=== PATIENT | female | born 1955 | race Caucasian/White ===

== ENCOUNTER 2016-05-19 10:55 | Day surgery (SDC) | payer OTHER ==
[2016-05-14 13:44] VITALS: BMI 37.8
[~2016-05-19 10:55] MED LIST: DEXAMETHASONE SOD PHOSPHATE 10 MG/ML 1 ML VIAL IV ONE; HEPARIN SODIUM,PORCINE 5,000 UNIT/ML 1 ML VIAL SQ ONE; LACTATED RINGERS 1,000 ML IV SCH; LIDOCAINE 1% 20 ML VIAL (10MG/ML) FOR IV START INTRADERMA PRN; ONDANSETRON 4 MG/2 ML VIAL IVP ONE; SCOPOLAMINE 1.5MG/72HR PATCH TRANSDERM ONE; ceFAZolin 2 GM in SODIUM CHLORIDE 0.9% 100 ML IVPB ONE
[2016-05-19] MEDS ORDERED: GLYCOPYRROLATE 0.2 MG/ML 2 ML VIAL ONE (13:08)
[2016-05-19] MEDS ORDERED: fentaNYL (PF) 50 MCG/ML 2 ML AMP ONE (13:08)
[2016-05-19] MEDS ORDERED: LIDOCAINE 1% INJ 10MG/ML (20 ML MDV) ONE (13:08)
[2016-05-19] MEDS ORDERED: SUCCINYLCHOLINE CHLORIDE 100 MG/5 ML SYR IV ONE (13:08)
[2016-05-19] MEDS ORDERED: NEOSTIGMINE 1 MG/ML 10 ML VIAL ONE (13:08)
[2016-05-19] MEDS ORDERED: MIDAZOLAM 2 MG/2 ML VIAL ONE (13:08)
[2016-05-19] MEDS ORDERED: ROCURONIUM BROMIDE 10 MG/ML 10 ML VIAL IV ONE (13:08)
[2016-05-19] MEDS ORDERED: KETOROLAC 30 MG/ML 1 ML VIAL ONE (13:08)
[2016-05-19] MEDS ORDERED: PROPOFOL 10 MG/ML 20 ML VIAL IV ONE (13:08)
[2016-05-19] MEDS ORDERED: HYDROmorphone (PF) 1 MG/ML ONE (13:08)
[2016-05-19] MEDS ORDERED: BUPIVACAIN-EPI 0.25%-1:200,000 30 ML VIAL SQ ONE (13:31)
[2016-05-19] MEDS: HYDROmorphone 1 MG/ML 1 ML SYRINGE IVP PRN ×4 (14:18→14:42)
[2016-05-19 14:24] VITALS: RESP 18; TEMP 97
[2016-05-19] MEDS ORDERED: ONDANSETRON 4 MG/2 ML VIAL IVP ONE (14:27)
[2016-05-19 15:18] VITALS: BP 123/76; PULSE 90
--- NOTE | 2016-07-07 17:55 | P.OP ---
Date of Procedure: 05/19/16 Preoperative Diagnosis: Symptomatic cholelithiasis Postoperative Diagnosis: Same Procedure(s) Performed: Laparoscopic cholecystectomy Anesthesia: MACIEJ Surgeon: Lina Singh Pathology: other Condition: stable (ASA 3) Disposition: PACU Indications for Procedure: 61 years old female presents with symptomatic cholelithiasis. Informed consent obtained patient opted to undergo laparoscopic cholecystectomy possible open Description of Procedure: The patient was brought to the operating room and placed in supine position with both arms out. General anesthesia with endotracheal intubation was performed as per anesthesia team. Chlorhexidine was used to prep the abdomen followed by application of sterile drapes. A timeout was performed to verify correct patient and correct procedure. Patient was confirmed to receive perioperative IV antibiotics , heparin 5000 units subcutaneous injection and bilateral SCDs were placed. A 5 mm skin incision was made below the left costal margin at the anterior axillary line. A Veress needle was inserted and pneumoperitoneum was established to a pressure of 15 mmHg. A 5 mm Optiview trocar was loaded on a 5 mm 30 laparoscope and the peritoneal cavity was entered under direct vision using the Optiview technique. Additional 5 mm trocar was placed in the supraumbilical location and two 5 mm trocars along the right subcostal margin. The left 5 mm trocar was upsized to 10mm. The patient was placed in reverse Trendelenburg with right side up. The fundus of the gallbladder was grasped with an atraumatic grasper and was retracted over the dome of the liver. The infundibulum was grasped with an atraumatic grasper and retracted towards the pelvis to expose the Calot's triangle. Lateral and medial peritoneal attachment of the gallbladder bladder was dissected. Circumferential dissection was carried out around the cystic artery and the cystic duct to obtain adequate length for clip application. All the surrounding fibrofatty tissue were removed. Critical view was obtained with cystic duct and cystic artery as the only two structures entering the gallbladder. Two clips were applied on the patient's side and one on the specimen side on the cystic duct first followed by the cystic artery. Endoshears were used to divide the cystic duct and the cystic artery. The gallbladder was taken off the liver bed using a L-hook. It was placed in an endocatch specimen bag and removed through the 10mm port. The gallbladder was passed off as a specimen. The abdominal cavity was inspected. The clips on the cystic duct and cystic artery stump were intact and no bleeding noted from the liver bed. All the trocar sites were examined and no evidence of bleeding. The 10mm port site was closed with two transfascial sutures of 0 Vicryl using a Delano Anai device. The pneumoperitoneum was evacuated and all the trocars were removed. Local anesthetic was infiltrated along the trocar sites and incisions were closed using 4-0 Monocryl followed by application of Dermabond skin glue. The sponge, instrument and needle count were correct x2. Patient was extubated and taken to post anesthesia care unit in stable condition.
--- NOTE | 2016-07-09 12:11 | P.GSHP ---
History of Present Illness H&P Date: 05/19/16 61 yr old female initially presented in 11/2015 with RUQ pain worsened with greasy food. US showed gallstones. HIDA - hypercontractile GB function. No fever , chills or rigor. She has seen Dr. Lawrence . She is high risk for perioperative pulmonary complications. Now has diarrhea and rectal bleeding. EGD showed Hillgrade 2 hiatal hernia, H.pylori negative. Colonoscopy- rectal mucosal prolapse, sigmoid diverticulosis and rectal mucosal prolapse Still has pain in RUQ with food. ROS Additionally reports: Constitutional: No fever, chills or rigors. No weight loss or loss of appetite. HEENT: No difficulty with hearing, vision and swallowing. Lymphatic: No axillary, inguinal and cervical swellings. Endocrine: Hypothyroidism. Denies history of diabetes. Respiratory: Chronic cough. COPD on home 02 at 3L/nydia Cardiovascular: No palpitations, irregular HR Gastrointestinal: Diarrhea and heartburn Genitourinary: No increase in urinary frequency or urgency. No hematuria. Musculoskeletal: Has back pain and knee pain Neurologic: No history of seizure disorder and headaches. Psychiatric: Has depression and chronic pain Hematologic: Denies any abnormal mucosal bleeding or easy bruising. Physical Exam Patient is a 61-year-old female. Constitutional: General Appearance: well-developed and obese. Level of Distress : mild distress. Ambulation: ambulation with cane and walker. Psychiatric: Insight: good judgement. Orientation: to time, place, and person. Head: Head: normocephalic and atraumatic. Eyes: Lids and Conjunctivae: no discharge or pallor and non-injected. Sclerae: non-icteric. ENMT: Oropharynx: moist mucous membranes. Lungs: Respiratory effort: dyspneic and use of accessory muscles. Auscultation: breath sounds normal. Abdomen: Bowel Sounds: normal. Inspection and Palpation: no tenderness or guarding and soft and non-distended. Musculoskeletal:: Motor Strength and Tone: normal and normal tone. Joints, Bones , and Muscles: normal movement of all extremities. Extremities: no cyanosis or edema. Neurologic: Gait and Station: normal gait and station. Cranial Nerves: grossly intact. Assessment / Plan 1. EGD and colonoscopy findings discussed . Manage GERD with PPIs 2. Anemia resolved - Last Hb 12.6 . 3. She will be attending weight loss program at [facility] 4. Concerned about celiac disease. Requesting Gi referral 5. Symptomatic cholelithiasis. Informed consent obtained from the patient after explaining the risks, benefits and potential complications of laparoscopic cholecystectomy including bleeding, infection, DVT , inadvertent bile duct injury and possibility of converting to open. Patient demonstrated understanding of the procedure and agreed to undergo lap nata possible open at a later date 6. Expected post op course discussed including no heavy lifting >10 lbs for 6 weeks post surgery Preop orders: 1. Ancef 2 gm IVPB x1 2. Bilateral lower extremity SCDs 3. Heparin 5000 Units SQ injection x1 1. Cholelithiasis without obstruction K80.20: Calculus of gallbladder without cholecystitis without obstruction 2. Chronic obstructive lung disease J44.9: Chronic obstructive pulmonary disease, unspecified CHRONIC OBSTRUCTIVE PULMONARY DISEASE (COPD): CARE INSTRUCTIONS LEARNING ABOUT COPD AND HOW TO PREVENT LUNG INFECTIONS 3. Gastroesophageal reflux disease without esophagitis K21.9: Gastro-esophageal reflux disease without esophagitis 4. Painless rectal bleeding K62.5: Hemorrhage of anus and rectum 5. Diarrhea R19.7: Diarrhea, unspecified DIARRHEA: CARE INSTRUCTIONS 6. Body mass index 30+ - obesity Z68.39: Body mass index (BMI) 39.0-39.9, adult Past Medical History Past Medical History: COPD, GERD/Reflux, Hyperlipidemia, Hypertension, Osteoarthritis (OA), Sleep Apnea/CPAP/BIPAP Additional Past Medical History / Comment(s): Osteoporosis,uses cpap,sob,hiatal hernia,tremors,dtr states "has 40% lung copacity" History of Any Multi-Drug Resistant Organisms: None Reported Past Surgical History: No Surgical Hx Reported Additional Past Surgical History / Comment(s): EGD,colonoscopy Past Anesthesia/Blood Transfusion Reactions: Previous Problems w/ Anesthesia, Family History of Problems w/ Anesthesia Additional Past Anesthesia/Blood Transfusion Reaction / Comment(s): hx of O2 sats dropping with sedation during EGD/Colonoscopy,never has had general anesthesia,son arrested during surgery-hx of being on oxygen.no hx blood transfusion Past Psychological History: Anxiety, PTSD Smoking Status: Former smoker Past Alcohol Use History: None Reported Additional Past Alcohol Use History / Comment(s): quit smoking 2015,smoked approx 40 yrs 1ppd Past Drug Use History: None Reported - Past Family History Mother Family Medical History: Cancer, Diabetes Mellitus, Myocardial Infarction ([place]) Additional Family Medical History / Comment(s): skin, in her 80's of [place] Father Family Medical History: No Reported History Brother(s) Family Medical History: Myocardial Infarction ([place]) Medications and Allergies Home Medications Medication Instructions Recorded Confirmed Type Albuterol Sulfate [Proair Hfa] 1 - 2 puff INHALATION RT-Q6H PRN 08/31/15 History Diphenoxylate HCl/Atropine 2 tab PO QID PRN 08/31/15 05/19/16 History [Lomotil] Ipratropium/Albuterol Sulfate 2 puff INHALATION RT-BID 08/31/15 05/19/16 History [Combivent Respimat Inhaler] Primidone [Mysoline] 250 mg PO TID 08/31/15 05/19/16 History ARIPiprazole [Abilify] 10 mg PO HS 10/29/15 05/19/16 History Calcium Carbonate/Vitamin D3 1 tab PO BID 10/29/15 05/19/16 History [Calcium 600-Vit D3 800 Tab] Cholecalciferol [Vitamin D3] 2,000 unit PO DAILY 10/29/15 05/19/16 History Ibuprofen [Motrin] 600 mg PO QID PRN 10/29/15 05/19/16 History Ipratropium-Albuterol Nebulize 3 ml INHALATION RT-QID PRN 10/29/15 05/19/16 History [Duoneb 0.5 mg-3 mg/3 ml Soln] Fluticasone/Salmeterol [Advair Hfa 2 puff INHALATION RT-BID 01/29/16 05/19/16 History 230-21 Mcg Inhaler] Gluc/[place]-MSM#1/C/Seb/Ghanshyam/Bor 1 tab PO BID 01/29/16 05/19/16 History [Glucosamine-Chondroitin Tablet] L.acidoph,Paracasei, B.lactis 1 cap PO DAILY 01/29/16 05/19/16 History [Probiotic] Levothyroxine Sodium [Synthroid] 25 mcg PO QAM 01/29/16 05/19/16 History Pantoprazole Sodium [Protonix] 40 mg PO QAM 01/29/16 05/19/16 History Tiotropium 18 Mcg/Puff [Spiriva] 1 cap INHALATION QAM 01/29/16 05/19/16 History oxyCODONE HCL 10 mg PO Q8H PRN 01/29/16 05/19/16 History Dicyclomine [Bentyl] 10 mg PO QID 05/14/16 05/19/16 History Simvastatin [Zocor] 20 mg PO HS 05/14/16 05/19/16 History Allergies Allergy/AdvReac Type Severity Reaction Status Date / Time No Known Allergies Allergy Verified 05/19/16 11:27 Surgical - Exam Vital Signs Temp Pulse Resp BP Pulse Ox 98.5 F 109 H 22 139/81 96 05/19/16 11:26 05/19/16 11:26 05/19/16 11:26 05/19/16 11:26 05/19/16 11:26 Assessment and Plan (1) Hypertension Status: Acute (2) Sleep apnea Status: Acute (3) COPD (chronic obstructive pulmonary disease) Status: Acute
== END 2016-05-19 15:31 | disposition home or self-care (01) ==
LOC: OR 10:55
PROVIDERS: ATTEND Surgery
DX: K80.10 Calculus of gallbladder with chronic cholecystitis without obstruction (principal); I10 Essential (primary) hypertension; E78.5 Hyperlipidemia, unspecified; J44.9 Chronic obstructive pulmonary disease, unspecified; Z87.891 Personal history of nicotine dependence; G47.33 Obstructive sleep apnea (adult) (pediatric); F41.9 Anxiety disorder, unspecified; F43.10 Post-traumatic stress disorder, unspecified; E07.9 Disorder of thyroid, unspecified; Z79.1 Long term (current) use of non-steroidal anti-inflammatories (NSAID); Z79.51 Long term (current) use of inhaled steroids; Z79.899 Other long term (current) drug therapy; Z99.81 Dependence on supplemental oxygen
CPT/HCPCS: 88304; 47562; J2250; J1644; J1100; J2710; J0690; J2405; J2001; J3010; J1885; J1170; J0330; J2704

== ENCOUNTER → 2016-05-29 | Outpatient (CLI) | payer OTHER ==
--- NOTE | 2016-05-29 11:22 | PN ---
DATE OF SERVICE: 05/29/2016 A 61-year-old lady who has been [facility] for obstructive sleep apnea-hypopnea syndrome. During previous polysomnogram which was done on 01/28/2016, apnea-hypopnea index was 3.7, which considered to be in normal range but in REM sleep it was 12.4 and lowest oxygen level was 78.8%. Presently patient is on treatment with oxygen supplement 3 L per minute 24 hours a day and she feels comfortable with that, does not feel significant sleepiness. [place] Sleepiness Scale today is 7. According to her daughter, she snores, but he did not hear any episodes of breathing problem during the sleep. Only my concern is that increased her weight as the polysomnogram from 195 pounds up to 220 pounds today. MEDICATIONS: Abilify, oxycodone, primidone, ( ), pantoprazole, Zoloft, Advair, Combivent, ProAir, pravastatin, melatonin, vitamin D3 supplement, glucosamine, calcium supplement, Synthroid. During physical exam, patient without distress on oxygen supplement 3 L per minute. BP 134/88, HR 86, RR 16, temp 97.9. Weight 220, height 5, 3, BMI 38.9. Oxygen saturation 99%. Oropharynx low position of soft palate. ABDOMEN: Obese. NECK: Supple. No JVD, Thyroid is not palpable. LUNGS: Clear to percussion and to auscultation. Good air exchange. No wheezing or rhonchi. HEART: S1, S2 regular. No murmurs, gallops, or rubs. APPLIANCE LINE ASSEMBLER: Awake, alert, and oriented x3. Cranial nerves 2 to 7 intact. There is no fasciculation or atrophy noted. No focal deficits observed. IMPRESSION: 1. History of obstructive sleep apnea-hypopnea syndrome. No significant respiratory abnormalities during the last polysomnogram in January of 2016. but since that time patient increased her weight on about 25 pounds. 2. Oxygen level during the test was below normal for 6 minutes during the sleep study but presently she is on oxygen supplement. 3. Chronic obstructive pulmonary disease. 4. Obesity. 5. History of posttraumatic stress disorder. 6. Depression. 7. Knee problem. 8. Back pain. 9. History of sleep delay syndrome. 10. Hypothyroidism. PLAN: 1. We will repeat the sleep study preferably at home to re-evaluate patient's breathing during the sleep. 2. Losing weight. 3. Sleep hygiene with regular time in bed for at least 8 hours. 4. Patient does not drive at the present time. Thank you very much for allowing me to participate in the management of your patient. Sincerely, Alcides King MD, PhD, FAASM Diplomat of [place] [employer], Sleep Medicine Board by [place] [employer] [place] [employer] [place] Sales Representative of [facility] [place]
== END | disposition home or self-care (01) ==
LOC: SLEEP 09:59
PROVIDERS: ATTEND Internal Medicine
DX: G47.33 Obstructive sleep apnea (adult) (pediatric) (principal); J44.9 Chronic obstructive pulmonary disease, unspecified; E66.9 Obesity, unspecified; F43.10 Post-traumatic stress disorder, unspecified; F32.9 Major depressive disorder, single episode, unspecified; M54.9 Dorsalgia, unspecified; G47.21 Circadian rhythm sleep disorder, delayed sleep phase type; E03.9 Hypothyroidism, unspecified; Z68.38 Body mass index [BMI] 38.0-38.9, adult

== ENCOUNTER → 2016-08-14 | Outpatient (CLI) | payer OTHER ==
--- NOTE | 2016-08-14 12:18 | PN ---
DATE OF SERVICE: 08/14/2016 A 61-year-old lady who has been followed in the sleep center to discuss results of the sleep studies. The patient previously was treated on CPAP for obstructive sleep apnea/hypopnea syndrome then sleep study was done and showed no significant respiratory abnormalities but patient increased her weight and I ordered to repeat the sleep study again. When the sleep study was repeated on 07/18/16, there was no significant respiratory abnormalities at all, apnea-hypopnea index was 0.3 with oxygen level above 84.3%.The time of the low oxygen below 88% was only 0.7 minutes. Subsequently results of the test was normal regarding to her sleep apnea and did not show significant amount of sleep apneas or hypopneas. Today, her weight again is 218.6 pounds, which is 23 pounds more than during the sleep study. She does not use machine at the present time. She is using oxygen 24 hours a day 3 L per minute. She has some snoring during sleep at home and moderate to loud snoring also documented during the sleep test. MEDICATIONS: Abilify, Oxycodone, Primidone, Lomotil, pantoprazole, Zoloft, Advair, Pro-Air, Combivent, pravastatin, melatonin, Vitamin D3, calcium supplement, Synthroid. During physical exam, patient is in no distress. VITAL SIGNS: BP 131/85, HR 107, RR 15, height 63 inches, weight 218.6. BMI 38.6. Temperature 98.1. Oxygen saturation on 3 L per minute oxygen supplement 98%. HEENT: PERRLA, EOMI. Oropharynx low position of soft palate. NECK: Supple. No JVD, Thyroid is not palpable. LUNGS: Clear to percussion and to auscultation. Good air exchange. No wheezing or rhonchi. HEART: S1, S2 regular. Tachycardia. ABDOMEN: Obese. LOAD DISPATCHER: Awake, alert, and oriented x3. Cranial nerves 2 to 7 intact. There is no fasciculation or atrophy noted. No focal deficits observed. EXTREMITIES: No edema. IMPRESSION: 1. No significant respiratory abnormalities on evaluation due to sleep apneas and hypopneas by last sleep study, which was done on 07/08/16, but since that time patient again increased her weight on about 18 pounds. 2. Moderate to loud snoring had been documented during the sleep study. 3. Obesity. 4. Chronic obstructive pulmonary disease. 5. History of posttraumatic stress disorder. 6. Depression. 7. Knee problem. 8. Back pain. 9. History of sleep delay syndrome. 10. Hypothyroidism. PLAN: 1. Losing weight. 2. Sleep hygiene with regular time in bed for at least 8 hours. 3. No driving if feeling any sleepiness. 4. Patient will continue to use her oxygen. Thank you very much for allowing me to participate in the management of your patient. Sincerely, Alcides King MD, PhD, FAASM Diplomat of [place] [employer] Sleep Medicine, Sleep Medicine Board by [place] [employer] [place] [employer] Powder Loader of [facility] [place]
== END ==
LOC: SLEEP 10:13
PROVIDERS: ATTEND Internal Medicine
DX: R06.83 Snoring (principal); F32.9 Major depressive disorder, single episode, unspecified; E66.9 Obesity, unspecified; E03.9 Hypothyroidism, unspecified; Z79.51 Long term (current) use of inhaled steroids; Z79.899 Other long term (current) drug therapy

== ENCOUNTER 2016-09-08 06:35 | Day surgery (SDC) | payer OTHER ==
[2016-09-03 09:41] VITALS: BMI 37.4
[~2016-09-08 06:35] MED LIST changes: -HEPARIN SODIUM,PORCINE 5,000 UNIT/ML 1 ML VIAL SQ ONE; +HYDROmorphone 1 MG/ML 1 ML SYRINGE IVP PRN; -LIDOCAINE 1% 20 ML VIAL (10MG/ML) FOR IV START INTRADERMA PRN; +MIDAZOLAM 2 MG/2 ML VIAL IV PRN; +Pre Op ABX Message 1 EACH MISC MISCELLANE ONE; -ceFAZolin 2 GM in SODIUM CHLORIDE 0.9% 100 ML IVPB ONE
[2016-09-08] MEDS ORDERED: LIDOCAINE 1% 20 ML VIAL (10MG/ML) FOR IV START INTRADERMA ONE (07:15)
[2016-09-08] MEDS ORDERED: BUPIVACAINE (PF) 0.5% 30 ML VIAL INTRAARTIC ONE (07:30)
[2016-09-08] MEDS ORDERED: MIDAZOLAM 2 MG/2 ML VIAL ONE (07:30)
[2016-09-08] MEDS ORDERED: fentaNYL (PF) 50 MCG/ML 2 ML AMP ONE (07:30)
[2016-09-08] MEDS ORDERED: SODIUM CHLORIDE 0.9% 100 ML with ceFAZolin 2,000 MG IV ONE ×2 (07:58)
[2016-09-08 08:48] VITALS: RESP 16; TEMP 97.6
[2016-09-08 11:17] VITALS: BP 123/75; PULSE 96
--- NOTE | 2016-09-17 07:54 | OP ---
DATE OF SERVICE: 09/08/2016 SURGEON: Toni Olsen DO EMERGENCY VEHICLE DRIVER: none PREOPERATIVE DIAGNOSIS: Degenerative joint disease of the left knee with torn medial meniscus. 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 PROCEDURE PERFORMED: Left knee arthroscopy partial medial meniscectomy and medial femoral chondroplasty. ANESTHESIA: PROCEDURE: Patient was taken to the operative suite and placed in supine position. General inhalation anesthesia was performed by the department of anesthesiology. The left leg is positioned into leg stephenson. Betadine prep carried out over the left knee, mid thigh to mid calf . Sterile drapes applied in the usual manner. The superior trocar was inserted. The scope was then inserted anterior and inferior lateral portal and medial compartment. No evidence of medial meniscus displacement at this time. The ACL remains intact. Bilateral meniscus was examined and evidence of mild peripheral degenerative change of the lateral meniscus has been noted. Condyle shaver was performed at this time. Irrigation of the joint performed. All instruments were removed. Portal wounds were approximated with 3-0 Vicryl suture. Sterile dressing was applied. Patient was transferred to the recovery room in satisfactory postop condition. GROSS PATHOLOGY: There was partial tear of the medial meniscus grade 2 chondromalacia of the medial femoral condyle. MTDD
== END 2016-09-08 11:45 | disposition home or self-care (01) ==
LOC: OR 06:35
PROVIDERS: ATTEND Orthopaedic Surgery
DX: S83.242A Other tear of medial meniscus, current injury, left knee, initial encounter (principal); X58.XXXA Exposure to other specified factors, initial encounter; M94.262 Chondromalacia, left knee; M17.12 Unilateral primary osteoarthritis, left knee; I10 Essential (primary) hypertension; E78.5 Hyperlipidemia, unspecified; J44.9 Chronic obstructive pulmonary disease, unspecified; G47.33 Obstructive sleep apnea (adult) (pediatric); Z99.81 Dependence on supplemental oxygen; Z87.891 Personal history of nicotine dependence; K21.9 Gastro-esophageal reflux disease without esophagitis; F32.9 Major depressive disorder, single episode, unspecified; F43.10 Post-traumatic stress disorder, unspecified; E07.9 Disorder of thyroid, unspecified; Z79.891 Long term (current) use of opiate analgesic; Z79.899 Other long term (current) drug therapy
CPT/HCPCS: 29881; J2250; J1100; J2405; J3010; J0690

== ENCOUNTER → 2016-12-19 | Outpatient (CLI) | payer OTHER ==
--- NOTE | 2016-12-19 11:51 | CT ---
EXAMINATION TYPE: CT chest w con DATE OF EXAM: 12/19/2016 COMPARISON: NONE HISTORY: Multiple lung nodules CT DLP: 558.2 mGycm, Automated exposure control for dose reduction was used. CONTRAST: Performed injected with 100 mL of Omnipaque 300. TECHNIQUE: Axial images were obtained at 5 mm thick sections. Reconstructed images are reviewed on [facility] computer in the coronal plane. FINDINGS: Portion of the thyroid visualized is normal. Some areas of pneumonitis are within the posterior lingula adjacent to the major fissure in the left midlung. There is a 0.5 cm nodule within the anterior right middle lobe. Series 5 image 36. No enlarged mediastinal or hilar adenopathy is evident. The ascending aorta diameter at the level o f the main pulmonary artery is 3.7 cm. The main pulmonary artery diameter at the bifurcation is 2.[address] sections are obtained through the upper abdomen. Abdomen is essentially unremarkable. IMPRESSIONS: 1. 0.5 cm nodule anterior right mid lung. 2. Area of pneumonitis within the lingula.
== END | disposition home or self-care (01) ==
LOC: RADCTMAIN 09:02
PROVIDERS: ATTEND Internal Medicine Critical Care Medicine
DX: J18.9 Pneumonia, unspecified organism (principal); R91.1 Solitary pulmonary nodule
CPT/HCPCS: 71260; Q9967

== ENCOUNTER 2017-05-23 13:03 | Inpatient (IN) | payer OTHER ==
[2017-05-23] MEDS ORDERED: IPRATROPIUM-ALBUTEROL 3 ML NEB INHALATION STA (13:16)
--- NOTE | 2017-05-23 13:19 | ED ---
General Adult HPI - General Stated complaint: Chest pain Time Seen by Provider: 05/23/17 13:05 Source: RN notes reviewed - History of Present Illness Initial comments: This is a 62-year-old female with past medical history significant for COPD. Patient states the last 3 days been coughing up some blood and a little bit of sputum as well. Patient states she's had no fever. Patient states today she started having left-sided chest pain which radiates to her back. Patient denies any diaphoretic episodes. Patient denies any nausea. Patient denies abdominal pain patient denies vomiting or diarrhea. Patient denies any lightheadedness dizziness or near syncopal episode. Patient denies any headache patient denies any numbness or weakness. Patient denies any leg swelling or calf pain. - Related Data Home Medications Medication Instructions Recorded Confirmed Albuterol Sulfate [Proair Hfa] 2 puff INHALATION RT-BID PRN 08/31/15 05/23/17 Diphenoxylate HCl/Atropine 2 tab PO QID PRN 08/31/15 05/23/17 [Lomotil] Ipratropium/Albuterol Sulfate 2 puff INHALATION RT-BID 08/31/15 05/23/17 [Combivent Respimat Inhaler] Primidone [Mysoline] 250 mg PO QAM 08/31/15 05/23/17 Cholecalciferol [Vitamin D3] 2,000 unit PO QAM 10/29/15 05/23/17 Ipratropium-Albuterol Nebulize 3 ml INHALATION RT-QID PRN 10/29/15 05/23/17 [Duoneb 0.5 mg-3 mg/3 ml Soln] Fluticasone/Salmeterol [Advair Hfa 2 puff INHALATION RT-BID 01/29/16 05/23/17 230-21 Mcg Inhaler] Levothyroxine Sodium [Synthroid] 25 mcg PO QAM 01/29/16 05/23/17 Pantoprazole Sodium [Protonix] 40 mg PO QAM 01/29/16 05/23/17 Tiotropium 18 Mcg/Puff [Spiriva] 1 cap INHALATION RT-DAILY 01/29/16 05/23/17 Dicyclomine [Bentyl] 10 mg PO QID 05/14/16 05/23/17 Simvastatin [Zocor] 20 mg PO HS 05/14/16 05/23/17 Citalopram Hydrobromide [CeleXA] 20 mg PO HS 05/23/17 05/23/17 Primidone [Mysoline] 500 mg PO HS 05/23/17 05/23/17 busPIRone HCL [Buspar] 7.5 mg PO BID 05/23/17 05/23/17 Allergies Allergy/AdvReac Type Severity Reaction Status Date / Time No Known Allergies Allergy Verified 05/23/17 14:34 Review of Systems ROS Statement: Those systems with pertinent positive or pertinent negative responses have been documented in the HPI. ROS Other: All systems not noted in ROS Statement are negative. Past Medical History Past Medical History: COPD, GERD/Reflux, Hyperlipidemia, Hypertension, Osteoarthritis (OA), Sleep Apnea/CPAP/BIPAP Additional Past Medical History / Comment(s): Osteoporosis,uses cpap,sob,hiatal hernia,tremors,dtr states "has 40% lung copacity" History of Any Multi-Drug Resistant Organisms: None Reported Past Surgical History: No Surgical Hx Reported Additional Past Surgical History / Comment(s): EGD,colonoscopy Past Anesthesia/Blood Transfusion Reactions: Previous Problems w/ Anesthesia, Family History of Problems w/ Anesthesia Additional Past Anesthesia/Blood Transfusion Reaction / Comment(s): hx of O2 sats dropping with sedation during EGD/Colonoscopy,never has had general anesthesia,son arrested during surgery-hx of being on oxygen.no hx blood transfusion Smoking Status: Former smoker - Past Family History Mother Family Medical History: Cancer Additional Family Medical History / Comment(s): skin Father Family Medical History: No Reported History Brother(s) Family Medical History: Myocardial Infarction ([place]) Sister(s) Family Medical History: Cancer General Exam - General Exam Comments Initial Comments: GENERAL: Patient is well-developed and well-nourished. Patient is nontoxic and well- hydrated and is in milddistress. ENT: Neck is soft and supple. No significant lymphadenopathy is noted. Oropharynx is clear. Moist mucous membranes. Neck has full range of motion without eliciting any pain. There is no thyroid enlargement and no masses were felt. EYES: The sclera were anicteric and conjunctiva were pink and moist. Extraocular movements were intact and pupils were equal round and reactive to light. Eyelids were unremarkable. PULMONARY: Patient has diminished breath sounds bilaterally CARDIOVASCULAR: There is a regular rate and rhythm without any murmurs gallops or rubs. ABDOMEN: Soft and nontender with normal bowel sounds. No palpable organomegaly was noted. There is no palpable pulsatile mass. SKIN: Skin is clear with no lesions or rashes and otherwise unremarkable. NEUROLOGIC: Patient is alert and oriented x3. Cranial nerves II through XII are grossly intact. Motor and sensory are also intact. Normal speech, volume and content. Symmetrical smile. MUSCULOSKELETAL: Normal extremities with adequate strength and full range of motion. No lower extremity swelling or edema. No calf tenderness. LYMPHATICS: No significant lymphadenopathy is noted PSYCHIATRIC: Normal psychiatric evaluation. Normal interpersonal interactions appears functionally intact in deals appropriately with others. No signs of depression. No signs of anxiety. 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 Patient's EKG shows no ST segment elevation or depression or T wave abnormalities are noted - Lab Data Result diagrams: 05/23/17 13:25 05/23/17 13:25 Lab Results 05/23/17 05/23/17 05/23/17 Range/Units 13:25 13:25 13:25 WBC 9.0 (3.8-10.6) k/uL RBC 4.06 (3.80-5.40) m/uL Hgb 11.7 (11.4-16.0) gm/dL Hct 35.4 (34.0-46.0) % MCV 87.3 (80.0-100.0) fL MCH 28.9 (25.0-35.0) pg MCHC 33.1 (31.0-37.0) g/dL RDW 13.1 (11.5-15.5) % Plt Count 220 (150-450) k/uL Neutrophils % 79 % Lymphocytes % 13 % Monocytes % 5 % Eosinophils % 1 % Basophils % 0 % Neutrophils # 7.1 (1.3-7.7) k/uL Lymphocytes # 1.2 (1.0-4.8) k/uL Monocytes # 0.5 (0-1.0) k/uL Eosinophils # 0.1 (0-0.7) k/uL Basophils # 0.0 (0-0.2) k/uL PT (9.0-12.0) sec INR (<1.2) APTT (22.0-30.0) sec D-Dimer (<0.60) mg/L FEU Sodium 144 (137-145) mmol/L Potassium 3.8 (3.5-5.1) mmol/L Chloride 105 (98-107) mmol/L Carbon Dioxide 27 (22-30) mmol/L Anion Gap 12 mmol/L BUN 10 (7-17) mg/dL Creatinine 0.54 (0.52-1.04) mg/dL Est GFR (CKD-EPI)AfAm >90 (>60 ml/min/1.73 sqM) Est GFR (CKD-EPI)NonAf >90 (>60 ml/min/1.73 sqM) Glucose 101 H (74-99) mg/dL Calcium 9.5 (8.4-10.2) mg/dL Magnesium 1.9 (1.6-2.3) mg/dL Total Bilirubin 0.2 (0.2-1.3) mg/dL AST 13 L (14-36) U/L ALT 23 (9-52) U/L Alkaline Phosphatase 74 (38-126) U/L Total Creatine Kinase 34 (30-135) U/L CK-MB (CK-2) 0.9 (0.0-2.4) ng/mL CK-MB (CK-2) Rel Index 2.6 Troponin I <0.012 (0.000-0.034) ng/mL NT-Pro-B Natriuret Pep pg/mL Total Protein 6.4 (6.3-8.2) g/dL Albumin 4.0 (3.5-5.0) g/dL 05/23/17 05/23/17 Range/Units 13:25 13:25 WBC (3.8-10.6) k/uL RBC (3.80-5.40) m/uL Hgb (11.4-16.0) gm/dL Hct (34.0-46.0) % MCV (80.0-100.0) fL MCH (25.0-35.0) pg MCHC (31.0-37.0) g/dL RDW (11.5-15.5) % Plt Count (150-450) k/uL Neutrophils % % Lymphocytes % % Monocytes % % Eosinophils % % Basophils % % Neutrophils # (1.3-7.7) k/uL Lymphocytes # (1.0-4.8) k/uL Monocytes # (0-1.0) k/uL Eosinophils # (0-0.7) k/uL Basophils # (0-0.2) k/uL PT 9.8 (9.0-12.0) sec INR 1.0 (<1.2) APTT 27.4 (22.0-30.0) sec D-Dimer 0.80 H (<0.60) mg/L FEU Sodium (137-145) mmol/L Potassium (3.5-5.1) mmol/L Chloride (98-107) mmol/L Carbon Dioxide (22-30) mmol/L Anion Gap mmol/L BUN (7-17) mg/dL Creatinine (0.52-1.04) mg/dL Est GFR (CKD-EPI)AfAm (>60 ml/min/1.73 sqM) Est GFR (CKD-EPI)NonAf (>60 ml/min/1.73 sqM) Glucose (74-99) mg/dL Calcium (8.4-10.2) mg/dL Magnesium (1.6-2.3) mg/dL Total Bilirubin (0.2-1.3) mg/dL AST (14-36) U/L ALT (9-52) U/L Alkaline Phosphatase (38-126) U/L Total Creatine Kinase (30-135) U/L CK-MB (CK-2) (0.0-2.4) ng/mL CK-MB (CK-2) Rel Index Troponin I (0.000-0.034) ng/mL NT-Pro-B Natriuret Pep 87 pg/mL Total Protein (6.3-8.2) g/dL Albumin (3.5-5.0) g/dL Disposition Clinical Impression: Hemoptysis, Lung mass, Dyspnea, Chest pain Disposition: ADMITTED IP TO THIS HOSP Referrals: Steven Mercado MD [Primary Care Provider] - 1-2 days Time of Disposition: 15:44
[2017-05-23 13:43] LABS: Basophils % (A) 0 %; Eosinophils # (A) 0.1 k/uL (0-0.7); Eosinophils % (A) 1 %; HCT 35.4 % (34.0-46.0); HGB 11.7 gm/dL (11.4-16.0); Lymphocytes # (A) 1.2 k/uL (1.0-4.8); Lymphocytes % (A) 13 %; MCH 28.9 pg (25.0-35.0); MCHC 33.1 g/dL (31.0-37.0); MCV 87.3 fL (80.0-100.0); Mean Platelet Volume 7.6; Monocytes # (A) 0.5 k/uL (0-1.0); Monocytes % (A) 5 %; Neutrophils # (A) 7.1 k/uL (1.3-7.7); Neutrophils % (A) 79 %; Platelet Count 220 k/uL (150-450); RBC 4.06 m/uL (3.80-5.40); RDW 13.1 % (11.5-15.5)
[2017-05-23 13:53] LABS: ALT 23 U/L (9-52); AST 13 U/L (14-36); Alkaline Phosphatase 74 U/L (38-126); Anion Gap 12 mmol/L; Blood Urea Nitrogen 10 mg/dL (7-17); Calcium 9.5 mg/dL (8.4-10.2); Carbon Dioxide 27 mmol/L (22-30); Chloride 105 mmol/L (98-107); Glucose 101 mg/dL (74-99); Magnesium 1.9 mg/dL (1.6-2.3); Potassium 3.8 mmol/L (3.5-5.1); Sodium 144 mmol/L (137-145); Total Bilirubin 0.2 mg/dL (0.2-1.3); Total Protein 6.4 g/dL (6.3-8.2)
[2017-05-23 13:57] LABS: D-Dimer 0.8 mg/L FEU (<0.60)
[2017-05-23 14:02] LABS: Partial Thromboplastin Time 27.4 sec (22.0-30.0); Prothrombin Time 9.8 sec (9.0-12.0)
[2017-05-23 14:07] LABS: Creatine Kinase 34 U/L (30-135)
--- NOTE | 2017-05-23 14:15 | XR ---
EXAMINATION TYPE: XR chest 2V DATE OF EXAM: 05/23/2017 COMPARISON: Prior chest 01/29/[address] 12/19/2016 HISTORY: Difficulty breathing, chest pain and cough TECHNIQUE: Frontal and lateral views of the chest are obtained. FINDINGS: There is no focal air space opacity, pleural effusion, or pneumothorax seen. The cardiac silhouette size is within normal limits. Prominent lung volumes are indicative of underlying COPD. T here is bronchial wall thickening. The osseous structures are intact. IMPRESSION: Correlate for bronchitis, reactive airways disease, emphysema demonstrated on prior ches t CT.
[2017-05-23 14:20] LABS: Creatine Kinase MB 0.9 ng/mL (0.0-2.4); Troponin I <0.012 ng/mL (0.000-0.034)
[2017-05-23] MEDS ORDERED: RX INFO: IV CONTRAST WAS GIVEN 1 EACH MISC MISCELLANE PRN (14:35)
--- NOTE | 2017-05-23 15:21 | CT ---
EXAMINATION TYPE: CT chest angio for PE DATE OF EXAM: 05/23/2017 COMPARISON: CT chest 12/19/2016 HISTORY: SOB, Lt sided chest pain, hemoptysis CT DLP: 550 mGycm Automated exposure control for dose reduction was used. Three-dimensional reconstructions performed o n an alternate workstation. CONTRAST: CT Chest for pulmonary embolism performed with with IV Contrast, patient injected with 100 mL of Omni paque 350. FINDINGS: LUNGS: The lungs are remarkable for nodule in the right upper lobe axial image 23 measuring only 3 to 4 mm. Subcentimeter subpleural nodule present in the right upper lobe on axial image 34 shows a imer lar appearance. Some linear scarring present in the right lower lobe laterally.. Extensive centrilobu lar emphysematous changes are present. There is no pleural effusion or pneumothorax seen. The trac heobronchial tree is patent. MEDIASTINUM: There is satisfactory enhancement of the pulmonary artery and its branches, there is no CT evidence for pulmonary embolism. There are no greater than 1 cm hilar or mediastinal lymph nodes. No pericardial effusion is seen. AORTA: No additional significant abnormality is seen. OTHER: Right hilar soft tissue suspicious for adenopathy. Some ill-defined soft tissue courses along the interlobar artery measuring approximately 2 cm x 3 cm suspicious for mass IMPRESSION: No evident pulmonary embolus. Emphysema. Indeterminate pulmonary nodules, follow-up recommended. Susp ect right hilar adenopathy, right lower lobe mass. Suggest pulmonary consult.
[2017-05-23] MEDS ORDERED: SODIUM CHLORIDE 0.9% 1,000 ML IV ONE (15:44)
[2017-05-23] MEDS ORDERED: MORPHINE SULFATE/PF 10MG/10ML VL IVP ONE (16:34)
[2017-05-23 17:21] VITALS: BMI 34.7
[2017-05-23] MEDS ORDERED: ALBUTEROL INHALER 60 PUFF/8 GM INHALER INHALATION PRN (17:30)
[2017-05-23] MEDS ORDERED: IPRATROPIUM-ALBUTEROL 3 ML NEB INHALATION PRN (17:30)
[2017-05-23] MEDS ORDERED: DIPHENOX-ATROP 2.5-0.025 MG 1 EACH TAB PO PRN (17:30)
[2017-05-23] MEDS: DICYCLOMINE 10 MG CAP PO SCH ×2 (19:52→20:40)
[2017-05-23] MEDS: MORPHINE SULFATE/PF 10MG/10ML VL IVP PRN (20:38)
[2017-05-23] MEDS: PRIMIDONE 250 MG TAB PO SCH (20:40)
[2017-05-23] MEDS: busPIRone HCl 5 MG TAB PO SCH (20:40)
[2017-05-23] MEDS: ATORVASTATIN 10 MG TAB PO SCH (20:40)
[2017-05-23] MEDS: CITALOPRAM HYDROBROMIDE 20 MG TAB PO SCH (20:40)
[2017-05-23] MEDS: CYCLOBENZAPRINE 5 MG TAB PO PRN (21:09)
[2017-05-23] MEDS: SYMBICORT 160-4.5 MCG INHALER INHALATION SCH (21:15)
[2017-05-23] MEDS: IPRATROPIUM-ALBUTEROL 3 ML NEB INHALATION SCH (21:17)
[2017-05-24] MEDS: LEVOTHYROXINE 25 MCG TAB PO SCH (06:08)
[2017-05-24] MEDS: IPRATROPIUM-ALBUTEROL 3 ML NEB INHALATION SCH ×2 (08:24→18:56)
[2017-05-24] MEDS: SYMBICORT 160-4.5 MCG INHALER INHALATION SCH (08:24)
[2017-05-24] MEDS: MORPHINE SULFATE/PF 10MG/10ML VL IVP PRN (08:37)
[2017-05-24] MEDS: busPIRone HCl 5 MG TAB PO SCH ×2 (08:43→20:29)
[2017-05-24] MEDS: PRIMIDONE 250 MG TAB PO SCH ×2 (08:43→20:29)
[2017-05-24] MEDS: PANTOPRAZOLE 40 MG TABLET PO SCH (08:43)
[2017-05-24] MEDS: DICYCLOMINE 10 MG CAP PO SCH ×4 (08:43→22:28)
[2017-05-24] MEDS: CYCLOBENZAPRINE 5 MG TAB PO PRN (08:44)
[2017-05-24] MEDS ORDERED: LEVOTHYROXINE 25 MCG TAB PO SCH (09:00)
--- NOTE | 2017-05-24 09:54 | P.CNPUL ---
History of Present Illness Consult date: 05/24/17 Reason for consult: dyspnea, cough, chest pain, abnormal CXR/CT Chief complaint: Shortness of breath and left chest pain History of present illness: Consult dated 05/24/2017 62-year-old female with history of severe pain. She apparently sees my partner for COPD and also sees my partner. Subcentimeter pulmonary nodules in the right lung. Apparently he is following this and lesions. A little for the past 3 days prior to admission she comes in complaining of increasing shortness of breath cough with some blood-tinged sputum as well as some left-sided chest pain and discomfort. The patient seems be sharp in her left breast radiating to her back area. She apparently was evaluated by chest x-ray which is normal and a CT angiogram which did not reveal anything unusual certainly, there is no pulmonary embolism. When it did show was a small pulmonary nodules in the right upper lobe as well as appears to be a right hilar mass with mediastinal adenopathy. This will certainly have to be evaluated. She is a heavy smoker. Recently quit. Smokes more than 2 packs a day for more than 40 years. She denies any fever or chills. No nausea vomiting or diarrhea. The patient does have a history of COPD which appears to be stage III disease based on what she tells me, with an FEV1 that is 40% of predicted, gastroesophageal reflux disease hyperlipidemia hypertension DJD and sleep apnea syndrome. She was a heavy smoker for more than 40 years. Review of Systems A 12 point review of system is positive for shortness of breath and cough. She is coughing up a small amount of blood-tinged sputum. In addition she has a pain in the left breast and chest area which radiates to the back. Past Medical History Past Medical History: COPD, GERD/Reflux, Hyperlipidemia, Hypertension, Osteoarthritis (OA), Sleep Apnea/CPAP/BIPAP Additional Past Medical History / Comment(s): Osteoporosis,uses cpap,sob,hiatal hernia,tremors,dtr states "has 40% lung copacity" History of Any Multi-Drug Resistant Organisms: None Reported Past Surgical History: No Surgical Hx Reported Additional Past Surgical History / Comment(s): EGD,colonoscopy Past Anesthesia/Blood Transfusion Reactions: Previous Problems w/ Anesthesia, Family History of Problems w/ Anesthesia Additional Past Anesthesia/Blood Transfusion Reaction / Comment(s): hx of O2 sats dropping with sedation during EGD/Colonoscopy,never has had general anesthesia,son arrested during surgery-hx of being on oxygen.no hx blood transfusion Past Psychological History: Anxiety, PTSD Smoking Status: Former smoker Past Alcohol Use History: None Reported Additional Past Alcohol Use History / Comment(s): quit smoking 2015,smoked approx 40 yrs 1ppd Past Drug Use History: None Reported - Past Family History Mother Family Medical History: Cancer Additional Family Medical History / Comment(s): skin Father Family Medical History: No Reported History Brother(s) Family Medical History: Myocardial Infarction ([place]) Sister(s) Family Medical History: Cancer Additional Family Medical History / Comment(s): cancer skin mom skin ca Medications and Allergies Home Medications Medication Instructions Recorded Confirmed Type Albuterol Sulfate [Proair Hfa] 2 puff INHALATION RT-BID PRN 08/31/15 05/23/17 History Diphenoxylate HCl/Atropine 2 tab PO QID PRN 08/31/15 05/23/17 History [Lomotil] Ipratropium/Albuterol Sulfate 2 puff INHALATION RT-BID 08/31/15 05/23/17 History [Combivent Respimat Inhaler] Primidone [Mysoline] 250 mg PO QAM 08/31/15 05/23/17 History Cholecalciferol [Vitamin D3] 2,000 unit PO QAM 10/29/15 05/23/17 History Ipratropium-Albuterol Nebulize 3 ml INHALATION RT-QID PRN 10/29/15 05/23/17 History [Duoneb 0.5 mg-3 mg/3 ml Soln] Fluticasone/Salmeterol [Advair Hfa 2 puff INHALATION RT-BID 01/29/16 05/23/17 History 230-21 Mcg Inhaler] Levothyroxine Sodium [Synthroid] 25 mcg PO QAM 01/29/16 05/23/17 History Pantoprazole Sodium [Protonix] 40 mg PO QAM 01/29/16 05/23/17 History Tiotropium 18 Mcg/Puff [Spiriva] 1 cap INHALATION RT-DAILY 01/29/16 05/23/17 History Dicyclomine [Bentyl] 10 mg PO QID 05/14/16 05/23/17 History Simvastatin [Zocor] 20 mg PO HS 05/14/16 05/23/17 History Citalopram Hydrobromide [CeleXA] 20 mg PO HS 05/23/17 05/23/17 History Primidone [Mysoline] 500 mg PO HS 05/23/17 05/23/17 History busPIRone HCL [Buspar] 7.5 mg PO BID 05/23/17 05/23/17 History Allergies Allergy/AdvReac Type Severity Reaction Status Date / Time No Known Allergies Allergy Verified 05/23/17 14:34 Physical Exam Osteopathic Statement: *. No significant issues noted on an osteopathic structural exam other than those noted in the History and Physical/Consult. Vitals: Vital Signs Temp Pulse Pulse Pulse Resp BP BP 05/24/17 08:38 92 05/24/17 08:25 92 05/24/17 07:00 98.7 F 99 20 125/86 05/23/17 23:00 99.3 F 95 20 111/78 05/23/17 21:27 100 05/23/17 21:17 98 05/23/17 17:20 98.6 F 98 20 122/78 05/23/17 16:32 100 22 128/81 05/23/17 15:25 99 24 128/78 05/23/17 14:30 98 23 130/78 05/23/17 13:41 107 H 05/23/17 13:22 113 H 05/23/17 13:17 98.7 F 114 H 25 H 142/75 Pulse Ox 05/24/17 08:38 05/24/17 08:25 05/24/17 07:00 95 05/23/17 23:00 99 05/23/17 21:27 05/23/17 21:17 05/23/17 17:20 96 05/23/17 16:32 96 05/23/17 15:25 97 05/23/17 14:30 98 05/23/17 13:41 05/23/17 13:22 05/23/17 13:17 100 Intake and Output 05/23/17 05/24/17 05/24/17 22:59 06:59 14:59 Intake Total 300 600 Balance 300 600 Intake: IV 300 600 Sodium Chloride 0.9% 1, 300 600 000 ml @ 75 mls/hr IV . [id number] Rx#:[id number] Other: Voiding Method Toilet Weight 91.626 kg No acute distress, oriented 3. Nasal O2 in place. HEENT examination is grossly unremarkable. Mucous membranes are moist. No oral lesions. Neck supple. Full range of motion. No adenopathy thyromegaly or neck vein distention. Cardiovascular examination reveals regular rhythm rate. S1-S2 normal. No S3 or S4. No discernible murmur noted. Lungs reveal diminished breath sounds. There is diffuse inspiratory and expiratory wheezes and rhonchi. No crackles. There is prolongation on forced maneuver. Abdomen soft bowel sounds are heard. No masses or tenderness. Extremities are intact. No cyanosis clubbing or edema. Skin is without rash or lesion. Neurologic examination is brief but nonfocal. Results - Laboratory Findings CBC and BMP: 05/23/17 13:25 05/23/17 13:25 PT/INR, D-dimer PT 9.8 sec (9.0-12.0) 05/23/17 13:25 INR 1.0 (<1.2) 05/23/17 13:25 D-Dimer 0.80 mg/L FEU (<0.60) H 05/23/17 13:25 Abnormal lab findings: Abnormal Labs 05/23/17 05/23/17 13:25 13:25 D-Dimer 0.80 H Glucose 101 H AST 13 L - Diagnostic Findings Chest x-ray: image reviewed (Chest x-ray labs and medications are all reviewed.) Assessment and Plan Assessment: Assessment COPD exacerbation complicated by mild purulent tracheobronchitis and mild hemoptysis History of heavy tobacco abuse Stage III COPD, with a predicted FEV1 of 40% Hyperlipidemia Hypertension DJD Sleep apnea syndrome Subcentimeter pulmonary nodule/nodules right upper lobe, being followed by my partner Right hilar mass/mediastinal adenopathy, rule out bronchogenic carcinoma versus reactive adenopathy Left-sided chest pain, unclear etiology. Hypothyroidism Plan: Plan dated 05/24/2017 For the COPD, the patient will be started on usual medications including short acting beta agonist, short acting muscarinic antagonist, long-acting beta agonist, inhaled corticosteroids. We'll also place her on systemic corticosteroids and oral antibiotics. In the end, she may need a bronchoscopy and airway evaluation. I'll leave that up to my partner. He apparently knows her. The pulmonary nodules in the right upper lobe will have to be continued to be watched. Additional recommendations and suggestions are forthcoming. The chest pain is an enigma. Time with Patient: Greater than 30
[2017-05-24] MEDS: CHOLECALCIFEROL 1,000 UNIT TAB PO SCH (12:14)
[2017-05-24] MEDS: methylPREDNISolone SOD SUCCI 125 MG/2 ML VIAL IV SCH ×2 (12:14→17:19)
[2017-05-24] MEDS ORDERED: LEVOFLOXACIN 750MG-D5W PMX 750 MG in DEXTROSE/WATER 1 150ML.BAG IVPB SCH (13:00)
--- NOTE | 2017-05-24 15:34 | P.HPIM ---
History of Present Illness H&P Date: 05/24/17 Chief Complaint: shortness of rbeath 62 years old female patient of Dr. Mercado. Informed about the admission in the morning. Patient evaluated at bedside was stopped she has past medical history of hyperlipidemia, hypertension, sleep apnea currently not using CPAP as she was told she no longer has that, osteoarthritis and COPD patient wears 3 L of oxygen at rest. She states she has shortness of breath and cough for the past 2 weeks but patient started having bloody sputum associated with some left-sided chest pain and discomfort for the past 2 days. Patient states the sputum color has changed to greenish phlegm now stop she was recently evaluated for pulmonary nodule in the left, 2 years ago, she denies any history of recurrent infection. She does admit to sick contacts. Patient denies any history of heart attacks or heart failure in the past. She denies any fever or chills or flulike symptoms. Labs done in the ER was positive for d -dimer 0.8 which led to CTA of chest which showed right hilar soft tissue suspicious for adenopathy with some ill defined soft tissue approximately doing to 3 cm in size suspicious for lung tumor. Pulmonary evaluated the patient and recommends bronchoscopy. Patient is admitted for acute COPD exacerbation, bronchitis. Evaluation of the lung mass. Chest pain appears to be atypical as troponin 3 is negative with EKG with no ST or T-wave changes. Review of Systems Constitutional: Denies chills, Denies fever, Denies lethargy, Denies malaise, Denies poor appetite, Denies weakness, Denies weight loss Eyes: denies decreased vision, denies diplopia, denies discharge, denies pain Ears: deny: decreased hearing Ears, nose, mouth and throat: Denies dental pain, Denies headache, Denies nasal discharge, Denies nose pain Cardiovascular: Endorses chest pain , Denies decreased exercise tolerance, Denies edema, Denies high blood pressure, Denies irregular heart beat, Denies palpitations, Denies paroxysmal nocturnal dyspnea, Denies rapid heart beat, endorses shortness of breath Respiratory: Endorses congestion, cough with sputum production, dyspnea, or home oxygen, wheezing Gastrointestinal: Denies abdominal pain, Denies change in bowel habits, Denies coffee ground emesis, Denies early satiety, Denies excessive gas, Denies heartburn, Denies hematemesis, Denies hematochezia, Denies loss of appetite, Denies nausea, Denies vomiting Genitourinary: Denies dysuria, Denies flank pain, Denies kidney stones, Denies menorrhagia, Denies urgency, Denies urinary frequency Musculoskeletal: Denies gait dysfunction, Denies limitation of motion, Denies morning stiffness, Denies muscle cramps Integumentary: Denies rash, Denies wounds, Denies brittle nails, Denies change in hair/nails, Denies darkening of skin Neurological: Denies balance difficulties, Denies change in speech, Denies double vision, Denies gait dysfunction, Denies loss of vision, Denies motor disturbance, Denies numbness, Denies paralysis, Denies paresthesias, Denies seizures Psychiatric: Denies anxiety, Denies depression Endocrine: Denies excessive sweating, Denies excessive thirst, Denies high blood sugars, Denies palpitations Hematologic/Lymphatic: Denies easy bruising, Denies lymphadenopathy Past Medical History Past Medical History: COPD, GERD/Reflux, Hyperlipidemia, Hypertension, Osteoarthritis (OA), Sleep Apnea/CPAP/BIPAP Additional Past Medical History / Comment(s): Osteoporosis,uses cpap,sob,hiatal hernia,tremors,dtr states "has 40% lung copacity" History of Any Multi-Drug Resistant Organisms: None Reported Past Surgical History: No Surgical Hx Reported Additional Past Surgical History / Comment(s): EGD,colonoscopy Past Anesthesia/Blood Transfusion Reactions: Previous Problems w/ Anesthesia, Family History of Problems w/ Anesthesia Additional Past Anesthesia/Blood Transfusion Reaction / Comment(s): hx of O2 sats dropping with sedation during EGD/Colonoscopy,never has had general anesthesia,son arrested during surgery-hx of being on oxygen.no hx blood transfusion Past Psychological History: Anxiety, PTSD Smoking Status: Former smoker Past Alcohol Use History: None Reported Additional Past Alcohol Use History / Comment(s): quit smoking 2015,smoked approx 40 yrs 1ppd Past Drug Use History: None Reported - Past Family History Mother Family Medical History: Cancer, Coronary Artery Disease (CAD) Additional Family Medical History / Comment(s): skin Father Family Medical History: No Reported History Additional Family Medical History / Comment(s): Father in a motor vehicle accident. Patient had one brother who had metastatic colon cancer and history of coronary artery disease. His sister had skin cancer. Patient lives alone and is functionally active does. 3 L of oxygen at rest and exertion Brother(s) Family Medical History: Cancer, Coronary Artery Disease (CAD), Myocardial Infarction (NM) Sister(s) Family Medical History: Cancer Additional Family Medical History / Comment(s): cancer skin mom skin ca Medications and Allergies Home Medications Medication Instructions Recorded Confirmed Type Albuterol Sulfate [Proair Hfa] 2 puff INHALATION RT-BID PRN 08/31/15 05/23/17 History Diphenoxylate HCl/Atropine 2 tab PO QID PRN 08/31/15 05/23/17 History [Lomotil] Ipratropium/Albuterol Sulfate 2 puff INHALATION RT-BID 08/31/15 05/23/17 History [Combivent Respimat Inhaler] Primidone [Mysoline] 250 mg PO QAM 08/31/15 05/23/17 History Cholecalciferol [Vitamin D3] 2,000 unit PO QAM 10/29/15 05/23/17 History Ipratropium-Albuterol Nebulize 3 ml INHALATION RT-QID PRN 10/29/15 05/23/17 History [Duoneb 0.5 mg-3 mg/3 ml Soln] Fluticasone/Salmeterol [Advair Hfa 2 puff INHALATION RT-BID 01/29/16 05/23/17 History 230-21 Mcg Inhaler] Levothyroxine Sodium [Synthroid] 25 mcg PO QAM 01/29/16 05/23/17 History Pantoprazole Sodium [Protonix] 40 mg PO QAM 01/29/16 05/23/17 History Tiotropium 18 Mcg/Puff [Spiriva] 1 cap INHALATION RT-DAILY 01/29/16 05/23/17 History Dicyclomine [Bentyl] 10 mg PO QID 05/14/16 05/23/17 History Simvastatin [Zocor] 20 mg PO HS 05/14/16 05/23/17 History Citalopram Hydrobromide [CeleXA] 20 mg PO HS 05/23/17 05/23/17 History Primidone [Mysoline] 500 mg PO HS 05/23/17 05/23/17 History busPIRone HCL [Buspar] 7.5 mg PO BID 05/23/17 05/23/17 History Allergies Allergy/AdvReac Type Severity Reaction Status Date / Time No Known Allergies Allergy Verified 05/23/17 14:34 Physical Exam Vitals: Vital Signs Temp Pulse Pulse Pulse Resp BP BP 05/24/17 12:04 92 05/24/17 11:49 88 05/24/17 08:38 92 05/24/17 08:25 92 05/24/17 08:00 98 99 20 05/24/17 07:00 98.7 F 99 20 125/86 05/23/17 23:00 99.3 F 95 20 111/78 05/23/17 21:27 100 05/23/17 21:17 98 05/23/17 17:20 98.6 F 98 20 122/78 05/23/17 16:32 100 22 128/81 05/23/17 15:25 99 24 128/78 Pulse Ox 05/24/17 12:04 05/24/17 11:49 05/24/17 08:38 05/24/17 08:25 05/24/17 08:00 05/24/17 07:00 95 05/23/17 23:00 99 05/23/17 21:27 05/23/17 21:17 05/23/17 17:20 96 05/23/17 16:32 96 05/23/17 15:25 97 Intake and Output 05/24/17 05/24/17 05/24/17 06:59 14:59 22:59 Intake Total 600 Balance 600 Intake: IV 600 Sodium Chloride 0.9% 1, 600 000 ml @ 75 mls/hr IV . [id number] ONE Rx#:[id number] Other: Voiding Method Toilet Toilet # Voids 2 - Constitutional General appearance: cooperative, moderate acute distress from chest pain , obese - EENT Eyes: anicteric sclerae, PERRLA, normal appearance ENT: hearing grossly normal - Neck Neck: no lymphadenopathy, normal ROM, no other, no rigidity, no stridor, no thyromegaly - Respiratory Respiratory: bilateral: diminished, dullness, rales, rhonchi bilateraly, coarse breath sounds - Cardiovascular Rhythm: regular Heart sounds: normal: S1, S2 Abnormal Heart Sounds: no systolic murmur, no diastolic murmur, no rub, no S3 Gallop, no S4 Gallop, no click, no other - Gastrointestinal General gastrointestinal: normal bowel sounds, soft - Integumentary Integumentary: no rash - Neurologic Neurologic: CNII-XII intact - Musculoskeletal Musculoskeletal: strength equal bilaterally - Psychiatric Psychiatric: A&O x's 3, appropriate affect Results CBC & Chem 7: 05/23/17 13:25 05/23/17 13:25 Thrombosis Risk Factor Assmnt - DVT/VTE Prophylaxis DVT/VTE Prophylaxis: Pharmacologic Prophylaxis ordered - Choose All That Apply Each Risk Factor Represents 2 Points: Age 61-74 years Thrombosis Risk Factor Assessment Total Risk Factor Score: 2 Thrombosis Risk Factor Assessment Level: Low Risk Assessment and Plan Plan: #1 acute hypoxic respiratory distress secondary to COPD exacerbation/acute bronchitis continue Augmentin as recommended by pulmonary with IV steroids. Continue Pulmicort and twice a day. Perforomist twice daily. Mucinex initiated to help with the cough 600 mg twice daily. Sputum culture ordered. Incentive spirometry. Flutter valve #2 history of bloody sputum - pulmonary lesion concerning for malignancy associated with hilar lymphadenopathy. Patient needs bronchoscopy to evaluate the lung lesion. We will await pulmonary recommendation. #3 history of depression /anxiety continue Celexa 10 mg daily at bedtime along with BuSpar 7.5 mg twice a day #4 history of hypothyroidism continue levothyroxine 25 mg every 24 hours #5 history of essential tremors continue primidone2 50 mg with breakfast and 500 mg at bedtime #5 history of GERD continue Protonix #6 DVT prophylaxis with Lovenox 40 every 24 hours #7 CODE STATUS full code Disposition need 1-2 inpatient nights
[2017-05-24] MEDS: guaiFENesin 600 MG TABLET.ER PO SCH (16:20)
[2017-05-24] MEDS: KETOROLAC 30 MG/ML 1 ML VIAL IVP SCH (17:17)
[2017-05-24] MEDS: BUDESONIDE 1 MG/2 ML NEBU INHALATION SCH (18:56)
[2017-05-24] MEDS: FORMOTEROL FUMARATE 20 MCG/2 ML NEBU INHALATION SCH (18:56)
[2017-05-24] MEDS: ATORVASTATIN 10 MG TAB PO SCH (20:28)
[2017-05-24] MEDS: AMOXIC-POT CLAV 875-125MG 1 EACH TAB PO SCH (20:28)
[2017-05-24] MEDS: CITALOPRAM HYDROBROMIDE 20 MG TAB PO SCH (20:29)
[2017-05-25] MEDS: methylPREDNISolone SOD SUCCI 125 MG/2 ML VIAL IV SCH ×4 (00:27→18:26)
[2017-05-25] MEDS: KETOROLAC 30 MG/ML 1 ML VIAL IVP SCH ×5 (04:30→18:26)
[2017-05-25] MEDS: LEVOTHYROXINE 25 MCG TAB PO SCH (05:52)
[2017-05-25] MEDS: IPRATROPIUM 0.5 MG/2.5 ML NEBU INHALATION SCH ×2 (07:48→07:49)
[2017-05-25] MEDS: PANTOPRAZOLE 40 MG TABLET PO SCH (07:52)
[2017-05-25] MEDS: busPIRone HCl 5 MG TAB PO SCH ×2 (07:52→21:07)
[2017-05-25] MEDS: DICYCLOMINE 10 MG CAP PO SCH ×4 (07:52→21:08)
[2017-05-25] MEDS: guaiFENesin 600 MG TABLET.ER PO SCH ×2 (07:53→21:08)
[2017-05-25] MEDS: AMOXIC-POT CLAV 875-125MG 1 EACH TAB PO SCH ×2 (07:53→21:07)
[2017-05-25] MEDS: PRIMIDONE 250 MG TAB PO SCH ×2 (07:53→21:08)
[2017-05-25] MEDS: FORMOTEROL FUMARATE 20 MCG/2 ML NEBU INHALATION SCH ×2 (08:57→20:30)
[2017-05-25] MEDS: BUDESONIDE 1 MG/2 ML NEBU INHALATION SCH ×2 (08:57→20:30)
[2017-05-25] MEDS: IPRATROPIUM-ALBUTEROL 3 ML NEB INHALATION SCH ×2 (08:57→20:30)
[2017-05-25] MEDS: CHOLECALCIFEROL 1,000 UNIT TAB PO SCH (11:36)
--- NOTE | 2017-05-25 15:20 | P.PN ---
Subjective 62 years old female patient of Dr. Mercado. Informed about the admission in the morning. Patient evaluated at bedside was stopped she has past medical history of hyperlipidemia, hypertension, sleep apnea currently not using CPAP as she was told she no longer has that, osteoarthritis and COPD patient wears 3 L of oxygen at rest. She states she has shortness of breath and cough for the past 2 weeks but patient started having bloody sputum associated with some left-sided chest pain and discomfort for the past 2 days. Patient states the sputum color has changed to greenish phlegm now stop she was recently evaluated for pulmonary nodule in the left, 2 years ago, she denies any history of recurrent infection. She does admit to sick contacts. Patient denies any history of heart attacks or heart failure in the past. She denies any fever or chills or flulike symptoms. Labs done in the ER was positive for d -dimer 0.8 which led to CTA of chest which showed right hilar soft tissue suspicious for adenopathy with some ill defined soft tissue approximately doing to 3 cm in size suspicious for lung tumor. Pulmonary evaluated the patient and recommends bronchoscopy. Patient is admitted for acute COPD exacerbation, bronchitis. Evaluation of the lung mass. Chest pain appears to be atypical as troponin 3 is negative with EKG with no ST or T-wave changes. 05/25 Patient was evaluated at the bedside today, she reports she is actually doing better today. Reports that her breathing has improved, she denies any chest pain or increasing shortness of breath. Pulmonary is on consult who does recommend a bronchoscopy possibly in the future. influenza was negative, troponins have been negative. Objective - Vital Signs Vital signs: Vital Signs Temp 98.1 F 05/25/17 14:49 Pulse 102 H 05/25/17 14:49 Resp 20 05/25/17 14:49 BP 146/75 05/25/17 14:49 Pulse Ox 96 05/25/17 14:49 Intake & Output 05/24/17 05/25/17 05/25/17 18:59 06:59 18:59 Intake Total 675 Balance 675 Intake: IV 225 Sodium Chloride 0.9% 1, 225 000 ml @ 75 mls/hr IV . [id number] ONE Rx#:[id number] Oral 450 Other: Voiding Method Toilet Toilet # Voids 2 2 - Exam - Constitutional General appearance: cooperative, moderate acute distress from chest pain , obese - EENT Eyes: anicteric sclerae, PERRLA, normal appearance ENT: hearing grossly normal - Neck Neck: no lymphadenopathy, normal ROM, no other, no rigidity, no stridor, no thyromegaly - Respiratory Respiratory: bilateral: diminished, dullness, rales, rhonchi bilateraly, coarse breath sounds - Cardiovascular Rhythm: regular Heart sounds: normal: S1, S2 Abnormal Heart Sounds: no systolic murmur, no diastolic murmur, no rub, no S3 Gallop, no S4 Gallop, no click, no other - Gastrointestinal General gastrointestinal: normal bowel sounds, soft - Integumentary Integumentary: no rash - Neurologic Neurologic: CNII-XII intact - Musculoskeletal Musculoskeletal: strength equal bilaterally - Psychiatric Psychiatric: A&O x's 3, appropriate affect - Labs CBC & Chem 7: 05/23/17 13:25 18 13:25 Assessment and Plan Plan: #1 acute hypoxic respiratory distress secondary to COPD exacerbation/acute bronchitis continue Augmentin as recommended by pulmonary with IV steroids. Continue Pulmicort and twice a day. Perforomist twice daily. Mucinex initiated to help with the cough 600 mg twice daily. Sputum culture orderedand are still pending. Incentive spirometry. Flutter valve #2 history of bloody sputum - pulmonary lesion concerning for malignancy associated with hilar lymphadenopathy. Patient needs bronchoscopy to evaluate the lung lesion. pulmonary recommendations appreciated. #3 history of depression /anxiety continue Celexa 10 mg daily at bedtime along with BuSpar 7.5 mg twice a day #4 history of hypothyroidism continue levothyroxine 25 mg every 24 hours #5 history of essential tremors continue primidone2 50 mg with breakfast and 500 mg at bedtime #5 history of GERD continue Protonix #6 DVT prophylaxis with Lovenox 40 every 24 hours The above impression and plan of care have been discussed and directed by signing physician. Erika Pizano nurse practitioner acting as scribe for signing physician.
--- NOTE | 2017-05-25 16:10 | P.PN ---
Subjective Progress Note Date: 05/25/17 Principal diagnosis: COPD exacerbation compounded by mild purulent tracheobronchitis and mild hemoptysis Consult dated 05/24/2017 62-year-old female with history of severe pain. She apparently sees my partner for COPD and also sees my partner. Subcentimeter pulmonary nodules in the right lung. Apparently he is following this and lesions. A little for the past 3 days prior to admission she comes in complaining of increasing shortness of breath cough with some blood-tinged sputum as well as some left-sided chest pain and discomfort. The patient seems be sharp in her left breast radiating to her back area. She apparently was evaluated by chest x-ray which is normal and a CT angiogram which did not reveal anything unusual certainly, there is no pulmonary embolism. When it did show was a small pulmonary nodules in the right upper lobe as well as appears to be a right hilar mass with mediastinal adenopathy. This will certainly have to be evaluated. She is a heavy smoker. Recently quit. Smokes more than 2 packs a day for more than 40 years. She denies any fever or chills. No nausea vomiting or diarrhea. The patient does have a history of COPD which appears to be stage III disease based on what she tells me, with an FEV1 that is 40% of predicted, gastroesophageal reflux disease hyperlipidemia hypertension DJD and sleep apnea syndrome. She was a heavy smoker for more than 40 years. On 05/25/2017 patient is seen in follow-up. She states since the IV steroids have been started she feels improvement in her left-sided chest pain. Still has some residual left posterior chest wall pain but this is much improved. She is resting in bed, in no acute distress. No worsening shortness of breath, lung sounds are positive for a few scattered rhonchi. Patient is afebrile, remains on 3 L per nasal cannula with O2 sat at 96%. CTA chest has been reviewed by Dr. Lawrence and compared to the previous CT chest from 12/19/2016. The pulmonary nodule in the in the right hilum was compared to the one on the previous CT, which was done without contrast, and it is difficult to compare. It was discussed with the patient that we'll have to be followed up patient basis with the PET/CT scan. Fow now continue with current medical treatment. Objective - Vital Signs Vital signs: Vital Signs Temp 98.1 F 05/25/17 14:49 Pulse 102 H 05/25/17 14:49 Resp 20 05/25/17 14:49 BP 146/75 05/25/17 14:49 Pulse Ox 96 05/25/17 14:49 Intake & Output 05/24/17 05/25/17 05/25/17 18:59 06:59 18:59 Intake Total 675 Balance 675 Intake: IV 225 Sodium Chloride 0.9% 1, 225 000 ml @ 75 mls/hr IV . [id number] ONE Rx#:[id number] Oral 450 Other: Voiding Method Toilet Toilet # Voids 2 2 - Exam GENERAL EXAM: Alert, pleasant 62 obese white female, comfortable in no apparent distress. HEAD: Normocephalic/atraumatic. EYES: Normal reaction of pupils, equal size. Conjunctiva pink, sclera white. NOSE: Clear with pink turbinates. THROAT: No erythema or exudates. NECK: No masses, no JVD, no thyroid enlargement, no adenopathy. CHEST: No chest wall deformity. Symmetrical expansion. LUNGS: Diminished lung sounds in the right, with a few scattered rhonchi on the left CVS: Regular rate and rhythm, normal S1 and S2, no gallops, no murmurs, no rubs ABDOMEN: Soft, nontender. No hepatosplenomegaly, normal bowel sounds, no guarding or rigidity. EXTREMITIES: No clubbing, no edema, no cyanosis, 2+ pulses and upper and lower extremities. MUSCULOSKELETAL: Muscle strength and tone normal. SPINE: No scoliosis or deformity SKIN: No rashes CENTRAL NERVOUS SYSTEM: Alert and oriented -3. No focal deficits, tone is normal in all 4 extremities. PSYCHIATRIC: Alert and oriented -3. Appropriate affect. Intact judgment and insight. - Labs CBC & Chem 7: 05/23/17 13:25 05/23/17 13:25 Assessment and Plan Plan: Assessment: COPD exacerbation complicated by mild purulent tracheobronchitis and mild hemoptysis History of heavy tobacco abuse Stage III COPD, with a predicted FEV1 of 40% Hyperlipidemia Hypertension DJD Sleep apnea syndrome Subcentimeter pulmonary nodule/nodules right upper lobe, being followed by my partner Right hilar mass/mediastinal adenopathy, rule out bronchogenic carcinoma versus reactive adenopathy Left-sided chest pain, unclear etiology. Hypothyroidism Plan: Patient will need an outpatient PET/CT scan to evaluate the right hilar nodule. For now continue with current medical treatment, no worsening shortness of breath, her left-sided chest pain is improving, vital signs are stable. Increase activity as tolerated. Continue Augmentin, IV Solu-Medrol, nebulized treatments. I performed a history & physical examination of the patient and discussed their management with my nurse practitioner, Adriane Kahn. I reviewed the nurse practitioner's note and agree with the documented findings and plan of care. Lung sounds are positive for diminished lung sounds in the right, a few scattered rhonchi. The findings and the impression was discussed with the patient. I attest to the documentation by the nurse practitioner. Time with Patient: Less than 30
[2017-05-25] MEDS: ATORVASTATIN 10 MG TAB PO SCH (21:07)
[2017-05-25] MEDS: CITALOPRAM HYDROBROMIDE 20 MG TAB PO SCH (21:07)
[2017-05-26] MEDS: methylPREDNISolone SOD SUCCI 125 MG/2 ML VIAL IV SCH ×3 (00:36→12:27)
[2017-05-26] MEDS: KETOROLAC 30 MG/ML 1 ML VIAL IVP SCH ×5 (00:39→22:58)
[2017-05-26] MEDS: LEVOTHYROXINE 25 MCG TAB PO SCH (06:16)
[2017-05-26] MEDS: FORMOTEROL FUMARATE 20 MCG/2 ML NEBU INHALATION SCH ×2 (07:15→19:09)
[2017-05-26] MEDS: BUDESONIDE 1 MG/2 ML NEBU INHALATION SCH ×2 (07:15→19:09)
[2017-05-26] MEDS: IPRATROPIUM-ALBUTEROL 3 ML NEB INHALATION SCH ×2 (07:16→19:09)
[2017-05-26] MEDS: busPIRone HCl 5 MG TAB PO SCH ×2 (08:47→19:38)
[2017-05-26] MEDS: AMOXIC-POT CLAV 875-125MG 1 EACH TAB PO SCH ×2 (08:47→19:36)
[2017-05-26] MEDS: PANTOPRAZOLE 40 MG TABLET PO SCH (08:47)
[2017-05-26] MEDS: guaiFENesin 600 MG TABLET.ER PO SCH ×2 (08:48→19:37)
[2017-05-26] MEDS: DICYCLOMINE 10 MG CAP PO SCH ×4 (08:48→23:24)
[2017-05-26] MEDS: PRIMIDONE 250 MG TAB PO SCH ×2 (08:49→19:37)
[2017-05-26] MEDS: LIDOCAINE 5% PATCH TOPICAL SCH (13:03)
[2017-05-26] MEDS: CHOLECALCIFEROL 1,000 UNIT TAB PO SCH (13:05)
[2017-05-26] MEDS: MORPHINE ORAL SOLN 10 MG/5 ML CUP PO PRN ×2 (14:28→19:35)
--- NOTE | 2017-05-26 15:05 | P.PN ---
Subjective 62 years old female patient of Dr. Mercado. Informed about the admission in the morning. Patient evaluated at bedside was stopped she has past medical history of hyperlipidemia, hypertension, sleep apnea currently not using CPAP as she was told she no longer has that, osteoarthritis and COPD patient wears 3 L of oxygen at rest. She states she has shortness of breath and cough for the past 2 weeks but patient started having bloody sputum associated with some left-sided chest pain and discomfort for the past 2 days. Patient states the sputum color has changed to greenish phlegm now stop she was recently evaluated for pulmonary nodule in the left, 2 years ago, she denies any history of recurrent infection. She does admit to sick contacts. Patient denies any history of heart attacks or heart failure in the past. She denies any fever or chills or flulike symptoms. Labs done in the ER was positive for d -dimer 0.8 which led to CTA of chest which showed right hilar soft tissue suspicious for adenopathy with some ill defined soft tissue approximately doing to 3 cm in size suspicious for lung tumor. Pulmonary evaluated the patient and recommends bronchoscopy. Patient is admitted for acute COPD exacerbation, bronchitis. Evaluation of the lung mass. Chest pain appears to be atypical as troponin 3 is negative with EKG with no ST or T-wave changes. 05/25 Patient was evaluated at the bedside today, she reports she is actually doing better today. Reports that her breathing has improved, she denies any chest pain or increasing shortness of breath. Pulmonary is on consult who does recommend a bronchoscopy possibly in the future. influenza was negative, troponins have been negative. 05/26 Patient was evaluated today, she is noted to be walking the halls with physical therapy. Patient reports she is doing well, although today she reports some back pain. Lidocaine patch was ordered. Patient reports breathing has improved although does not feel quite ready for discharge today. Will continue with current treatment plan, reassess tomorrow for possible discharge. Objective - Vital Signs Vital signs: Vital Signs Temp 98.2 F 05/26/17 07:00 Pulse 93 05/26/17 13:24 Resp 18 05/26/17 13:24 BP 125/82 05/26/17 07:00 Pulse Ox 93 L 05/26/17 07:00 Intake & Output 05/25/17 05/26/17 05/26/17 18:59 06:59 18:59 Intake Total 250 Balance 250 Intake: Oral 250 Other: Voiding Method Toilet Toilet # Voids 1 - Exam - Constitutional General appearance: cooperative, moderate acute distress from chest pain - EENT Eyes: anicteric sclerae, PERRLA, normal appearance ENT: hearing grossly normal - Neck Neck: no lymphadenopathy, normal ROM, no other, no rigidity, no stridor, no thyromegaly - Respiratory Respiratory: bilateral: diminished, dullness, rales, rhonchi bilateraly, coarse breath sounds - Cardiovascular Rhythm: regular Heart sounds: normal: S1, S2 Abnormal Heart Sounds: no systolic murmur, no diastolic murmur, no rub, no S3 Gallop, no S4 Gallop, no click, no other - Gastrointestinal General gastrointestinal: normal bowel sounds, soft - Integumentary Integumentary: no rash - Neurologic Neurologic: CNII-XII intact - Musculoskeletal Musculoskeletal: strength equal bilaterally - Psychiatric Psychiatric: A&O x's 3, appropriate affect - Labs CBC & Chem 7: 05/23/17 13:25 05/23/17 13:25 Labs: Microbiology - Last 24 Hours (Table) 05/25/17 09:00 Gram Stain - Preliminary Sputum Sputum Culture - Final Moraxella(branhamella) catarra Assessment and Plan Plan: #1 acute hypoxic respiratory distress secondary to COPD exacerbation/acute bronchitis continue Augmentin as recommended by pulmonary. Continue Pulmicort and twice a day. Perforomist twice daily. Mucinex initiated to help with the cough 600 mg twice daily. Sputum culture ordered and showed Moraxella catarra. Incentive spirometry. Flutter valve #2 history of bloody sputum - pulmonary lesion concerning for malignancy associated with hilar lymphadenopathy. Patient will need outpatient PET/CT scan #3 history of depression /anxiety continue Celexa 10 mg daily at bedtime along with BuSpar 7.5 mg twice a day #4 history of hypothyroidism continue levothyroxine 25 mg every 24 hours #5 history of essential tremors continue primidone2 50 mg with breakfast and 500 mg at bedtime #5 history of GERD continue Protonix #6 DVT prophylaxis with Lovenox 40 every 24 hours The above impression and plan of care have been discussed and directed by signing physician. Erika Pizano nurse practitioner acting as scribe for signing physician.
--- NOTE | 2017-05-26 15:34 | XR ---
EXAMINATION TYPE: XR thoracic spine 2V DATE OF EXAM: 05/26/2017 COMPARISON: NONE HISTORY: Pain Alignment is anatomic. There is no compression deformities hypertrophic changes and degenerative dis c disease is seen involving the thoracic spine. IMPRESSION: 1. Multilevel hypertrophic and degenerative disc disease.
[2017-05-26] MEDS: methylPREDNISolone SOD SUCCI 40 MG/ML 1 ML VIAL IV SCH ×2 (15:55→23:26)
[2017-05-26] MEDS ORDERED: methylPREDNISolone SOD SUCCI 125 MG/2 ML VIAL IV SCH (16:00)
--- NOTE | 2017-05-26 16:10 | P.PN ---
Subjective Progress Note Date: 05/26/17 Principal diagnosis: COPD exacerbation compounded by mild purulent tracheobronchitis and mild hemoptysis Consult dated 05/24/2017 62-year-old female with history of severe pain. She apparently sees my partner for COPD and also sees my partner. Subcentimeter pulmonary nodules in the right lung. Apparently he is following this and lesions. A little for the past 3 days prior to admission she comes in complaining of increasing shortness of breath cough with some blood-tinged sputum as well as some left-sided chest pain and discomfort. The patient seems be sharp in her left breast radiating to her back area. She apparently was evaluated by chest x-ray which is normal and a CT angiogram which did not reveal anything unusual certainly, there is no pulmonary embolism. When it did show was a small pulmonary nodules in the right upper lobe as well as appears to be a right hilar mass with mediastinal adenopathy. This will certainly have to be evaluated. She is a heavy smoker. Recently quit. Smokes more than 2 packs a day for more than 40 years. She denies any fever or chills. No nausea vomiting or diarrhea. The patient does have a history of COPD which appears to be stage III disease based on what she tells me, with an FEV1 that is 40% of predicted, gastroesophageal reflux disease hyperlipidemia hypertension DJD and sleep apnea syndrome. She was a heavy smoker for more than 40 years. On 05/25/2017 patient is seen in follow-up. She states since the IV steroids have been started she feels improvement in her left-sided chest pain. Still has some residual left posterior chest wall pain but this is much improved. She is resting in bed, in no acute distress. No worsening shortness of breath, lung sounds are positive for a few scattered rhonchi. Patient is afebrile, remains on 3 L per nasal cannula with O2 sat at 96%. CTA chest has been reviewed by Dr. Lawrence and compared to the previous CT chest from 12/19/2016. The pulmonary nodule in the in the right hilum was compared to the one on the previous CT, which was done without contrast, and it is difficult to compare. It was discussed with the patient that we'll have to be followed up patient basis with the PET/CT scan. Fow now continue with current medical treatment. On 05/26/2017 patient seen in follow-up. Still complains of left posterior chest wall discomfort, she states it's not severe, however it is persistent, it is very localized to the left of the vertebral column, worse with inspiration and coughing. From pulmonary standpoint her dyspnea is improving. Lung sounds are positive for a few scattered rales, but overall her dyspnea is improving. We will obtain a x-ray of the thoracic spine to rule out any vertebral fractures. We will order lidocaine patch for patient's left sided posterior chest wall pain. We'll decrease the Solu-Medrol down to 40 mg every 8 hours. Continue with Mucinex, continue with nebulized treatments, continue with Augmentin. Objective - Vital Signs Vital signs: Vital Signs Temp 98 F 05/26/17 14:57 Pulse 101 H 05/26/17 14:57 Resp 24 05/26/17 14:57 BP 154/82 05/26/17 14:57 Pulse Ox 95 05/26/17 14:57 Intake & Output 05/25/17 05/26/17 05/26/17 18:59 06:59 18:59 Intake Total 250 Balance 250 Intake: Oral 250 Other: Voiding Method Toilet Toilet # Voids 1 - Exam GENERAL EXAM: Alert, pleasant 62 obese white female, comfortable in no apparent distress. HEAD: Normocephalic/atraumatic. EYES: Normal reaction of pupils, equal size. Conjunctiva pink, sclera white. NOSE: Clear with pink turbinates. THROAT: No erythema or exudates. NECK: No masses, no JVD, no thyroid enlargement, no adenopathy. CHEST: No chest wall deformity. Symmetrical expansion. LUNGS: A few scattered rales at bilateral bases CVS: Regular rate and rhythm, normal S1 and S2, no gallops, no murmurs, no rubs ABDOMEN: Soft, nontender. No hepatosplenomegaly, normal bowel sounds, no guarding or rigidity. EXTREMITIES: No clubbing, no edema, no cyanosis, 2+ pulses and upper and lower extremities. MUSCULOSKELETAL: Muscle strength and tone normal. SPINE: No scoliosis or deformity SKIN: No rashes CENTRAL NERVOUS SYSTEM: Alert and oriented -3. No focal deficits, tone is normal in all 4 extremities. PSYCHIATRIC: Alert and oriented -3. Appropriate affect. Intact judgment and insight. - Labs CBC & Chem 7: 05/23/17 13:25 05/23/17 13:25 Labs: Microbiology - Last 24 Hours (Table) 05/25/17 09:00 Gram Stain - Preliminary Sputum Sputum Culture - Final Moraxella(branhamella) catarra Assessment and Plan Plan: Assessment: COPD exacerbation complicated by mild purulent tracheobronchitis and mild hemoptysis History of heavy tobacco abuse Stage III COPD, with a predicted FEV1 of 40% Hyperlipidemia Hypertension DJD Sleep apnea syndrome Subcentimeter pulmonary nodule/nodules right upper lobe, being followed by my partner Right hilar mass/mediastinal adenopathy, rule out bronchogenic carcinoma versus reactive adenopathy Left-sided chest pain, unclear etiology. Hypothyroidism Plan: We will apply lidocaine patch for patient's persistent left posterior chest wall discomfort. Patient states it is not severe, but she is definitely aware of it, it is very localized. X-ray of the thoracic spine was obtained and reviewed showed multilevel hypertrophic and degenerative disc disease. Patient is already on the muscle relaxant in the form of Flexeril. She is getting morphine for breakthrough pain. Pulmonary standpoint she is improving, she denies any worsening dyspnea, she denies any fever or chills. Continue with Augmentin, we'll decrease the Solu-Medrol down to 40 mg every 8 hours. Continue with Pulmicort, Perforomist and nebulized treatments. I performed a history & physical examination of the patient and discussed their management with my nurse practitioner, Adriane Kahn. I reviewed the nurse practitioner's note and agree with the documented findings and plan of care. Lung sounds are positive for diminished lung sounds, with a few scattered rales. The findings and the impression was discussed with the patient. I attest to the documentation by the nurse practitioner. Time with Patient: Less than 30
[2017-05-26] MEDS: ATORVASTATIN 10 MG TAB PO SCH (19:38)
[2017-05-26] MEDS: CITALOPRAM HYDROBROMIDE 20 MG TAB PO SCH (19:38)
[2017-05-26] MEDS ORDERED: ALPRAZolam 0.5 MG TAB PO PRN (21:07)
[2017-05-27] MEDS: LEVOTHYROXINE 25 MCG TAB PO SCH (06:28)
[2017-05-27] MEDS: KETOROLAC 30 MG/ML 1 ML VIAL IVP SCH (06:28)
[2017-05-27 07:23] VITALS: BP 143/80; RESP 16; TEMP 97.8
[2017-05-27] MEDS: IPRATROPIUM-ALBUTEROL 3 ML NEB INHALATION SCH (09:05)
[2017-05-27] MEDS: FORMOTEROL FUMARATE 20 MCG/2 ML NEBU INHALATION SCH (09:05)
[2017-05-27] MEDS: BUDESONIDE 1 MG/2 ML NEBU INHALATION SCH (09:05)
[2017-05-27] MEDS: PANTOPRAZOLE 40 MG TABLET PO SCH (09:19)
[2017-05-27] MEDS: AMOXIC-POT CLAV 875-125MG 1 EACH TAB PO SCH (09:19)
[2017-05-27] MEDS: busPIRone HCl 5 MG TAB PO SCH (09:20)
[2017-05-27] MEDS: guaiFENesin 600 MG TABLET.ER PO SCH (09:21)
[2017-05-27] MEDS: DICYCLOMINE 10 MG CAP PO SCH ×2 (09:21→12:09)
[2017-05-27] MEDS: PRIMIDONE 250 MG TAB PO SCH (09:22)
[2017-05-27] MEDS: methylPREDNISolone SOD SUCCI 40 MG/ML 1 ML VIAL IV SCH (09:24)
[2017-05-27] MEDS: LIDOCAINE 5% PATCH TOPICAL SCH (10:22)
[2017-05-27 10:35] VITALS: PULSE 74
[2017-05-27] MEDS: CHOLECALCIFEROL 1,000 UNIT TAB PO SCH (12:08)
--- NOTE | 2017-05-27 16:02 | P.PN ---
Subjective Progress Note Date: 05/27/17 Principal diagnosis: COPD exacerbation compounded by mild purulent tracheobronchitis and mild hemoptysis Consult dated 05/24/2017 62-year-old female with history of severe pain. She apparently sees my partner for COPD and also sees my partner. Subcentimeter pulmonary nodules in the right lung. Apparently he is following this and lesions. A little for the past 3 days prior to admission she comes in complaining of increasing shortness of breath cough with some blood-tinged sputum as well as some left-sided chest pain and discomfort. The patient seems be sharp in her left breast radiating to her back area. She apparently was evaluated by chest x-ray which is normal and a CT angiogram which did not reveal anything unusual certainly, there is no pulmonary embolism. When it did show was a small pulmonary nodules in the right upper lobe as well as appears to be a right hilar mass with mediastinal adenopathy. This will certainly have to be evaluated. She is a heavy smoker. Recently quit. Smokes more than 2 packs a day for more than 40 years. She denies any fever or chills. No nausea vomiting or diarrhea. The patient does have a history of COPD which appears to be stage III disease based on what she tells me, with an FEV1 that is 40% of predicted, gastroesophageal reflux disease hyperlipidemia hypertension DJD and sleep apnea syndrome. She was a heavy smoker for more than 40 years. On 05/25/2017 patient is seen in follow-up. She states since the IV steroids have been started she feels improvement in her left-sided chest pain. Still has some residual left posterior chest wall pain but this is much improved. She is resting in bed, in no acute distress. No worsening shortness of breath, lung sounds are positive for a few scattered rhonchi. Patient is afebrile, remains on 3 L per nasal cannula with O2 sat at 96%. CTA chest has been reviewed by Dr. Lawrence and compared to the previous CT chest from 12/19/2016. The pulmonary nodule in the in the right hilum was compared to the one on the previous CT, which was done without contrast, and it is difficult to compare. It was discussed with the patient that we'll have to be followed up patient basis with the PET/CT scan. Fow now continue with current medical treatment. On 05/26/2017 patient seen in follow-up. Still complains of left posterior chest wall discomfort, she states it's not severe, however it is persistent, it is very localized to the left of the vertebral column, worse with inspiration and coughing. From pulmonary standpoint her dyspnea is improving. Lung sounds are positive for a few scattered rales, but overall her dyspnea is improving. We will obtain a x-ray of the thoracic spine to rule out any vertebral fractures. We will order lidocaine patch for patient's left sided posterior chest wall pain. We'll decrease the Solu-Medrol down to 40 mg every 8 hours. Continue with Mucinex, continue with nebulized treatments, continue with Augmentin. On 05/27/2017 patient seen in follow-up. Her left posterior chest wall pain has improved, patient was given lidocaine patch yesterday, however she developed a rash, and her pain was managed with oral medications. On she denies any dyspnea, she denies any fever, chills. Vital signs are stable, she is on 3 L per nasal cannula with O2 sat 97%. The thoracic x-ray has been reviewed, and showed no vertebral fractures, but was positive for DJD and multilevel hypertrophic and degenerative disc disease. From pulmonary standpoint patient remains stable, she can be discharged home today, on outpatient treatment of Augmentin, prednisone taper. She will need follow-up appointment Dr. Lawrence in the office. Objective - Vital Signs Vital signs: Vital Signs Temp 97.8 F 05/27/17 07:00 Pulse 74 05/27/17 10:24 Resp 16 05/27/17 10:24 BP 143/80 05/27/17 07:00 Pulse Ox 97 05/27/17 07:00 Intake & Output 05/26/17 05/27/17 05/27/17 18:59 06:59 18:59 Intake Total 1140 Balance 1140 Weight 91.626 kg Intake: Oral 1140 Other: Voiding Method Toilet Toilet # Voids 4 # Bowel Movements 1 - Exam GENERAL EXAM: Alert, pleasant 62 obese white female, comfortable in no apparent distress. HEAD: Normocephalic/atraumatic. EYES: Normal reaction of pupils, equal size. Conjunctiva pink, sclera white. NOSE: Clear with pink turbinates. THROAT: No erythema or exudates. NECK: No masses, no JVD, no thyroid enlargement, no adenopathy. CHEST: No chest wall deformity. Symmetrical expansion. LUNGS: Clear lung sounds, no rhonchi, no rales, no wheezes noted CVS: Regular rate and rhythm, normal S1 and S2, no gallops, no murmurs, no rubs ABDOMEN: Soft, nontender. No hepatosplenomegaly, normal bowel sounds, no guarding or rigidity. EXTREMITIES: No clubbing, no edema, no cyanosis, 2+ pulses and upper and lower extremities. MUSCULOSKELETAL: Muscle strength and tone normal. SPINE: No scoliosis or deformity SKIN: No rashes CENTRAL NERVOUS SYSTEM: Alert and oriented -3. No focal deficits, tone is normal in all 4 extremities. PSYCHIATRIC: Alert and oriented -3. Appropriate affect. Intact judgment and insight. - Labs CBC & Chem 7: 05/23/17 13:25 05/23/17 13:25 Labs: Microbiology - Last 24 Hours (Table) 05/25/17 09:00 Gram Stain - Final Sputum Sputum Culture - Final Moraxella(branhamella) catarra Assessment and Plan Plan: Assessment: COPD exacerbation complicated by mild purulent tracheobronchitis and mild hemoptysis, improved History of heavy tobacco abuse Stage III COPD, with a predicted FEV1 of 40% Hyperlipidemia Hypertension DJD Sleep apnea syndrome Subcentimeter pulmonary nodule/nodules right upper lobe, being followed by my partner Right hilar mass/mediastinal adenopathy, rule out bronchogenic carcinoma versus reactive adenopathy Left-sided chest pain, unclear etiology. Hypothyroidism Plan: Patient remains stable from our standpoint, denies worsening dyspnea, vital signs are stable, no acute events overnight. Overall improved, no congestion, no wheezing, no fever, no chills. She will need outpatient PET scan for the right hilar mass and mediastinal adenopathy. Follow-up with Dr. Lawrence in the office in one week I performed a history & physical examination of the patient and discussed their management with my nurse practitioner, Adriane Kahn. I reviewed the nurse practitioner's note and agree with the documented findings and plan of care. Lung sounds are positive for clear lung sounds. The findings and the impression was discussed with the patient. I attest to the documentation by the nurse practitioner. Time with Patient: Less than 30
--- NOTE | 2017-05-28 13:27 | P.DS ---
Providers Date of admission: 05/23/17 15:44 Expected date of discharge: 05/27/17 Attending physician: Dominga Blake MD Consults: 05/23/17 15:44 Consult Physician Urgent Consulting Provider: Jacinta Lawrence Consult Reason/Comments: Lung mass, dyspnea, hemoptysis Do you want consulting provider notified?: Yes Primary care physician: Torin Mercado [facility] Course: 62 years old female patient of Dr. Mercado. Informed about the admission in the morning. Patient evaluated at bedside was stopped she has past medical history of hyperlipidemia, hypertension, sleep apnea currently not using CPAP as she was told she no longer has that, osteoarthritis and COPD patient wears 3 L of oxygen at rest. She states she has shortness of breath and cough for the past 2 weeks but patient started having bloody sputum associated with some left-sided chest pain and discomfort for the past 2 days. Patient states the sputum color has changed to greenish phlegm now stop she was recently evaluated for pulmonary nodule in the left, 2 years ago, she denies any history of recurrent infection. She does admit to sick contacts. Patient denies any history of heart attacks or heart failure in the past. She denies any fever or chills or flulike symptoms. Labs done in the ER was positive for d -dimer 0.8 which led to CTA of chest which showed right hilar soft tissue suspicious for adenopathy with some ill defined soft tissue approximately doing to 3 cm in size suspicious for lung tumor. Pulmonary evaluated the patient and recommends bronchoscopy. Patient is admitted for acute COPD exacerbation, bronchitis. Evaluation of the lung mass. Chest pain appears to be atypical as troponin 3 is negative with EKG with no ST or T-wave changes. 05/25 Patient was evaluated at the bedside today, she reports she is actually doing better today. Reports that her breathing has improved, she denies any chest pain or increasing shortness of breath. Pulmonary is on consult who does recommend a bronchoscopy possibly in the future. influenza was negative, troponins have been negative. 05/26 Patient was evaluated today, she is noted to be walking the halls with physical therapy. Patient reports she is doing well, although today she reports some back pain. Lidocaine patch was ordered. Patient reports breathing has improved although does not feel quite ready for discharge today. Will continue with current treatment plan, reassess tomorrow for possible discharge. 05/27: Patient has been cleared for discharge by Dr. Lawrence. Plan for outpatient PET scan. Patient received Xanax and a pain pill last night and she states she slept very well because of this. Her breathing status is improved. Patient is complaining of spasms in her back for which baclofen will be provided. Thoracic x-ray child multilevel hypertrophic and degenerative disc disease. Patient will be discharged home today in stable condition. Discharge diagnoses: #1 acute hypoxic respiratory distress secondary to COPD exacerbation and acute bronchitis #2 history of bloody sputum - pulmonary lesion concerning for malignancy associated with hilar lymphadenopathy. #3 history of depression recurrent with generalized anxiety disorder #4 history of hypothyroidism #5 history of essential tremors #6 history of GERD Discharge plan: Return home Impression and plan of care have been directed as dictated by the signing physician. Fernanda Taylor nurse practitioner acting as scribe for signing physician. Patient Condition at Discharge: Good Plan - Discharge Summary New Discharge Prescriptions: New Amoxic-Pot Clav 875-125Mg [Augmentin 875-125] 1 each PO Q12HR #12 tab Baclofen [Lioresal] 5 mg PO TID PRN #15 tablet PRN Reason: Spasms guaiFENesin [Mucinex] 600 mg PO Q12HR tablet.er predniSONE 40 mg PO DIRECTED #10 tab Continue Ipratropium/Albuterol Sulfate [Combivent Respimat Inhaler] 2 puff INHALATION RT-BID Albuterol Sulfate [Proair Hfa] 2 puff INHALATION RT-BID PRN PRN Reason: Shortness Of Breath Primidone [Mysoline] 250 mg PO QAM Diphenoxylate HCl/Atropine [Lomotil] 2 tab PO QID PRN PRN Reason: Diarrhea Ipratropium-Albuterol Nebulize [Duoneb 0.5 mg-3 mg/3 ml Soln] 3 ml INHALATION RT-QID PRN PRN Reason: sob Cholecalciferol [Vitamin D3] 2,000 unit PO QAM Fluticasone/Salmeterol [Advair Hfa 230-21 Mcg Inhaler] 2 puff INHALATION RT- BID Levothyroxine Sodium [Synthroid] 25 mcg PO QAM Tiotropium 18 Mcg/Puff [Spiriva] 1 cap INHALATION RT-DAILY Pantoprazole Sodium [Protonix] 40 mg PO QAM Dicyclomine [Bentyl] 10 mg PO QID Simvastatin [Zocor] 20 mg PO HS busPIRone HCL [Buspar] 7.5 mg PO BID Citalopram Hydrobromide [CeleXA] 20 mg PO HS Primidone [Mysoline] 500 mg PO HS Discharge Medication List Albuterol Sulfate [Proair Hfa] 2 puff INHALATION RT-BID PRN 08/31/15 [History] Diphenoxylate HCl/Atropine [Lomotil] 2 tab PO QID PRN 08/31/15 [History] Ipratropium/Albuterol Sulfate [Combivent Respimat Inhaler] 2 puff INHALATION RT- BID 08/31/15 [History] Primidone [Mysoline] 250 mg PO QAM 08/31/15 [History] Cholecalciferol [Vitamin D3] 2,000 unit PO QAM 10/29/15 [History] Ipratropium-Albuterol Nebulize [Duoneb 0.5 mg-3 mg/3 ml Soln] 3 ml INHALATION RT -QID PRN 10/29/15 [History] Fluticasone/Salmeterol [Advair Hfa 230-21 Mcg Inhaler] 2 puff INHALATION RT-BID 01/29/16 [History] Levothyroxine Sodium [Synthroid] 25 mcg PO QAM 01/29/16 [History] Pantoprazole Sodium [Protonix] 40 mg PO QAM 01/29/16 [History] Tiotropium 18 Mcg/Puff [Spiriva] 1 cap INHALATION RT-DAILY 01/29/16 [History] Dicyclomine [Bentyl] 10 mg PO QID 05/14/16 [History] Simvastatin [Zocor] 20 mg PO HS 05/14/16 [History] Citalopram Hydrobromide [CeleXA] 20 mg PO HS 05/23/17 [History] Primidone [Mysoline] 500 mg PO HS 05/23/17 [History] busPIRone HCL [Buspar] 7.5 mg PO BID 05/23/17 [History] Amoxic-Pot Clav 875-125Mg [Augmentin 875-125] 1 each PO Q12HR #12 tab 05/27/17 [ Rx] Baclofen [Lioresal] 5 mg PO TID PRN #15 tablet 05/27/17 [Rx] guaiFENesin [Mucinex] 600 mg PO Q12HR tablet.er 05/27/17 [Rx] predniSONE 40 mg PO DIRECTED #10 tab 05/27/17 [Rx] Follow up Appointment(s)/Referral(s): Torin Mercado MD [Primary Care Provider] - 06/04/17 2:15 pm Jacinta Lawrence MD [STAFF PHYSICIAN] - 06/05/17 10:00 am Patient Instructions/Handouts: Prednisone (By mouth), Amoxicillin/Clavulanate Potassium (By mouth), Baclofen (By mouth), Chest Pain (DC), Hemoptysis (GEN), Dyspnea (GEN) Activity/Diet/Wound Care/Special Instructions: Schedule for PET scan. [facility]: #[phone] Discharge Disposition: HOME SELF-CARE
== END 2017-05-27 13:10 | disposition home health service (06) | DRG 191 ==
LOC: EC 13:03 → 5ONC 15:44
PROVIDERS: ADMIT Internal Medicine; ATTEND Internal Medicine
DX: J44.0 Chronic obstructive pulmonary disease with (acute) lower respiratory infection (principal); F33.9 Major depressive disorder, recurrent, unspecified; Z99.81 Dependence on supplemental oxygen; R04.2 Hemoptysis; J44.1 Chronic obstructive pulmonary disease with (acute) exacerbation; E03.9 Hypothyroidism, unspecified; J20.9 Acute bronchitis, unspecified; R09.02 Hypoxemia; G25.0 Essential tremor; K21.9 Gastro-esophageal reflux disease without esophagitis; F43.10 Post-traumatic stress disorder, unspecified; M81.0 Age-related osteoporosis without current pathological fracture; E78.5 Hyperlipidemia, unspecified; I10 Essential (primary) hypertension; G47.30 Sleep apnea, unspecified; M19.90 Unspecified osteoarthritis, unspecified site; R59.0 Localized enlarged lymph nodes; R79.1 Abnormal coagulation profile; M54.9 Dorsalgia, unspecified; F41.1 Generalized anxiety disorder; R91.1 Solitary pulmonary nodule; R00.0 Tachycardia, unspecified; M51.34 Other intervertebral disc degeneration, thoracic region; L24.4 Irritant contact dermatitis due to drugs in contact with skin; T41.3X5A Adverse effect of local anesthetics, initial encounter; Z87.891 Personal history of nicotine dependence; Z80.0 Family history of malignant neoplasm of digestive organs; Z87.19 Personal history of other diseases of the digestive system; Z79.899 Other long term (current) drug therapy; Z80.8 Family history of malignant neoplasm of other organs or systems; Z82.49 Family history of ischemic heart disease and other diseases of the circulatory system
CPT/HCPCS: 36415; 71046; 71275; 72070; 80053; 82550; 82553; 83735; 83880; 84484; 85025; 85379; 85610; 85730; 87070; 87205; 87502; 93005; 94640; 94667; 94760; 96374; 99285

== ENCOUNTER → 2017-06-20 | Outpatient (CLI) | payer OTHER ==
--- NOTE | 2017-06-20 16:00 | PE ---
EXAMINATION TYPE: PET CT fusion skull to thigh DATE OF EXAM: 06/20/2017 COMPARISON: CTA chest May 23, 2017 and older exams December 19, 2016 HISTORY: Hilar mass per order. Solitary pulmonary nodule. TECHNIQUE: Following the intravenous administration of 10.15 mCi of F-18 FDG, whole body images are performed from the skull base to the midthigh. Images are reviewed on the computer in the coronal, a xial, and sagittal planes. Reconstructed rotating images are created on independent workstation and reviewed on the computer. A noncontrast CT is performed in conjunction with the PET scan. SCAN: Initial Scan FINDINGS: SKULL BASE AND NECK: No suspicious hypermetabolic uptake is seen CHEST, MEDIASTINUM, AND HILAR REGION: Correlating with recent CT there is enlarged right hilar nodule or lymph node measuring roughly 1.6 x 1.2 cm axial image 99 with max SUV of 4.5. This is suspicious as is increased in size from December 19, 2016 CT. There is background mild to moderate underlying emphysematous change redemonstrated. Tiny 2 mm nodule lateral aspect right upper lobe axial image 68 is redemonstrated. No suspicious hypermetabolic great er than 5 mm parenchymal nodules are present. There is stable 4 to 5 mm hypermetabolic nodule right m iddle lobe axial image 109 unchanged from December 19, 2016 CT. ABDOMEN AND PELVIS: There is a subcentimeter focus right hepatic dome axial image 116 with max SUV of 4.74, corresponding CT lesion is not clearly seen. Some linear scarring slightly more thick is noted in the right lung base laterally just superior to this. Some diverticula are seen in the sigmoid colon. There is slightly more prominent focal hypermetabolic uptake in area of mild wall thickening in the proximal sigmoid colon axial image 203, max SUV is 7.0 7. OSSEOUS STRUCTURES: Osseous metastatic disease is felt present. There is hypermetabolic lesion in reg ion of right scapula axial image 82, max SUV is 5.7, subtle lucency may be present on CT lateral aspe ct. There is hypermetabolic uptake left lamina mid thoracic spine at this level with max SUV of 7.82. There is hypermetabolic uptake anterior T4 vertebra, max SUV is 6.19 axial image 68. There is and ri ght anterior L1 level, max SUV 5.05 axial image 141. There is sclerotic focus left proximal femur lev el without abnormal hypermetabolic uptake. There is possible left lateral rib lesion axial image 101 with subtle hypermetabolic uptake. OTHER CT: There is 9 mm round a metabolic lesion left lower breast likely reflecting cyst or prominen t glandular tissue axial image 108. Correlate with mammogram and/or ultrasound if has not been perfor med in last year. Cholecystectomy clips are present. IMPRESSION: Suspect diffuse osseous metastatic disease as detailed above though distinct lytic and sc lerotic lesions are not well identified. Attention to sigmoid colon where further investigation with colonoscopy correlation is advised. Possible early hepatic dome metastatic lesion. This area can be f ollowed. Suspicious enlarging right hilar nodule or lymph node, consider bronchoscopy follow-up.
== END ==
LOC: RADPETMAIN 10:45
PROVIDERS: ATTEND Internal Medicine Critical Care Medicine
DX: R91.8 Other nonspecific abnormal finding of lung field (principal)
CPT/HCPCS: 78815; A9552

== ENCOUNTER → 2017-07-02 | Outpatient (CLI) | payer OTHER ==
[2017-07-02 17:22] LABS: Alpha Fetoprotein, Tumor Mkr <1.3 ng/mL (0.0-7.9); Cancer Antigen 19-9 284.9 U/mL (0.0-34.9)
== END | disposition home or self-care (01) ==
LOC: LABWHC1 09:38
PROVIDERS: ATTEND Internal Medicine Critical Care Medicine
DX: R91.8 Other nonspecific abnormal finding of lung field (principal)
CPT/HCPCS: 36415; 82105; 82378; 86301; 86304

== ENCOUNTER 2017-07-09 23:24 | Emergency (ER) | payer OTHER ==
[2017-07-09] MEDS ORDERED: MORPHINE SULFATE 4 MG/ML SYRINGE IVP STA (23:49)
[2017-07-09] MEDS ORDERED: SODIUM CHLORIDE 0.9% 500 ML IV ONE (23:49)
[2017-07-09] MEDS ORDERED: ONDANSETRON 4 MG/2 ML VIAL IVP STA (23:49)
--- NOTE | 2017-07-09 23:55 | ED ---
Back Pain HPI - General Chief Complaint: Back Pain/Injury Stated Complaint: All over pain Time Seen by Provider: 07/09/17 23:25 Source: patient Limitations: physical limitation - History of Present Illness Initial Comments: 62-year-old female patient presents to the emergency department today for complaints of increased pain. Patient states that on 07/01/2017 Dr. Lawrence diagnosed her with metastatic bone cancer with suspicious lesions in her sigmoid colon, left breast, and liver. Patient states that at the time of diagnosis she was not having any significant pain however since then has developed an pain to her back and abdomen. Patient states that she has been taking [place] to 7.5/325 tablets every 4 hours. States that the pain really for last approximately one hour and then wears off. She denies any nausea or vomiting. Denies any constipation. States she has been having diarrhea however this is usual for her. She denies any fevers or chills. Denies any falls or injuries. She states that she is having some hemoptysis and shortness of breath however this has been going on since April when they found a mass in the lung. Patient denies any recent rash, shortness breath, chest pain, numbness , tingling, dizziness, weakness, hematuria, dysuria, urinary urgency, urinary frequency, headache, visual changes, or any other complaints. - Related Data Home Medications Medication Instructions Recorded Confirmed Albuterol Sulfate [Proair Hfa] 2 puff INHALATION RT-BID PRN 08/31/15 05/23/17 Diphenoxylate HCl/Atropine 2 tab PO QID PRN 08/31/15 05/23/17 [Lomotil] Ipratropium/Albuterol Sulfate 2 puff INHALATION RT-BID 08/31/15 05/23/17 [Combivent Respimat Inhaler] Primidone [Mysoline] 250 mg PO QAM 08/31/15 05/23/17 Cholecalciferol [Vitamin D3] 2,000 unit PO QAM 10/29/15 05/23/17 Ipratropium-Albuterol Nebulize 3 ml INHALATION RT-QID PRN 10/29/15 05/23/17 [Duoneb 0.5 mg-3 mg/3 ml Soln] Fluticasone/Salmeterol [Advair Hfa 2 puff INHALATION RT-BID 01/29/16 05/23/17 230-21 Mcg Inhaler] Levothyroxine Sodium [Synthroid] 25 mcg PO QAM 01/29/16 05/23/17 Pantoprazole Sodium [Protonix] 40 mg PO QAM 01/29/16 05/23/17 Tiotropium 18 Mcg/Puff [Spiriva] 1 cap INHALATION RT-DAILY 01/29/16 05/23/17 Dicyclomine [Bentyl] 10 mg PO QID 05/14/16 05/23/17 Simvastatin [Zocor] 20 mg PO HS 05/14/16 05/23/17 Citalopram Hydrobromide [CeleXA] 20 mg PO HS 05/23/17 05/23/17 Primidone [Mysoline] 500 mg PO HS 05/23/17 05/23/17 busPIRone HCL [Buspar] 7.5 mg PO BID 05/23/17 05/23/17 Previous Rx's Medication Instructions Recorded Amoxic-Pot Clav 875-125Mg 1 each PO Q12HR #12 tab 05/27/17 [Augmentin 875-125] Baclofen [Lioresal] 5 mg PO TID PRN #15 tablet 05/27/17 guaiFENesin [Mucinex] 600 mg PO Q12HR tablet.er 05/27/17 predniSONE 40 mg PO DIRECTED #10 tab 05/27/17 HYDROcodone/APAP 10-325MG [[place] 1 tab PO Q6HR PRN 3 Days #12 tab 07/10/17 10-325] fentaNYL 25MCG/HR PATCH [Durages[place] 1 patch TRANSDERM Q72H #3 patch 07/10/17 25MCG/HR] Allergies Allergy/AdvReac Type Severity Reaction Status Date / Time lidocaine patch Allergy Rash/Hives Uncoded 07/09/17 23:39 Review of Systems ROS Statement: Those systems with pertinent positive or pertinent negative responses have been documented in the HPI. ROS Other: All systems not noted in ROS Statement are negative. Past Medical History Past Medical History: Cancer, COPD, GERD/Reflux, Hyperlipidemia, Hypertension, Osteoarthritis (OA), Sleep Apnea/CPAP/BIPAP Additional Past Medical History / Comment(s): Osteoporosis,uses cpap,sob,hiatal hernia,tremors,dtr states "has 40% lung copacity" History of Any Multi-Drug Resistant Organisms: None Reported Past Surgical History: Cholecystectomy Additional Past Surgical History / Comment(s): EGD,colonoscopy Past Anesthesia/Blood Transfusion Reactions: Previous Problems w/ Anesthesia, Family History of Problems w/ Anesthesia Additional Past Anesthesia/Blood Transfusion Reaction / Comment(s): hx of O2 sats dropping with sedation during EGD/Colonoscopy,never has had general anesthesia,son arrested during surgery-hx of being on oxygen.no hx blood transfusion Past Psychological History: Anxiety, PTSD Smoking Status: Former smoker Past Alcohol Use History: None Reported Past Drug Use History: None Reported - Past Family History Mother Family Medical History: Cancer, Coronary Artery Disease (CAD) Additional Family Medical History / Comment(s): skin Father Family Medical History: No Reported History Additional Family Medical History / Comment(s): Father in a motor vehicle accident. Patient had one brother who had metastatic colon cancer and history of coronary artery disease. His sister had skin cancer. Patient lives alone and is functionally active does. 3 L of oxygen at rest and exertion Brother(s) Family Medical History: Cancer, Coronary Artery Disease (CAD), Myocardial Infarction ([place]) Sister(s) Family Medical History: Cancer Additional Family Medical History / Comment(s): cancer skin mom skin ca General Exam Limitations: physical limitation General appearance: alert, in no apparent distress, other (This is a well- developed, well-nourished adult female patient in no acute distress. Vital signs upon presentation are temperature 97.5F, pulse 74, respirations 19, blood pressure 121/68, pulse ox 96% on room air.) Eye exam: Present: normal appearance, PERRL, EOMI. Absent: scleral icterus, conjunctival injection, periorbital swelling ENT exam: Present: normal exam, normal oropharynx, mucous membranes moist Respiratory exam: Present: normal lung sounds bilaterally. Absent: respiratory distress, wheezes, rales, rhonchi, stridor Cardiovascular Exam: Present: regular rate, normal rhythm, normal heart sounds. Absent: systolic murmur, diastolic murmur, rubs, gallop, clicks GI/Abdominal exam: Present: soft, normal bowel sounds. Absent: distended, tenderness, guarding, rebound, rigid Neurological exam: Present: alert, oriented X3, CN II-XII intact Psychiatric exam: Present: normal affect, normal mood Skin exam: Present: warm, dry, intact, normal color. Absent: rash Course Vital Signs 07/09/17 07/10/17 23:34 00:44 Temperature 97.5 F L Pulse Rate 74 72 Respiratory 19 18 Rate Blood Pressure 121/68 117/80 O2 Sat by Pulse 96 99 Oximetry Medical Decision Making - Medical Decision Making 62 year-old female patient presented to the emergency department for evaluation of increased back pain and abdominal pain. Physical examination is unremarkable. Patient has no abdominal tenderness. Labs reviewed and were unremarkable. Patient has been diagnosed with metastatic bone cancer with lesions in her breast, sigmoid colon, liver, and lung. Patient has been taking norco without much relief of her symptoms. Patient was taking 2 7.5/325mg [place] tablets every four hours. She has two tablets left. We had an extensive discussion regarding appropriate use of narcotics and risk of overdosing on these medications. I will prescribe fentanyl patch 25mcg and norco 10/325 for breakthrough pain. I will give her enough until she is able to follow up with Dr. Lawrence again, she is instructed to call tomorrow for an appointment. Patient verbalizes understanding of appropriate use of these medications. Return parameters discussed in detail. She verbalizes understanding and agrees with this plan. - Lab Data Result diagrams: 07/09/17 23:43 07/09/17 23:43 Lab Results 07/09/17 07/09/17 07/10/17 Range/Units 23:43 23:43 00:43 WBC 5.9 (3.8-10.6) k/uL RBC 3.65 L (3.80-5.40) m/uL Hgb 11.0 L (11.4-16.0) gm/dL Hct 32.2 L (34.0-46.0) % MCV 88.2 (80.0-100.0) fL MCH 30.1 (25.0-35.0) pg MCHC 34.1 (31.0-37.0) g/dL RDW 13.4 (11.5-15.5) % Plt Count 222 (150-450) k/uL Neutrophils % 65 % Lymphocytes % 24 % Monocytes % 6 % Eosinophils % 3 % Basophils % 1 % Neutrophils # 3.8 (1.3-7.7) k/uL Lymphocytes # 1.4 (1.0-4.8) k/uL Monocytes # 0.3 (0-1.0) k/uL Eosinophils # 0.2 (0-0.7) k/uL Basophils # 0.0 (0-0.2) k/uL Sodium 143 (137-145) mmol/L Potassium 3.7 (3.5-5.1) mmol/L Chloride 102 (98-107) mmol/L Carbon Dioxide 29 (22-30) mmol/L Anion Gap 12 mmol/L BUN 12 (7-17) mg/dL Creatinine 0.70 (0.52-1.04) mg/dL Est GFR (CKD-EPI)AfAm >90 (>60 ml/min/1.73 sqM) Est GFR (CKD-EPI)NonAf >90 (>60 ml/min/1.73 sqM) Glucose 90 (74-99) mg/dL Calcium 9.0 (8.4-10.2) mg/dL Total Bilirubin 0.1 L (0.2-1.3) mg/dL AST 14 (14-36) U/L ALT 28 (9-52) U/L Alkaline Phosphatase 83 (38-126) U/L Total Protein 5.7 L (6.3-8.2) g/dL Albumin 3.6 (3.5-5.0) g/dL Amylase <30 L (30-110) U/L Lipase 58 (23-300) U/L Urine Color Light Yellow Urine Appearance Clear (Clear) Urine pH 6.0 (5.0-8.0) Ur Specific [place] 1.006 (1.001-1.035) Urine Protein Negative (Negative) Urine Glucose (UA) Negative (Negative) Urine Ketones Negative (Negative) Urine Blood Negative (Negative) Urine Nitrite Negative (Negative) Urine Bilirubin Negative (Negative) Urine Urobilinogen <2.0 (<2.0) mg/dL Ur Leukocyte Esterase Negative (Negative) Disposition Clinical Impression: Back pain Disposition: HOME SELF-CARE Condition: Good Instructions: Back Pain (ED) Additional Instructions: Use medications as discussed. Follow-up with Dr. Snow and as soon as possible. Call your primary care physician for further evaluation. Return here immediately for any new, worsening, or concerning symptoms. Prescriptions: fentaNYL 25MCG/HR PATCH [Duragesic 25MCG/HR] 1 patch TRANSDERM Q72H #3 patch HYDROcodone/APAP 10-325MG [[place] 10-325] 1 tab PO Q6HR PRN 3 Days #12 tab PRN Reason: Breakthrough Pain Is patient prescribed a controlled substance at d/c from ED?: No Referrals: Torin Mercado MD [Primary Care Provider] - 1-2 days Jacinta Lawrence MD [STAFF PHYSICIAN] - 1-2 days Time of Disposition: 01:21
[2017-07-10 00:02] LABS: Basophils % (A) 1 %; Eosinophils # (A) 0.2 k/uL (0-0.7); Eosinophils % (A) 3 %; HCT 32.2 % (34.0-46.0); Lymphocytes # (A) 1.4 k/uL (1.0-4.8); Lymphocytes % (A) 24 %; MCH 30.1 pg (25.0-35.0); MCHC 34.1 g/dL (31.0-37.0); MCV 88.2 fL (80.0-100.0); Mean Platelet Volume 7.3; Monocytes # (A) 0.3 k/uL (0-1.0); Monocytes % (A) 6 %; Neutrophils # (A) 3.8 k/uL (1.3-7.7); Neutrophils % (A) 65 %; Platelet Count 222 k/uL (150-450); RBC 3.65 m/uL (3.80-5.40); RDW 13.4 % (11.5-15.5); WBC 5.9 k/uL (3.8-10.6)
[2017-07-10 00:11] LABS: ALT 28 U/L (9-52); AST 14 U/L (14-36); Albumin 3.6 g/dL (3.5-5.0); Alkaline Phosphatase 83 U/L (38-126); Amylase <30 U/L (30-110); Anion Gap 12 mmol/L; Blood Urea Nitrogen 12 mg/dL (7-17); Carbon Dioxide 29 mmol/L (22-30); Chloride 102 mmol/L (98-107); Glucose 90 mg/dL (74-99); Lipase 58 U/L (23-300); Potassium 3.7 mmol/L (3.5-5.1); Sodium 143 mmol/L (137-145); Total Bilirubin 0.1 mg/dL (0.2-1.3); Total Protein 5.7 g/dL (6.3-8.2)
[2017-07-10 01:04] LABS: Appearance,Urine Clear (Clear); Bilirubin,Urine Negative (Negative); Blood,Urine Negative (Negative); Color,Urine Light Yellow; Glucose,Urine (UA) Negative (Negative); Ketones,Urine Negative (Negative); Leukocyte Esterase,Urine Negative (Negative); Nitrite,Urine Negative (Negative); Protein,Urine Negative (Negative); Specific Gravity,Urine 1.006 (1.001-1.035); Urobilinogen,Urine <2.0 mg/dL (<2.0)
[2017-07-10 01:26] VITALS: BP 119/59; PULSE 76; RESP 17; TEMP 97.8
== END 2017-07-10 02:07 | disposition home or self-care (01) ==
LOC: EC 23:24
DX: M54.9 Dorsalgia, unspecified (principal); R10.9 Unspecified abdominal pain; R19.7 Diarrhea, unspecified; C41.9 Malignant neoplasm of bone and articular cartilage, unspecified; K63.89 Other specified diseases of intestine; N64.59 Other signs and symptoms in breast; K76.89 Other specified diseases of liver; R91.8 Other nonspecific abnormal finding of lung field; R04.2 Hemoptysis; R06.02 Shortness of breath; E78.5 Hyperlipidemia, unspecified; I10 Essential (primary) hypertension; J44.9 Chronic obstructive pulmonary disease, unspecified; K21.9 Gastro-esophageal reflux disease without esophagitis; G47.30 Sleep apnea, unspecified; F41.9 Anxiety disorder, unspecified; Z87.891 Personal history of nicotine dependence; Z79.51 Long term (current) use of inhaled steroids; Z79.899 Other long term (current) drug therapy; Z88.4 Allergy status to anesthetic agent; Z86.69 Personal history of other diseases of the nervous system and sense organs; Z99.89 Dependence on other enabling machines and devices; Z90.49 Acquired absence of other specified parts of digestive tract
CPT/HCPCS: 36415; 80053; 82150; 83690; 85025; 81003; 99283; 96374; 96375; J2270; J2405

== ENCOUNTER 2017-07-11 21:57 | Inpatient (IN) | payer OTHER ==
[2017-07-11] MEDS ORDERED: MORPHINE SULFATE 4 MG/ML SYRINGE IV STA (22:27)
[2017-07-11] MEDS ORDERED: SODIUM CHLORIDE 0.9% 1,000 ML IV STA (22:27)
--- NOTE | 2017-07-11 22:32 | ED ---
General Adult HPI - General Chief complaint: Abdominal Pain Stated complaint: Abd pain Time Seen by Provider: 07/11/17 22:02 Source: patient, EMS, RN notes reviewed, old records reviewed Mode of arrival: EMS Limitations: no limitations - History of Present Illness Initial comments: 62-year-old female presenting with generalized pain. She has recent diagnosis of metastatic cancer. She is on certain where this is originating. She has not had an appointment with oncology to date. This diagnosis was made by her [employer] solution architect. She was scheduled for colonoscopy. She has been taking [place] 10 and fentanyl patch with minimal relief. She is complaining of breast pain, pain in her spine, and pain in her abdomen. No history of fever or chills. No nausea vomiting or diarrhea. Pain is unchanged over the past several weeks. She was seen in the emergency department several days ago and given increased dosing of pain medication and this has not reduced her pain. - Related Data Home Medications Medication Instructions Recorded Confirmed Albuterol Sulfate [Proair Hfa] 2 puff INHALATION RT-BID PRN 08/31/15 05/23/17 Diphenoxylate HCl/Atropine 2 tab PO QID PRN 08/31/15 05/23/17 [Lomotil] Ipratropium/Albuterol Sulfate 2 puff INHALATION RT-BID 08/31/15 05/23/17 [Combivent Respimat Inhaler] Primidone [Mysoline] 250 mg PO QAM 08/31/15 05/23/17 Cholecalciferol [Vitamin D3] 2,000 unit PO QAM 10/29/15 05/23/17 Ipratropium-Albuterol Nebulize 3 ml INHALATION RT-QID PRN 10/29/15 05/23/17 [Duoneb 0.5 mg-3 mg/3 ml Soln] Fluticasone/Salmeterol [Advair Hfa 2 puff INHALATION RT-BID 01/29/16 05/23/17 230-21 Mcg Inhaler] Levothyroxine Sodium [Synthroid] 25 mcg PO QAM 01/29/16 05/23/17 Pantoprazole Sodium [Protonix] 40 mg PO QAM 01/29/16 05/23/17 Tiotropium 18 Mcg/Puff [Spiriva] 1 cap INHALATION RT-DAILY 01/29/16 05/23/17 Dicyclomine [Bentyl] 10 mg PO QID 05/14/16 05/23/17 Simvastatin [Zocor] 20 mg PO HS 05/14/16 05/23/17 Citalopram Hydrobromide [CeleXA] 20 mg PO HS 05/23/17 05/23/17 Primidone [Mysoline] 500 mg PO HS 05/23/17 05/23/17 busPIRone HCL [Buspar] 7.5 mg PO BID 05/23/17 05/23/17 Previous Rx's Medication Instructions Recorded Amoxic-Pot Clav 875-125Mg 1 each PO Q12HR #12 tab 05/27/17 [Augmentin 875-125] Baclofen [Lioresal] 5 mg PO TID PRN #15 tablet 05/27/17 guaiFENesin [Mucinex] 600 mg PO Q12HR tablet.er 05/27/17 predniSONE 40 mg PO DIRECTED #10 tab 05/27/17 HYDROcodone/APAP 10-325MG [[place] 1 tab PO Q6HR PRN 3 Days #12 tab 07/10/17 10-325] fentaNYL 25MCG/HR PATCH [Duragesic 1 patch TRANSDERM Q72H #3 patch 07/10/17 25MCG/HR] Allergies Allergy/AdvReac Type Severity Reaction Status Date / Time lidocaine patch Allergy Rash/Hives Uncoded 07/11/17 22:07 Review of Systems ROS Statement: Those systems with pertinent positive or pertinent negative responses have been documented in the HPI. ROS Other: All systems not noted in ROS Statement are negative. Past Medical History Past Medical History: Cancer, COPD, GERD/Reflux, Hyperlipidemia, Hypertension, Osteoarthritis (OA), Sleep Apnea/CPAP/BIPAP Additional Past Medical History / Comment(s): Osteoporosis,uses cpap,sob,hiatal hernia,tremors,dtr states "has 40% lung copacity" History of Any Multi-Drug Resistant Organisms: None Reported Past Surgical History: Cholecystectomy Additional Past Surgical History / Comment(s): EGD,colonoscopy Past Anesthesia/Blood Transfusion Reactions: Previous Problems w/ Anesthesia, Family History of Problems w/ Anesthesia Additional Past Anesthesia/Blood Transfusion Reaction / Comment(s): hx of O2 sats dropping with sedation during EGD/Colonoscopy,never has had general anesthesia,son arrested during surgery-hx of being on oxygen.no hx blood transfusion Past Psychological History: Anxiety, PTSD Smoking Status: Former smoker Past Alcohol Use History: None Reported Past Drug Use History: None Reported - Past Family History Mother Family Medical History: Cancer, Coronary Artery Disease (CAD) Additional Family Medical History / Comment(s): skin Father Family Medical History: No Reported History Additional Family Medical History / Comment(s): Father in a motor vehicle accident. Patient had one brother who had metastatic colon cancer and history of coronary artery disease. His sister had skin cancer. Patient lives alone and is functionally active does. 3 L of oxygen at rest and exertion Brother(s) Family Medical History: Cancer, Coronary Artery Disease (CAD), Myocardial Infarction ([place]) Sister(s) Family Medical History: Cancer Additional Family Medical History / Comment(s): cancer skin mom skin ca General Exam Limitations: no limitations General appearance: alert, in no apparent distress Head exam: Present: atraumatic, normocephalic Eye exam: Present: normal appearance, PERRL ENT exam: Present: normal exam Neck exam: Present: normal inspection. Absent: tenderness, meningismus Respiratory exam: Present: normal lung sounds bilaterally. Absent: respiratory distress, wheezes Cardiovascular Exam: Present: regular rate, normal rhythm GI/Abdominal exam: Present: soft, distended, tenderness (Mild generalized tenderness to palpation). Absent: guarding, rebound Extremities exam: Present: normal inspection, normal capillary refill. Absent: pedal edema Neurological exam: Present: alert, oriented X3, CN II-XII intact. Absent: motor sensory deficit Psychiatric exam: Present: normal affect, normal mood Skin exam: Present: warm, dry, intact. Absent: cyanosis, diaphoretic Course Vital Signs 07/11/17 22:04 Temperature 98.1 F Pulse Rate 86 Respiratory 18 Rate Blood Pressure 133/78 O2 Sat by Pulse 97 Oximetry Medical Decision Making - Medical Decision Making 62-year-old female with multiple pain complaints and new diagnosis of metastatic cancer. Patient's laboratory studies are within normal limits, normal white blood skull, stable hemoglobin. He within normal limits, chest x- ray and KUB are negative for any acute process. Patient will be admitted for pain control as her outpatient regimen is not working. Oncology will be placed on consult. - Lab Data Result diagrams: 07/11/17 22:27 07/11/17 22:27 Lab Results 07/11/17 07/11/17 Range/Units 22:27 22:27 WBC 5.7 (3.8-10.6) k/uL RBC 3.70 L (3.80-5.40) m/uL Hgb 11.4 (11.4-16.0) gm/dL Hct 33.1 L (34.0-46.0) % MCV 89.5 (80.0-100.0) fL MCH 30.8 (25.0-35.0) pg MCHC 34.4 (31.0-37.0) g/dL RDW 13.4 (11.5-15.5) % Plt Count 217 (150-450) k/uL Neutrophils % 67 % Lymphocytes % 22 % Monocytes % 5 % Eosinophils % 3 % Basophils % 1 % Neutrophils # 3.9 (1.3-7.7) k/uL Lymphocytes # 1.2 (1.0-4.8) k/uL Monocytes # 0.3 (0-1.0) k/uL Eosinophils # 0.2 (0-0.7) k/uL Basophils # 0.0 (0-0.2) k/uL Sodium 145 (137-145) mmol/L Potassium 4.4 (3.5-5.1) mmol/L Chloride 104 (98-107) mmol/L Carbon Dioxide 29 (22-30) mmol/L Anion Gap 12 mmol/L BUN 13 (7-17) mg/dL Creatinine 0.60 (0.52-1.04) mg/dL Est GFR (CKD-EPI)AfAm >90 (>60 ml/min/1.73 sqM) Est GFR (CKD-EPI)NonAf >90 (>60 ml/min/1.73 sqM) Glucose 97 (74-99) mg/dL Calcium 9.3 (8.4-10.2) mg/dL Total Bilirubin 0.2 (0.2-1.3) mg/dL AST 20 (14-36) U/L ALT 26 (9-52) U/L Alkaline Phosphatase 85 (38-126) U/L Total Protein 6.1 L (6.3-8.2) g/dL Albumin 3.8 (3.5-5.0) g/dL Amylase <30 L (30-110) U/L Lipase 56 (23-300) U/L Disposition Clinical Impression: Intractable pain, Lung mass Disposition: ADMITTED IP TO THIS HOSP Condition: Stable Is patient prescribed a controlled substance at d/c from ED?: No Referrals: Torin Mercado MD [Primary Care Provider] - 1-2 days Decision to Admit Reason: Admit from EC Decision Date: 07/11/17 Decision Time: 23:43
[2017-07-11 22:36] LABS: Basophils % (A) 1 %; Eosinophils # (A) 0.2 k/uL (0-0.7); Eosinophils % (A) 3 %; HCT 33.1 % (34.0-46.0); HGB 11.4 gm/dL (11.4-16.0); Lymphocytes # (A) 1.2 k/uL (1.0-4.8); Lymphocytes % (A) 22 %; MCH 30.8 pg (25.0-35.0); MCHC 34.4 g/dL (31.0-37.0); MCV 89.5 fL (80.0-100.0); Mean Platelet Volume 7.6; Monocytes # (A) 0.3 k/uL (0-1.0); Monocytes % (A) 5 %; Neutrophils # (A) 3.9 k/uL (1.3-7.7); Neutrophils % (A) 67 %; Platelet Count 217 k/uL (150-450); RDW 13.4 % (11.5-15.5); WBC 5.7 k/uL (3.8-10.6)
[2017-07-11 22:47] LABS: ALT 26 U/L (9-52); AST 20 U/L (14-36); Albumin 3.8 g/dL (3.5-5.0); Alkaline Phosphatase 85 U/L (38-126); Amylase <30 U/L (30-110); Anion Gap 12 mmol/L; Blood Urea Nitrogen 13 mg/dL (7-17); Calcium 9.3 mg/dL (8.4-10.2); Carbon Dioxide 29 mmol/L (22-30); Chloride 104 mmol/L (98-107); Glucose 97 mg/dL (74-99); Lipase 56 U/L (23-300); Potassium 4.4 mmol/L (3.5-5.1); Sodium 145 mmol/L (137-145); Total Bilirubin 0.2 mg/dL (0.2-1.3); Total Protein 6.1 g/dL (6.3-8.2)
[2017-07-11] MEDS ORDERED: diphenhydrAMINE 50 MG/ML 1 ML VIAL IVP STA (22:56)
--- NOTE | 2017-07-11 23:07 | XR ---
EXAMINATION TYPE: XR chest 2V DATE OF EXAM: 07/11/2017 COMPARISON: 05/23/2017 HISTORY: Chest pain TECHNIQUE: Frontal and lateral views of the chest are obtained. FINDINGS: Heart and mediastinum are normal. Lungs are clear of consolidation. There is no evidence o f pleural effusion. Bony thorax is intact. There are chest leads. There is osteopenia. IMPRESSION: No active cardiopulmonary disease. No change.
--- NOTE | 2017-07-11 23:14 | XR ---
EXAMINATION TYPE: XR KUB DATE OF EXAM: 07/11/2017 COMPARISON: NONE HISTORY: Pain TECHNIQUE: 2 views FINDINGS: There is no sign of intestinal obstruction or pneumoperitoneum. Lung bases are clear. There are clips from cholecystectomy. There is no evidence of a mass. There are no pathologic calcificatio ns over the kidneys. IMPRESSION: Nonacute abdomen.
[2017-07-11] MEDS ORDERED: ONDANSETRON 4 MG/2 ML VIAL IVP PRN (23:43)
[2017-07-11] MEDS ORDERED: IBUPROFEN 400 MG TAB PO PRN (23:43)
[2017-07-11] MEDS ORDERED: NALOXONE 0.4 MG/ML 1 ML VIAL IV PRN (23:43)
[2017-07-12 00:04] LABS: Appearance,Urine Cloudy (Clear); Bilirubin,Urine Negative (Negative); Blood,Urine Negative (Negative); Color,Urine Yellow; Glucose,Urine (UA) Negative (Negative); Hyaline Casts,Urine 3 /lpf (0-2); Ketones,Urine Negative (Negative); Leukocyte Esterase,Urine Negative (Negative); Mucus,Urine Many /hpf; Nitrite,Urine Negative (Negative); PH, Urine 5.5 (5.0-8.0); Protein,Urine Trace (Negative); RBC,Urine 2 /hpf (0-5); Specific Gravity,Urine 1.026 (1.001-1.035); Squamous Epithelial Cell,Urine 7 /hpf (0-4); WBC,Urine 2 /hpf (0-5)
[2017-07-12] MEDS: MORPHINE SULFATE 4 MG/ML SYRINGE IV PRN ×3 (02:24→10:01)
[2017-07-12] MEDS ORDERED: DIPHENOX-ATROP 2.5-0.025 MG 1 EACH TAB PO PRN (08:32)
[2017-07-12] MEDS: DICYCLOMINE 10 MG CAP PO SCH ×4 (09:39→19:31)
[2017-07-12] MEDS: CHOLECALCIFEROL 1,000 UNIT TAB PO SCH (09:39)
[2017-07-12] MEDS: PANTOPRAZOLE 40 MG TABLET PO SCH (09:40)
[2017-07-12] MEDS: guaiFENesin 600 MG TABLET.ER PO SCH ×2 (09:40→19:31)
[2017-07-12] MEDS: PRIMIDONE 250 MG TAB PO SCH (09:40)
[2017-07-12] MEDS: busPIRone HCl 5 MG TAB PO SCH ×2 (09:40→19:30)
[2017-07-12] MEDS: HYDROcodone/APAP 10-325MG 1 EACH TAB PO PRN ×2 (13:19→19:29)
--- NOTE | 2017-07-12 13:42 | P.CNPUL ---
History of Present Illness Consult date: 07/12/17 Reason for consult: lung mass Chief complaint: Back pain, lung mass, metastatic disease History of present illness: This is a very pleasant 60-year-old female patient, a chronic smoker who quit smoking in 2016. The patient used to live in the [facility] and she is known to have advanced COPD with an FEV1 of 41% of predicted and the patient has chronic hypoxic respiratory failure maintained on oxygen at 3 L/m nasal cannula. The patient also has history of obstructive sleep apnea maintained on CPAP therapy for many years. The patient moved to [place] and I been taking care of her for the past 2 years. On 06/05/2017, the patient was Hospital as for increased shortness of breath with a diagnosis of an acute COPD exacerbation. She continued to have pain across her left posterior chest area. At that time she was diagnosed having a Moraxella catarrhalis rest or checked infection and she was treated and she was discharged home. As part of further investigation, a CAT scan of the chest was obtained and it showed a new right hilar opacity measuring 2 x 3 cm in size. As part of further investigation, x- ray of the thoracic spine was done and it did not show any significant abnormalities. A PET scan was done on 06/20/2017. The PET scan was quite abnormal. Specifically, there was a right hilar nodule measuring 1.6 x 1.2 cm in size that showed increase in size and uptake. Note that this nodule was originally seen back in November 2016. Tiny 2 mm nodule in the lateral aspect of the right upper lobe was seen without any metabolic activity. In addition, the patient was found to have osseous metastases with hypermetabolic lesion in the region of the right scapula with an SUV of 5.7, hypermetabolic uptake in the left lamina mid thoracic spine with an SUV of 7.8, metabolic activity at the level of T4 vertebral spine with an SUV of 6.1, L1 with an SUV of 5.0 and possibly a left lateral supple hypermetabolic uptake. In addition, there was a 9 mm round metabolic lesion in the left breast likely a cyst or a prominent gland and another lesion in the right hepatic dome, smaller than centimeters in size with an SUV of 4.7 . Based on all this, malignancy was suspected and I discussed this case at length with interventional radiology. The right hilar lesion was not accessible for biopsies bronchoscopically. Does of its size and location. I was hoping that we'll continue get a fine-needle aspirate of the spinal lesions however based on the interventional radiologist opinion these were not accessible also. The patient was further investigated and tumor markers were sent and the patient's CEA level was normal at 1.5 and alpha-fetoprotein level was less than 1.3, nevertheless the CA-19-9 level was 284 and a CA-125 level was 34.2. The patient had normal liver function tests. The patient had a colonoscopy that was done by Dr. Samantha valdez. That did not show any significant abnormalities , other than diverticulosis. As such, malignancy is suspected although it final diagnoses not been established yet. Yesterday, the patient came into the emergency department, complaining of generalized pain more so over the spine area. Her left scapula is still painful in addition to pain across the mid thoracic and upper lumbar region. The patient has been taking fentanyl patch in addition to oral no cold without much help. No fever or chills. No nausea or vomiting. No hemoptysis. She is very much concerned and worried. No weakness in lower extremities pain no numbness or tingling. No altered mentation. No headaches. Blood work and electrodes are all within normal limits Review of Systems Constitutional Constitutional: lethargy (sleepy and fatigued) Eyes Eyes: no dry eyes, no vision change, no irritation ENMT Ears: no difficulty hearing, no ear pain Nose: no frequent nosebleeds, no nose problems, no sinus problems Mouth/Throat: no sore throat, no bleeding gums, no snoring, no dry mouth, no mouth ulcers, no oral abnormalities, no teeth problems Cardiovascular Cardiovascular: no chest pain, no arm pain on exertion, no shortness of breath when lying down, no palpitations, no known heart murmur, shortness of breath when walking Respiratory Respiratory: no cough, no wheezing, no coughing up blood, no sleep apnea, shortness of breath (pain in the post chest), the patient has chronic exertional dyspnea related to COPD and obesity. Gastrointestinal Gastrointestinal: abdominal pain, nausea (chronic diarrhea) Genitourinary Genitourinary: no incontinence, no difficulty urinating, no hematuria, no increased frequency Musculoskeletal Musculoskeletal: no muscle aches, no muscle weakness, no back pain, no swelling in the extremities, arthralgias/joint pain. Excessive pain along the cervical and the lumbar spine and the scapular region in the back. Integumentary Skin: no abnormal mole, no jaundice, no rashes, no laceration Neurologic Neurologic: no loss of consciousness, no weakness, no numbness, no seizures, no dizziness, no migraines, no headaches, no tremor Psychiatric Psych: no depression, no sleep disturbances, feeling safe in a relationship, no alcohol abuse, no anxiety, no hallucinations, no suicidal thoughts Endocrine Endocrine: no fatigue Hematologic/Lymphatic Hematologic/Lymphatic no swollen glands, no bruising, no excessive bleeding Allergic/Immunologic Allergy/Immunologic: no runny nose, no sinus pressure, no itching, no hives, no frequent sneezing Past Medical History Past Medical History: Cancer, COPD, GERD/Reflux, Hyperlipidemia, Hypertension, Osteoarthritis (OA), Sleep Apnea/CPAP/BIPAP Additional Past Medical History / Comment(s): COPD, obesity, osteoporosis, obstructive sleep apnea, hiatal hernia, degenerative arthritis , diverticulosis , history of alcoholism, previous history of gallstone with a previous cholecystectomy History of Any Multi-Drug Resistant Organisms: None Reported Past Surgical History: Cholecystectomy Additional Past Surgical History / Comment(s): EGD,colonoscopy Past Anesthesia/Blood Transfusion Reactions: Previous Problems w/ Anesthesia, Family History of Problems w/ Anesthesia Additional Past Anesthesia/Blood Transfusion Reaction / Comment(s): EGD/ Colonoscopy,never has had general anesthesia, the patient also has had a previous cholecystectomy Past Psychological History: Anxiety, PTSD Smoking Status: Former smoker Past Alcohol Use History: None Reported Additional Past Alcohol Use History / Comment(s): quit smoking 2015,smoked approx 40 yrs 1ppd Past Drug Use History: None Reported - Past Family History Mother Family Medical History: Cancer, Coronary Artery Disease (CAD) Additional Family Medical History / Comment(s): skin Father Family Medical History: No Reported History Additional Family Medical History / Comment(s): Father in a motor vehicle accident. Patient had one brother who had metastatic colon cancer and history of coronary artery disease. His sister had skin cancer. Patient lives alone and is functionally active does. 3 L of oxygen at rest and exertion Brother(s) Family Medical History: Cancer, Coronary Artery Disease (CAD), Myocardial Infarction (NE) Sister(s) Family Medical History: Cancer Additional Family Medical History / Comment(s): cancer skin mom skin ca Medications and Allergies Home Medications Medication Instructions Recorded Confirmed Type Albuterol Sulfate [Proair Hfa] 2 puff INHALATION RT-Q6H PRN 08/31/15 07/12/17 History Diphenoxylate HCl/Atropine 2 tab PO QID PRN 08/31/15 07/12/17 History [Lomotil] Ipratropium/Albuterol Sulfate 2 puff INHALATION RT-BID 08/31/15 07/12/17 History [Combivent Respimat Inhaler] Fluticasone/Salmeterol [Advair Hfa 2 puff INHALATION RT-BID 01/29/16 07/12/17 History 230-21 Mcg Inhaler] Levothyroxine Sodium [Synthroid] 25 mcg PO QAM 01/29/16 07/12/17 History Pantoprazole Sodium [Protonix] 40 mg PO QAM 01/29/16 07/12/17 History Tiotropium 18 Mcg/Puff [Spiriva] 1 cap INHALATION RT-DAILY 01/29/16 07/12/17 History Dicyclomine [Bentyl] 10 mg PO QID 05/14/16 07/12/17 History Simvastatin [Zocor] 20 mg PO HS 05/14/16 07/12/17 History Citalopram Hydrobromide [CeleXA] 20 mg PO HS 05/23/17 07/12/17 History Primidone [Mysoline] 250 mg PO BID 05/23/17 07/12/17 History busPIRone HCL [Buspar] 7.5 mg PO BID 05/23/17 07/12/17 History HYDROcodone/APAP 10-325MG [[place] 1 tab PO Q6HR PRN 3 Days #12 tab 07/10/1707/12 Rx 10-325] fentaNYL 25MCG/HR PATCH [Duragesic 1 patch TRANSDERM Q72H #3 patch 07/10/17 Rx 25MCG/HR] Ascorbic Acid [Vitamin C] 1,000 mg PO DAILY 07/12/17 07/12/17 History Baclofen 10 mg PO TID PRN 07/12/17 07/12/17 History Meloxicam [Mobic] 7.5 mg PO AC-BID 07/12/17 07/12/17 History clonazePAM [KlonoPIN] 0.5 mg PO BID 07/12/17 07/12/17 History Allergies Allergy/AdvReac Type Severity Reaction Status Date / Time lidocaine [From Lidoderm] Allergy Rash/Hives Verified 07/12/17 12:05 Physical Exam Vitals: Vital Signs Temp Pulse Pulse Resp BP BP Pulse Ox 07/12/17 08:00 84 18 07/12/17 06:22 97.5 F L 84 18 159/79 100 07/12/17 00:25 98.1 F 75 17 120/82 98 07/12/17 00:07 98.0 F 07/11/17 23:47 76 18 116/68 99 07/11/17 22:04 98.1 F 86 18 133/78 97 Intake and Output 07/11/17 07/12/17 07/12/17 22:59 06:59 14:59 Intake Total 400 240 Balance 400 240 Intake: IV 400 Sodium Chloride 0.9% 1, 400 000 ml @ 100 mls/hr IV . Q10H STA Rx#:[id number] Oral 240 Other: Voiding Method Toilet Toilet # Voids 2 Weight 91.626 kg 91.626 kg General Appearance no diaphoresis, no respiratory distress, speech not interrupted by breaths, no dyspnea, no pallor, not cachectic, well nourished, appears well, obesity HEENT no pursed lip breathing, no jugular venous distention, no mucous membrane cyanosis, no perioral cyanosis, mallampati classification: class 1, Mallampati Classification: Class 4, Mallampati Classification: Class 2 Chest no barrel chest, no retractions, no sternocleidomastoid muscle contractions, no supraclavicular retractions, no intercostal retractions, no decreased air movement, no rhonchi, no hyperinflation, prolonged expiratory wheezing, decreased air movement Heart no right ventricular heave, no distant heart sounds, no s3 gallop GI bowel sounds: hyperactive (borborygmi), bowel sounds: diminished or absent, Extremities no cyanosis, no clubbing, no edema Neurologic no decreased mental status, no somnolence, no confusion Examination of the skin revealed no evidence of significant rashes, suspicious appearing nevi or other concerning lesions. Psychiatrically the patient is anxious, no depression. Her mood and affect is appropriate at this point. Neurologically the patient is awake and alert and there is no focal neurological deficits. Results - Laboratory Findings CBC and BMP: 07/11/17 22:27 07/11/17 22:27 Abnormal lab findings: Abnormal Labs 07/11/17 07/11/17 07/11/17 22:27 22:27 23:55 RBC 3.70 L Hct 33.1 L Total Protein 6.1 L Amylase <30 L Urine Appearance Cloudy H Urine Protein Trace H Ur Squamous Epith Cells 7 H Hyaline Casts 3 H Urine Mucus Many H Assessment and Plan Plan: Assessment 1 hilar mass. The patient has a 1.6 x 1.2 cm right hilar mass which is suspicious for malignancy. Unsure if this is a metastatic lesion or the primary source of malignancy. The PET scan showed significant abnormalities including activity and the right hilar area in addition to activity and the skeletal system and the right scapula and questionable activity in the right dome of the liver. The findings are suspicious for cancer although is not conclusive. I'm going to investigate this further. I already spoken to the interventional radiologist and there is no clear-cut area where we can biopsy and get a good yield at this point in time. Meanwhile the patient was found to have elevated CA-19-9 marker on routine blood work. CA level and alpha- fetoprotein level levels are low. CEA 125 level is slightly elevated. Colonoscopy done last seizure was within normal limits. Proceeding with breast ultrasound to make sure there is no breast lesions. Meanwhile, the suspicion for lung cancer which is metastatic and this point is quite high 2 back pain secondary to metastatic involvement of the thoracolumbar spine. No evidence of any cord compression or neurologic deficits in the lower extremities bilaterally. The patient is in for pain control. Further investigation will be done in terms of establishing a diagnosis in this patient 3 posterior chest wall pain involving the scapular area, likely metastatic involvement of the scapula 4 COPD with an FEV1 of 41% predicted 5 chronic hypoxic respiratory failure 6 obstructive sleep apnea Plan Obtain MRI of the cervical thoracic and lumbar spine. Discussed again with interventional radiology regarding the possibility of undergoing a fine-needle aspirate of the thoracic spine for tissue diagnosis. Alternatively, a surgical consultation can be obtained for diagnostic purposes by spine surgery if the area is not abnormal for fine-needle aspirate. The urine from bronchoscopy is going to be low based on the location and size of the lesion. I am willing to perform the procedure if there is no other site that can be biopsied at a higher yield. Consult oncology. Consult radiation oncology. Consult GI. Pain control. We'll continue to follow. Proptosis poor and highly suspicious for metastatic cancer.
[2017-07-12] MEDS: IPRATROPIUM-ALBUTEROL 3 ML NEB INHALATION PRN ×2 (15:16→18:47)
[2017-07-12] MEDS: MORPHINE SULFATE 4 MG/ML SYRINGE IVP PRN ×2 (15:18→21:36)
[2017-07-12] MEDS: BACLOFEN 10 MG TAB PO PRN ×2 (15:18→22:32)
--- NOTE | 2017-07-12 16:35 | P.PN ---
Progress Note - Text Consult dictated Impression: 1- Suspected primary bronchogenic Carcinoma with Bone & ? liver mets 2- Severe skeletal pain ( R scapula/spine/Sternum) likely 2nd to bone mets 3- COPD, smoking-related Recommendations: 1- Diagnostic bronchoscopy in am 2- Reviewed imaging studies with Dr Lawrence & patient 3- If Bronchoscopy negative > Biopsy of Expansile R Scapular lesion 4- Increase Duragesic to 50, Continue IV MS for breakthrough analgesia 5- XRT to R scapula/spine once diagnosis confirmed> consult Radiation Oncology in AM 6- Will require urgent systemic therapy once diagnosis confirmed Answered all questions/concerns
[2017-07-12] MEDS: SYMBICORT 160-4.5 MCG INHALER INHALATION SCH (18:47)
[2017-07-12] MEDS: ATORVASTATIN 10 MG TAB PO SCH (19:30)
[2017-07-12] MEDS: CITALOPRAM HYDROBROMIDE 20 MG TAB PO SCH (19:30)
--- NOTE | 2017-07-12 23:14 | CONS ---
CONSULTATION ADMITTING PHYSICIAN: Dr. Steven Mercado. REASON FOR CONSULTATION: Metastatic lung cancer. HISTORY OF ILLNESS: Allison is a 62-year-old female with known smoking-related COPD. She was recently evaluated by Dr. Lawrence for progressive dyspnea, weight loss, and skeletal pain. She was noted to have enlarging left hilar mass, the images were evaluated by Dr. Cooper from Interventional Radiology and felt not to be candidate for CT-guided biopsy. The patient had a recent outpatient PET scan revealing evidence of increased activity in the left hilar region, right scapula, as well as the spine and a small lesion near the dome of the liver. The patient presented to the hospital for progressive left mid chest pain and right shoulder pain and mid back pain. When seen today she stated being uncomfortable. She is currently on an analgesic regimen of Duragesic patches at a dose of 25 mcg an hour every 72 hours, as well as morphine sulfate and given intravenously every 4 hours as needed. PAST MEDICAL HISTORY: 1. COPD. 2. Hypertension. 3. Hyperlipidemia. 4. Anxiety/depression. 5. Hypothyroidism. PAST SURGICAL HISTORY: Reviewed and listed in . SOCIAL HISTORY: The patient smoked 2 packs of cigarettes daily and quit smoking 6 years ago. Denies any use of alcohol. Resides independently. FAMILY HISTORY: Noncontributory. REVIEW OF SYSTEMS: Progressive weakness, weight loss of 16 pounds in March of this year, but none since then. May have been intended, according to the patient. There is progressive shortness of breath, persistent chest tightness and increasing skeletal pain in right shoulder and mid back. EXAMINATION: The patient appeared alert and oriented. Skin is warm and dry. Hair distribution is within normal for age and gender. Blood pressure is 126/68, pulse is 84 and regular, respiratory rate was 16, not labored. Temperature 97.9. No pathologic lymphadenopathy. Trachea was in midline. Chest was clear with good exchange with reasonably good air exchange bilaterally. Heart sounds were normal. The abdomen was soft. The liver and spleen were not clinically palpable. There were no masses, tenderness or inguinal lymphadenopathy. The extremities appears unremarkable. There is moderate tenderness over the mid right scapula, as well as over the lower thoracic spine and left-sided lower sternum. IMPRESSION: 1. Imaging and clinical findings are suggestive of primary bronchogenic carcinoma with diffuse bony metastases and possible metastatic disease to the liver. 2. Advanced smoking-related chronic obstructive pulmonary disease. 3. Skeletal pains likely due to metastatic disease to the spine. 4. Hyperlipidemia. 5. Hypothyroidism. RECOMMENDATION: 1. I reviewed the imaging results with the patient and Dr. Lawrence today. 2. Optimize analgesic regimen by increasing Duragesic to 50 mcg an hour every 72 hours, she will continue to receive breakthrough analgesia in the form of IV morphine sulfate. 3. I will proceed with diagnostic bronchoscopy by Dr. Lawrence in a.m. 4. If diagnostic bronchoscopy is negative, then we will recommend CT-guided biopsy of expansile lesion of the left scapula. 5. We will likely need systemic therapy for cancer as soon as possible. 6. Once tissue diagnosis is confirmed, recommend radiation therapy to painful sites, we will consult Radiation Oncology in a.m. 7. Further therapeutic recommendations to follow. I have answered the patient's questions and concerns . MMODL / IJN: [id number] /
[2017-07-13] MEDS: HYDROcodone/APAP 10-325MG 1 EACH TAB PO PRN ×4 (00:56→23:35)
[2017-07-13] MEDS: MORPHINE SULFATE 4 MG/ML SYRINGE IVP PRN ×4 (00:56→20:45)
--- NOTE | 2017-07-13 05:56 | HP ---
HISTORY AND PHYSICAL CHIEF COMPLAINT: A 62-year-old white female with COPD and possible bronchogenic lung cancer. Will need a biopsy at this time. She has a PET scan that shows multiple vertebral metabolic activity with osseous metastases in the right scapular and right hilar nodule 1.6 x 1.2 cm that lit up also. Most likely she has metastatic bronchogenic cancer of unclear pathology for which a biopsy is planned for tomorrow. CA 99 level was 284, CA-125 of 34.2, normal LFTs, alpha fetoprotein was less 1.3. She is scheduled for colonoscopy. PHYSICAL EXAM: Vital signs stable. Afebrile. She is sitting up in bed, giving appropriate answers. CARDIOVASCULAR: S1, S2. LUNGS: Clear. GI: Soft. ENDOCRINE: BMI is over 40. HEMATOLOGY: Negative Homans. PSYCH: Fair mood and affect. NEUROLOGIC: Alert and oriented x3. INTEGUMENT: No rash, excoriations, bruising. FAMILY HISTORY: Motor vehicle accident, metastatic colon cancer, coronary artery disease, history of skin cancer. Brother with cancer, coronary disease. Sister with cancer. HOME MEDICATIONS: ProAir, atropine, Combivent, Advair, Synthroid, Protonix, Spiriva, Bentyl, Zocor, Celexa, mycin, BuSpar, Duragesic. ALLERGIES: LIDOCAINE. PHYSICAL EXAMINATION: Temp 97.5, pulse 80s, respiratory 16 to 18, blood pressure 116 to 133 over 60s to 70s. O2 of 97-100% on room air. CARDIOVASCULAR: S1, S2. LUNGS: Transmitted upper sounds. GI: Soft. HEMATOLOGY: Negative Homans. PSYCH: Fair mood and affect. NEUROLOGIC: Alert and oriented x3. Slight anxious nervous. VASCULAR: Normal dorsalis pedis and posterior tibial pulses. LABS: Reviewed. ASSESSMENT: 1. Hilar lung mass, suspect bronchogenic cancer with metastases to the spine. Bronchoscopy can be done the morning. 2. Back pain. No cord compression. 3. Posterior chest wall pain, scapular area, likely metastases involving the scapula. 4. Chronic obstructive pulmonary disease. Home oxygen dependent, 3 L. 5. Breast ultrasounds also being done. 6. Chronic hypoxemic respiratory failure. 7. Obstructive sleep apnea. MRIs of cervical, thoracic, lumbar spine. Oncology, Radiation Oncology, GI consults. Please see further orders. MMODL / IJN: [id number] /
[2017-07-13] MEDS: SYMBICORT 160-4.5 MCG INHALER INHALATION SCH ×3 (07:04→19:46)
[2017-07-13] MEDS ORDERED: MIDAZOLAM 2 MG/2 ML VIAL ONE (08:11)
[2017-07-13] MEDS ORDERED: fentaNYL (PF) 50 MCG/ML 2 ML AMP ONE (08:11)
[2017-07-13] MEDS ORDERED: KETAMINE 10 MG/ML 20 ML VIAL ONE (08:11)
[2017-07-13] MEDS ORDERED: GLYCOPYRROLATE 0.2 MG/ML 2 ML VIAL ONE (08:11)
[2017-07-13] MEDS ORDERED: PROPOFOL 10 MG/ML 20 ML VIAL IV ONE (08:11)
[2017-07-13] MEDS ORDERED: LACTATED RINGERS 1,000 ML IV ONE (08:18)
--- NOTE | 2017-07-13 08:39 | P.PCN ---
Date of Procedure: 07/13/17 Preoperative Diagnosis: RLL mass Postoperative Diagnosis: RLL mass Procedure(s) Performed: Bronchoscopy, BAL, [place], TBNA and EBBX of the RLL mass Anesthesia: MAC Surgeon: Jacinta Lawrence Estimated Blood Loss (ml): 10 Pathology: other Condition: stable Disposition: floor Indications for Procedure: RLL mass Operative Findings: This procedure was done under conscious sedation. Anesthetic agents was administered by LUBE TECHNICIAN at the bedside. The patient was given a combination of Versed, ketamine, fentanyl, and propofol. After achieving adequate sedation, the bronchoscope was inserted through the right nostril was advanced into the upper airway. Examination of the posterior oropharynx, larynx, epiglottis and vocal cords was done and all of this upper airway structures were within normal limits. The vocal cords were in the midline and there were symmetrical and there were no lesions or abnormalities identified. Following that, the bronchoscope was advanced to the upper trachea and examination tracheal bronchial tree was done. Trachea on the examination of the left side including the left main stem bronchus, left upper lobe bronchus and left lower lobe bronchus along his face segments were all within normal limits. Examination of the right-sided fluid the right mainstem bronchus and the right upper lobe which was essentially within normal limits. Bronchus was patent and within normal limits. Right middle lobe was patent and within normal limits. The anterior segment of the right upper lobe was of normal. There was a very highly vascular endobronchial growth occupying the anterior segment of the right lower lobe. The surface of the lesion was very friable and vascular. Transbronchial needle aspirate of the lesion was done. Following that, I performed a bronchial lavage of the right lower lobe with a total of 80 mL of fluid was infused and 20 mL was suctioned out. Bronchial brushings of the right lower lobe was done. Under direct visualization, and the bronchial biopsies were also obtained. Total amount of bleeding was less than 5 ML's. The patient tolerated the procedure well without any complication. The patient will be monitored and she'll be sent back to her room once cleared by anesthesia. No complications. We'll be awaiting pathology. The findings are very concerning for lung cancer.
--- NOTE | 2017-07-13 08:42 | P.PN ---
Subjective Progress Note Date: 07/13/17 Patient is being seen in follow-up today. Her pain is under better control. She has no major respiratory difficulties. No hemoptysis. I have elected discussion yesterday with Dr. Pace. We reviewed the films again. The patient has a small right lower lobe mass which may hypotension endobronchial extension. For that reason, I decided to proceed with a bronchoscopy today and during the bronchoscopy I was able to identify the right lower lobe mass which was occupying the anterior segment of the right lower lobe. Biopsies were done. The patient will be awaiting the pathology results. Otherwise, she is in for pain control and oncology and radiation oncology is also on the case regarding her ongoing skeletal pain. Objective - Vital Signs Vital signs: Vital Signs Temp 97.7 F 07/13/17 07:20 Pulse 75 07/13/17 07:20 Resp 16 07/13/17 07:20 BP 128/72 07/13/17 07:20 Pulse Ox 94 L 07/13/17 07:20 Intake & Output 07/12/17 07/13/17 07/13/17 18:59 06:59 18:59 Intake Total 240 400 300 Balance 240 400 300 Intake: IV 400 300 Sodium Chloride 0.9% 1, 400 000 ml @ 100 mls/hr IV . Q10H STA Rx#:[id number] Oral 240 0 Other: Voiding Method Toilet Toilet # Voids 2 2 - Exam General Appearance no diaphoresis, no respiratory distress, speech not interrupted by breaths, no dyspnea, no pallor, not cachectic, well nourished, appears well, obesity HEENT no pursed lip breathing, no jugular venous distention, no mucous membrane cyanosis, no perioral cyanosis, mallampati classification: class 1, Mallampati Classification: Class 4, Mallampati Classification: Class 2 Chest no barrel chest, no retractions, no sternocleidomastoid muscle contractions, no supraclavicular retractions, no intercostal retractions, no decreased air movement, no rhonchi, no hyperinflation, prolonged expiratory wheezing, decreased air movement Heart no right ventricular heave, no distant heart sounds, no s3 gallop GI bowel sounds: hyperactive (borborygmi), bowel sounds: diminished or absent, Extremities no cyanosis, no clubbing, no edema Neurologic no decreased mental status, no somnolence, no confusion Examination of the skin revealed no evidence of significant rashes, suspicious appearing nevi or other concerning lesions. Psychiatrically the patient is anxious, no depression. Her mood and affect is appropriate at this point. Neurologically the patient is awake and alert and there is no focal neurological deficits. - Labs CBC & Chem 7: 07/11/17 22:27 07/11/17 22:27 Assessment and Plan Plan: Assessment 1 hilar mass. The patient has a 1.6 x 1.2 cm right hilar mass which is suspicious for malignancy. Unsure if this is a metastatic lesion or the primary source of malignancy. The PET scan showed significant abnormalities including activity and the right hilar area in addition to activity and the skeletal system and the right scapula and questionable activity in the right dome of the liver. The findings are suspicious for cancer although is not conclusive. I'm going to investigate this further. I already spoken to the interventional radiologist and there is no clear-cut area where we can biopsy and get a good yield at this point in time. Meanwhile the patient was found to have elevated CA-19-9 marker on routine blood work. CA level and alpha- fetoprotein level levels are low. CEA 125 level is slightly elevated. Colonoscopy done last seizure was within normal limits. Proceeding with breast ultrasound to make sure there is no breast lesions. Meanwhile, the suspicion for lung cancer which is metastatic and this point is quite high 2 back pain secondary to metastatic involvement of the thoracolumbar spine. No evidence of any cord compression or neurologic deficits in the lower extremities bilaterally. The patient is in for pain control. Further investigation will be done in terms of establishing a diagnosis in this patient 3 posterior chest wall pain involving the scapular area, likely metastatic involvement of the scapula 4 COPD with an FEV1 of 41% predicted 5 chronic hypoxic respiratory failure 6 obstructive sleep apnea Plan Bronchoscopy was done. The results of highly suspicious for primary lung cancer as the patient was found to have endobronchial abnormality/mass in the anterior segment of the right lower lobe. Biopsies were done. Awaiting pathology. We'll continue to follow. Oncology and radiation therapy are both on the case. Continue with pain control. We'll continue to follow.
[2017-07-13] MEDS: PANTOPRAZOLE 40 MG TABLET PO SCH (09:34)
[2017-07-13] MEDS: PRIMIDONE 250 MG TAB PO SCH (09:34)
[2017-07-13] MEDS: guaiFENesin 600 MG TABLET.ER PO SCH ×2 (09:34→20:38)
[2017-07-13] MEDS: CHOLECALCIFEROL 1,000 UNIT TAB PO SCH (09:34)
[2017-07-13] MEDS: DICYCLOMINE 10 MG CAP PO SCH ×4 (09:34→20:37)
[2017-07-13] MEDS: busPIRone HCl 5 MG TAB PO SCH ×2 (09:35→20:38)
[2017-07-13] MEDS: IPRATROPIUM-ALBUTEROL 3 ML NEB INHALATION PRN ×3 (09:50→19:46)
[2017-07-13] MEDS: LEVOTHYROXINE 25 MCG TAB PO SCH (10:46)
--- NOTE | 2017-07-13 11:27 | USB ---
Reason for exam: clinical finding. Physical Findings: (9mm PET CT cyst versus glandular tissue) US Breast BILAT Right complete breast ultrasound includes all four quadrants, the retroareolar region and axilla. Finding demonstrates no cystic or solid lesion seen. Left complete breast ultrasound includes all four quadrants, the retroareolar region and axilla. Finding demonstrates no cystic or solid lesion seen. These results were verbally communicated with the patient and result sheet given to the patient on 07/12/17. ASSESSMENT: Negative, BI-RAD 1 RECOMMENDATION: Routine screening mammogram of both breasts. Back on schedule.
[2017-07-13] MEDS: BACLOFEN 10 MG TAB PO PRN (12:07)
[2017-07-13] MEDS ORDERED: clonazePAM 0.5 MG TAB PO PRN (12:17)
--- NOTE | 2017-07-13 16:01 | P.CONS ---
History of Present Illness - Reason for Consult Consult date: 07/13/17 bone metastases, back pain Requesting physician: Can Pace - Chief Complaint I have severe back pain - History of Present Illness Patient is a 62-year-old female with a history of oxygen dependent COPD. She was recently found to have an abnormal right hilar lesion, and subsequent PET/ CT scan revealed multiple areas of bony metastasis. Biopsy is pending at this time. The patient is being seen Re: Severe back pain. The patient's oncologic history began on May 23, when she had a CTA of the chest revealing a 2 cm right hilar mass suspicious for malignant adenopathy. She had been following along with pulmonology, and was subsequently scheduled for a PET/CT on June 20. This revealed abnormal uptake within that right hilar nodule, as well as suspicious uptake in multiple bony areas in living the mid thoracic spine, T2, L1, right scapula and a suspicious area in the right hepatic liver dome. The patient was unfortunately limited to the hospital on July 11 secondary to worsening back pain. According to the patient, she was seen on July [address] Lawrence's office and she was not having back pain at that time. The following day, she developed worsening back pain in the mid lower back. She reports this pain is worse with ambulation, particularly severe when she gets about of a chair out of bed. She was initially prescribed a fentanyl patch, 25 g with 10 mg [place]. This was unfortunately not enough to control her pain at home, and she was admitted to the ER. Earlier today, the patient underwent bronchoscopy which revealed an abnormal area within the right lower lung, an endobronchial mass was appreciated and biopsy. The patient also underwent an MRI evaluation this afternoon of the spine, and we are currently waiting on the report. The patient reports that her pain is currently moderately well controlled, approximately 4 out of 10. She has noticed some pain in the anterior chest wall as well as the left lateral ribs as well. Review of Systems Constitutional: Denies chills, Denies fever Eyes: bilateral blurred vision Ears, nose, mouth and throat: Denies headache Cardiovascular: Reports chest pain (lower chest-wall. ), Reports dyspnea on exertion Respiratory: Reports cough Gastrointestinal: Denies abdominal pain, Denies change in bowel habits Genitourinary: Denies nocturia, Denies urinary frequency Musculoskeletal: Denies arm numbness/tingling, Denies leg numbness/tingling Neurological: Denies aphasia, Denies convulsions Psychiatric: Reports anxiety, Reports memory loss Past Medical History Past Medical History: Cancer, COPD, GERD/Reflux, Hyperlipidemia, Hypertension, Osteoarthritis (OA), Sleep Apnea/CPAP/BIPAP Additional Past Medical History / Comment(s): COPD, obesity, osteoporosis, obstructive sleep apnea, hiatal hernia, degenerative arthritis , diverticulosis , history of alcoholism, previous history of gallstone with a previous cholecystectomy History of Any Multi-Drug Resistant Organisms: None Reported Past Surgical History: Cholecystectomy Additional Past Surgical History / Comment(s): EGD,colonoscopy Past Anesthesia/Blood Transfusion Reactions: Previous Problems w/ Anesthesia, Family History of Problems w/ Anesthesia Additional Past Anesthesia/Blood Transfusion Reaction / Comm: EGD/Colonoscopy, never has had general anesthesia, the patient also has had a previous cholecystectomy Past Psychological History: Anxiety, PTSD Smoking Status: Former smoker Past Alcohol Use History: None Reported Additional Past Alcohol Use History / Comment(s): quit smoking 2015,smoked approx 40 yrs 1ppd Past Drug Use History: None Reported - Past Family History Mother Family Medical History: Cancer, Coronary Artery Disease (CAD) Additional Family Medical History / Comment(s): skin Father Family Medical History: No Reported History Additional Family Medical History / Comment(s): Father in a motor vehicle accident. Patient had one brother who had metastatic colon cancer and history of coronary artery disease. His sister had skin cancer. Patient lives alone and is functionally active does. 3 L of oxygen at rest and exertion Brother(s) Family Medical History: Cancer, Coronary Artery Disease (CAD), Myocardial Infarction ([place]) Sister(s) Family Medical History: Cancer Additional Family Medical History / Comment(s): cancer skin mom skin ca Medications and Allergies Home Medications Medication Instructions Recorded Confirmed Type Albuterol Sulfate [Proair Hfa] 2 puff INHALATION RT-Q6H PRN 08/31/15 07/12/17 History Diphenoxylate HCl/Atropine 2 tab PO QID PRN 08/31/15 07/12/17 History [Lomotil] Ipratropium/Albuterol Sulfate 2 puff INHALATION RT-BID 08/31/15 07/12/17 History [Combivent Respimat Inhaler] Fluticasone/Salmeterol [Advair Hfa 2 puff INHALATION RT-BID 01/29/16 07/12/17 History 230-21 Mcg Inhaler] Levothyroxine Sodium [Synthroid] 25 mcg PO QAM 01/29/16 07/12/17 History Pantoprazole Sodium [Protonix] 40 mg PO QAM 01/29/16 07/12/17 History Tiotropium 18 Mcg/Puff [Spiriva] 1 cap INHALATION RT-DAILY 01/29/16 07/12/17 History Dicyclomine [Bentyl] 10 mg PO QID 05/14/16 07/12/17 History Simvastatin [Zocor] 20 mg PO HS 05/14/16 07/12/17 History Citalopram Hydrobromide [CeleXA] 20 mg PO HS 05/23/17 07/12/17 History Primidone [Mysoline] 250 mg PO BID 05/23/17 07/12/17 History busPIRone HCL [Buspar] 7.5 mg PO BID 05/23/17 07/12/17 History HYDROcodone/APAP 10-325MG [[place] 1 tab PO Q6HR PRN 3 Days #12 tab 07/10/1707/12 Rx 10-325] fentaNYL 25MCG/HR PATCH [Duragesic 1 patch TRANSDERM Q72H #3 patch 07/10/17 Rx 25MCG/HR] Ascorbic Acid [Vitamin C] 1,000 mg PO DAILY 07/12/17 07/12/17 History Baclofen 10 mg PO TID PRN 07/12/17 07/12/17 History Meloxicam [Mobic] 7.5 mg PO AC-BID 07/12/17 07/12/17 History clonazePAM [KlonoPIN] 0.5 mg PO BID 07/12/17 07/12/17 History Allergies Allergy/AdvReac Type Severity Reaction Status Date / Time lidocaine [From Lidoderm] Allergy Rash/Hives Verified 07/12/17 12:05 Physical Exam Vitals: Vital Signs Temp Pulse Pulse Resp BP Pulse Ox 07/13/17 10:04 74 07/13/17 09:50 72 07/13/17 09:34 75 16 07/13/17 07:20 97.7 F 75 16 128/72 94 L 07/12/17 22:41 98.2 F 84 16 142/67 95 07/12/17 18:57 78 16 07/12/17 18:47 80 16 07/12/17 15:52 84 16 Intake and Output 07/13/17 07/13/17 07/13/17 06:59 14:59 22:59 Intake Total 0 300 Balance 0 300 Intake: IV 300 Oral 0 Other: Voiding Method Toilet # Voids 2 - Constitutional General appearance: obese - EENT Eyes: PERRLA ENT: hearing grossly normal - Neck Neck: no lymphadenopathy - Respiratory Respiratory: bilateral: diminished - Cardiovascular Rhythm: regular - Gastrointestinal General gastrointestinal: no distended, no tenderness - Integumentary Integumentary: no calor - Neurologic Neurologic: CNII-XII intact - Psychiatric Psychiatric: A&O x's 3, appropriate affect Results CBC & Chem 7: 07/11/17 22:27 07/11/17 22:27 Labs: Microbiology - Last 24 Hours (Table) 07/13/17 08:40 Bronchial Washings Culture - Preliminary Bronchial Washings - Right CT scan - chest: report reviewed, image reviewed Assessment and Plan Plan: 1. Metastatic carcinoma (likely lung primary): Biopsy of a right lower lobe endobronchial mass is pending at this time. Further discussion of treatment recommendations will be made when the final pathology is available. 2. Severe back pain: This appears to be secondary to bony metastatic disease. Based on my review of the MRI, I see no clear evidence of spinal canal compromise. I do not feel that she would be a candidate for any surgical procedures even if she did have spinal cord compromise. I discussed with the patient that I would recommend a short course of palliative radiotherapy with the goal of improving her pain. I explained to the patient that this treatment is typically delivered Thursday through Thursday, 5 days a week for approximately 4- 10 treatments. I explained the potential side effects this treatment include, but are not limited to; fatigue, skin irritation, dysphagia and odynophagia. The patient's lower thoracic spine in particular is likely the site of her pain secondary to multiple level involvement. The patient would undergo CT simulation tomorrow, and we can start her radiotherapy as early as tomorrow provided the preliminary path results show cancer. The patient will be seen by our nurse navigator re: difficulty with transportation. 3. Disposition: The patient is unsure if she desires any aggressive therapy at this time. She plans to defer any decision making until we have a pathologic diagnosis. I did mention that hospice referral would be appropriate if she decides she does not wish to have treatment. Time with Patient: Greater than 30
--- NOTE | 2017-07-13 16:18 | MR ---
EXAMINATION TYPE: MR cspine/tspine/lspine wo/w DATE OF EXAM: 07/13/2017 COMPARISON: PET/CT June 20, 2017. HISTORY: H/x of bone, lung, colon, liver, and breast cancer, Gadavist 10ml CONTRAST: Standard multiplanar, multisequence MRI departmental protocol utilizing 10 mL intravenous Gadavist ga dolinium contrast. FINDINGS: Exam is suboptimal as is degraded by patient motion artifact. There is enhancing T1 hypointense and T2 hyperintense lesion involving majority of T2 vertebra which correlates with recent PET/CT. Additional lesion involving the T6 vertebra with mild compression, there is interpedicular extension on the left felt present. No suspicious posterior retropulsion is seen. There is involvement of the anterior inferior for metastatic disease which is not clearly identified on PET/CT. Nonspecific T12 lesion is present. There is metastatic focus anterior L1 lesion redemonstrated which correlates with PET/CT. Lumbar spine images show multilevel disc desiccation. There is disc space narrowing lower lumbar leve ls. There is facet arthropathy mid to lower lumbar levels. No suspicious enhancement spinal canal is seen. No suspicious enhancement thoracic spinal cord or canal is identified. Axial images are degraded by a rtifact. There are small multilevel posterior disc herniation suspected in the mid thoracic spine eff acing anterior thecal sac. There is marked artifact degradation of the cervical spine. There is loss of normal cervical curvatur e. There is mild to moderate disc space narrowing C4-C5 and C5-C6 levels. Posterior disc herniations are effacing anterior thecal sac at these levels. No suspicious enhancement or signal of spinal cord is clearly identified. IMPRESSION: Motion artifact degradation noted. Bone metastatic lesions redemonstrated as detailed above, few les ions may be new from recent PET/CT. No suspicious spinal cord or canal enhancement clearly seen.
[2017-07-13] MEDS: ATORVASTATIN 10 MG TAB PO SCH (20:38)
[2017-07-13] MEDS: CITALOPRAM HYDROBROMIDE 20 MG TAB PO SCH (20:38)
--- NOTE | 2017-07-13 21:54 | PN ---
PROGRESS NOTE SUBJECTIVE: 62-year-old white female seen for acute back pain, some abnormal right hilar lesion. shows multiple bony metastases. Biopsy is pending at this time. She has multiple bony areas in the midthoracic spine, T2, L1, right scapula, right hepatic dome liver. Pain is 4/10, with IV pain medications. Cardiovascular S1-S2. Lungs clear. Gastroenterology soft. Hematology negative Homans. Psych fair mood and affect. Status post bronchoscopy today for lung biopsy. ASSESSMENT: Metastatic carcinoma, likely lung primary biopsy right lower lobe endobronchial mass pending. Severe back pain due to bony metastases disease. She is getting palliative radiotherapy with goal of improving her pain. CT stimulation tomorrow. Radiotherapy as early as tomorrow, provided there is a lung cancer diagnosis of tissue. Wait for pathology report at this point. MMODL / IJN: [id number] /
[2017-07-14] MEDS: IPRATROPIUM-ALBUTEROL 3 ML NEB INHALATION PRN ×5 (00:25→19:39)
[2017-07-14] MEDS: MORPHINE SULFATE 4 MG/ML SYRINGE IVP PRN ×4 (04:27→22:18)
[2017-07-14] MEDS: LEVOTHYROXINE 25 MCG TAB PO SCH (05:51)
[2017-07-14] MEDS: HYDROcodone/APAP 10-325MG 1 EACH TAB PO PRN ×3 (05:52→23:13)
[2017-07-14] MEDS: busPIRone HCl 5 MG TAB PO SCH ×2 (07:41→22:20)
[2017-07-14] MEDS: CHOLECALCIFEROL 1,000 UNIT TAB PO SCH (07:41)
[2017-07-14] MEDS: PRIMIDONE 250 MG TAB PO SCH (07:42)
[2017-07-14] MEDS: DICYCLOMINE 10 MG CAP PO SCH ×4 (07:42→22:25)
[2017-07-14] MEDS: guaiFENesin 600 MG TABLET.ER PO SCH ×2 (07:42→22:21)
[2017-07-14] MEDS: PANTOPRAZOLE 40 MG TABLET PO SCH (07:42)
[2017-07-14] MEDS: SYMBICORT 160-4.5 MCG INHALER INHALATION SCH ×2 (09:20→19:39)
[2017-07-14] MEDS ORDERED: MORPHINE SULFATE 4 MG/ML SYRINGE IVP ONE (12:09)
--- NOTE | 2017-07-14 14:46 | P.PN ---
Subjective Progress Note Date: 07/14/17 Principal diagnosis: left chest, right shoulder and back pain, Pt seen in follow up. She continues to have pain in the back but it is better, she will have episodes of exacerbation, sort of a "grabbing" sensation, it is brief but pretty painful. Her breathing is at baseline, she is eating and up in her room ad scott. Objective - Vital Signs Vital signs: Vital Signs Temp 98.7 F 07/14/17 07:17 Pulse 92 07/14/17 09:31 Resp 16 07/14/17 07:50 BP 114/66 07/14/17 07:17 Pulse Ox 93 L 07/14/17 07:17 Intake & Output 07/13/17 07/14/17 07/14/17 18:59 06:59 18:59 Intake Total 300 1190 Balance 300 1190 Intake: IV 300 Oral 1190 Other: Voiding Method Toilet Toilet Toilet # Voids 2 2 2 - Exam WD, obese, female, sitting at bedside, O2, no respiratory distress, she can carry on conversation, she moves and changes positions independently. - Labs CBC & Chem 7: 07/11/17 22:27 07/11/17 22:27 Labs: Microbiology - Last 24 Hours (Table) 07/13/17 08:40 Gram Stain - Preliminary Bronchial Washings - Right Bronchial Washings Culture - Preliminary Assessment and Plan (1) Bone lesion Current Visit: Yes Status: Acute Priority: High Code(s): M89.9 - DISORDER OF BONE, UNSPECIFIED SNOMED Code(s): 78856337 (2) Intractable pain Current Visit: Yes Status: Acute Priority: High Code(s): R52 - PAIN, UNSPECIFIED SNOMED Code(s): 09932232 (3) Lung mass Current Visit: Yes Status: Acute Priority: High Code(s): R91.8 - OTHER NONSPECIFIC ABNORMAL FINDING OF LUNG FIELD SNOMED Code(s): 102004036 Plan: S/P springer needle biopsy, Final pathology pending. Clinical picture is most suspicious for malignancy. Rad/Onc has seen pt and offered palliative radiation for pain control of malignancy once confirmed. We have seen pt and once malignancy confirmed we will discuss the options for treatment. Further staging work up may be warranted based on path findings. Will await results before ordering. Cont aggressive pain management with adjustments to pt comfort
--- NOTE | 2017-07-14 17:02 | P.PN ---
Subjective Progress Note Date: 07/14/17 Principal diagnosis: Hilar mass, highly suspicious for malignancy, status post endobronchial biopsy, with preliminary pathology report positive for small cell lung cancer Patient is being seen in follow-up today. Her pain is under better control. She has no major respiratory difficulties. No hemoptysis. I have elected discussion yesterday with Dr. Pace. We reviewed the films again. The patient has a small right lower lobe mass which may hypotension endobronchial extension. For that reason, I decided to proceed with a bronchoscopy today and during the bronchoscopy I was able to identify the right lower lobe mass which was occupying the anterior segment of the right lower lobe. Biopsies were done. The patient will be awaiting the pathology results. Otherwise, she is in for pain control and oncology and radiation oncology is also on the case regarding her ongoing skeletal pain. On 07/14/2017 patient seen in follow-up. Still having significant amount of discomfort, today she is complaining of pain on her left side of the chest wall , describes it as sharp, intermittent, worse with movement. Requiring assistance with repositioning, related to significant amount of pain. We spoke to radiation oncology Dr. Rehman who spoke to Dr. Michaels, and the biopsy of the hilar mass is positive for small cell lung cancer, although the official report is not yet available. Radiation oncology and medical oncology discussing chemotherapy and radiation, and there are concerns about patient being able to tolerate chemotherapy and for that reason in addition to better pain control, radiation treatment would likely be started first. Patient denies any worsening shortness of breath, her biggest complaint is the intractable pain. Objective - Vital Signs Vital signs: Vital Signs Temp 99.6 F 07/14/17 14:17 Pulse 98 07/14/17 15:43 Resp 16 07/14/17 14:17 BP 113/64 07/14/17 14:17 Pulse Ox 95 07/14/17 14:17 Intake & Output 07/13/17 07/14/17 07/14/17 18:59 06:59 18:59 Intake Total 300 1190 Balance 300 1190 Intake: IV 300 Oral 1190 Other: Voiding Method Toilet Toilet Toilet # Voids 2 2 2 - Exam General Appearance no diaphoresis, no respiratory distress, speech not interrupted by breaths, no dyspnea, no pallor, not cachectic, well nourished, appears well, obesity HEENT no pursed lip breathing, no jugular venous distention, no mucous membrane cyanosis, no perioral cyanosis, mallampati classification: class 1, Mallampati Classification: Class 4, Mallampati Classification: Class 2 Chest no barrel chest, no retractions, no sternocleidomastoid muscle contractions, no supraclavicular retractions, no intercostal retractions, no decreased air movement, no rhonchi, no hyperinflation, prolonged expiratory wheezing, decreased air movement Heart no right ventricular heave, no distant heart sounds, no s3 gallop GI bowel sounds: hyperactive (borborygmi), bowel sounds: diminished or absent, Extremities no cyanosis, no clubbing, no edema Neurologic no decreased mental status, no somnolence, no confusion Examination of the skin revealed no evidence of significant rashes, suspicious appearing nevi or other concerning lesions. Psychiatrically the patient is anxious, no depression. Her mood and affect is appropriate at this point. Neurologically the patient is awake and alert and there is no focal neurological deficits. - Labs CBC & Chem 7: 07/11/17 22:27 07/11/17 22:27 Labs: Microbiology - Last 24 Hours (Table) 07/13/17 08:40 Gram Stain - Preliminary Bronchial Washings - Right Bronchial Washings Culture - Preliminary Assessment and Plan Plan: Assessment: 1 hilar mass. The patient has a 1.6 x 1.2 cm right hilar mass which is suspicious for malignancy. Unsure if this is a metastatic lesion or the primary source of malignancy. The PET scan showed significant abnormalities including activity and the right hilar area in addition to activity and the skeletal system and the right scapula and questionable activity in the right dome of the liver. The findings are suspicious for cancer although is not conclusive. I'm going to investigate this further. I already spoken to the interventional radiologist and there is no clear-cut area where we can biopsy and get a good yield at this point in time. Meanwhile the patient was found to have elevated CA-19-9 marker on routine blood work. CA level and alpha- fetoprotein level levels are low. CEA 125 level is slightly elevated. Colonoscopy done last seizure was within normal limits. Proceeding with breast ultrasound to make sure there is no breast lesions. Meanwhile, the suspicion for lung cancer which is metastatic and this point is quite high 2 back pain secondary to metastatic involvement of the thoracolumbar spine. No evidence of any cord compression or neurologic deficits in the lower extremities bilaterally. The patient is in for pain control. Further investigation will be done in terms of establishing a diagnosis in this patient 3 posterior chest wall pain involving the scapular area, likely metastatic involvement of the scapula 4 COPD with an FEV1 of 41% predicted 5 chronic hypoxic respiratory failure 6 obstructive sleep apnea Plan Discussed the case with radiation oncology and although the official report is not yet available. Patient continues to have significant amount of pain, today it's more on the left side of her chest. She continues on fentanyl patch, in addition to Preemption and morphine for breakthrough pain. Radiation oncology and medical oncology are discussing chemotherapy and radiation. Continue to follow with you I performed a history & physical examination of the patient and discussed their management with my nurse practitioner, Adriane Kahn. I reviewed the nurse practitioner's note and agree with the documented findings and plan of care. Lung sounds are diminished. The findings and the impression was discussed with the patient. I attest to the documentation by the nurse practitioner. Time with Patient: Less than 30
[2017-07-14] MEDS: LORazepam 2 MG/ML INJ IV PRN (18:35)
[2017-07-14] MEDS: ATORVASTATIN 10 MG TAB PO SCH (22:21)
[2017-07-14] MEDS: CITALOPRAM HYDROBROMIDE 20 MG TAB PO SCH (22:22)
--- NOTE | 2017-07-14 22:52 | PN ---
PROGRESS NOTE SUBJECTIVE: Ur[age]old white female had a successful endobronchial biopsy done yesterday. We are awaiting the pathology report before radiation treatment is started on multiple metastatic lesions in the back. Discussed her getting radiation and the need for it. Chemotherapy she can possibly wait and see, depending on what cell type it is and what her suffering will be versus length of extended life with chemotherapy. Awaiting pathology report. CARDIOVASCULAR: S1, S2. LUNGS: Clear. GI: Soft. She moves independently. She is up ambulating. ASSESSMENT: 1. Metastatic bone cancer, most likely from a lung cancer. Awaiting pathology confirmation of the lung mass and bone lesions. 2. Intractable pain. Palliative therapy will be done for radiation once pathology is back. Options for treatment discussed. Awaiting her pathology report. Pain control was given. MMODL / IJN: [id number] /
[2017-07-15] MEDS: MORPHINE SULFATE 4 MG/ML SYRINGE IVP PRN ×4 (01:26→14:59)
[2017-07-15] MEDS: LEVOTHYROXINE 25 MCG TAB PO SCH (04:28)
[2017-07-15] MEDS: guaiFENesin 600 MG TABLET.ER PO SCH ×2 (07:33→20:13)
[2017-07-15] MEDS: DICYCLOMINE 10 MG CAP PO SCH ×5 (07:33→20:12)
[2017-07-15] MEDS: PANTOPRAZOLE 40 MG TABLET PO SCH (07:33)
[2017-07-15] MEDS: CHOLECALCIFEROL 1,000 UNIT TAB PO SCH (07:33)
[2017-07-15] MEDS: busPIRone HCl 5 MG TAB PO SCH ×2 (07:34→20:13)
[2017-07-15] MEDS: PRIMIDONE 250 MG TAB PO SCH (07:34)
[2017-07-15] MEDS: SYMBICORT 160-4.5 MCG INHALER INHALATION SCH ×2 (07:51→21:04)
[2017-07-15] MEDS: IPRATROPIUM-ALBUTEROL 3 ML NEB INHALATION PRN ×2 (10:56→21:04)
[2017-07-15] MEDS ORDERED: VANCOMYCIN 1,750 MG in SODIUM CHLORIDE 0.9% 250 ML IVPB STA (11:50)
--- NOTE | 2017-07-15 11:50 | P.PN ---
Subjective Progress Note Date: 07/15/17 Principal diagnosis: Hilar mass, highly suspicious for malignancy, status post endobronchial biopsy, with preliminary pathology report positive for small cell lung cancer Patient is being seen in follow-up today. Her pain is under better control. She has no major respiratory difficulties. No hemoptysis. I have elected discussion yesterday with Dr. Pace. We reviewed the films again. The patient has a small right lower lobe mass which may hypotension endobronchial extension. For that reason, I decided to proceed with a bronchoscopy today and during the bronchoscopy I was able to identify the right lower lobe mass which was occupying the anterior segment of the right lower lobe. Biopsies were done. The patient will be awaiting the pathology results. Otherwise, she is in for pain control and oncology and radiation oncology is also on the case regarding her ongoing skeletal pain. On 07/14/2017 patient seen in follow-up. Still having significant amount of discomfort, today she is complaining of pain on her left side of the chest wall , describes it as sharp, intermittent, worse with movement. Requiring assistance with repositioning, related to significant amount of pain. We spoke to radiation oncology Dr. Rehman who spoke to Dr. Michaels, and the biopsy of the hilar mass is positive for small cell lung cancer, although the official report is not yet available. Radiation oncology and medical oncology discussing chemotherapy and radiation, and there are concerns about patient being able to tolerate chemotherapy and for that reason in addition to better pain control, radiation treatment would likely be started first. Patient denies any worsening shortness of breath, her biggest complaint is the intractable pain. The patient is seen again today 07/15/2017 in follow-up on the oncology unit. She is currently awake and alert. She is still having ongoing issues with skeletal pain. He is currently receiving a fentanyl patch, morphine and Motrin. She continues with a loose nonproductive cough. She is maintaining O2 saturations in the low 90s on 4 L/m per nasal cannula. Afebrile. Hemodynamically stable. Bronchial wash cultures have a preliminary presumptive staph aureus. The plan is for an MRI of the brain today. She may have a port placed for chemotherapy starting tomorrow. Objective - Vital Signs Vital signs: Vital Signs Temp 98.4 F 07/15/17 07:30 Pulse 99 07/15/17 11:06 Resp 24 07/15/17 08:40 BP 136/75 07/15/17 07:30 Pulse Ox 91 L 07/15/17 07:30 Intake & Output 07/14/17 07/15/17 07/15/17 18:59 06:59 18:59 Intake Total 590 360 Balance 590 360 Intake: Oral 590 360 Other: Voiding Method Toilet Toilet Toilet # Voids 2 2 3 - Exam General Appearance no diaphoresis, no respiratory distress, speech not interrupted by breaths, no dyspnea, no pallor, not cachectic, well nourished, appears well, obesity HEENT no pursed lip breathing, no jugular venous distention, no mucous membrane cyanosis, no perioral cyanosis, mallampati classification: class 1, Mallampati Classification: Class 4, Mallampati Classification: Class 2 Chest no barrel chest, no retractions, no sternocleidomastoid muscle contractions, no supraclavicular retractions, no intercostal retractions, no decreased air movement, no rhonchi, no hyperinflation, prolonged expiratory wheezing, decreased air movement Heart no right ventricular heave, no distant heart sounds, no s3 gallop GI bowel sounds: hyperactive (borborygmi), bowel sounds: diminished or absent, Extremities no cyanosis, no clubbing, no edema Neurologic no decreased mental status, no somnolence, no confusion Examination of the skin revealed no evidence of significant rashes, suspicious appearing nevi or other concerning lesions. Psychiatrically the patient is anxious, no depression. Her mood and affect is appropriate at this point. Neurologically the patient is awake and alert and there is no focal neurological deficits. - Labs CBC & Chem 7: 07/11/17 22:27 07/11/17 22:27 Labs: Microbiology - Last 24 Hours (Table) 07/13/17 08:40 Gram Stain - Preliminary Bronchial Washings - Right Bronchial Washings Culture - Preliminary Presumptive Staph aureus Assessment and Plan Assessment: Assessment: 1 hilar mass. The patient has a 1.6 x 1.2 cm right hilar mass which is suspicious for small cell carcinoma. Unsure if this is a metastatic lesion or the primary source of malignancy. The PET scan showed significant abnormalities including activity and the right hilar area in addition to activity and the skeletal system and the right scapula and questionable activity in the right dome of the liver. Meanwhile the patient was found to have elevated CA-19-9 marker on routine blood work. CA level and alpha- fetoprotein level levels are low. CEA 125 level is slightly elevated. 2 back pain secondary to metastatic involvement of the thoracolumbar spine. No evidence of any cord compression or neurologic deficits in the lower extremities bilaterally. The patient is in for pain control. Further investigation will be done in terms of establishing a diagnosis in this patient 3 posterior chest wall pain involving the scapular area, likely metastatic involvement of the scapula 4 COPD with an FEV1 of 41% predicted 5 chronic hypoxic respiratory failure 6 obstructive sleep apnea Plan The patient was seen and evaluated by Dr. Rodríguez. Bronchial wash cultures positive for presumptive staph aureus. We'll initiate vancomycin. Final pathology report is pending. Suspect small cell. Plan is for MRI of the brain today. Possible port placement and initiation of chemotherapy tomorrow. Continue with pain management. We will continue to follow and make further recommendations based on her clinical status. I, the cosigning physician, performed a history & physical examination of the patient. Lungs sounds scattered rhonchi. Maintaining good O2 saturations in the 90s on 4 L/m per nasal cannula. I discussed the assessment and plan of care with my nurse practitioner, Sariah Bueno. I attest to the above note as dictated by her.
[2017-07-15] MEDS: LORazepam 2 MG/ML INJ IV PRN ×2 (11:54→18:09)
[2017-07-15 11:58] LABS: Basophils % (A) 0 %; Eosinophils # (A) 0.2 k/uL (0-0.7); Eosinophils % (A) 2 %; HCT 29.9 % (34.0-46.0); Lymphocytes # (A) 1.3 k/uL (1.0-4.8); Lymphocytes % (A) 19 %; MCH 30.6 pg (25.0-35.0); MCHC 33.4 g/dL (31.0-37.0); MCV 91.6 fL (80.0-100.0); Mean Platelet Volume 7.3; Monocytes # (A) 0.4 k/uL (0-1.0); Monocytes % (A) 6 %; Neutrophils # (A) 4.6 k/uL (1.3-7.7); Neutrophils % (A) 69 %; Platelet Count 181 k/uL (150-450); RBC 3.26 m/uL (3.80-5.40); RDW 13.4 % (11.5-15.5); WBC 6.6 k/uL (3.8-10.6)
[2017-07-15 12:05] LABS: ALT 25 U/L (9-52); AST 14 U/L (14-36); Albumin 3.4 g/dL (3.5-5.0); Alkaline Phosphatase 71 U/L (38-126); Anion Gap 9 mmol/L; Blood Urea Nitrogen 10 mg/dL (7-17); Calcium 8.9 mg/dL (8.4-10.2); Carbon Dioxide 34 mmol/L (22-30); Chloride 98 mmol/L (98-107); Glucose 91 mg/dL (74-99); Potassium 4.1 mmol/L (3.5-5.1); Sodium 141 mmol/L (137-145); Total Bilirubin 0.3 mg/dL (0.2-1.3); Total Protein 5.6 g/dL (6.3-8.2)
--- NOTE | 2017-07-15 14:38 | PN ---
PROGRESS NOTE \SUBJECTIVE: A 62-year-old white female with apparently a small cell cancer on pathology report of the biopsy that was done by endobronchial biopsy. The final report is not back, but that is a preliminary. Going to get an MRI of the brain today for staging. She will otherwise either get depending if there is brain METS either get total-body radiation and chemo or just chemo. Discussed with the family and Oncology Nurse Practitioner today. Temp 98.4, pulse is 99, respirations 18 to 24, blood pressure 130s/70s. O2 is 91% on room air. Hemoglobin is 11.4, white count is 5.7. ASSESSMENT: 1. Small-cell lung cancer. She had bronchial washings positive for Staph aureus. They are going to start vancomycin. Final pathology is pending. 2. She remains on mid 90s on 4 L oxygen, port placement and chemotherapy. Await MRI to be done and possible radiation pending an MRI of the brain which is ordered at this time. MMODL / IJN: [id number] /
--- NOTE | 2017-07-15 16:32 | P.PN ---
Subjective Progress Note Date: 07/15/17 Principal diagnosis: New metastatic Lung Cancer Patient seen and examined in follow-up today. Daughter Zhanna at bedside. She is aware of current diagnosis and would like to move forward with plan for chemotherapy. She lives in [place] by herself and her daughter is in [place]. They are inquiring about receiving continued treatment through [facility] for chemotherapy after initial chemotherapy here. She will be living with her daughter in [place] during treatment continuation. Objective - Vital Signs Vital signs: Vital Signs Temp 98.4 F 07/15/17 07:30 Pulse 99 07/15/17 08:40 Resp 24 07/15/17 08:40 BP 136/75 07/15/17 07:30 Pulse Ox 91 L 07/15/17 07:30 Intake & Output 07/14/17 07/15/17 07/15/17 18:59 06:59 18:59 Intake Total 590 Balance 590 Intake: Oral 590 Other: Voiding Method Toilet Toilet Toilet # Voids 2 2 - Constitutional General appearance: Present: cooperative, no acute distress, obese - EENT Eyes: Present: EOMI, PERRLA, dentition normal ENT: Present: NA/AT, normal oropharynx - Neck Details: supple, trachea midline Neck: Present: normal ROM - Respiratory Respiratory: bilateral: diminished, rhonchi, wheezing (expiratory) - Cardiovascular Rhythm: regular Heart sounds: normal: S1, S2 - Gastrointestinal General gastrointestinal: Present: normal bowel sounds, soft - Integumentary Integumentary: Present: pale - Neurologic Neurologic Comment(s): No focal Defects Neurologic: Present: CNII-XII intact - Musculoskeletal Musculoskeletal: Present: generalized weakness, strength equal bilaterally ( Pathology reviewed, CT scans reviewed) - Psychiatric Psychiatric: Present: A&O x's 3, appropriate affect, intact judgment & insight - Labs CBC & Chem 7: 07/15/17 11:17 07/15/17 11:17 Labs: Microbiology - Last 24 Hours (Table) 07/13/17 08:40 Gram Stain - Preliminary Bronchial Washings - Right Bronchial Washings Culture - Preliminary Presumptive Staph aureus Assessment and Plan (1) Small cell lung cancer Current Visit: Yes Status: Acute Code(s): C34.90 - MALIGNANT NEOPLASM OF UNSP PART OF UNSP BRONCHUS OR LUNG SNOMED Code(s): 082655291 (2) Normochromic anemia Current Visit: Yes Status: Acute Code(s): D64.9 - ANEMIA, UNSPECIFIED SNOMED Code(s): 47866523 (3) Bone lesion Current Visit: Yes Status: Acute Priority: High Code(s): M89.9 - DISORDER OF BONE, UNSPECIFIED SNOMED Code(s): 80489492 (4) Intractable pain Current Visit: Yes Status: Acute Priority: High Code(s): R52 - PAIN, UNSPECIFIED SNOMED Code(s): 43019461 (5) COPD (chronic obstructive pulmonary disease) Current Visit: No Status: Acute Code(s): J44.9 - CHRONIC OBSTRUCTIVE PULMONARY DISEASE, UNSPECIFIED SNOMED Code(s): 42417718 Plan: Assessment and Recommendations: 1. Extensive Stage Small Cell Lung Cancer - Status Post Biopsy with Pathology revealing Small Cell - Right Scapula Lesion - Plan to start inpatient chemotherapy with Carboplatin/VP16 as this cancer type is very sensitive to chemotherapy and quick introduction of treatment can decrease symptoms. - MRI Brain Initial Staging - Consult placed for Dr. De Oliveira for mediport placement. If possible to access port for treatment after surgery, may assist in administration. - Dr. Rehman From Radiation Oncology Following, Likely plan radiation after chemotherapy outpatient at [facility] - Nurse Navigator Anastasia assisting in patient navigation with transportation issues and likely need to live with daughter in [place]. Will initiate process of continued care through [facility] after treatment cycle number one, stabilized, and discharged. - Discussed case with Dr. Olea and Dr. Rehman. 2. Presumptive Staph Aureus Bronchial Washings - Vancomycin initiated, afebrile. ?contaminate ok to move forward with chemo. 3. COPD I have spent greater than 30 minutes face to face time with patient and daughter today, provided written and verbal education on chemotherapy, treatment plan, diagnostic work-up, plan for assisting with transition to [facility], statistics provided to patient and daughter on the goal of treatment with chemotherapy in a patient with extensive stage small cell. Physician Attestation: I have completed the full history and physical of this patient and discussed and agree with Carrie Cook NP dictation above, dictated as a scribe.
[2017-07-15 18:38] LABS: Basophils % (A) 0 %; Eosinophils # (A) 0.2 k/uL (0-0.7); Eosinophils % (A) 2 %; HCT 30.5 % (34.0-46.0); HGB 10.2 gm/dL (11.4-16.0); Lymphocytes % (A) 15 %; MCH 30.8 pg (25.0-35.0); MCHC 33.6 g/dL (31.0-37.0); MCV 91.9 fL (80.0-100.0); Mean Platelet Volume 7.3; Monocytes # (A) 0.3 k/uL (0-1.0); Monocytes % (A) 5 %; Neutrophils # (A) 4.7 k/uL (1.3-7.7); Neutrophils % (A) 75 %; Platelet Count 194 k/uL (150-450); RBC 3.32 m/uL (3.80-5.40); RDW 13.4 % (11.5-15.5); WBC 6.3 k/uL (3.8-10.6)
[2017-07-15] MEDS: ONDANSETRON 16 MG in SODIUM CHLORIDE 0.9% 50 ML IVPB SCH (20:12)
[2017-07-15] MEDS: DEXAMETHASONE SOD PHOSPHATE 10 MG/ML 1 ML VIAL IV SCH (20:12)
[2017-07-15] MEDS: FAMOTIDINE 20 MG/2 ML VIAL IV SCH (20:12)
[2017-07-15] MEDS: ATORVASTATIN 10 MG TAB PO SCH (20:13)
[2017-07-15] MEDS: CITALOPRAM HYDROBROMIDE 20 MG TAB PO SCH (20:13)
[2017-07-15] MEDS ORDERED: CARBOPLATIN IV ONE (21:00)
[2017-07-15] MEDS ORDERED: SODIUM CHLORIDE 0.9% IV ONE (21:00)
[2017-07-15] MEDS: VANCOMYCIN 1,500 MG in SODIUM CHLORIDE 0.9% 250 ML IVPB SCH (23:02)
[2017-07-15] MEDS: ETOPOSIDE 200 MG in SODIUM CHLORIDE 0.9% 500 ML IV SCH (23:59)
[2017-07-16] MEDS: ACETAMINOPHEN TAB 325 MG TAB PO PRN (00:07)
[2017-07-16] MEDS: HYDROcodone/APAP 10-325MG 1 EACH TAB PO PRN ×4 (00:08→20:47)
--- NOTE | 2017-07-16 00:42 | MR ---
EXAMINATION TYPE: MR brain wo/w con DATE OF EXAM: 07/15/2017 COMPARISON: NONE HISTORY: Intolerable pain, metastatic cancer TECHNIQUE: Multiplanar, multisequence images of the brain and brainstem is performed without and with IV contras t, utilizing 9 ml mL intravenous Gadavist . FINDINGS: There is some cerebral cortical atrophy. There is no mass effect nor midline shift. There i s no evidence of intracranial hemorrhage. Arnold-white matter structures have fairly normal signal sahil kayli. There is no evidence of cerebral edema. There is mild thinning of the corpus callosum. Sella tur cica appears normal. The brainstem appears normal. There is no evidence of a cortical infarct. I see no pathologic enhancement. IMPRESSION: Negative MR scan of the brain. Brain appears normal for age. No evidence of metastatic d isease.
[2017-07-16] MEDS: LEVOTHYROXINE 25 MCG TAB PO SCH (06:15)
[2017-07-16] MEDS: IPRATROPIUM-ALBUTEROL 3 ML NEB INHALATION PRN ×2 (08:26→20:22)
[2017-07-16] MEDS: SYMBICORT 160-4.5 MCG INHALER INHALATION SCH ×2 (08:26→20:22)
[2017-07-16] MEDS: VANCOMYCIN 1,500 MG in SODIUM CHLORIDE 0.9% 250 ML IVPB SCH (08:53)
[2017-07-16] MEDS: CHOLECALCIFEROL 1,000 UNIT TAB PO SCH (08:53)
[2017-07-16] MEDS: busPIRone HCl 5 MG TAB PO SCH ×2 (08:53→20:49)
[2017-07-16] MEDS: guaiFENesin 600 MG TABLET.ER PO SCH ×2 (08:54→20:49)
[2017-07-16] MEDS: PANTOPRAZOLE 40 MG TABLET PO SCH (08:54)
[2017-07-16] MEDS: DICYCLOMINE 10 MG CAP PO SCH ×4 (08:54→20:48)
[2017-07-16] MEDS: PRIMIDONE 250 MG TAB PO SCH (08:54)
--- NOTE | 2017-07-16 12:30 | P.PN ---
Subjective Progress Note Date: 07/16/17 Principal diagnosis: Hilar mass, highly suspicious for malignancy, status post endobronchial biopsy, with preliminary pathology report positive for small cell lung cancer Patient is being seen in follow-up today. Her pain is under better control. She has no major respiratory difficulties. No hemoptysis. I have elected discussion yesterday with Dr. Pace. We reviewed the films again. The patient has a small right lower lobe mass which may hypotension endobronchial extension. For that reason, I decided to proceed with a bronchoscopy today and during the bronchoscopy I was able to identify the right lower lobe mass which was occupying the anterior segment of the right lower lobe. Biopsies were done. The patient will be awaiting the pathology results. Otherwise, she is in for pain control and oncology and radiation oncology is also on the case regarding her ongoing skeletal pain. On 07/14/2017 patient seen in follow-up. Still having significant amount of discomfort, today she is complaining of pain on her left side of the chest wall , describes it as sharp, intermittent, worse with movement. Requiring assistance with repositioning, related to significant amount of pain. We spoke to radiation oncology Dr. Rehman who spoke to Dr. Michaels, and the biopsy of the hilar mass is positive for small cell lung cancer, although the official report is not yet available. Radiation oncology and medical oncology discussing chemotherapy and radiation, and there are concerns about patient being able to tolerate chemotherapy and for that reason in addition to better pain control, radiation treatment would likely be started first. Patient denies any worsening shortness of breath, her biggest complaint is the intractable pain. The patient is seen again today 07/15/2017 in follow-up on the oncology unit. She is currently awake and alert. She is still having ongoing issues with skeletal pain. He is currently receiving a fentanyl patch, morphine and Motrin. She continues with a loose nonproductive cough. She is maintaining O2 saturations in the low 90s on 4 L/m per nasal cannula. Afebrile. Hemodynamically stable. Bronchial wash cultures have a preliminary presumptive staph aureus. The plan is for an MRI of the brain today. She may have a port placed for chemotherapy starting tomorrow. The patient is seen again today 07/16/2017 in follow-up on the oncology unit. She is currently resting fairly comfortably in bed. Her pain is better controlled today as compared to yesterday. He denies any worsening shortness of breath, cough or congestion. Bronchial wash was positive for methicillin sensitive Staphylococcus aureus. No leukocytosis. Hemoglobin 10.2. Creatinine 0.61. She's been hemodynamically stable. Afebrile. Maintaining good O2 saturations in the 90s on 4 L/m per nasal cannula. Her MRI of the brain was negative for any metastatic disease. She was initiated on carboplatin and etoposide last evening. Plan is for Mediport placement. Objective - Vital Signs Vital signs: Vital Signs Temp 97.9 F 07/16/17 06:50 Pulse 96 07/16/17 08:33 Resp 22 07/16/17 06:50 BP 106/70 07/16/17 06:50 Pulse Ox 94 L 07/16/17 08:27 Intake & Output 07/15/17 07/16/17 07/16/17 18:59 06:59 18:59 Intake Total 360 2287 Balance 360 2287 Intake: IV 800 0.9 @ 100 800 Intake, IV Titration 1050 Amount CARBOplatin 450 mg 250 CARBOplatin 90 mg In Sodium Chloride 0.9% 250 ml @ 600 mls/hr IV ONCE ONE Rx#:[id number] Etoposide 200 mg In 500 Sodium Chloride 0.9% 500 ml @ 500 mls/hr IV Q24H [facility] Rx#:[id number] Ondansetron 16 mg In 50 Sodium Chloride 0.9% 50 ml @ 100 mls/hr IVPB Q24H [facility] Rx#:[id number] Vancomycin 1,500 mg In 250 Sodium Chloride 0.9% 250 ml @ 125 mls/hr IVPB Q12HR [facility] Rx#:[id number] Oral 360 [id number] Other: Voiding Method Toilet Toilet # Voids 3 2 - Exam General Appearance no diaphoresis, no respiratory distress, speech not interrupted by breaths, no dyspnea, no pallor, not cachectic, well nourished, appears well, obesity HEENT no pursed lip breathing, no jugular venous distention, no mucous membrane cyanosis, no perioral cyanosis, mallampati classification: class 1, Mallampati Classification: Class 4, Mallampati Classification: Class 2 Chest no barrel chest, no retractions, no sternocleidomastoid muscle contractions, no supraclavicular retractions, no intercostal retractions, no decreased air movement, no rhonchi, no hyperinflation, prolonged expiratory wheezing, decreased air movement Heart no right ventricular heave, no distant heart sounds, no s3 gallop GI bowel sounds: hyperactive (borborygmi), bowel sounds: diminished or absent, Extremities no cyanosis, no clubbing, no edema Neurologic no decreased mental status, no somnolence, no confusion Examination of the skin revealed no evidence of significant rashes, suspicious appearing nevi or other concerning lesions. Psychiatrically the patient is anxious, no depression. Her mood and affect is appropriate at this point. Neurologically the patient is awake and alert and there is no focal neurological deficits. - Labs CBC & Chem 7: 07/15/17 18:06 07/15/17 18:06 Labs: Abnormal Lab Results - Last 24 Hours (Table) 07/15/17 Range/Units 18:06 RBC 3.32 L (3.80-5.40) m/uL Hgb 10.2 L (11.4-16.0) gm/dL Hct 30.5 L (34.0-46.0) % Microbiology - Last 24 Hours (Table) 07/13/17 08:40 Gram Stain - Final Bronchial Washings - Right Bronchial Washings Culture - Final Staphylococcus aureus Assessment and Plan Assessment: Assessment: 1 hilar mass. The patient has a 1.6 x 1.2 cm right hilar mass which is positive for small cell carcinoma. Brain MRI negative for metastatic . Initiated on chemotherapy 07/15/2017 2 back pain secondary to metastatic involvement of the thoracolumbar spine. No evidence of any cord compression or neurologic deficits in the lower extremities bilaterally. The patient is in for pain control. Further investigation will be done in terms of establishing a diagnosis in this patient 3 posterior chest wall pain involving the scapular area, likely metastatic involvement of the scapula 4 COPD with an FEV1 of 41% predicted 5 chronic hypoxic respiratory failure 6 obstructive sleep apnea 7 Bronchial wash positive for methicillin sensitive Staphylococcus aureus. Plan The patient was seen and evaluated by Dr. Rodríguez. Final bronchial wash is positive for methicillin sensitive Staphylococcus aureus. We will discontinue the vancomycin and initiate ceftriaxone. Continue with pain management. We will continue to follow and make further recommendations based on her clinical status. I, the cosigning physician, performed a history & physical examination of the patient. Lungs sounds scattered rhonchi. Maintaining good O2 saturations in the 90s on 4 L/m per nasal cannula. I discussed the assessment and plan of care with my nurse practitioner, Sariah Bueno. I attest to the above note as dictated by her.
[2017-07-16] MEDS: MORPHINE SULFATE 4 MG/ML SYRINGE IVP PRN ×2 (15:34→21:27)
--- NOTE | 2017-07-16 16:18 | P.PN ---
Subjective Progress Note Date: 07/16/17 Principal diagnosis: New metastatic Lung Cancer Patient seen and examined in follow-up today. Daughter Zhanna at bedside. She is aware of current diagnosis and would like to move forward with plan for chemotherapy. She lives in [place] by herself and her daughter is in [place]. They are inquiring about receiving continued treatment through [facility] for chemotherapy after initial chemotherapy here. She will be living with her daughter in [place] during treatment continuation. 07/16/17 - patient seen in folow-up today, she received her first day of chemotherapy with Carboplatin and [employer]-16 yesterday. She tolerated well. No nausea , vomiting, diarrhea. No acute symptoms related to chemo at this time. Pain is same and controlled on current regimen. MRI of the brain was completed and failed to show any signs of metastatic disease to brain. Objective - Vital Signs Vital signs: Vital Signs Temp 97.9 F 07/16/17 06:50 Pulse 96 07/16/17 08:33 Resp 22 07/16/17 06:50 BP 106/70 07/16/17 06:50 Pulse Ox 94 L 07/16/17 08:27 Intake & Output 07/15/17 07/16/17 07/16/17 18:59 06:59 18:59 Intake Total 360 2287 Balance 360 2287 Intake: IV 800 0.9 @ 100 800 Intake, IV Titration 1050 Amount CARBOplatin 450 mg 250 CARBOplatin 90 mg In Sodium Chloride 0.9% 250 ml @ 600 mls/hr IV ONCE ONE Rx#:[id number] Etoposide 200 mg In 500 Sodium Chloride 0.9% 500 ml @ 500 mls/hr IV Q24H [facility] Rx#:[id number] Ondansetron 16 mg In 50 Sodium Chloride 0.9% 50 ml @ 100 mls/hr IVPB Q24H [facility] Rx#:[id number] Vancomycin 1,500 mg In 250 Sodium Chloride 0.9% 250 ml @ 125 mls/hr IVPB Q12HR [facility] Rx#:[id number] Oral 360 437 Other: Voiding Method Toilet Toilet # Voids 3 2 - Constitutional General appearance: Present: cooperative, no acute distress - EENT Eyes: Present: EOMI, dentition normal ENT: Present: NA/AT, normal oropharynx - Neck Neck: Present: normal ROM - Respiratory Respiratory: bilateral: wheezing (Expiratory) - Cardiovascular Rhythm: regular Heart sounds: normal: S1, S2 - Gastrointestinal General gastrointestinal: Present: normal bowel sounds, soft - Integumentary Integumentary: Present: pale - Neurologic Neurologic: Present: CNII-XII intact - Musculoskeletal Musculoskeletal: Present: generalized weakness, strength equal bilaterally - Psychiatric Psychiatric: Present: A&O x's 3, appropriate affect, intact judgment & insight - Labs CBC & Chem 7: 07/15/17 18:06 07/15/17 18:06 Labs: Abnormal Lab Results - Last 24 Hours (Table) 07/15/17 07/15/17 07/15/17 Range/Units 11:17 11:17 18:06 RBC 3.26 L 3.32 L (3.80-5.40) m/uL Hgb 10.0 L 10.2 L (11.4-16.0) gm/dL Hct 29.9 L 30.5 L (34.0-46.0) % Carbon Dioxide 34 H (22-30) mmol/L Total Protein 5.6 L (6.3-8.2) g/dL Albumin 3.4 L (3.5-5.0) g/dL Microbiology - Last 24 Hours (Table) 07/13/17 08:40 Gram Stain - Preliminary Bronchial Washings - Right Bronchial Washings Culture - Preliminary Presumptive Staph aureus Assessment and Plan (1) Small cell lung cancer Current Visit: Yes Status: Acute Code(s): C34.90 - MALIGNANT NEOPLASM OF UNSP PART OF UNSP BRONCHUS OR LUNG SNOMED Code(s): 231987330 (2) Normochromic anemia Current Visit: Yes Status: Acute Code(s): D64.9 - ANEMIA, UNSPECIFIED SNOMED Code(s): 14391530 (3) Bone lesion Current Visit: Yes Status: Acute Priority: High Code(s): M89.9 - DISORDER OF BONE, UNSPECIFIED SNOMED Code(s): 35742134 (4) Intractable pain Current Visit: Yes Status: Acute Priority: High Code(s): R52 - PAIN, UNSPECIFIED SNOMED Code(s): 51107113 (5) COPD (chronic obstructive pulmonary disease) Current Visit: No Status: Acute Code(s): J44.9 - CHRONIC OBSTRUCTIVE PULMONARY DISEASE, UNSPECIFIED SNOMED Code(s): 62075831 Plan: Assessment and Recommendations: 1. Extensive Stage Small Cell Lung Cancer - Status Post Biopsy with Pathology revealing Small Cell - Right Scapula Lesion - Status Post chemotherapy with Carboplatin/VP16 Day 2 today. Plan to treat with monthly zometa as well for metastatic disease bone. - MRI Brain Initial Staging Negative - Consult placed for Dr. De Oliveira for mediport placement. - Dr. Rehman From Radiation Oncology Following, Likely plan radiation after chemotherapy outpatient at [facility] - Nurse Navigator Anastasia assisting in patient navigation with transportation issues and likely need to live with daughter in [place]. Will initiate process of continued care through [facility] after treatment cycle number one, stabilized, and discharged. - Daily CBC on chemotherapy and CMP 2. Presumptive Staph Aureus Bronchial Washings - Vancomycin initiated, afebrile. ?contaminate ok to move forward with chemo. 3. COPD Physician Attestation: I have completed the full history and physical of this patient and discussed and agree with Carrie Cook NP dictation above, dictated as a scribe.
--- NOTE | 2017-07-16 17:24 | P.GSCN ---
History of Present Illness Consult date: 07/16/17 Reason for Consult: Lung cancer History of present illness: We were consulted to see this patient with a recent diagnosis of metastatic lung cancer. We were asked to place a Port-A-Cath. She had a dose of chemotherapy yesterday and again today. She is not interested in PICC line for the administration of chemotherapy. No prior Port-A-Cath. She is anxious about anesthesia however. Past Medical History Past Medical History: Cancer, COPD, GERD/Reflux, Hyperlipidemia, Hypertension, Osteoarthritis (OA), Sleep Apnea/CPAP/BIPAP Additional Past Medical History / Comment(s): COPD, obesity, osteoporosis, obstructive sleep apnea, hiatal hernia, degenerative arthritis , diverticulosis , history of alcoholism, previous history of gallstone with a previous cholecystectomy History of Any Multi-Drug Resistant Organisms: None Reported Past Surgical History: Cholecystectomy Additional Past Surgical History / Comment(s): EGD,colonoscopy Past Anesthesia/Blood Transfusion Reactions: Previous Problems w/ Anesthesia, Family History of Problems w/ Anesthesia Additional Past Anesthesia/Blood Transfusion Reaction / Comm: EGD/Colonoscopy, never has had general anesthesia, the patient also has had a previous cholecystectomy Smoking Status: Former smoker - Past Family History Mother Family Medical History: Cancer, Coronary Artery Disease (CAD) Additional Family Medical History / Comment(s): skin Father Family Medical History: No Reported History Additional Family Medical History / Comment(s): Father in a motor vehicle accident. Patient had one brother who had metastatic colon cancer and history of coronary artery disease. His sister had skin cancer. Patient lives alone and is functionally active does. 3 L of oxygen at rest and exertion Brother(s) Family Medical History: Cancer, Coronary Artery Disease (CAD), Myocardial Infarction ([place]) Sister(s) Family Medical History: Cancer Additional Family Medical History / Comment(s): cancer skin mom skin ca Medications and Allergies Home Medications Medication Instructions Recorded Confirmed Type Albuterol Sulfate [Proair Hfa] 2 puff INHALATION RT-Q6H PRN 08/31/15 07/12/17 History Diphenoxylate HCl/Atropine 2 tab PO QID PRN 08/31/15 07/12/17 History [Lomotil] Ipratropium/Albuterol Sulfate 2 puff INHALATION RT-BID 08/31/15 07/12/17 History [Combivent Respimat Inhaler] Fluticasone/Salmeterol [Advair Hfa 2 puff INHALATION RT-BID 01/29/16 07/12/17 History 230-21 Mcg Inhaler] Levothyroxine Sodium [Synthroid] 25 mcg PO QAM 01/29/16 07/12/17 History Pantoprazole Sodium [Protonix] 40 mg PO QAM 01/29/16 07/12/17 History Tiotropium 18 Mcg/Puff [Spiriva] 1 cap INHALATION RT-DAILY 01/29/16 07/12/17 History Dicyclomine [Bentyl] 10 mg PO QID 05/14/16 07/12/17 History Simvastatin [Zocor] 20 mg PO HS 05/14/16 07/12/17 History Citalopram Hydrobromide [CeleXA] 20 mg PO HS 05/23/17 07/12/17 History Primidone [Mysoline] 250 mg PO BID 05/23/17 07/12/17 History busPIRone HCL [Buspar] 7.5 mg PO BID 05/23/17 07/12/17 History HYDROcodone/APAP 10-325MG [[place] 1 tab PO Q6HR PRN 3 Days #12 tab 07/10/1707/12 Rx 10-325] fentaNYL 25MCG/HR PATCH [Duragesic 1 patch TRANSDERM Q72H #3 patch 07/10/17 Rx 25MCG/HR] Ascorbic Acid [Vitamin C] 1,000 mg PO DAILY 07/12/17 07/12/17 History Baclofen 10 mg PO TID PRN 07/12/17 07/12/17 History Meloxicam [Mobic] 7.5 mg PO AC-BID 07/12/17 07/12/17 History clonazePAM [KlonoPIN] 0.5 mg PO BID 07/12/17 07/12/17 History Allergies Allergy/AdvReac Type Severity Reaction Status Date / Time lidocaine [From Lidoderm] Allergy Rash/Hives Verified 07/12/17 12:05 Surgical - Exam Vital Signs Temp Pulse Resp BP Pulse Ox 98.1 F 86 18 133/78 97 07/11/17 22:04 07/11/17 22:04 07/11/17 22:04 07/11/17 22:04 07/11/17 22:04 Physical exam: General: Well-developed, well-nourished HEENT: Normocephalic, sclerae nonicteric Abdomen: Nontender, nondistended Extremities: No edema Neuro: Alert and oriented Results - Labs 07/15/17 18:06 07/15/17 18:06 Abnormal Lab Results - Last 24 Hours (Table) 07/15/17 Range/Units 18:06 RBC 3.32 L (3.80-5.40) m/uL Hgb 10.2 L (11.4-16.0) gm/dL Hct 30.5 L (34.0-46.0) % Microbiology - Last 24 Hours (Table) 07/13/17 08:40 Gram Stain - Final Bronchial Washings - Right Bronchial Washings Culture - Final Staphylococcus aureus Diabetes panel 07/15/17 Range/Units 18:06 Creatinine 0.60 (0.52-1.04) mg/dL Pituitary panel 07/15/17 Range/Units 18:06 Creatinine 0.60 (0.52-1.04) mg/dL Adrenal panel 07/15/17 Range/Units 18:06 Creatinine 0.60 (0.52-1.04) mg/dL Assessment and Plan (1) Small cell lung cancer Narrative/Plan: Will tentatively plan Port-A-Cath placement tomorrow. Risks of bleeding, infection, pneumothorax, DVT, catheter occlusion, catheter malfunction were reviewed. She understands and wishes to proceed. Current Visit: Yes Status: Acute Code(s): C34.90 - MALIGNANT NEOPLASM OF UNSP PART OF UNSP BRONCHUS OR LUNG SNOMED Code(s): 811015244
[2017-07-16] MEDS: CITALOPRAM HYDROBROMIDE 20 MG TAB PO SCH (20:50)
[2017-07-16] MEDS: ATORVASTATIN 10 MG TAB PO SCH (20:50)
[2017-07-16] MEDS: FAMOTIDINE 20 MG/2 ML VIAL IV SCH (20:50)
[2017-07-16] MEDS: ONDANSETRON 16 MG in SODIUM CHLORIDE 0.9% 50 ML IVPB SCH (21:26)
[2017-07-16] MEDS: DEXAMETHASONE SOD PHOSPHATE 10 MG/ML 1 ML VIAL IV SCH (21:30)
[2017-07-16] MEDS: ETOPOSIDE 200 MG in SODIUM CHLORIDE 0.9% 500 ML IV SCH (22:36)
--- NOTE | 2017-07-16 23:06 | PN ---
PROGRESS NOTE CHIEF COMPLAINT: A 62-year-old white female who is supposed to get chemotherapy and radiation treatment in the next 24 hours. She is going to get a Port-A-Cath placed for chemotherapy. She is in a lot of pain, up ambulating. CARDIOVASCULAR: S1, S2. LUNGS: Clear. GI: Soft. MUSCULOSKELETAL: Tenderness to palpation of the lumbar spine and cervical spine and thoracic spine. Brain MRI is negative for metastases. ASSESSMENT: 1. Small-cell lung cancer, stage IV. 2. Chronic obstructive pulmonary disease. 3. Dyslipidemia. 4. Anxiety. 5. Depression. 6. Irritable bowel syndrome. 7. Chronic pain. Continue current pain medications, port placement, chemotherapy radiation therapy. Home soon. MMODL / IJN: [id number] /
[2017-07-16] MEDS: LORazepam 2 MG/ML INJ IV PRN (23:56)
[2017-07-17] MEDS: MORPHINE SULFATE 4 MG/ML SYRINGE IVP PRN ×2 (02:59→05:53)
[2017-07-17] MEDS: HYDROcodone/APAP 10-325MG 1 EACH TAB PO PRN ×3 (04:09→15:59)
[2017-07-17] MEDS: LEVOTHYROXINE 25 MCG TAB PO SCH (05:53)
[2017-07-17] MEDS: SYMBICORT 160-4.5 MCG INHALER INHALATION SCH ×2 (07:17→19:45)
[2017-07-17 07:41] LABS: Basophils % (A) 0 %; Eosinophils # (A) 0.1 k/uL (0-0.7); Eosinophils % (A) 3 %; HCT 28.4 % (34.0-46.0); HGB 9.5 gm/dL (11.4-16.0); Lymphocytes % (A) 18 %; MCH 31.1 pg (25.0-35.0); MCHC 33.5 g/dL (31.0-37.0); MCV 92.8 fL (80.0-100.0); Mean Platelet Volume 8.3; Monocytes # (A) 0.3 k/uL (0-1.0); Monocytes % (A) 5 %; Neutrophils % (A) 73 %; Platelet Count 196 k/uL (150-450); RBC 3.06 m/uL (3.80-5.40); RDW 13.4 % (11.5-15.5); WBC 5.4 k/uL (3.8-10.6)
[2017-07-17] MEDS ORDERED: VANCOMYCIN TROUGH DUE 1 EACH MISC MISCELLANE ONE (08:00)
[2017-07-17 08:01] LABS: Partial Thromboplastin Time 25.3 sec (22.0-30.0); Prothrombin Time 9.9 sec (9.0-12.0)
[2017-07-17 08:06] LABS: ALT 23 U/L (9-52); AST 13 U/L (14-36); Albumin 3.3 g/dL (3.5-5.0); Alkaline Phosphatase 66 U/L (38-126); Anion Gap 9 mmol/L; Blood Urea Nitrogen 14 mg/dL (7-17); Calcium 8.6 mg/dL (8.4-10.2); Carbon Dioxide 27 mmol/L (22-30); Chloride 107 mmol/L (98-107); Glucose 84 mg/dL (74-99); Potassium 4.2 mmol/L (3.5-5.1); Sodium 143 mmol/L (137-145); Total Bilirubin 0.2 mg/dL (0.2-1.3); Total Protein 5.4 g/dL (6.3-8.2)
[2017-07-17] MEDS: DICYCLOMINE 10 MG CAP PO SCH ×4 (08:47→22:26)
[2017-07-17] MEDS: guaiFENesin 600 MG TABLET.ER PO SCH ×2 (08:47→22:33)
[2017-07-17] MEDS: CHOLECALCIFEROL 1,000 UNIT TAB PO SCH (08:47)
[2017-07-17] MEDS: PANTOPRAZOLE 40 MG TABLET PO SCH (08:47)
[2017-07-17] MEDS: busPIRone HCl 5 MG TAB PO SCH ×2 (08:49→22:26)
[2017-07-17] MEDS: PRIMIDONE 250 MG TAB PO SCH (08:49)
[2017-07-17] MEDS: IPRATROPIUM-ALBUTEROL 3 ML NEB INHALATION PRN ×2 (11:04→23:10)
--- NOTE | 2017-07-17 11:39 | P.PN ---
Subjective Progress Note Date: 07/17/17 Principal diagnosis: Acute GI bleeding, and acute diabetic ketoacidosis Mrs. Pacheco 68-year-old white female patient of Dr. Jones who presented to the emergency department on 07/06/2017 for evaluation of a few days' history of dark stools. She states last night she noticed the stool started changing color , and became more maroon in appearance. Patient felt more fatigued and weak. She does have history of previous GI bleeding in 2007, and the EGD at that time identified a bleeding gastric ulcer. Patient is on Coumadin for history of paroxysmal atrial fibrillation, currently in sinus rhythm. Patient does have iron deficiency anemia and she is on iron supplements, and initially she was not alarmed at her dark stools relating it to her iron supplements. Other medical history includes diabetes mellitus, chronic kidney disease with history of 2 kidney transplants, one in 1995, and 2009. Her kidney transplants were from living donors. Past medical history also includes hypertension, hyperlipidemia, hypothyroidism, neuropathy, and patient is a former smoker. Lab work showed a hemoglobin of 6.2, INR of 2.6, sodium of 1:30, potassium 6.8, CO2 of 17, BUN 60, creatinine is 0.87. Serum glucose was 636, with positive serum acetone level. Troponin cardiac enzymes were negative 1, lipase was within normal limits at 183. Stool occult blood was positive. She was given 2 L of IV bolus of 0.9 normal saline in the emergency room, receiving 2 units of packed red blood cells, she was placed in the intensive care. DKA protocol sling effusion has been started. Reevaluated today on 07/17/2017, patient seems to be doing much better today, no further episodes of GI bleeding, did require a total of 2 units of packed RBCs, and her anion gap significantly improved, presently off insulin drip. Did receive a significant amount of fluids overnight, and she seems to be doing much per her today, hemodynamically stable. Hemoglobin today is 7.7, her INR is 1.3, did receive vitamin K yesterday, electrolytes are normal her anion gap is down to 8, renal profile is normal with a BUN of 31 creatinine of 0.70. Objective - Vital Signs Vital signs: Vital Signs Temp 98.9 F 07/17/17 07:00 Pulse 77 07/17/17 11:13 Resp 22 07/17/17 07:00 BP 118/59 05/18/18 07:00 Pulse Ox 95 07/17/17 07:00 Intake & Output 07/16/17 07/17/17 07/17/17 18:59 06:59 18:59 Intake Total 850 800 Balance 850 800 Intake: IV 600 800 0.9 @ 100 600 800 Intake, IV Titration 250 Amount Vancomycin 1,500 mg In 250 Sodium Chloride 0.9% 250 ml @ 125 mls/hr IVPB Q12HR [facility] Rx#:[id number] Other: Voiding Method Toilet # Voids 2 - Exam GENERAL EXAM: Alert, pleasant 68-year-old white female, comfortable in no apparent distress. HEAD: Normocephalic/atraumatic. EYES: Normal reaction of pupils, equal size. Conjunctiva pink, sclera white. NOSE: Clear with pink turbinates. THROAT: No erythema or exudates. NECK: No masses, no JVD, no thyroid enlargement, no adenopathy. CHEST: No chest wall deformity. Symmetrical expansion. LUNGS: Clear breath sounds bilaterally, no crackles or rhonchi or wheezes. CVS: Regular rate and rhythm, normal S1 and S2, no gallops, no murmurs, no rubs ABDOMEN: Soft, nontender. No hepatosplenomegaly, normal bowel sounds, no guarding or rigidity. EXTREMITIES: No clubbing, no edema, no cyanosis, 2+ pulses and upper and lower extremities. MUSCULOSKELETAL: Muscle strength and tone normal SKIN: No rashes CENTRAL NERVOUS SYSTEM: Alert oriented 3, no gross focal neurologic deficit. PSYCHIATRIC: Normal mood affect and mental status examination. - Labs CBC & Chem 7: 07/17/17 07:26 07/17/17 07:26 Labs: Abnormal Lab Results - Last 24 Hours (Table) 07/17/17 07/17/17 Range/Units 07:26 07:26 RBC 3.06 L (3.80-5.40) m/uL Hgb 9.5 L (11.4-16.0) gm/dL Hct 28.4 L (34.0-46.0) % AST 13 L (14-36) U/L Total Protein 5.4 L (6.3-8.2) g/dL Albumin 3.3 L (3.5-5.0) g/dL Microbiology - Last 24 Hours (Table) 07/13/17 08:40 Gram Stain - Final Bronchial Washings - Right Bronchial Washings Culture - Final Staphylococcus aureus Assessment and Plan Assessment: 1. Acute blood loss anemia, secondary to acute GI bleeding, patient presented with several days of dark stools, which changed to maroon colored stools history. #2. Prerenal azotemia secondary to GI bleeding, and DKA #3. Acute hyperkalemia, secondary to acute kidney injury #4. Anion gap metabolic acidosis to continue to DKA #5. History of paroxysmal atrial fibrillation, currently sinus rhythm, on chronic anticoagulation with Coumadin. Admission INR was 2.6, we will give the patient 5 mg of vitamin K in the setting of acute GI bleeding and will hold Coumadin #6. Chronic kidney disease, status post right kidney transplant in 1995 and left kidney transplant in 2009 #7. Diabetes mellitus, with diabetic neuropathy, glaucoma and retinopathy status post laser eye surgery new #8. History of previous GI bleeding , gastric ulcer in 2007 #9. Nicotine dependence, currently in remission #10. Hypertension, hyperlipidemia #11. Hypothyroidism #12. Peripheral vascular disease #13 acute diabetic ketoacidosis, improving significantly over the last 12 hours. Patient is now off insulin drip. Recommendation: Continue present supportive care measures, patient is scheduled to undergo colonoscopy later this afternoon, depending on the findings may consider transferring the patient out of the ICU later this afternoon. We'll continue to follow. Time with Patient: Less than 30
[2017-07-17] MEDS ORDERED: LACTATED RINGERS 1,000 ML IV ONE (12:27)
[2017-07-17] MEDS ORDERED: MIDAZOLAM 2 MG/2 ML VIAL ONE (12:36)
[2017-07-17] MEDS ORDERED: PROPOFOL 10 MG/ML 20 ML VIAL IV ONE (12:36)
[2017-07-17] MEDS ORDERED: fentaNYL (PF) 50 MCG/ML 2 ML AMP ONE (12:36)
[2017-07-17] MEDS: cefTRIAXone IN SWFI 1,000 MG/10 ML SYRINGE IVP SCH (12:56)
[2017-07-17] MEDS ORDERED: LIDOCAINE (PF) 10 MG/ML 2 ML VIAL SQ ONE (13:03)
--- NOTE | 2017-07-17 13:34 | P.PCN ---
Date of Procedure: 07/17/17 Procedure(s) Performed: PREOPERATIVE DIAGNOSIS: Lung cancer POSTOPERATIVE DIAGNOSIS: Same PROCEDURE: Port-A-Cath placement SURGEON: Alvino EBL: Minimal ANESTHESIA: Sedation COMPLICATIONS: None OPERATIVE PROCEDURE: Patient was brought and placed on the operative table in the supine position. The patient was sedated per anesthesia that time. The chest and neck were prepped and draped in usual sterile fashion. The ultrasound probe was used to identify the location of the right internal jugular vein. The skin was localized with lidocaine. The Seldinger needle was advanced into the IJ under ultrasound guidance. The wire was advanced through the needle under fluoroscopic guidance into the superior vena cava. A port pocket was created in the right infraclavicular location. The catheter was tunneled from the wire entrance site to the port pocket. The port was then connected to the catheter. The dilator introducer was threaded over the guidewire. The guidewire and dilator were then removed. The catheter was advanced through the introducer and introducer was then removed. The tip was seen to be in the right atrial junction. Port was flushed with both saline and a Hep-Lock solution. There was good flow both in and out of the port. The port was sutured in underlying tissues using 3-0 silk sutures. The subcutaneous tissues were reapproximated using 3-0 Vicryl sutures and the skin at both locations using 4-0 Monocryl sutures. A Webber needle was left in the port for access postoperatively. Steri-Strips and sterile dressings then applied. DISPOSITION: Stable to recovery room
--- NOTE | 2017-07-17 13:49 | FL ---
EXAMINATION TYPE: FL guided central line placemt HISTORY: Fluoroscopy time Impression: 1. Fluoroscopy support provided to the referring physician. 4 seconds of fluoroscopy provided.
--- NOTE | 2017-07-17 13:59 | XR ---
EXAMINATION TYPE: XR chest 1V confirm line [facility] DATE OF EXAM: 07/17/2017 COMPARISON: 07/11/2017 HISTORY: Mediport placement TECHNIQUE: Single frontal view of the chest is obtained. FINDINGS: Right-sided Mediport seen with tip overlying the SVC. No sizable pneumothorax. Right lower lobe infiltrate seen. Heart size stable. IMPRESSION: Right lower lobe infiltrate.
--- NOTE | 2017-07-17 14:54 | P.PN ---
Subjective Progress Note Date: 07/17/17 Principal diagnosis: Hilar mass, highly suspicious for malignancy, status post endobronchial biopsy, with preliminary pathology report positive for small cell lung cancer Patient is being seen in follow-up today. Her pain is under better control. She has no major respiratory difficulties. No hemoptysis. I have elected discussion yesterday with Dr. Pace. We reviewed the films again. The patient has a small right lower lobe mass which may hypotension endobronchial extension. For that reason, I decided to proceed with a bronchoscopy today and during the bronchoscopy I was able to identify the right lower lobe mass which was occupying the anterior segment of the right lower lobe. Biopsies were done. The patient will be awaiting the pathology results. Otherwise, she is in for pain control and oncology and radiation oncology is also on the case regarding her ongoing skeletal pain. On 07/14/2017 patient seen in follow-up. Still having significant amount of discomfort, today she is complaining of pain on her left side of the chest wall , describes it as sharp, intermittent, worse with movement. Requiring assistance with repositioning, related to significant amount of pain. We spoke to radiation oncology Dr. Rehman who spoke to Dr. Michaels, and the biopsy of the hilar mass is positive for small cell lung cancer, although the official report is not yet available. Radiation oncology and medical oncology discussing chemotherapy and radiation, and there are concerns about patient being able to tolerate chemotherapy and for that reason in addition to better pain control, radiation treatment would likely be started first. Patient denies any worsening shortness of breath, her biggest complaint is the intractable pain. The patient is seen again today 07/15/2017 in follow-up on the oncology unit. She is currently awake and alert. She is still having ongoing issues with skeletal pain. He is currently receiving a fentanyl patch, morphine and Motrin. She continues with a loose nonproductive cough. She is maintaining O2 saturations in the low 90s on 4 L/m per nasal cannula. Afebrile. Hemodynamically stable. Bronchial wash cultures have a preliminary presumptive staph aureus. The plan is for an MRI of the brain today. She may have a port placed for chemotherapy starting tomorrow. The patient is seen again today 07/16/2017 in follow-up on the oncology unit. She is currently resting fairly comfortably in bed. Her pain is better controlled today as compared to yesterday. He denies any worsening shortness of breath, cough or congestion. Bronchial wash was positive for methicillin sensitive Staphylococcus aureus. No leukocytosis. Hemoglobin 10.2. Creatinine 0.61. She's been hemodynamically stable. Afebrile. Maintaining good O2 saturations in the 90s on 4 L/m per nasal cannula. Her MRI of the brain was negative for any metastatic disease. She was initiated on carboplatin and etoposide last evening. Plan is for Mediport placement. On 07/17/2017 patient seen in follow-up on oncology floor. Getting ready to be taken down for her Mediport placement and she is due for her second dose of carboplatinum and CHINESE TEACHER-16 today. Denies any shortness of breath, her pain seems to be an ongoing issue and today she is complaining of the pain not only in her back but also common around both sides of her torso towards the front. She is on a combination of fentanyl patch, [place] and IV morphine for breakthrough pain. Yang hemodynamically stable, on 3 L per nasal cannula as her pulse ox is 93%, she is afebrile. She was found to have MSSA in her sputum, and the patient is currently on Rocephin, she continues on Symbicort, we will add DuoNeb nebulized treatments. Otherwise from pulmonary standpoint is stable. Medical and radiation oncology are following. Objective - Vital Signs Vital signs: Vital Signs Temp 98 F 07/17/17 14:20 Pulse 105 H 07/17/17 14:20 Resp 26 H 07/17/17 14:20 BP 134/79 07/17/17 14:20 Pulse Ox 83 L 07/17/17 14:20 Intake & Output 07/16/17 07/17/17 07/17/17 18:59 06:59 18:59 Intake Total 850 800 600 Output Total 3 Balance 850 800 597 Intake: IV 600 800 600 0.9 @ 100 600 800 Intake, IV Titration 250 Amount Vancomycin 1,500 mg In 250 Sodium Chloride 0.9% 250 ml @ 125 mls/hr IVPB Q12HR [facility] Rx#:[id number] Output: Estimated Blood Loss 3 Other: Voiding Method Toilet # Voids 2 - Exam General Appearance no diaphoresis, no respiratory distress, speech not interrupted by breaths, no dyspnea, no pallor, not cachectic, well nourished, appears well, obesity HEENT no pursed lip breathing, no jugular venous distention, no mucous membrane cyanosis, no perioral cyanosis, mallampati classification: class 1, Mallampati Classification: Class 4, Mallampati Classification: Class 2 Chest no barrel chest, no retractions, no sternocleidomastoid muscle contractions, no supraclavicular retractions, no intercostal retractions, no decreased air movement, no rhonchi, no hyperinflation, prolonged expiratory wheezing, decreased air movement Heart no right ventricular heave, no distant heart sounds, no s3 gallop GI bowel sounds: hyperactive (borborygmi), bowel sounds: diminished or absent, Extremities no cyanosis, no clubbing, no edema Neurologic no decreased mental status, no somnolence, no confusion Examination of the skin revealed no evidence of significant rashes, suspicious appearing nevi or other concerning lesions. Psychiatrically the patient is anxious, no depression. Her mood and affect is appropriate at this point. Neurologically the patient is awake and alert and there is no focal neurological deficits. - Labs CBC & Chem 7: 07/17/17 07:26 07/17/17 07:26 Labs: Abnormal Lab Results - Last 24 Hours (Table) 07/17/17 07/17/17 Range/Units 07:26 07:26 RBC 3.06 L (3.80-5.40) m/uL Hgb 9.5 L (11.4-16.0) gm/dL Hct 28.4 L (34.0-46.0) % AST 13 L (14-36) U/L Total Protein 5.4 L (6.3-8.2) g/dL Albumin 3.3 L (3.5-5.0) g/dL Microbiology - Last 24 Hours (Table) 07/13/17 08:40 Gram Stain - Final Bronchial Washings - Right Bronchial Washings Culture - Final Staphylococcus aureus Assessment and Plan Plan: Assessment: 1 hilar mass. The patient has a 1.6 x 1.2 cm right hilar mass which is positive for small cell carcinoma, brain MRI negative for metastatic lesions. Initiated chemotherapy on 07/15/2017 on a combination of carboplatin and CHINESE TEACHER-16 2 back pain secondary to metastatic involvement of the thoracolumbar spine. No evidence of any cord compression or neurologic deficits in the lower extremities bilaterally. 3 posterior chest wall pain involving the scapular area, likely metastatic involvement of the scapula 4 COPD with an FEV1 of 41% predicted 5 chronic hypoxic respiratory failure 6 obstructive sleep apnea 7 bronchial wash positive for methicillin sensitive Staphylococcus aureus Plan Patient is due to receive her second dose of chemo today, is scheduled for MediPort placement. Continue Rocephin for the MSSA in the bronchial wash. Continue Symbicort, we will add DuoNeb. Patient remains in significant amount of pain, in her back and on both sides of her torso. Currently on fentanyl, [place] and IV morphine. Medical and radiation oncology following. We will see the patient on as-needed basis I performed a history & physical examination of the patient and discussed their management with my nurse practitioner, Adriane Kahn. I reviewed the nurse practitioner's note and agree with the documented findings and plan of care. Lung sounds are diminished. The findings and the impression was discussed with the patient. I attest to the documentation by the nurse practitioner. Time with Patient: Less than 30
[2017-07-17] MEDS ORDERED: MORPHINE SULFATE 4 MG/ML SYRINGE IVP PRN (15:19)
[2017-07-17] MEDS: IPRATROPIUM-ALBUTEROL 3 ML NEB INHALATION SCH ×3 (15:29→19:45)
[2017-07-17] MEDS: LORazepam 2 MG/ML INJ IV PRN (16:23)
--- NOTE | 2017-07-17 18:40 | P.PN ---
Subjective Progress Note Date: 07/17/17 Principal diagnosis: New metastatic Lung Cancer Patient seen and examined in follow-up today. Daughter Zhanna at bedside. She is aware of current diagnosis and would like to move forward with plan for chemotherapy. She lives in [place] by herself and her daughter is in [place]. They are inquiring about receiving continued treatment through [facility] for chemotherapy after initial chemotherapy here. She will be living with her daughter in [place] during treatment continuation. 07/16/17 - patient seen in folow-up today, she received her first day of chemotherapy with Carboplatin and FLAKER TENDER-16 yesterday. She tolerated well. No nausea , vomiting, diarrhea. No acute symptoms related to chemo at this time. Pain is same and controlled on current regimen. MRI of the brain was completed and failed to show any signs of metastatic disease to brain. 07/17/17 - Allison is status mediport placement today, she is due for her third treatment of Carbo/FLAKER TENDER 16 tonight. Speaking with nursing patient has been having some increased confusion, possibily associated with morphine, worse immediately after morphine per nursing. She was on Fentanyl 50mcg on admission and this has been continued through her stay with the addition of short acting pain relief. She denies any nausea, vomiting, diarrhea. She is tolerating chemotherapy so far. Objective - Vital Signs Vital signs: Vital Signs Temp 99.4 F 07/17/17 11:55 Pulse 89 07/17/17 11:55 Resp 20 07/17/17 11:55 BP 126/77 07/17/17 11:55 Pulse Ox 94 L 07/17/17 11:55 Intake & Output 07/16/17 07/17/17 07/17/17 18:59 06:59 18:59 Intake Total 850 800 600 Output Total 3 Balance 850 800 597 Intake: IV 600 800 600 0.9 @ 100 600 800 Intake, IV Titration 250 Amount Vancomycin 1,500 mg In 250 Sodium Chloride 0.9% 250 ml @ 125 mls/hr IVPB Q12HR [facility] Rx#:[id number] Output: Estimated Blood Loss 3 Other: Voiding Method Toilet # Voids 2 - Constitutional General appearance: Present: cooperative, no acute distress - EENT Eyes: Present: EOMI, PERRLA, dentition normal ENT: Present: NA/AT, normal oropharynx - Neck Neck: Present: normal ROM - Respiratory Respiratory: bilateral: diminished (Bibasiliar) - Cardiovascular Rhythm: regular Heart sounds: normal: S1, S2 - Peripheral edema leg Peripheral Edema: bilateral: Trace - Gastrointestinal General gastrointestinal: Present: distended, normal bowel sounds, soft - Integumentary Integumentary: Present: pale - Neurologic Neurologic: Present: CNII-XII intact - Musculoskeletal Musculoskeletal: Present: generalized weakness, strength equal bilaterally - Psychiatric Psychiatric: Present: A&O x's 3, appropriate affect, intact judgment & insight - Labs CBC & Chem 7: 07/17/17 07:26 07/17/17 07:26 Labs: Abnormal Lab Results - Last 24 Hours (Table) 07/17/17 07/17/17 Range/Units 07:26 07:26 RBC 3.06 L (3.80-5.40) m/uL Hgb 9.5 L (11.4-16.0) gm/dL Hct 28.4 L (34.0-46.0) % AST 13 L (14-36) U/L Total Protein 5.4 L (6.3-8.2) g/dL Albumin 3.3 L (3.5-5.0) g/dL Microbiology - Last 24 Hours (Table) 07/13/17 08:40 Gram Stain - Final Bronchial Washings - Right Bronchial Washings Culture - Final Staphylococcus aureus Assessment and Plan (1) Small cell lung cancer Current Visit: Yes Status: Acute Code(s): C34.90 - MALIGNANT NEOPLASM OF UNSP PART OF UNSP BRONCHUS OR LUNG SNOMED Code(s): 858335877 (2) Normochromic anemia Current Visit: Yes Status: Acute Code(s): D64.9 - ANEMIA, UNSPECIFIED SNOMED Code(s): 55119957 (3) Bone lesion Current Visit: Yes Status: Acute Priority: High Code(s): M89.9 - DISORDER OF BONE, UNSPECIFIED SNOMED Code(s): 44277965 (4) Intractable pain Current Visit: Yes Status: Acute Priority: High Code(s): R52 - PAIN, UNSPECIFIED SNOMED Code(s): 48958415 (5) COPD (chronic obstructive pulmonary disease) Current Visit: No Status: Acute Code(s): J44.9 - CHRONIC OBSTRUCTIVE PULMONARY DISEASE, UNSPECIFIED SNOMED Code(s): 49711205 Plan: Assessment and Recommendations: 1. Extensive Stage Small Cell Lung Cancer - Status Post Biopsy with Pathology revealing Small Cell - Right Scapula Lesion - Status Post chemotherapy with Carboplatin/VP16 Day 2 today. Plan to treat with monthly zometa as well for metastatic disease bone. - MRI Brain Initial Staging Negative - Consult placed for Dr. De Oliveira for mediport placement. - Dr. Rehman From Radiation Oncology Following, Likely plan radiation after chemotherapy outpatient at [place] [facility] - Nurse Navigator Anastasia assisting in patient navigation with transportation issues and likely need to live with daughter in [place]. Will initiate process of continued care through [facility] after treatment cycle number one, stabilized, and discharged. - Daily CBC on chemotherapy and CMP 2. Presumptive Staph Aureus Bronchial Washings - Vancomycin initiated, afebrile. ?contaminate ok to move forward with chemo. 3. COPD 4. Increasing inappropriate confusion, although alert and oriented x3 - MRI of the Brain Negative for metastatic Disease - Steroid induced secondary to pre-medications with chemotherapy? 5. Intolerable pain secondary to metastatic Cancer - Decrease IVP Morphine and [place] intervals and increase long acting pain medication and monitor mental status closely
[2017-07-17] MEDS: ATORVASTATIN 10 MG TAB PO SCH (22:26)
[2017-07-17] MEDS: CITALOPRAM HYDROBROMIDE 20 MG TAB PO SCH (22:33)
[2017-07-18] MEDS: DEXAMETHASONE SOD PHOSPHATE 10 MG/ML 1 ML VIAL IV SCH (00:52)
[2017-07-18] MEDS: ONDANSETRON 16 MG in SODIUM CHLORIDE 0.9% 50 ML IVPB SCH (00:52)
[2017-07-18] MEDS: FAMOTIDINE 20 MG/2 ML VIAL IV SCH (00:52)
[2017-07-18] MEDS: ETOPOSIDE 200 MG in SODIUM CHLORIDE 0.9% 500 ML IV SCH (01:37)
[2017-07-18] MEDS: IPRATROPIUM-ALBUTEROL 3 ML NEB INHALATION PRN ×2 (04:22→23:31)
[2017-07-18] MEDS: HYDROcodone/APAP 10-325MG 1 EACH TAB PO PRN ×3 (04:38→20:21)
[2017-07-18] MEDS: LEVOTHYROXINE 25 MCG TAB PO SCH (05:51)
[2017-07-18 07:55] LABS: ALT 27 U/L (9-52); AST 14 U/L (14-36); Albumin 3.4 g/dL (3.5-5.0); Alkaline Phosphatase 70 U/L (38-126); Anion Gap 11 mmol/L; Blood Urea Nitrogen 10 mg/dL (7-17); Calcium 9.1 mg/dL (8.4-10.2); Carbon Dioxide 27 mmol/L (22-30); Chloride 105 mmol/L (98-107); Glucose 125 mg/dL (74-99); Potassium 4.4 mmol/L (3.5-5.1); Sodium 143 mmol/L (137-145); Total Bilirubin 0.2 mg/dL (0.2-1.3); Total Protein 5.6 g/dL (6.3-8.2)
[2017-07-18] MEDS: cefTRIAXone IN SWFI 1,000 MG/10 ML SYRINGE IVP SCH (08:02)
[2017-07-18] MEDS: DICYCLOMINE 10 MG CAP PO SCH ×4 (08:03→22:51)
[2017-07-18] MEDS: PANTOPRAZOLE 40 MG TABLET PO SCH (08:03)
[2017-07-18] MEDS: busPIRone HCl 5 MG TAB PO SCH ×2 (08:03→20:20)
[2017-07-18] MEDS: guaiFENesin 600 MG TABLET.ER PO SCH ×2 (08:03→20:21)
[2017-07-18] MEDS: CHOLECALCIFEROL 1,000 UNIT TAB PO SCH (08:03)
[2017-07-18] MEDS: PRIMIDONE 250 MG TAB PO SCH (08:04)
[2017-07-18] MEDS: IPRATROPIUM-ALBUTEROL 3 ML NEB INHALATION SCH ×4 (08:15→19:56)
[2017-07-18] MEDS: SYMBICORT 160-4.5 MCG INHALER INHALATION SCH ×2 (08:15→19:56)
[2017-07-18] MEDS: LORazepam 2 MG/ML INJ IV PRN (09:06)
--- NOTE | 2017-07-18 12:44 | P.PN ---
Subjective Progress Note Date: 07/18/17 Patient is a 62 year old female s/p right port placement by Dr. De Oliveira. She has just completed chemotherapy that went well. Her port has been accessed without difficulty. Objective - Vital Signs Vital signs: Vital Signs Temp 98.2 F 07/18/17 07:35 Pulse 90 07/18/17 12:06 Resp 16 07/18/17 07:35 BP 122/62 07/18/17 07:35 Pulse Ox 94 L 07/18/17 08:18 Intake & Output 07/17/17 07/18/17 07/18/17 18:59 06:59 18:59 Intake Total 600 800 Output Total 3 Balance 597 800 Weight 91.626 kg Intake: IV 600 800 0.9 @ 100 800 Output: Estimated Blood Loss 3 Other: Voiding Method Toilet # Voids 2 2 1 - Exam GENERAL: Well-developed pleasant in no acute distress. HEENT: No scleral icterus. Extraocular movements grossly intact. Moist buccal mucosa. NECK: Supple. CHEST: Unlabored respirations. Equal bilateral excursions. Dressing along the right chest, clean, dry and intact. No ecchymosis. CARDIOVASCULAR: Regular rate and rhythm. Distal 2+ pulses. ABDOMEN: Soft, nondistended. No peritoneal signs. Non-tender. MUSCULOSKELETAL: No clubbing, cyanosis, or edema. NEURO: No focal or lateralizing signs PSYCH: Appropriate affect. Alert and oriented to person, place, and time. SKIN: Well perfused and good skin turgor. - Labs CBC & Chem 7: 07/17/17 07:26 07/18/17 06:54 Labs: Abnormal Lab Results - Last 24 Hours (Table) 07/18/17 Range/Units 06:54 Creatinine 0.47 L (0.52-1.04) mg/dL Glucose 125 H (74-99) mg/dL Total Protein 5.6 L (6.3-8.2) g/dL Albumin 3.4 L (3.5-5.0) g/dL Assessment and Plan (1) Encounter for venous access device care Current Visit: Yes Status: Acute Code(s): Z45.2 - ENCOUNTER FOR ADJUSTMENT AND MANAGEMENT OF VAD SNOMED Code(s): 300619375 (2) Small cell lung cancer Current Visit: Yes Status: Acute Code(s): C34.90 - MALIGNANT NEOPLASM OF UNSP PART OF UNSP BRONCHUS OR LUNG SNOMED Code(s): 589903072 Plan: 1. Patient has tolerated chemotherapy. 2. She is clear from surgical standpoint for discharge when medically stable
--- NOTE | 2017-07-18 16:50 | PN ---
PROGRESS NOTE SUBJECTIVE: 62-year-old white female with metastatic colon cancer with deeper metastases, severe chronic pain due to vertebral masses. Pain control is trying to be tolerated and switch her to oral possibly some oral medications for discharge. Prognosis extremely guarded. She has received chemo a few times. Apparently no radiation treatments yet. Cardiovascular S1-S2. Lungs show scattered wheeze, rhonchi. She is on 5 L oxygen maintaining mid 90s. She normally wears 3 L oxygen at home. Psych: Anxious, nervous. Endocrine: BMI is over 40. ASSESSMENT: 1. Metastatic lung cancer with vertebral metastases. 2. Chronic obstructive pulmonary disease. 3. Anxiety. 4. Chronic pain syndrome. PLAN: Continue current treatment paraspinal oral pain medicines she can tolerate. Continue with IV antibiotics. Wean oxygen as tolerated. Prognosis extremely guarded. Chemo and radiation therapy will be continued. Port placement was done yesterday which is helping with IV access. MMODL / IJN: [id number] /
--- NOTE | 2017-07-18 17:08 | P.PN ---
Subjective Progress Note Date: 07/18/17 Principal diagnosis: SCLC, extensive stage Pt completed chemotherapy, tolerated well. Continues to have pain, in shoulder and back. Morphine was helping however stopped due to confusion and hallucinations. Fentanyl increased and on norco, with persistent pain. Overall better than admission however. Objective - Vital Signs Vital signs: Vital Signs Temp 98.2 F 07/18/17 07:35 Pulse 90 07/18/17 12:06 Resp 16 07/18/17 07:35 BP 122/62 07/18/17 07:35 Pulse Ox 94 L 07/18/17 08:18 Intake & Output 07/17/17 07/18/17 07/18/17 18:59 06:59 18:59 Intake Total 600 800 Output Total 3 Balance 597 800 Weight 91.626 kg Intake: IV 600 800 0.9 @ 100 800 Output: Estimated Blood Loss 3 Other: Voiding Method Toilet # Voids 2 2 1 - Exam Constitutional: No acute distress. HEENT: No scleral icterus. No scleral icterus or conjunctival pallor. Mucosa moist. Neck: Neck supple. Lymph: No neck/cervical LAD. Lungs: CTA-B without wheezing or rhonchi. Heart: RRR without murmurs. No LE edema. Abdomen: Soft, nontender, nondistended, with positive bowel sounds. MSK: 4/4 strength in all 4 extremities. Neuro: Alert and oriented x 3. Skin: No jaundice or rash. Psych: Appropriate affect. - Labs CBC & Chem 7: 07/17/17 07:26 07/18/17 06:54 Labs: Abnormal Lab Results - Last 24 Hours (Table) 07/18/17 Range/Units 06:54 Creatinine 0.47 L (0.52-1.04) mg/dL Glucose 125 H (74-99) mg/dL Total Protein 5.6 L (6.3-8.2) g/dL Albumin 3.4 L (3.5-5.0) g/dL Assessment and Plan Assessment: Extensive stage small cell lung cancer Intractable pain due to bone met's Anemia COPD Bone met's Plan: Ms. Nath is a very pleasant 62 yo female who is here for newly found extensive stage small cell lung cancer with intractable pain due to bone mets, especially in her shoulder. S/p chemotherapy with carboplatin and etoposide. No signs of TLS. Mediport was placed by surgery this admission. Rad Onc did see pt and plan on outpatient follow up. Continue adjusting pain regimen as per PCP for now and once pain controlled and otherwise medically stable, no objections for discharge from oncologic stand point. She will need to follow up after discharge to continue her chemotherapy and care. While pt IPD however, will continue to monitor pt with you. Discussed with pt and all questions answered. She is agreeable to the plan.
[2017-07-18] MEDS: ATORVASTATIN 10 MG TAB PO SCH (20:20)
[2017-07-18] MEDS: CITALOPRAM HYDROBROMIDE 20 MG TAB PO SCH (20:21)
[2017-07-18] MEDS: ONDANSETRON 4 MG/2 ML VIAL IVP PRN (23:58)
[2017-07-19] MEDS: LORazepam 2 MG/ML INJ IV PRN ×3 (00:17→23:59)
[2017-07-19] MEDS: BACLOFEN 10 MG TAB PO PRN ×2 (02:18→18:37)
[2017-07-19] MEDS: HYDROcodone/APAP 10-325MG 1 EACH TAB PO PRN (04:26)
[2017-07-19] MEDS: IPRATROPIUM-ALBUTEROL 3 ML NEB INHALATION PRN (04:27)
[2017-07-19] MEDS: LEVOTHYROXINE 25 MCG TAB PO SCH (06:07)
[2017-07-19] MEDS: IPRATROPIUM-ALBUTEROL 3 ML NEB INHALATION SCH ×4 (07:07→20:44)
[2017-07-19] MEDS: SYMBICORT 160-4.5 MCG INHALER INHALATION SCH ×2 (07:07→20:44)
[2017-07-19] MEDS: guaiFENesin 600 MG TABLET.ER PO SCH ×2 (07:46→20:18)
[2017-07-19] MEDS: PANTOPRAZOLE 40 MG TABLET PO SCH (07:46)
[2017-07-19] MEDS: busPIRone HCl 5 MG TAB PO SCH ×2 (07:46→20:18)
[2017-07-19] MEDS: DICYCLOMINE 10 MG CAP PO SCH ×5 (07:47→20:16)
[2017-07-19] MEDS: CHOLECALCIFEROL 1,000 UNIT TAB PO SCH (07:48)
[2017-07-19] MEDS: PRIMIDONE 250 MG TAB PO SCH (07:48)
[2017-07-19] MEDS: cefTRIAXone IN SWFI 1,000 MG/10 ML SYRINGE IVP SCH (07:51)
[2017-07-19 10:40] LABS: ALT 21 U/L (9-52); AST 14 U/L (14-36); Albumin 3.4 g/dL (3.5-5.0); Alkaline Phosphatase 66 U/L (38-126); Anion Gap 10 mmol/L; Blood Urea Nitrogen 13 mg/dL (7-17); Calcium 8.6 mg/dL (8.4-10.2); Carbon Dioxide 33 mmol/L (22-30); Chloride 99 mmol/L (98-107); Glucose 101 mg/dL (74-99); Potassium 3.8 mmol/L (3.5-5.1); Sodium 142 mmol/L (137-145); Total Bilirubin 0.2 mg/dL (0.2-1.3); Total Protein 5.5 g/dL (6.3-8.2)
[2017-07-19 11:29] LABS: Basophils % (A) 0 %; Eosinophils # (A) 0.1 k/uL (0-0.7); Eosinophils % (A) 3 %; HCT 27.7 % (34.0-46.0); Lymphocytes # (A) 0.6 k/uL (1.0-4.8); Lymphocytes % (A) 15 %; MCH 30.1 pg (25.0-35.0); MCHC 32.4 g/dL (31.0-37.0); MCV 92.9 fL (80.0-100.0); Mean Platelet Volume 7.4; Monocytes % (A) 1 %; Neutrophils # (A) 2.9 k/uL (1.3-7.7); Neutrophils % (A) 80 %; Platelet Count 220 k/uL (150-450); RBC 2.98 m/uL (3.80-5.40); WBC 3.7 k/uL (3.8-10.6)
[2017-07-19] MEDS: oxyCODONE-APAP 10-325MG 1 EACH TAB PO PRN ×4 (11:49→23:56)
[2017-07-19] MEDS: CITALOPRAM HYDROBROMIDE 20 MG TAB PO SCH (20:17)
[2017-07-19] MEDS: ATORVASTATIN 10 MG TAB PO SCH (20:17)
[2017-07-19] MEDS: DOCUSATE 100 MG CAP PO SCH (20:18)
--- NOTE | 2017-07-19 21:57 | PN ---
PROGRESS NOTE SUBJECTIVE: This is a 62-year-old white female with metastatic small-cell lung cancer complaining of severe pain in her thoracic spine. [place] 10 mg every 6 to 8 hours is not working for her pain. Her pain is 10/10. Nurse requesting increase in pain medicine. She is also on Duragesic patch 50 mcg and morphine IV p.r.n. Discussed the case with the patient and the nurse. She is sitting up in bed. She is extremely hypoxic going to the bathroom back even though she is on 5 L oxygen, nearly passing out. Lungs show scattered rhonchi and wheeze. CARDIOVASCULAR: S1, S2. PSYCH: She is anxious and nervous. Respiratory distress with any ambulation. Pain level may be contributing to the significant shortness of breath. ASSESSMENT: 1. Small cell lung cancer, suspect pneumonia with severe bone pain from metastatic small cell lung cancer, status post chemo times x2 or 3. 2. Hypothyroidism. 3. Gastroesophageal reflux disease. PLAN: Discontinue [place]. Get Percocet 10/325 every 4 hours. Continue with broad-spectrum antibiotics. Monitor electrolytes. Her white count went from 54 to 37, status post chemo, hemoglobin 9.5 down to 9, platelet count is still running 196 to 220. Sodium and potassium within normal limits. Continue current treatment. MMODL / IJN: [id number] /
[2017-07-20] MEDS: oxyCODONE-APAP 10-325MG 1 EACH TAB PO PRN ×5 (03:52→20:40)
[2017-07-20] MEDS: LEVOTHYROXINE 25 MCG TAB PO SCH (05:20)
[2017-07-20] MEDS: PRIMIDONE 250 MG TAB PO SCH (07:50)
[2017-07-20] MEDS: busPIRone HCl 5 MG TAB PO SCH ×2 (07:51→20:42)
[2017-07-20] MEDS: CHOLECALCIFEROL 1,000 UNIT TAB PO SCH (07:51)
[2017-07-20] MEDS: PANTOPRAZOLE 40 MG TABLET PO SCH (07:51)
[2017-07-20] MEDS: DICYCLOMINE 10 MG CAP PO SCH ×5 (07:51→20:42)
[2017-07-20] MEDS: DOCUSATE 100 MG CAP PO SCH ×2 (07:51→20:42)
[2017-07-20] MEDS: guaiFENesin 600 MG TABLET.ER PO SCH ×2 (07:51→20:42)
[2017-07-20] MEDS: cefTRIAXone IN SWFI 1,000 MG/10 ML SYRINGE IVP SCH (07:51)
[2017-07-20 07:56] LABS: Anion Gap 12 mmol/L; Blood Urea Nitrogen 17 mg/dL (7-17); Calcium 9.4 mg/dL (8.4-10.2); Carbon Dioxide 30 mmol/L (22-30); Chloride 97 mmol/L (98-107); Glucose 86 mg/dL (74-99); Potassium 4.4 mmol/L (3.5-5.1); Sodium 139 mmol/L (137-145)
[2017-07-20] MEDS: IPRATROPIUM-ALBUTEROL 3 ML NEB INHALATION SCH ×4 (08:37→20:13)
[2017-07-20] MEDS: SYMBICORT 160-4.5 MCG INHALER INHALATION SCH ×2 (08:37→20:13)
[2017-07-20] MEDS: BACLOFEN 10 MG TAB PO PRN (15:31)
--- NOTE | 2017-07-20 16:48 | P.PN ---
Subjective Progress Note Date: 07/20/17 Principal diagnosis: Lung cancer Patient still complaining of back pain. Her Port-A-Cath has been functioning well. Denies pain at the port site. Objective - Vital Signs Vital signs: Vital Signs Temp 98.2 F 07/20/17 14:18 Pulse 98 07/20/17 15:59 Resp 18 07/20/17 14:18 BP 118/67 07/20/17 14:18 Pulse Ox 94 L 07/20/17 14:18 Intake & Output 07/19/17 07/20/17 07/20/17 18:59 06:59 18:59 Intake Total 800 Balance 800 Weight 91.626 kg Intake: Oral 800 Other: Voiding Method Toilet Toilet Toilet Bedside Commode Bedside Commode Bedside Commode # Voids 3 1 1 - Exam Right chest wall incision clean and dry, port with needle access noted - Labs CBC & Chem 7: 07/19/17 09:42 07/20/17 07:14 Labs: Abnormal Lab Results - Last 24 Hours (Table) 07/20/17 Range/Units 07:14 Chloride 97 L (98-107) mmol/L Creatinine 0.50 L (0.52-1.04) mg/dL Assessment and Plan (1) Small cell lung cancer Narrative/Plan: Continue utilizing Port-A-Cath as needed. We'll sign off. Please contact if problems arise. Current Visit: Yes Status: Acute Code(s): C34.90 - MALIGNANT NEOPLASM OF UNSP PART OF UNSP BRONCHUS OR LUNG SNOMED Code(s): 492521445
--- NOTE | 2017-07-20 18:10 | P.PN ---
Subjective Progress Note Date: 07/20/17 Principal diagnosis: extensive stage small cell lung cancer Patient seen today in follow-up, she is status post first cycle of carboplatin and etoposide. She still has complaints of uncontrolled back pain, it is constant, worse when breathing, walking, coughing or hiccups, heating pad might have helped a little bit, she is denying any relief from multiple analgesics given, she states "nothing working", "no relief", "that's a joke", when asked about the effectiveness of pain meds. Patient denies current vomiting, she is not at her baseline O2 yet (3 L), no acute changes in bowel or bladder habits, no acute side effects from chemotherapy to report at this time. Objective - Vital Signs Vital signs: Vital Signs Temp 98.2 F 07/20/17 14:18 Pulse 98 07/20/17 15:59 Resp 18 07/20/17 14:18 BP 118/67 07/20/17 14:18 Pulse Ox 94 L 07/20/17 14:18 Intake & Output 07/19/17 07/20/17 07/20/17 18:59 06:59 18:59 Intake Total 800 Balance 800 Weight 91.626 kg Intake: Oral 800 Other: Voiding Method Toilet Toilet Toilet Bedside Commode Bedside Commode Bedside Commode # Voids 3 1 1 - Constitutional General appearance: Present: cooperative, morbidly obese - EENT Eyes: Present: EOMI - Respiratory Respiratory: bilateral: diminished, wheezing - Cardiovascular Heart sounds: normal: S1, S2 - Gastrointestinal General gastrointestinal: Present: normal bowel sounds, soft - Integumentary Integumentary: Present: pale - Neurologic Neurologic: Present: CNII-XII intact - Musculoskeletal Musculoskeletal Comment(s): palpation of the costovertebral angle and the posterior costal margin is where patient states the most pain, no mass palpated, no visible deformity, there was no pain with palpation (patient states pain is deep). Musculoskeletal: Present: strength equal bilaterally - Psychiatric Psychiatric: Present: A&O x's 3, intact judgment & insight - Labs CBC & Chem 7: 07/19/17 09:42 07/20/17 07:14 Labs: Abnormal Lab Results - Last 24 Hours (Table) 07/20/17 Range/Units 07:14 Chloride 97 L (98-107) mmol/L Creatinine 0.50 L (0.52-1.04) mg/dL Assessment and Plan (1) Small cell lung cancer Narrative/Plan: Brand-new diagnosis. Extensive disease, MRI brain negative at this time, multiple vertebral lesions, no cord compression suspected. Status post first carboplatin and etoposide, due every 21 days. Current Visit: Yes Status: Acute Code(s): C34.90 - MALIGNANT NEOPLASM OF UNSP PART OF UNSP BRONCHUS OR LUNG SNOMED Code(s): 379525632 (2) Bone lesion Narrative/Plan: metastatic disease, bisphosphonate therapy initiated Current Visit: Yes Status: Acute Priority: High Code(s): M89.9 - DISORDER OF BONE, UNSPECIFIED SNOMED Code(s): 09110189 (3) Intractable pain Narrative/Plan: We discussed realistic goals for pain management and that patient will likely not have "0" pain. It was explained to patient that small cell lung cancer can respond rather quickly to treatment and treatment of the disease could help with some of her pain but this is going to take a few weeks. Pt reasonable today about goals of pain management. We will continue to follow and adjust medications as we can. Patient was encouraged to use anti-inflammatories as well Current Visit: Yes Status: Acute Priority: High Code(s): R52 - PAIN, UNSPECIFIED SNOMED Code(s): 51923670
[2017-07-20] MEDS ORDERED: ZOLEDRONIC ACID 4 MG in SODIUM CHLORIDE 0.9% 100 ML IV NR (19:00)
[2017-07-20] MEDS: ATORVASTATIN 10 MG TAB PO SCH (20:42)
[2017-07-20] MEDS: CITALOPRAM HYDROBROMIDE 20 MG TAB PO SCH (20:42)
--- NOTE | 2017-07-20 22:33 | PN ---
PROGRESS NOTE SUBJECTIVE: White female who is status post chemotherapy. Pain control is improved with Percocet 10/325 every 4 hours with a Duragesic patch. She continues to be monitored for chemotherapy and severe spinal pain due to multiple metastases throughout the vertebral spine. Anxiety was improved. Hemoglobin was 9, white count 3.7, creatinine 0.5. PLAN: Continue with chemotherapy and pain medications. Possible discharge home. We have to wean off her oxygen. She continues on 5 L of oxygen. Continue with broad-spectrum antibiotics for pneumonia and pain control as mentioned above. Prognosis is guarded. She has stage IV lung cancer, small cell. MMODL / IJN: [id number] /
[2017-07-20] MEDS: LORazepam 2 MG/ML INJ IV PRN (23:30)
[2017-07-21] MEDS: oxyCODONE-APAP 10-325MG 1 EACH TAB PO PRN ×6 (01:18→23:39)
[2017-07-21] MEDS: BACLOFEN 10 MG TAB PO PRN ×2 (01:28→20:23)
[2017-07-21] MEDS: LEVOTHYROXINE 25 MCG TAB PO SCH (05:38)
[2017-07-21] MEDS: SYMBICORT 160-4.5 MCG INHALER INHALATION SCH ×2 (07:30→20:32)
[2017-07-21] MEDS: IPRATROPIUM-ALBUTEROL 3 ML NEB INHALATION SCH ×4 (07:30→20:32)
[2017-07-21 08:20] LABS: Basophils % (A) 1 %; Eosinophils # (A) 0.2 k/uL (0-0.7); Eosinophils % (A) 5 %; HCT 28.3 % (34.0-46.0); HGB 9.4 gm/dL (11.4-16.0); Lymphocytes % (A) 27 %; MCH 30.6 pg (25.0-35.0); MCHC 33.2 g/dL (31.0-37.0); MCV 92.1 fL (80.0-100.0); Mean Platelet Volume 6.8; Monocytes % (A) 1 %; Neutrophils # (A) 2.3 k/uL (1.3-7.7); Neutrophils % (A) 65 %; Platelet Count 221 k/uL (150-450); RBC 3.07 m/uL (3.80-5.40); RDW 12.9 % (11.5-15.5); WBC 3.6 k/uL (3.8-10.6)
[2017-07-21 08:28] LABS: ALT 28 U/L (9-52); AST 19 U/L (14-36); Albumin 3.4 g/dL (3.5-5.0); Alkaline Phosphatase 71 U/L (38-126); Anion Gap 9 mmol/L; Blood Urea Nitrogen 15 mg/dL (7-17); Calcium 9.2 mg/dL (8.4-10.2); Carbon Dioxide 34 mmol/L (22-30); Chloride 98 mmol/L (98-107); Glucose 85 mg/dL (74-99); Potassium 4.5 mmol/L (3.5-5.1); Sodium 141 mmol/L (137-145); Total Bilirubin 0.2 mg/dL (0.2-1.3); Total Protein 5.5 g/dL (6.3-8.2)
[2017-07-21] MEDS: PRIMIDONE 250 MG TAB PO SCH (09:18)
[2017-07-21] MEDS: cefTRIAXone IN SWFI 1,000 MG/10 ML SYRINGE IVP SCH (09:19)
[2017-07-21] MEDS: busPIRone HCl 5 MG TAB PO SCH ×2 (09:19→20:24)
[2017-07-21] MEDS: DOCUSATE 100 MG CAP PO SCH ×2 (09:19→20:24)
[2017-07-21] MEDS: PANTOPRAZOLE 40 MG TABLET PO SCH (09:19)
[2017-07-21] MEDS: CHOLECALCIFEROL 1,000 UNIT TAB PO SCH (09:19)
[2017-07-21] MEDS: guaiFENesin 600 MG TABLET.ER PO SCH ×2 (09:19→20:24)
[2017-07-21] MEDS: DICYCLOMINE 10 MG CAP PO SCH ×3 (09:20→17:56)
--- NOTE | 2017-07-21 11:21 | P.PN ---
Subjective Progress Note Date: 07/21/17 Principal diagnosis: extensive stage small cell lung cancer Patient seen today status post first cycle of carboplatin and etoposide for newly diagnosed metastatic small cell lung cancer, extensive disease. Patient also received a dose of Zometa for bone metastases. When seen patient is sitting up in the chair and actually has a smile. Her pain is better controlled , she states bleeding it "tweaked just a little bit". She denies any fevers, oral irritation, nausea, changes in breathing, abdominal pain, changes in bowel or bladder habits, patient is ambulatory, tolerating oral intake. Objective - Vital Signs Vital signs: Vital Signs Temp 97.9 F 07/21/17 09:30 Pulse 81 07/21/17 09:30 Resp 14 07/21/17 09:30 BP 106/80 07/21/17 09:30 Pulse Ox 95 07/21/17 09:30 Intake & Output 07/20/17 07/21/17 07/21/17 18:59 06:59 18:59 Intake Total 100 Balance 100 Intake: Oral 100 Other: Voiding Method Toilet Toilet Toilet Bedside Commode Bedside Commode Bedside Commode # Voids 1 2 # Bowel Movements 1 - Exam Patient sitting in the chair, smiling, carrying on a conversation, no signs or symptoms of respiratory distress, able to carry on a conversation easily, patient visualized ambulating in the room independently. She does require O2 - Constitutional General appearance: Present: cooperative, no acute distress, obese - EENT Eyes: Present: anicteric sclerae - Labs CBC & Chem 7: 07/21/17 07:29 07/21/17 07:29 Labs: Abnormal Lab Results - Last 24 Hours (Table) 07/21/17 07/21/17 Range/Units 07:29 07:29 WBC 3.6 L (3.8-10.6) k/uL RBC 3.07 L (3.80-5.40) m/uL Hgb 9.4 L (11.4-16.0) gm/dL Hct 28.3 L (34.0-46.0) % Carbon Dioxide 34 H (22-30) mmol/L Total Protein 5.5 L (6.3-8.2) g/dL Albumin 3.4 L (3.5-5.0) g/dL Assessment and Plan (1) Small cell lung cancer Narrative/Plan: Patient is status post first cycle of carboplatin and etoposide for extensive small cell lung cancer, she also received Zometa for bone metastases. Patient' s CBC is acceptable. She will continue on weekly follow-up outpatient, receive her next dose of treatment in about 2-1/2 weeks. Current Visit: Yes Status: Acute Priority: High Code(s): C34.90 - MALIGNANT NEOPLASM OF UNSP PART OF UNSP BRONCHUS OR LUNG SNOMED Code(s): 895074373 (2) Bone lesion Narrative/Plan: monthly zometa, XRT PRN if needed for Current Visit: Yes Status: Acute Priority: High Code(s): M89.9 - DISORDER OF BONE, UNSPECIFIED SNOMED Code(s): 81324971 (3) Intractable pain Narrative/Plan: Patient did state improved relief, fentanyl will be increased further to 125 g , patient will continue on her Percocet 1 every 4 hours when necessary. Continue to be monitored closely in the outpatient setting with reductions as appropriate, anticipate and hope that treatment of malignancy will reduce pain. Current Visit: Yes Status: Acute Priority: High Code(s): R52 - PAIN, UNSPECIFIED SNOMED Code(s): 22829988
--- NOTE | 2017-07-21 14:28 | CDI ---
Last Revision, January 2017 Documentation Clarification Form Date: July 21, 2017 From: Opal Rivera RN Admit Date: 07/11/2017 11:43:00 PM Patient Name: Allison Nath Visit Number: [id number] ATTENTION: The Clinical Documentation Specialists (CDI) and [facility] Coding Staff appreciate your assistance in clarifying documentation. Please respond to the clarification below the line at the bottom and electronically sign. The CDI & [facility] Coding staff will review the response and follow-up if needed. Please note: Queries are made part of the Legal Health Record. If you have any questions, please contact the author of this message via ITS. Dr. Steven Mercado, Pneumonia was documented in your notes on: 07/19 and 07/20 History/Risk Factors: Lung CA. , COPD, Hyperlipidemia, HTN Clinical Indicators: WBC on admission 5.7, 07/21 3.6 X-ray: 07/17 right lower lobe infiltrate Lung/Breathing assessment: clear Treatment: Antibiotics: IVPB Vanco, IVPB Ceftriaxone, O2 : 95% 4L Breathing Tx: Duoneb, Symbicort, In order to capture the severity of condition, please clarify if the condition signifies and you are treating for: Bacterial Pneumonia, specify causal organism (if known) Gram Negative Pneumonia Other bacteria (please specify) Viral Pneumonia, specify casual organism (if known) Healthcare Acquired Pneumonia/Pneumonia, unspecified Other, please specify Unable to determine Please continue to document in your progress notes, under the line below and/or in the discharge summary in order to capture severity of illness and risk of mortality. Include clinical findings that support your diagnosis. MTDD
[2017-07-21] MEDS: ONDANSETRON 4 MG/2 ML VIAL IVP PRN (14:47)
[2017-07-21] MEDS: CITALOPRAM HYDROBROMIDE 20 MG TAB PO SCH (20:24)
[2017-07-21] MEDS: ATORVASTATIN 10 MG TAB PO SCH (20:24)
--- NOTE | 2017-07-21 23:03 | PN ---
PROGRESS NOTE SUBJECTIVE: 62-year-old white female with extensive small cell lung cancer, status post carboplatin and Zometa for bone metastases. She is up. Pain is better with Percocet along with Duragesic patch. Possible discharge home tomorrow. Temperature 97.9, pulse 81, respiratory rate 14, blood pressure 106/88, O2 95% on room air. Cardiovascular: S1-S2. Lungs clear. GI: Scattered rhonchi and wheeze. Hematology negative Homans'. White count 3.6, hemoglobin 9.4. CARDIOVASCULAR: S1, S2. Lungs scattered rhonchi and wheeze. ENDOCRINE: BMI is over 40. ASSESSMENT: 1. Small-cell lung cancer, last chemo will be 2 and half weeks. 2. Bone lesion. 3. Monthly Zometa. 4. Intractable pain. 5. Oncology raised fentanyl patch to 125 mcg. 6. Percocet 1 every 4 hours. 7. Possible discharge home tomorrow on oxygen. MMODL / IJN: [id number] /
[2017-07-22 02:25] LABS: Glucose,Whole Blood 115 mg/dL (75-99)
[2017-07-22] MEDS: ACETAMINOPHEN TAB 325 MG TAB PO PRN (02:34)
[2017-07-22] MEDS: LEVOTHYROXINE 25 MCG TAB PO SCH (06:38)
[2017-07-22 07:51] LABS: Basophils % (A) 0 %; Eosinophils # (A) 0.1 k/uL (0-0.7); Eosinophils % (A) 1 %; HCT 30.6 % (34.0-46.0); HGB 9.9 gm/dL (11.4-16.0); Lymphocytes # (A) 0.3 k/uL (1.0-4.8); Lymphocytes % (A) 5 %; MCH 30.1 pg (25.0-35.0); MCHC 32.4 g/dL (31.0-37.0); MCV 92.8 fL (80.0-100.0); Mean Platelet Volume 7.7; Monocytes # (A) 0.1 k/uL (0-1.0); Monocytes % (A) 1 %; Neutrophils # (A) 5.7 k/uL (1.3-7.7); Neutrophils % (A) 92 %; Platelet Count 234 k/uL (150-450); RDW 13.1 % (11.5-15.5); WBC 6.2 k/uL (3.8-10.6)
[2017-07-22 08:02] LABS: Albumin 3.9 g/dL (3.5-5.0); Calcium 8.6 mg/dL (8.4-10.2); Potassium 5.2 mmol/L (3.5-5.1); Total Bilirubin 0.4 mg/dL (0.2-1.3); Total Protein 6.2 g/dL (6.3-8.2)
[2017-07-22] MEDS: IPRATROPIUM-ALBUTEROL 3 ML NEB INHALATION SCH ×5 (08:04→19:52)
[2017-07-22] MEDS: SYMBICORT 160-4.5 MCG INHALER INHALATION SCH ×3 (08:04→19:52)
[2017-07-22] MEDS: CHOLECALCIFEROL 1,000 UNIT TAB PO SCH (08:27)
[2017-07-22] MEDS: DOCUSATE 100 MG CAP PO SCH ×2 (08:27→21:54)
[2017-07-22] MEDS: cefTRIAXone IN SWFI 1,000 MG/10 ML SYRINGE IVP SCH (08:27)
[2017-07-22] MEDS: busPIRone HCl 5 MG TAB PO SCH ×2 (08:28→21:53)
[2017-07-22] MEDS: guaiFENesin 600 MG TABLET.ER PO SCH ×2 (08:29→21:54)
[2017-07-22] MEDS: PANTOPRAZOLE 40 MG TABLET PO SCH (08:30)
[2017-07-22] MEDS: PRIMIDONE 250 MG TAB PO SCH (08:30)
[2017-07-22] MEDS: SODIUM CHLORIDE 0.9% 1,000 ML IV SCH ×2 (09:00→17:53)
--- NOTE | 2017-07-22 12:35 | P.PN ---
Subjective Progress Note Date: 07/22/17 Principal diagnosis: metastatic small cell lung cancer Pt seen today in follow up, she just walked back from bathroom and is struggling , she states "I just don't feel right", she was very short of breath, agitated, unable to sit still, radial pulse was thready and rapid, O2 sat 88%-91%, pulse was changing quickly form 50's-100's, STAT EKG showed sinus tach but, no gross evidence of ischemia-this was sent for Cardiology to review. Pt provided with breathing treatment and her PRN ativan, she felt a little better. She states dry mouth and lips, cough is congested, no hemoptysis, appetite is down today, no nausea, abd pain, diarrhea or constipation, swelling or bleeding,there is finally pain relief that is tolerable. Objective - Vital Signs Vital signs: Vital Signs Temp 98.1 F 07/22/17 09:17 Pulse 92 07/22/17 11:43 Resp 18 07/22/17 09:17 BP 112/58 07/22/17 09:17 Pulse Ox 91 L 07/22/17 09:17 Intake & Output 07/21/17 07/22/17 07/22/17 18:59 06:59 18:59 Intake Total 150 Balance 150 Weight 92.5 kg Intake: Oral 150 Other: Voiding Method Toilet Toilet Bedside Commode Bedside Commode # Voids 3 1 - Constitutional General appearance: Present: obese, severe distress (was able to get pt calm without event) - EENT Eyes: Present: anicteric sclerae, EOMI - Cardiovascular Details: tachy, thready radial pulse, did improve to +1-2 palpable pulse Heart sounds: normal: S1, S2 - Peripheral edema leg Peripheral Edema: bilateral: Trace - Gastrointestinal General gastrointestinal: Present: normal bowel sounds, soft - Neurologic Neurologic Comment(s): during pt distress she did have 3 times when she had to be prompted for a response, all responses were appropriate - Musculoskeletal Musculoskeletal: Present: generalized weakness, strength equal bilaterally - Labs CBC & Chem 7: 07/22/17 07:18 07/22/17 07:18 Labs: Abnormal Lab Results - Last 24 Hours (Table) 07/22/17 07/22/17 07/22/17 Range/Units 02:23 07:18 07:18 RBC 3.30 L (3.80-5.40) m/uL Hgb 9.9 L (11.4-16.0) gm/dL Hct 30.6 L (34.0-46.0) % Lymphocytes # 0.3 L (1.0-4.8) k/uL Potassium 5.2 H (3.5-5.1) mmol/L BUN 30 H (7-17) mg/dL Creatinine 1.72 H (0.52-1.04) mg/dL POC Glucose (mg/dL) 115 H (75-99) mg/dL Total Protein 6.2 L (6.3-8.2) g/dL Assessment and Plan (1) Small cell lung cancer Narrative/Plan: S/P 1st chemo, decent tolerance so far, CBC stable. Supportive meds for possible SE r/t chemo ordered PRN. Plan is to continue treatment outpatient Current Visit: Yes Status: Acute Priority: High Code(s): C34.90 - MALIGNANT NEOPLASM OF UNSP PART OF UNSP BRONCHUS OR LUNG SNOMED Code(s): 552131388 (2) Bone lesion Narrative/Plan: S/P zometa Current Visit: Yes Status: Acute Priority: High Code(s): M89.9 - DISORDER OF BONE, UNSPECIFIED SNOMED Code(s): 67243918 (3) Intractable pain Narrative/Plan: Pain meds seem to be adequate now. Will continue current dose Current Visit: Yes Status: Acute Priority: High Code(s): R52 - PAIN, UNSPECIFIED SNOMED Code(s): 70775080 (4) Renal dysfunction Narrative/Plan: Likely r/t [place] therapy. Fluids initiated. BMP in AM. Current Visit: Yes Status: Acute Priority: High Code(s): N28.9 - DISORDER OF KIDNEY AND URETER, UNSPECIFIED SNOMED Code(s): 09070354 Plan: Pt fever overnight of 100.6F felt to be r/t to tumor fever, but, due to pt persistent pulmonary symptoms V/Q scan ordered to evaluate for PE (GFR to low for CTA per CT dept). Pt will be closely monitored, WBC/ANC WNL. Time with Patient: Greater than 30 (coordinating care)
--- NOTE | 2017-07-22 14:42 | NM ---
EXAMINATION TYPE: NM pul vent and perfuse DATE OF EXAM: 07/22/2017 COMPARISON: Most recent chest x-ray dated 07/17/2017, PET/CT 06/20/2017 HISTORY: Difficulty breathing TECHNIQUE: Utilizing inhalation of 36.1 mCi Tc 99m DTPA aerosol and intravenous injection of 5.24 mC i of Tc 99m MAA, ventilation and perfusion images are acquired post injection in multiple projections . FINDINGS: Ventilation imaging shows central clumping of the radiopharmaceutical as well as patchy uptake compat ible with underlying emphysema, COPD. Overall perfusion is more uniform uptake than ventilation scann ing. Decreased uptake is noted on ventilation and perfusion scanning in the right upper lobe. IMPRESSION: Indeterminate for pulmonary embolism.
[2017-07-22] MEDS: SALT AND SODA MOUTHWASH 1,000 ML PO SCH ×3 (15:17→21:54)
[2017-07-22] MEDS: ATORVASTATIN 10 MG TAB PO SCH (21:54)
[2017-07-22] MEDS: CITALOPRAM HYDROBROMIDE 20 MG TAB PO SCH (21:54)
--- NOTE | 2017-07-22 22:58 | PN ---
PROGRESS NOTE SUBJECTIVE: A 62-year-old white female with metastatic lung cancer, small cell and apparently had some chest pain. Had a V/Q scan done today, which showed intermediate probability of PE. Pulmonary has been reconsulted for intermediate PE. Creatinine tripled, possibly due to chemotherapy side effect. Rehydration will be given. Pulmonary will clear before she goes home, as well as Oncology tomorrow. Expected to go home tomorrow. Vital signs stable, afebrile. CARDIOVASCULAR: S1, S2. LUNGS: Scattered rhonchi and wheeze. HEMATOLOGY: Negative Taran's. ASSESSMENT: Metastatic non-small lung cancer, intermediate V/Q scan, oxygen-dependent chronic obstructive pulmonary disease, [id number] renal insufficiency, possibly due to chemotherapy, possibly secondary chemotherapy. Please see further orders. Await pulmonary recommendations prior to discharge. MMODL / IJN: [id number] /
[2017-07-23] MEDS: SODIUM CHLORIDE 0.9% 1,000 ML IV SCH ×3 (01:46→20:12)
[2017-07-23] MEDS: LEVOTHYROXINE 25 MCG TAB PO SCH (05:50)
[2017-07-23 07:42] LABS: Basophils % (A) 1 %; Eosinophils # (A) 0.1 k/uL (0-0.7); Eosinophils % (A) 4 %; Lymphocytes # (A) 0.3 k/uL (1.0-4.8); Lymphocytes % (A) 14 %; MCH 30.4 pg (25.0-35.0); Mean Platelet Volume 7.4; Monocytes % (A) 1 %; Neutrophils # (A) 1.9 k/uL (1.3-7.7); Neutrophils % (A) 78 %; Platelet Count 162 k/uL (150-450); RBC 2.72 m/uL (3.80-5.40); RDW 12.9 % (11.5-15.5); WBC 2.4 k/uL (3.8-10.6)
[2017-07-23 07:46] LABS: ALT 34 U/L (9-52); AST 27 U/L (14-36); Albumin 3.3 g/dL (3.5-5.0); Alkaline Phosphatase 68 U/L (38-126); Anion Gap 10 mmol/L; Blood Urea Nitrogen 26 mg/dL (7-17); Calcium 7.2 mg/dL (8.4-10.2); Carbon Dioxide 26 mmol/L (22-30); Chloride 106 mmol/L (98-107); Glucose 84 mg/dL (74-99); Sodium 142 mmol/L (137-145); Total Bilirubin 0.2 mg/dL (0.2-1.3); Total Protein 5.4 g/dL (6.3-8.2)
[2017-07-23 07:48] LABS: HGB 8.3 gm/dL (11.4-16.0)
[2017-07-23] MEDS: ENOXAPARIN 40 MG/0.4 ML SYRINGE SQ SCH (07:59)
[2017-07-23] MEDS: busPIRone HCl 5 MG TAB PO SCH ×2 (08:00→20:11)
[2017-07-23] MEDS: cefTRIAXone IN SWFI 1,000 MG/10 ML SYRINGE IVP SCH (08:00)
[2017-07-23] MEDS: DOCUSATE 100 MG CAP PO SCH ×2 (08:00→20:12)
[2017-07-23] MEDS: SALT AND SODA MOUTHWASH 1,000 ML PO SCH ×4 (08:01→21:09)
[2017-07-23] MEDS: PANTOPRAZOLE 40 MG TABLET PO SCH (08:01)
[2017-07-23] MEDS: CHOLECALCIFEROL 1,000 UNIT TAB PO SCH (08:01)
[2017-07-23] MEDS: guaiFENesin 600 MG TABLET.ER PO SCH ×2 (08:01→20:12)
[2017-07-23] MEDS: PRIMIDONE 250 MG TAB PO SCH (08:01)
[2017-07-23] MEDS: SYMBICORT 160-4.5 MCG INHALER INHALATION SCH ×2 (09:30→20:41)
[2017-07-23] MEDS: IPRATROPIUM-ALBUTEROL 3 ML NEB INHALATION SCH ×5 (09:30→20:41)
--- NOTE | 2017-07-23 10:11 | P.PN ---
Subjective Progress Note Date: 07/23/17 Principal diagnosis: metastatic small cell lung cancer Pt seen today in follow up, ending up at the bedside for a few moments, at one point she states that being asked questions, "makes her anxious". Patient was able to recall the month but could not remember her address. Patient does have difficulty finding words, at this moment she is denying nausea, she is short of breath on exertion, denies pain, she asked that this could be related to her posttraumatic stress disorder. Objective - Vital Signs Vital signs: Vital Signs Temp 98.5 F 07/23/17 05:00 Pulse 92 07/23/17 09:31 Resp 16 07/23/17 05:00 BP 111/66 07/23/17 05:00 Pulse Ox 94 L 07/23/17 05:00 Intake & Output 07/22/17 07/23/17 07/23/17 18:59 06:59 18:59 Intake Total 1575 Balance 1575 Weight 92.5 kg Intake: IV 400 0.9 @ 100 400 Intake, IV Titration 975 Amount Sodium Chloride 0.9% 1, 975 000 ml @ 125 mls/hr IV . Q8H [facility] Rx#:[id number] Oral 200 Other: Voiding Method Toilet Toilet Toilet Bedside Commode # Voids 2 2 - Constitutional General appearance: Present: cooperative, mild distress, obese - EENT Eyes: Present: EOMI - Respiratory Respiratory: bilateral: diminished, other (Labored, O2 dependent) - Cardiovascular Heart sounds: normal: S1, S2 - Peripheral edema leg Peripheral Edema: bilateral: None - Gastrointestinal General gastrointestinal: Present: normal bowel sounds, soft. Absent: absent bowel sounds, decreased bowel sounds, distended, hepatomegaly, hyperactive bowel sounds, organomegaly, rigid, scaphoid, splenomegaly, tenderness, umbilical hernia, ventral hernia - Integumentary Integumentary: Present: pale - Neurologic Neurologic: Present: CNII-XII intact - Musculoskeletal Musculoskeletal: Present: generalized weakness, strength equal bilaterally - Psychiatric Psychiatric Comment(s): Patient answer some questions appropriately, could not give her current address , patient mentions a history of posttraumatic stress disorder. - Labs CBC & Chem 7: 07/23/17 07:13 07/23/17 07:13 Labs: Abnormal Lab Results - Last 24 Hours (Table) 07/23/17 07/23/17 Range/Units 07:13 07:13 WBC 2.4 L (3.8-10.6) k/uL RBC 2.72 L (3.80-5.40) m/uL Hgb 8.3 L D (11.4-16.0) gm/dL Hct 25.0 L (34.0-46.0) % Lymphocytes # 0.3 L (1.0-4.8) k/uL BUN 26 H (7-17) mg/dL Calcium 7.2 L (8.4-10.2) mg/dL Total Protein 5.4 L (6.3-8.2) g/dL Albumin 3.3 L (3.5-5.0) g/dL - Imaging and Cardiology VQ scan report reviewed, discussed with Dr. Perera Assessment and Plan (1) Small cell lung cancer Narrative/Plan: Patient is status post her first cycle of carboplatin and etoposide, CBC noted, anticipated changes, no acute interventions. Pt has had minimal SE, until yesterday. Her cognitive status has changed she is more anxious, new onset confusion, requires prompting at times to answer questions, and was not able to answer what her address is, she made statements that answering questions " always makes me anxious", this is not my previous experiences with the patient. Pain medications were reduced to a known previous tolerated dose, no improvement. Patient was hydrated for renal dysfunction, BUN/Cr improved but no cognitive improvement. We'll request MRI with contrast of the brain due to the unpredictable nature of small cell lung cancer. If no evidence of disease, we'll consult Psychiatry for evaluation of patient's known psychiatric disorders of posttraumatic stress and anxiety. Current Visit: Yes Status: Acute Priority: High Code(s): C34.90 - MALIGNANT NEOPLASM OF UNSP PART OF UNSP BRONCHUS OR LUNG SNOMED Code(s): 841988335 (2) Bone lesion Narrative/Plan: Metastatic disease to the bone, bisphosphonate therapy given Current Visit: Yes Status: Acute Priority: High Code(s): M89.9 - DISORDER OF BONE, UNSPECIFIED SNOMED Code(s): 15701656 (3) Intractable pain Narrative/Plan: Patient's pain appears to be controlled. Fentanyl patch was reduced yesterday to previously well tolerated dose of 100 g as there was concern that this may be causing some of her confusion, no improvement today and confusion. Current Visit: Yes Status: Acute Priority: High Code(s): R52 - PAIN, UNSPECIFIED SNOMED Code(s): 70448465 (4) Renal dysfunction Narrative/Plan: Likely secondary to chemotherapy. BUN and creatinine significantly improved with hydration. Fluids encouraged Current Visit: Yes Status: Acute Priority: High Code(s): N28.9 - DISORDER OF KIDNEY AND URETER, UNSPECIFIED SNOMED Code(s): 41313343 Plan: Doctor attests: I performed a history and physical examination of this patient with dictator. I agree with dictators note, documented as a scribe.
--- NOTE | 2017-07-23 10:39 | CDI ---
Last Revision, January 2017 Documentation Clarification Form Date: 07/21/2017 2:28:00 PM From: Opal Rivera RN Admit Date: 07/11/2017 11:43:00 PM Patient Name: Allison Nath Visit Number: [id number] ATTENTION: The Clinical Documentation Specialists (CDI) and [facility] Coding Staff appreciate your assistance in clarifying documentation. Please respond to the clarification below the line at the bottom and electronically sign. The CDI & [facility] Coding staff will review the response and follow-up if needed. Please note: Queries are made part of the Legal Health Record. If you have any questions, please contact the author of this message via ITS. Dr. Steven Mercado, Further clairfaction is requested regarding the documentation of Pneumonia in your notes on 07/19 and 07/20. History/Risk Factors:SCLC undergoing chemo, COPD with chronic hypoxia respiratory failure, KEVIN, cpap/bipap, Obesity, Hyperlipidemia, HTN, alcoholism, former heavy smoker, suspected metastatic involvement of the scapula with posterior chest wall pain, Clinical Indicators:WBC on admission 5.7, 07/21 3.6 X-ray: 07/17 right lower lobe infiltrate Lung/Breathing assessment: clear Broncial wash final report Staph aureus Treatment: Antibiotics: IVPB Vanco, IVPB Ceftriaxone, O2 : 95% 4L Breathing Tx: Duoneb, Symbicort 07/13 BAL and biospy performed of RLL mass In order to capture the severity of condition, please further specify the pneumonia that your are treating if known? Postobstructive pneumonia Bacterial Pneumonia, specify causal organism (if known) Gram Negative Pneumonia Other bacteria (please specify) Healthcare Acquired Pneumonia/Pneumonia, unspecified Other, please specify Unable to determine Please continue to document in your progress notes , under the line below and in the discharge summary in order to capture severity of illness and risk of mortality. Include clinical findings that support your diagnosis. MTDD
[2017-07-23] MEDS: oxyCODONE-APAP 10-325MG 1 EACH TAB PO PRN ×3 (11:51→23:23)
--- NOTE | 2017-07-23 12:31 | MR ---
EXAMINATION TYPE: MR brain wo/w con DATE OF EXAM: 07/23/2017 COMPARISON: Prior MR brain 07/15/2017 HISTORY: confusion TECHNIQUE: Multiplanar, multisequence images of the brain and brainstem is performed without and with IV contras t, utilizing 10 mL intravenous Gadavist . FINDINGS: Diffusion weighted images demonstrate no evidence of a recent infarct or other diffusion ab normality. There is no extra-axial fluid collection or significant interval change in white matter s ignal abnormality. The ventricular system and cisternal spaces are normal in size and appearance. T he brain volume is age appropriate. Midline structures demonstrate normal morphology. The craniocervical junction appears within normal limits. Post contrast images demonstrate no abnormal enhancement. The dural venous sinuses appear pa tent. The visualized sinuses are clear and the globes are intact. IMPRESSION: No significant interval change. No acute abnormality.
[2017-07-23] MEDS: ATORVASTATIN 10 MG TAB PO SCH (20:11)
[2017-07-23] MEDS: CITALOPRAM HYDROBROMIDE 20 MG TAB PO SCH (20:12)
--- NOTE | 2017-07-23 21:41 | PN ---
PROGRESS NOTE SUBJECTIVE: 62-year-old white female with metastatic non-small cell lung cancer, diffuse to the bones. States her pain is improving. She became very confused due to chemo. She has developed pancytopenia with a recheck labs in the morning. Otherwise, I want to send her home tomorrow. She has been cleared by everybody for discharge. Her pain has been under control. She became confused today at which time she was withheld prior to discharge. Currently, her mentation appears to be the same as yesterday. Temp 97.9, respiratory rate 20 to 22, blood pressure 112/74. CARDIOVASCULAR: S1, S2. Lungs transmitted upper air way sounds. GI: Soft, nontender. Hematologic: Negative Homans. ASSESSMENT: 1. Small cell lung cancer, diffuse. 2. Chronic obstructive pulmonary disease. 3 L oxygen nasal cannula. Non-determined V/Q scan. Continue current treatment. Follow up in the next 24 to 48 hours. MMODL / IJN: [id number] /
[2017-07-23] MEDS: BACLOFEN 10 MG TAB PO PRN (21:57)
[2017-07-24] MEDS: IPRATROPIUM-ALBUTEROL 3 ML NEB INHALATION PRN (03:46)
[2017-07-24] MEDS: oxyCODONE-APAP 10-325MG 1 EACH TAB PO PRN ×4 (03:51→21:19)
[2017-07-24] MEDS: SODIUM CHLORIDE 0.9% 1,000 ML IV SCH ×3 (03:52→20:05)
[2017-07-24] MEDS: LEVOTHYROXINE 25 MCG TAB PO SCH (06:15)
[2017-07-24 07:11] LABS: ALT 35 U/L (9-52); AST 25 U/L (14-36); Alkaline Phosphatase 63 U/L (38-126); Anion Gap 10 mmol/L; Blood Urea Nitrogen 11 mg/dL (7-17); Calcium 7.1 mg/dL (8.4-10.2); Carbon Dioxide 25 mmol/L (22-30); Chloride 107 mmol/L (98-107); Glucose 83 mg/dL (74-99); Potassium 3.8 mmol/L (3.5-5.1); Sodium 142 mmol/L (137-145); Total Bilirubin <0.1 mg/dL (0.2-1.3); Total Protein 5.1 g/dL (6.3-8.2)
[2017-07-24] MEDS: SYMBICORT 160-4.5 MCG INHALER INHALATION SCH ×2 (07:12→19:43)
[2017-07-24] MEDS: IPRATROPIUM-ALBUTEROL 3 ML NEB INHALATION SCH ×4 (07:13→19:43)
[2017-07-24 07:25] LABS: Basophils % (A) 1 %; Eosinophils # (A) 0.1 k/uL (0-0.7); Eosinophils % (A) 8 %; HCT 23.2 % (34.0-46.0); HGB 7.7 gm/dL (11.4-16.0); Lymphocytes # (A) 0.4 k/uL (1.0-4.8); Lymphocytes % (A) 22 %; MCH 30.6 pg (25.0-35.0); MCHC 33.4 g/dL (31.0-37.0); MCV 91.6 fL (80.0-100.0); Mean Platelet Volume 7.4; Monocytes % (A) 3 %; Neutrophils % (A) 64 %; Platelet Count 127 k/uL (150-450); RBC 2.53 m/uL (3.80-5.40)
[2017-07-24] MEDS: LORazepam 2 MG/ML INJ IV PRN ×2 (07:25→23:10)
[2017-07-24 07:44] LABS: WBC 1.6 k/uL (3.8-10.6)
[2017-07-24] MEDS: cefTRIAXone IN SWFI 1,000 MG/10 ML SYRINGE IVP SCH (08:05)
[2017-07-24] MEDS: SALT AND SODA MOUTHWASH 1,000 ML PO SCH ×4 (08:05→21:18)
[2017-07-24] MEDS: guaiFENesin 600 MG TABLET.ER PO SCH ×2 (08:06→21:17)
[2017-07-24] MEDS: CHOLECALCIFEROL 1,000 UNIT TAB PO SCH (08:06)
[2017-07-24] MEDS: PRIMIDONE 250 MG TAB PO SCH (08:06)
[2017-07-24] MEDS: PANTOPRAZOLE 40 MG TABLET PO SCH (08:06)
[2017-07-24] MEDS: DOCUSATE 100 MG CAP PO SCH ×2 (08:06→21:17)
[2017-07-24] MEDS: ENOXAPARIN 40 MG/0.4 ML SYRINGE SQ SCH (08:06)
[2017-07-24] MEDS: busPIRone HCl 5 MG TAB PO SCH ×2 (08:07→21:17)
--- NOTE | 2017-07-24 10:08 | CDI ---
Last Revision, January 2017 Documentation Clarification Form Date: 07/21/2017 2:28:00 PM From: Opal Rivera RN Admit Date: 07/11/2017 11:43:00 PM Patient Name: Allison Nath Visit Number: [id number] ATTENTION: The Clinical Documentation Specialists (CDI) and [facility] Coding Staff appreciate your assistance in clarifying documentation. Please respond to the clarification below the line at the bottom and electronically sign. The CDI & [facility] Coding staff will review the response and follow-up if needed. Please note: Queries are made part of the Legal Health Record. If you have any questions, please contact the author of this message via ITS. Dr. Steven Mercado, Pneumonia was documented in your notes on: 07/19 and 07/20 History/Risk Factors: Lung CA. , COPD, Hyperlipidemia, HTN Clinical Indicators: WBC on admission 5.7, 07/21 3.6 X-ray: 07/17 right lower lobe infiltrate Lung/Breathing assessment: clear Treatment: Antibiotics: IVPB Vanco, IVPB Ceftriaxone, O2 : 95% 4L Breathing Tx: Duoneb, Symbicort, In order to capture the severity of condition, please clarify if the condition signifies and you are treating for: Bacterial Pneumonia, specify causal organism (if known) Gram Negative Pneumonia Other bacteria (please specify) Viral Pneumonia, specify casual organism (if known) Healthcare Acquired Pneumonia/Pneumonia, unspecified Other, please specify Unable to determine Please continue to document in your progress notes and discharge summary in order to capture severity of illness and risk of mortality. Include clinical findings that support your diagnosis. MTDD
[2017-07-24] MEDS: FILGRASTIM-SNDZ 480 MCG/0.8 ML SYRINGE SQ SCH (12:03)
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
--- NOTE | 2017-07-24 19:25 | P.PN ---
Subjective Progress Note Date: 07/24/17 Principal diagnosis: New metastatic Lung Cancer Patient seen and examined in follow-up today. Daughter Zhanna at bedside. She is aware of current diagnosis and would like to move forward with plan for chemotherapy. She lives in [place] by herself and her daughter is in [place]. They are inquiring about receiving continued treatment through [facility] for chemotherapy after initial chemotherapy here. She will be living with her daughter in [place] during treatment continuation. 07/16/17 - patient seen in folow-up today, she received her first day of chemotherapy with Carboplatin and [employer]-16 yesterday. She tolerated well. No nausea , vomiting, diarrhea. No acute symptoms related to chemo at this time. Pain is same and controlled on current regimen. MRI of the brain was completed and failed to show any signs of metastatic disease to brain. 07/17/17 - Allison is status mediport placement today, she is due for her third treatment of Carbo/[employer] 16 tonight. Speaking with nursing patient has been having some increased confusion, possibily associated with morphine, worse immediately after morphine per nursing. She was on Fentanyl 50mcg on admission and this has been continued through her stay with the addition of short acting pain relief. She denies any nausea, vomiting, diarrhea. She is tolerating chemotherapy so far. 07/24/17 - Patient seen and evaluated today. Her blood counts have started to decrease more secondary to chemo. She remains afebrile (T-Max hospitalization 100.3 on 07/22), her mental status intermittently inappropriate, psychiatry has evaluated. Objective - Vital Signs Vital signs: Vital Signs Temp 97.4 F L 07/24/17 05:30 Pulse 80 07/24/17 11:08 Resp 17 07/24/17 05:30 BP 124/72 07/24/17 05:30 Pulse Ox 97 07/24/17 07:13 Intake & Output 07/23/17 07/24/17 07/24/17 18:59 06:59 18:59 Intake Total 1000 2540 Balance 1000 2540 Weight 94.5 kg 93 kg 93 kg Intake: Intake, IV Titration 1000 2000 Amount Sodium Chloride 0.9% 1, 1000 2000 000 ml @ 125 mls/hr IV . Q8H [facility] Rx#:[id number] Oral 540 Other: Voiding Method Toilet Toilet Toilet # Voids 3 2 - Constitutional General appearance: Present: cooperative, no acute distress - EENT Eyes: Present: EOMI, PERRLA, poor dentition ENT: Present: NA/AT, normal oropharynx - Neck Neck: Present: normal ROM - Respiratory Respiratory: bilateral: diminished (Bibasilar, no increased effort noted) - Cardiovascular Rhythm: regular Heart sounds: normal: S1, S2 - Gastrointestinal General gastrointestinal: Present: normal bowel sounds, soft - Integumentary Integumentary: Present: pale - Neurologic Neurologic: Present: CNII-XII intact - Musculoskeletal Musculoskeletal: Present: generalized weakness, strength equal bilaterally - Psychiatric Psychiatric Comment(s): Inappropriate behavior and responses, although alert and oriented. MRI x2 brain negative for metastatic disease. Psychiatric: Present: A&O x's 3, intact judgment & insight - Labs CBC & Chem 7: 07/24/17 06:39 07/24/17 06:39 Labs: Abnormal Lab Results - Last 24 Hours (Table) 07/24/17 07/24/17 Range/Units 06:39 06:39 WBC 1.6 L* (3.8-10.6) k/uL RBC 2.53 L (3.80-5.40) m/uL Hgb 7.7 L (11.4-16.0) gm/dL Hct 23.2 L (34.0-46.0) % Plt Count 127 L (150-450) k/uL Neutrophils # 1.0 L (1.3-7.7) k/uL Lymphocytes # 0.4 L (1.0-4.8) k/uL Creatinine 0.43 L (0.52-1.04) mg/dL Calcium 7.1 L (8.4-10.2) mg/dL Total Bilirubin <0.1 L (0.2-1.3) mg/dL Total Protein 5.1 L (6.3-8.2) g/dL Albumin 3.0 L (3.5-5.0) g/dL Assessment and Plan (1) Small cell lung cancer Current Visit: Yes Status: Acute Priority: High Code(s): C34.90 - MALIGNANT NEOPLASM OF UNSP PART OF UNSP BRONCHUS OR LUNG SNOMED Code(s): 116844889 (2) Normochromic anemia Current Visit: Yes Status: Acute Code(s): D64.9 - ANEMIA, UNSPECIFIED SNOMED Code(s): 48423614 (3) Bone lesion Current Visit: Yes Status: Acute Priority: High Code(s): M89.9 - DISORDER OF BONE, UNSPECIFIED SNOMED Code(s): 02883775 (4) Intractable pain Current Visit: Yes Status: Acute Priority: High Code(s): R52 - PAIN, UNSPECIFIED SNOMED Code(s): 62938057 (5) COPD (chronic obstructive pulmonary disease) Current Visit: No Status: Acute Code(s): J44.9 - CHRONIC OBSTRUCTIVE PULMONARY DISEASE, UNSPECIFIED SNOMED Code(s): 63632485 Plan: Assessment and Recommendations: 1. Extensive Stage Small Cell Lung Cancer - Status Post Biopsy with Pathology revealing Small Cell - Right Scapula Lesion - Status Post chemotherapy with Carboplatin/VP16. Plan to treat with monthly zometa as well for metastatic disease bone. - MRI Brain Initial Staging Negative - Consult placed for Dr. De Oliveira for mediport placement. - Dr. Rehman From Radiation Oncology Following, Likely plan radiation after chemotherapy outpatient at [place] Location - Nurse Navigator Anastasia assisting in patient navigation with transportation issues and likely need to live with daughter in [place]. Will initiate process of continued care through [facility] after treatment cycle number one, stabilized, and discharged. - Daily CBC on chemotherapy and CMP 2. Presumptive Staph Aureus Bronchial Washings - Vancomycin initiated, afebrile. ?contaminate ok to move forward with chemo. 3. COPD 4. Increasing inappropriate confusion, although alert and oriented x3 - MRI of the Brain Negative for metastatic Disease - Steroid induced secondary to pre-medications with chemotherapy? 5. Intolerable pain secondary to metastatic Cancer - Fantanyl and PRN management
[2017-07-24] MEDS: BACLOFEN 10 MG TAB PO PRN (20:04)
[2017-07-24] MEDS: CITALOPRAM HYDROBROMIDE 20 MG TAB PO SCH (21:17)
[2017-07-24] MEDS: ATORVASTATIN 10 MG TAB PO SCH (21:17)
[2017-07-25] MEDS: oxyCODONE-APAP 10-325MG 1 EACH TAB PO PRN ×5 (01:50→20:04)
[2017-07-25] MEDS: IPRATROPIUM-ALBUTEROL 3 ML NEB INHALATION PRN (01:54)
[2017-07-25] MEDS: SODIUM CHLORIDE 0.9% 1,000 ML IV SCH ×4 (03:28→18:51)
[2017-07-25] MEDS: LEVOTHYROXINE 25 MCG TAB PO SCH (06:11)
[2017-07-25] MEDS: busPIRone HCl 5 MG TAB PO SCH ×2 (07:38→21:45)
[2017-07-25] MEDS: PRIMIDONE 250 MG TAB PO SCH (07:38)
[2017-07-25] MEDS: SALT AND SODA MOUTHWASH 1,000 ML PO SCH ×4 (07:41→21:47)
[2017-07-25] MEDS: DOCUSATE 100 MG CAP PO SCH ×2 (07:42→21:45)
[2017-07-25] MEDS: ENOXAPARIN 40 MG/0.4 ML SYRINGE SQ SCH (07:42)
[2017-07-25] MEDS: cefTRIAXone IN SWFI 1,000 MG/10 ML SYRINGE IVP SCH (07:42)
[2017-07-25] MEDS: CHOLECALCIFEROL 1,000 UNIT TAB PO SCH (07:42)
[2017-07-25] MEDS: guaiFENesin 600 MG TABLET.ER PO SCH ×2 (07:43→21:45)
[2017-07-25] MEDS: PANTOPRAZOLE 40 MG TABLET PO SCH (07:43)
[2017-07-25] MEDS: IPRATROPIUM-ALBUTEROL 3 ML NEB INHALATION SCH ×4 (09:07→20:56)
[2017-07-25] MEDS: SYMBICORT 160-4.5 MCG INHALER INHALATION SCH ×2 (09:07→20:56)
--- NOTE | 2017-07-25 12:03 | P.PN ---
Subjective Progress Note Date: 07/25/17 Principal diagnosis: New metastatic Lung Cancer Patient seen and examined in follow-up today. Daughter Zhanna at bedside. She is aware of current diagnosis and would like to move forward with plan for chemotherapy. She lives in [place] by herself and her daughter is in [place]. They are inquiring about receiving continued treatment through [facility] for chemotherapy after initial chemotherapy here. She will be living with her daughter in [place] during treatment continuation. 07/16/17 - patient seen in folow-up today, she received her first day of chemotherapy with Carboplatin and GENERAL TECHNICIAN-16 yesterday. She tolerated well. No nausea , vomiting, diarrhea. No acute symptoms related to chemo at this time. Pain is same and controlled on current regimen. MRI of the brain was completed and failed to show any signs of metastatic disease to brain. 07/17/17 - Allison is status mediport placement today, she is due for her third treatment of Carbo/GENERAL TECHNICIAN 16 tonight. Speaking with nursing patient has been having some increased confusion, possibily associated with morphine, worse immediately after morphine per nursing. She was on Fentanyl 50mcg on admission and this has been continued through her stay with the addition of short acting pain relief. She denies any nausea, vomiting, diarrhea. She is tolerating chemotherapy so far. 07/24/17 - Patient seen and evaluated today. Her blood counts have started to decrease more secondary to chemo. She remains afebrile (T-Max hospitalization 100.3 on 07/22), her mental status intermittently inappropriate, psychiatry has evaluated. 07/25/17 - Patient seen and Evaluated today in follow-up. She is not confused today, she is appropriate in her responses and thinking. She has decided to transfer care to [facility] and live with daughter for ongoing treatments of her small cell lung cancer. Her pain is controlled at this time. She denies, nausea, vomiting, diarhhea. Objective - Vital Signs Vital signs: Vital Signs Temp 97.6 F 07/25/17 06:08 Pulse 90 07/25/17 09:18 Resp 22 07/25/17 07:40 BP 110/66 07/25/17 06:08 Pulse Ox 97 07/25/17 06:08 Intake & Output 07/24/17 07/25/17 07/25/17 18:59 06:59 18:59 Intake Total 1000 1300 Balance 1000 1300 Weight 93 kg 92.5 kg Intake: IV 800 0.9 @ 100 800 Intake, IV Titration 1000 500 Amount Sodium Chloride 0.9% 1, 1000 500 000 ml @ 125 mls/hr IV . Q8H [facility] Rx#:[id number] Other: Voiding Method Toilet Toilet Toilet # Bowel Movements 1 - Constitutional General appearance: Present: cooperative, no acute distress - EENT Eyes: Present: EOMI, PERRLA, poor dentition ENT: Present: NA/AT, normal oropharynx - Neck Neck: Present: normal ROM - Respiratory Respiratory: bilateral: diminished (bibasilar), wheezing (Expiratory) - Cardiovascular Heart rate: 103 Rhythm: regular Heart sounds: normal: S1, S2 - Gastrointestinal General gastrointestinal: Present: normal bowel sounds, soft - Integumentary Integumentary: Present: pale - Neurologic Neurologic: Present: CNII-XII intact - Musculoskeletal Musculoskeletal: Present: generalized weakness, strength equal bilaterally - Psychiatric Psychiatric Comment(s): Inappropriate at times, intermittent confusion, history depression PTSD - Labs CBC & Chem 7: 07/25/17 11:51 07/25/17 11:51 Assessment and Plan (1) Small cell lung cancer Current Visit: Yes Status: Acute Priority: High Code(s): C34.90 - MALIGNANT NEOPLASM OF UNSP PART OF UNSP BRONCHUS OR LUNG SNOMED Code(s): 679935618 (2) Normochromic anemia Current Visit: Yes Status: Acute Code(s): D64.9 - ANEMIA, UNSPECIFIED SNOMED Code(s): 30462632 (3) Bone lesion Current Visit: Yes Status: Acute Priority: High Code(s): M89.9 - DISORDER OF BONE, UNSPECIFIED SNOMED Code(s): 76055275 (4) Intractable pain Current Visit: Yes Status: Acute Priority: High Code(s): R52 - PAIN, UNSPECIFIED SNOMED Code(s): 81942167 (5) COPD (chronic obstructive pulmonary disease) Current Visit: No Status: Acute Code(s): J44.9 - CHRONIC OBSTRUCTIVE PULMONARY DISEASE, UNSPECIFIED SNOMED Code(s): 77016294 Plan: Assessment and Recommendations: 1. Extensive Stage Small Cell Lung Cancer - Status Post Biopsy with Pathology revealing Small Cell - Right Scapula Lesion - Status Post chemotherapy with Carboplatin/VP16. Plan to treat with monthly zometa as well for metastatic disease bone. - MRI Brain Initial Staging Negative - Consult placed for Dr. De Oliveira for mediport placement. - Dr. Rehman From Radiation Oncology Following, Likely plan radiation after chemotherapy outpatient at [place] Location - Nurse Navigator Anastasia assisting in patient navigation with transportation issues and likely need to live with daughter in [place]. Will initiate process of continued care through [facility] after treatment cycle number one, stabilized, and discharged. - Daily CBC on chemotherapy and CMP 2. Presumptive Staph Aureus Bronchial Washings - Vancomycin initiated, afebrile. ?contaminate ok to move forward with chemo. 3. COPD 4. Increasing inappropriate confusion, although alert and oriented x3 - MRI of the Brain Negative for metastatic Disease - Steroid induced secondary to pre-medications with chemotherapy? 5. Intolerable pain secondary to metastatic Cancer - Improving - Fantanyl and PRN management 6. Pancytopenia - Secondary to Chemotherapy - Monitor Daily CBC with diff - Initiated [place] Stimulating Factor for Neutropenia and monitor for any s/s of infection, Diarrhea (infectious colitis), etc. - Monitor Hemoglobin, transfusions PRN hemoglobin less than 7 - Monitor PLatelet Count, transfuse for platelet count less than 15 when chemotherapy induced. 7. Acute Renal Insufficiency - Resolved - Likely secondary to Carboplatin - Monitor Renal Function. Continue hydration and encouraging po intake. Physician Attestation: I have completed the full history and physical of this patient and agree with above dictation by Carrie Cook NP. Dictated as a scribe.
[2017-07-25 12:15] LABS: Basophils % (A) 0 %; Eosinophils # (A) 0.1 k/uL (0-0.7); Eosinophils % (A) 4 %; HCT 24.5 % (34.0-46.0); HGB 8.1 gm/dL (11.4-16.0); Lymphocytes # (A) 0.5 k/uL (1.0-4.8); Lymphocytes % (A) 19 %; MCH 30.4 pg (25.0-35.0); MCHC 33.2 g/dL (31.0-37.0); MCV 91.6 fL (80.0-100.0); Mean Platelet Volume 8.3; Monocytes # (A) 0.1 k/uL (0-1.0); Monocytes % (A) 4 %; Neutrophils # (A) 1.9 k/uL (1.3-7.7); Neutrophils % (A) 71 %; Platelet Count 107 k/uL (150-450); RBC 2.68 m/uL (3.80-5.40); WBC 2.7 k/uL (3.8-10.6)
[2017-07-25 12:29] LABS: ALT 31 U/L (9-52); AST 20 U/L (14-36); Albumin 3.2 g/dL (3.5-5.0); Alkaline Phosphatase 63 U/L (38-126); Anion Gap 12 mmol/L; Blood Urea Nitrogen 6 mg/dL (7-17); Calcium 8.3 mg/dL (8.4-10.2); Carbon Dioxide 27 mmol/L (22-30); Chloride 106 mmol/L (98-107); Glucose 107 mg/dL (74-99); Potassium 3.8 mmol/L (3.5-5.1); Sodium 145 mmol/L (137-145); Total Bilirubin <0.1 mg/dL (0.2-1.3); Total Protein 5.3 g/dL (6.3-8.2)
[2017-07-25] MEDS: CITALOPRAM HYDROBROMIDE 20 MG TAB PO SCH (21:45)
[2017-07-25] MEDS: ATORVASTATIN 10 MG TAB PO SCH (21:45)
[2017-07-26] MEDS: oxyCODONE-APAP 10-325MG 1 EACH TAB PO PRN ×6 (00:05→21:33)
[2017-07-26] MEDS: LORazepam 2 MG/ML INJ IV PRN ×2 (00:06→22:41)
[2017-07-26] MEDS: SODIUM CHLORIDE 0.9% 1,000 ML IV SCH ×2 (04:28→17:46)
[2017-07-26] MEDS: LEVOTHYROXINE 25 MCG TAB PO SCH (06:27)
[2017-07-26] MEDS: SALT AND SODA MOUTHWASH 1,000 ML PO SCH ×4 (08:35→20:12)
[2017-07-26] MEDS: busPIRone HCl 5 MG TAB PO SCH ×2 (08:35→20:11)
[2017-07-26] MEDS: cefTRIAXone IN SWFI 1,000 MG/10 ML SYRINGE IVP SCH (08:36)
[2017-07-26] MEDS: ENOXAPARIN 40 MG/0.4 ML SYRINGE SQ SCH (08:39)
[2017-07-26] MEDS: CHOLECALCIFEROL 1,000 UNIT TAB PO SCH (08:39)
[2017-07-26] MEDS: PANTOPRAZOLE 40 MG TABLET PO SCH (08:39)
[2017-07-26] MEDS: guaiFENesin 600 MG TABLET.ER PO SCH ×2 (08:40→20:12)
[2017-07-26] MEDS: DOCUSATE 100 MG CAP PO SCH ×2 (08:40→20:12)
[2017-07-26] MEDS: PRIMIDONE 250 MG TAB PO SCH (08:41)
--- NOTE | 2017-07-26 09:23 | PN ---
PROGRESS NOTE She states she is very weak and lightheaded, not doing well. She states white count after medicine was given increased from 1.6-2.7. Suspect she will be able to go home when she is able. She states she is too weak to go home. She will be right back in the hospital. She cannot go to a skilled nursing, she will not be able to get her chemotherapy. Vital signs stable. Afebrile. Cardiovascular: S1 and S2. Lungs show scattered wheeze. She has been evaluated by Psychiatry. She has small cell lung cancer. Presented with Staph aureus. Bronchial wall washings. Vancomycin was initiated. She is afebrile. She is cleared to move forward with chemo. COPD with increasing confusion. MRIs x2 were negative. Pain management will be continued. Possible discharge home since family wants to take her home. MMODL / IJN: [id number] /
[2017-07-26] MEDS: IPRATROPIUM-ALBUTEROL 3 ML NEB INHALATION SCH ×4 (09:54→20:31)
[2017-07-26] MEDS: SYMBICORT 160-4.5 MCG INHALER INHALATION SCH ×2 (09:54→20:31)
[2017-07-26] MEDS: FILGRASTIM-SNDZ 480 MCG/0.8 ML SYRINGE SQ SCH (17:45)
[2017-07-26] MEDS: ATORVASTATIN 10 MG TAB PO SCH (20:12)
[2017-07-26] MEDS: CITALOPRAM HYDROBROMIDE 20 MG TAB PO SCH (20:12)
--- NOTE | 2017-07-26 20:35 | PN ---
PROGRESS NOTE SUBJECTIVE: 62-year-old white female with metastatic cell lung cancer. I had discussed the case with her daughter an the patient. Possible discharge home this week to get chemo and radiation treatment in [place]. She needs to be set up with the chemotherapist down in [place]. Vital signs stable. Afebrile. Cardiovascular S1, S2. LUNGS: Transmitted upper sounds. Hematology negative Homans. Psych fair mood and affect. ASSESSMENT: 1. Non-small cell lung cancer. 2. Chronic obstructive pulmonary disease, oxygen dependent. Vital signs stable. Afebrile. Continue with chemotherapy. Pain control. Discharge home when current treatment is arranged for patient. MMODL / IJN: [id number] /
[2017-07-27] MEDS: IPRATROPIUM-ALBUTEROL 3 ML NEB INHALATION PRN (01:28)
[2017-07-27] MEDS: oxyCODONE-APAP 10-325MG 1 EACH TAB PO PRN ×5 (02:29→20:00)
[2017-07-27] MEDS: SODIUM CHLORIDE 0.9% 1,000 ML IV SCH ×3 (04:10→15:05)
[2017-07-27] MEDS: LEVOTHYROXINE 25 MCG TAB PO SCH (06:16)
[2017-07-27 07:05] LABS: HCT 26.5 % (34.0-46.0); HGB 8.7 gm/dL (11.4-16.0); MCV 91.1 fL (80.0-100.0); Mean Platelet Volume 8.1; Platelet Count 121 k/uL (150-450); RBC 2.91 m/uL (3.80-5.40); RDW 13.6 % (11.5-15.5)
[2017-07-27 07:09] LABS: WBC 1.8 k/uL (3.8-10.6)
[2017-07-27 07:34] LABS: ALT 37 U/L (9-52); AST 30 U/L (14-36); Albumin 3.5 g/dL (3.5-5.0); Alkaline Phosphatase 71 U/L (38-126); Anion Gap 14 mmol/L; Blood Urea Nitrogen 8 mg/dL (7-17); Calcium 8.9 mg/dL (8.4-10.2); Carbon Dioxide 29 mmol/L (22-30); Chloride 102 mmol/L (98-107); Glucose 85 mg/dL (74-99); Potassium 3.5 mmol/L (3.5-5.1); Sodium 145 mmol/L (137-145); Total Bilirubin 0.2 mg/dL (0.2-1.3); Total Protein 5.6 g/dL (6.3-8.2)
[2017-07-27 07:37] LABS: Band Neutrophils % 1 %; Eosinophils # (M) 0.13 k/uL (0-0.7); Lymphocytes # (M) 0.74 k/uL (1.0-4.8); Neutrophils % (M) 40 %; Nucleated Red Blood Cells 0 /100 WBC (0-0); Total Cells Counted 100
[2017-07-27 07:38] LABS: Poikilocytosis (M) Present
[2017-07-27] MEDS: SYMBICORT 160-4.5 MCG INHALER INHALATION SCH ×2 (08:10→21:20)
[2017-07-27] MEDS: IPRATROPIUM-ALBUTEROL 3 ML NEB INHALATION SCH ×4 (08:10→21:07)
[2017-07-27] MEDS: ENOXAPARIN 40 MG/0.4 ML SYRINGE SQ SCH (08:37)
[2017-07-27] MEDS: busPIRone HCl 5 MG TAB PO SCH ×2 (08:37→20:54)
[2017-07-27] MEDS: SALT AND SODA MOUTHWASH 1,000 ML PO SCH ×4 (08:37→20:54)
[2017-07-27] MEDS: PANTOPRAZOLE 40 MG TABLET PO SCH (08:37)
[2017-07-27] MEDS: DOCUSATE 100 MG CAP PO SCH ×2 (08:39→20:54)
[2017-07-27] MEDS: PRIMIDONE 250 MG TAB PO SCH (08:39)
[2017-07-27] MEDS: CHOLECALCIFEROL 1,000 UNIT TAB PO SCH (08:39)
[2017-07-27] MEDS: guaiFENesin 600 MG TABLET.ER PO SCH ×2 (08:39→20:54)
[2017-07-27] MEDS: cefTRIAXone IN SWFI 1,000 MG/10 ML SYRINGE IVP SCH (08:40)
[2017-07-27] MEDS: FILGRASTIM-SNDZ 480 MCG/0.8 ML SYRINGE SQ SCH (08:51)
[2017-07-27] MEDS: ATORVASTATIN 10 MG TAB PO SCH (20:54)
[2017-07-27] MEDS: CITALOPRAM HYDROBROMIDE 20 MG TAB PO SCH (20:54)
--- NOTE | 2017-07-27 23:21 | PN ---
PROGRESS NOTE SUBJECTIVE: This is a 62-year-old white female who appears to be much improved, sitting up, talking on the phone to her daughter. She does not appear to be in any distress for the first time since she has been admitted. Discussed with her going home tomorrow. She wants everything set up so she can get chemotherapy down at [facility] where she will be living with her daughter. CARDIOVASCULAR: S1, S2. LUNGS: Transmitted upper airway sounds. HEMATOLOGIC: Negative Taran's. PSYCH: Fair mood and affect. ASSESSMENT: Non-small cell lung cancer, pancytopenia with leukopenia. If cleared by Oncology should be able to be discharged home. Follow up with Oncology as an outpatient. MMODL / IJN: [id number] /
[2017-07-28] MEDS: LORazepam 2 MG/ML INJ IV PRN ×2 (00:09→23:32)
[2017-07-28] MEDS: oxyCODONE-APAP 10-325MG 1 EACH TAB PO PRN ×5 (00:10→20:41)
[2017-07-28] MEDS: IPRATROPIUM-ALBUTEROL 3 ML NEB INHALATION SCH ×5 (02:39→20:38)
[2017-07-28] MEDS: SODIUM CHLORIDE 0.9% 1,000 ML IV SCH ×3 (05:19→22:00)
[2017-07-28] MEDS: LEVOTHYROXINE 25 MCG TAB PO SCH (06:23)
[2017-07-28] MEDS: SYMBICORT 160-4.5 MCG INHALER INHALATION SCH ×2 (07:12→20:38)
[2017-07-28] MEDS: CHOLECALCIFEROL 1,000 UNIT TAB PO SCH (08:44)
[2017-07-28] MEDS: PANTOPRAZOLE 40 MG TABLET PO SCH (08:44)
[2017-07-28] MEDS: DOCUSATE 100 MG CAP PO SCH ×2 (08:44→20:38)
[2017-07-28] MEDS: guaiFENesin 600 MG TABLET.ER PO SCH ×2 (08:44→20:39)
[2017-07-28] MEDS: PRIMIDONE 250 MG TAB PO SCH (08:44)
[2017-07-28] MEDS: ENOXAPARIN 40 MG/0.4 ML SYRINGE SQ SCH (08:44)
[2017-07-28] MEDS: SALT AND SODA MOUTHWASH 1,000 ML PO SCH ×4 (08:45→23:32)
[2017-07-28] MEDS: cefTRIAXone IN SWFI 1,000 MG/10 ML SYRINGE IVP SCH (08:45)
[2017-07-28] MEDS: busPIRone HCl 5 MG TAB PO SCH ×2 (08:45→20:40)
[2017-07-28 09:51] LABS: HCT 24.8 % (34.0-46.0); MCH 29.5 pg (25.0-35.0); MCHC 32.3 g/dL (31.0-37.0); MCV 91.5 fL (80.0-100.0); Mean Platelet Volume 8.9; Platelet Count 106 k/uL (150-450); RBC 2.71 m/uL (3.80-5.40); RDW 14.1 % (11.5-15.5)
[2017-07-28 09:53] LABS: WBC 1.3 k/uL (3.8-10.6)
[2017-07-28 10:07] VITALS: BMI 34.4
[2017-07-28 10:07] LABS: ALT 39 U/L (9-52); AST 27 U/L (14-36); Albumin 3.1 g/dL (3.5-5.0); Alkaline Phosphatase 58 U/L (38-126); Anion Gap 11 mmol/L; Blood Urea Nitrogen 9 mg/dL (7-17); Calcium 8.3 mg/dL (8.4-10.2); Carbon Dioxide 31 mmol/L (22-30); Chloride 101 mmol/L (98-107); Glucose 99 mg/dL (74-99); Potassium 3.4 mmol/L (3.5-5.1); Sodium 143 mmol/L (137-145); Total Bilirubin 0.1 mg/dL (0.2-1.3); Total Protein 5.1 g/dL (6.3-8.2)
[2017-07-28 10:27] LABS: Band Neutrophils % 1 %; Eosinophils # (M) 0.14 k/uL (0-0.7); Lymphocytes # (M) 0.61 k/uL (1.0-4.8); Monocytes # (M) 0.21 k/uL (0-1.0); Neutrophils % (M) 25 %; Nucleated Red Blood Cells 0 /100 WBC (0-0); Total Cells Counted 100
[2017-07-28 10:28] LABS: Poikilocytosis (M) Present
--- NOTE | 2017-07-28 10:34 | P.PN ---
Subjective Progress Note Date: 07/28/17 Principal diagnosis: New metastatic Lung Cancer Patient seen and examined in follow-up today. Daughter Zhanna at bedside. She is aware of current diagnosis and would like to move forward with plan for chemotherapy. She lives in [place] by herself and her daughter is in [place]. They are inquiring about receiving continued treatment through [facility] for chemotherapy after initial chemotherapy here. She will be living with her daughter in [place] during treatment continuation. 07/16/17 - patient seen in folow-up today, she received her first day of chemotherapy with Carboplatin and HAND LEATHER TRIMMER-16 yesterday. She tolerated well. No nausea , vomiting, diarrhea. No acute symptoms related to chemo at this time. Pain is same and controlled on current regimen. MRI of the brain was completed and failed to show any signs of metastatic disease to brain. 07/17/17 - Allison is status mediport placement today, she is due for her third treatment of Carbo/HAND LEATHER TRIMMER 16 tonight. Speaking with nursing patient has been having some increased confusion, possibily associated with morphine, worse immediately after morphine per nursing. She was on Fentanyl 50mcg on admission and this has been continued through her stay with the addition of short acting pain relief. She denies any nausea, vomiting, diarrhea. She is tolerating chemotherapy so far. 07/24/17 - Patient seen and evaluated today. Her blood counts have started to decrease more secondary to chemo. She remains afebrile (T-Max hospitalization 100.3 on 07/22), her mental status intermittently inappropriate, psychiatry has evaluated. 07/25/17 - Patient seen and Evaluated today in follow-up. She is not confused today, she is appropriate in her responses and thinking. She has decided to transfer care to [facility] and live with daughter for ongoing treatments of her small cell lung cancer. Her pain is controlled at this time. She denies, nausea, vomiting, diarhhea. 07/28/17 - Allison seen in follow-up today. She is feeling good, no acute complaints. Her blood counts are stable, still awaiting her WBC to recover, she continues on zarxio. Objective - Vital Signs Vital signs: Vital Signs Temp 98.3 F 07/28/17 05:40 Pulse 84 07/28/17 07:24 Resp 20 07/28/17 05:40 BP 103/48 07/28/17 05:40 Pulse Ox 92 L 07/28/17 07:14 Intake & Output 07/27/17 07/28/17 07/28/17 18:59 06:59 18:59 Intake Total 400 550 Balance 400 550 Weight 91 kg Intake: IV 400 550 Sodium Chloride 0.9% 1, 400 550 000 ml @ 125 mls/hr IV . Q8H [facility] Rx#:[id number] Other: Voiding Method Toilet Toilet # Voids 1 - Constitutional General appearance: Present: cooperative, no acute distress, obese - EENT Eyes: Present: EOMI, dentition normal ENT: Present: NA/AT, normal oropharynx - Neck Neck: Present: normal ROM - Respiratory Respiratory: bilateral: diminished (Bibasilar, no increased effort) - Cardiovascular Rhythm: regular Heart sounds: normal: S1, S2 - Gastrointestinal General gastrointestinal: Present: normal bowel sounds, soft - Integumentary Integumentary: Present: pale - Neurologic Neurologic: Present: CNII-XII intact - Musculoskeletal Musculoskeletal: Present: generalized weakness, strength equal bilaterally - Psychiatric Psychiatric: Present: A&O x's 3, appropriate affect, intact judgment & insight - Labs CBC & Chem 7: 07/27/17 06:48 07/27/17 06:48 Assessment and Plan (1) Small cell lung cancer Current Visit: Yes Status: Acute Priority: High Code(s): C34.90 - MALIGNANT NEOPLASM OF UNSP PART OF UNSP BRONCHUS OR LUNG SNOMED Code(s): 613376137 (2) Normochromic anemia Current Visit: Yes Status: Acute Code(s): D64.9 - ANEMIA, UNSPECIFIED SNOMED Code(s): 75766464 (3) Bone lesion Current Visit: Yes Status: Acute Priority: High Code(s): M89.9 - DISORDER OF BONE, UNSPECIFIED SNOMED Code(s): 35060732 (4) Intractable pain Current Visit: Yes Status: Acute Priority: High Code(s): R52 - PAIN, UNSPECIFIED SNOMED Code(s): 48281831 (5) COPD (chronic obstructive pulmonary disease) Current Visit: No Status: Acute Code(s): J44.9 - CHRONIC OBSTRUCTIVE PULMONARY DISEASE, UNSPECIFIED SNOMED Code(s): 94858731 Plan: Assessment and Recommendations: 1. Extensive Stage Small Cell Lung Cancer - Status Post Biopsy with Pathology revealing Small Cell - Right Scapula Lesion - Status Post chemotherapy with Carboplatin/VP16. Plan to treat with monthly zometa as well for metastatic disease bone. - MRI Brain Initial Staging Negative, repeat for confusion also negative - Consult placed for Dr. De Oliveira for mediport placement. - Dr. Rehman From Radiation Oncology Following, Likely plan radiation after chemotherapy outpatient at [facility] - Nurse Navigator Anastasia assisting in patient navigation with transportation issues and likely need to live with daughter in [place]. Will initiate process of continued care through [facility] after treatment cycle number one, stabilized, and discharged. - Daily CBC on chemotherapy and CMP - Plan for discharge to daughters home and Social work to confirm appointment made with [facility] for follow-up. Dr. Rehman to assist with transition. Will check CBC in am and as long as improving ok to D/C form Medical oncology 2. Presumptive Staph Aureus Bronchial Washings - Vancomycin initiated, afebrile. ?contaminate ok to move forward with chemo. 3. COPD 4. Increasing inappropriate confusion, although alert and oriented x3 - Improved - MRI of the Brain Negative for metastatic Disease - Steroid induced secondary to pre-medications with chemotherapy? 5. Intolerable pain secondary to metastatic Cancer - Improving - Fentanyl and PRN management 6. Pancytopenia - Secondary to Chemotherapy - Monitor Daily CBC with diff - Initiated [place] Stimulating Factor for Neutropenia and monitor for any s/s of infection, Diarrhea (infectious colitis), etc. - Monitor Hemoglobin, transfusions PRN hemoglobin less than 7 - Monitor PLatelet Count, transfuse for platelet count less than 15 when chemotherapy induced. 7. Acute Renal Insufficiency - Resolved - Likely secondary to Carboplatin - Monitor Renal Function. Continue hydration and encouraging po intake. Physician Attestation: I have completed the full history and physical of this patient and agree with above dictation by Carrie Cook NP. Dictated as a scribe.
[2017-07-28] MEDS: FILGRASTIM-SNDZ 480 MCG/0.8 ML SYRINGE SQ SCH (12:21)
--- NOTE | 2017-07-28 14:26 | CDI ---
Last Revision, January 2017 Documentation Clarification Form Date: 07/21/2017 2:28:00 PM From: Opal Rivera Admit Date: 07/11/2017 11:43:00 PM Patient Name: Allison Nath Visit Number: [id number] ATTENTION: The Clinical Documentation Specialists (CDI) and [facility] Coding Staff appreciate your assistance in clarifying documentation. Please respond to the clarification below the line at the bottom and electronically sign. The CDI & [facility] Coding staff will review the response and follow-up if needed. Please note: Queries are made part of the Legal Health Record. If you have any questions, please contact the author of this message via ITS. Dr. Steven Mercado, Pneumonia was documented in your notes on: 07/19 and 07/20 History/Risk Factors: Lung CA. , COPD, Hyperlipidemia, HTN Clinical Indicators: WBC on admission 5.7, 07/21 3.6 X-ray: 07/17 right lower lobe infiltrate Lung/Breathing assessment: clear Treatment: Antibiotics: IVPB Vanco, IVPB Ceftriaxone, O2 : 95% 4L Breathing Tx: Duoneb, Symbicort, In order to capture the severity of condition, please clarify if the condition signifies and you are treating for: Bacterial Pneumonia, specify causal organism (if known) Gram negative Other bacteria (please specify) Viral Pneumonia, specify casual organism (if known) Healthcare Acquired Pneumonia/Pneumonia, unspecified Other, please specify Unable to determine Please continue to document in your progress notes and discharge summary in order to capture severity of illness and risk of mortality. Include clinical findings that support your diagnosis. MTDD
[2017-07-28] MEDS: ATORVASTATIN 10 MG TAB PO SCH (20:39)
[2017-07-28] MEDS: CITALOPRAM HYDROBROMIDE 20 MG TAB PO SCH (20:40)
[2017-07-28] MEDS: ONDANSETRON 4 MG/2 ML VIAL IVP PRN (21:02)
--- NOTE | 2017-07-28 22:09 | PN ---
PROGRESS NOTE SUBJECTIVE: This is a white female waiting clearance to go home per Hematology. White count down to 1.3, hemoglobin 8, platelet 106, sodium 143, potassium 3.4, creatinine 0.44. Awaiting chemotherapy to be set up at a site done in [place], where she can move in with her daughter. Continue on Zarxio until her white count recovers and she will be discharged home. Temp 98.3, pulse 84, respiratory rate 18, blood pressure 103/48, O2 92% on room air. Cardiovascular S1, S2. Lungs clear. GI soft. Hematology negative Homans. Psych fair mood and affect. Neurologic: Alert orient x3. ASSESSMENT AND PLAN: 1. Small cell lung cancer. 2. Normocytic anemia. 3. Vertebral bony METS. 4. Irretractable pain secondary to vertebral bony METS. 5. Chronic obstructive pulmonary disease. 6. Leukopenia. 7. Inappropriate confusion secondary to pain medicines, possibly . 8. Steroid induced chemotherapy. 9. Pain is improving with current Fentanyl and p.r.n. pain management. 10.Pancytopenia secondary chemo. 11.Monitor hemoglobin and transfuse if less than 7. Continue to monitor white count. 12.Acute renal insufficiency, resolved. 13.Patient will be sent home when cleared by Oncology. MMODL / IJN: [id number] /
[2017-07-29] MEDS: oxyCODONE-APAP 10-325MG 1 EACH TAB PO PRN ×3 (01:12→12:05)
[2017-07-29] MEDS: SODIUM CHLORIDE 0.9% 1,000 ML IV SCH ×2 (04:16→09:33)
[2017-07-29] MEDS: LEVOTHYROXINE 25 MCG TAB PO SCH (06:16)
[2017-07-29] MEDS: IPRATROPIUM-ALBUTEROL 3 ML NEB INHALATION SCH ×3 (06:21→15:24)
[2017-07-29] MEDS: SYMBICORT 160-4.5 MCG INHALER INHALATION SCH (06:21)
[2017-07-29 06:24] VITALS: BP 98/56; RESP 16; TEMP 98
[2017-07-29 06:33] VITALS: PULSE 84
[2017-07-29 07:21] LABS: HCT 26.4 % (34.0-46.0); HGB 8.3 gm/dL (11.4-16.0); MCH 29.3 pg (25.0-35.0); MCHC 31.4 g/dL (31.0-37.0); MCV 93.4 fL (80.0-100.0); Mean Platelet Volume 8.8; Platelet Count 125 k/uL (150-450); RBC 2.82 m/uL (3.80-5.40); RDW 14.3 % (11.5-15.5)
[2017-07-29] MEDS: cefTRIAXone IN SWFI 1,000 MG/10 ML SYRINGE IVP SCH (08:21)
[2017-07-29] MEDS: CHOLECALCIFEROL 1,000 UNIT TAB PO SCH (08:21)
[2017-07-29] MEDS: PANTOPRAZOLE 40 MG TABLET PO SCH (08:21)
[2017-07-29] MEDS: FILGRASTIM-SNDZ 480 MCG/0.8 ML SYRINGE SQ SCH (08:21)
[2017-07-29] MEDS: ENOXAPARIN 40 MG/0.4 ML SYRINGE SQ SCH (08:21)
[2017-07-29] MEDS: busPIRone HCl 5 MG TAB PO SCH (08:22)
[2017-07-29] MEDS: SALT AND SODA MOUTHWASH 1,000 ML PO SCH ×2 (08:22→12:06)
[2017-07-29] MEDS: guaiFENesin 600 MG TABLET.ER PO SCH (08:22)
[2017-07-29] MEDS: PRIMIDONE 250 MG TAB PO SCH (08:22)
[2017-07-29] MEDS: DOCUSATE 100 MG CAP PO SCH (08:22)
[2017-07-29 08:29] LABS: ALT 46 U/L (9-52); AST 30 U/L (14-36); Albumin 3.2 g/dL (3.5-5.0); Alkaline Phosphatase 68 U/L (38-126); Anion Gap 9 mmol/L; Blood Urea Nitrogen 9 mg/dL (7-17); Calcium 8.3 mg/dL (8.4-10.2); Carbon Dioxide 31 mmol/L (22-30); Chloride 102 mmol/L (98-107); Glucose 84 mg/dL (74-99); Potassium 3.8 mmol/L (3.5-5.1); Sodium 142 mmol/L (137-145); Total Bilirubin 0.2 mg/dL (0.2-1.3); Total Protein 5.3 g/dL (6.3-8.2)
[2017-07-29 09:03] LABS: Band Neutrophils % 1 %; Eosinophils # (M) 0.06 k/uL (0-0.7); Lymphocytes # (M) 1.17 k/uL (1.0-4.8); Monocytes # (M) 0.42 k/uL (0-1.0); Neutrophils % (M) 44 %; Nucleated Red Blood Cells 0 /100 WBC (0-0); Total Cells Counted 100
[2017-07-29] MEDS: LORazepam 2 MG/ML INJ IV PRN (12:05)
--- NOTE | 2017-07-29 12:14 | P.PN ---
Subjective Progress Note Date: 07/29/17 Principal diagnosis: New metastatic Lung Cancer Patient seen and examined in follow-up today. Daughter Zhanna at bedside. She is aware of current diagnosis and would like to move forward with plan for chemotherapy. She lives in [place] by herself and her daughter is in [place]. They are inquiring about receiving continued treatment through [facility] for chemotherapy after initial chemotherapy here. She will be living with her daughter in [place] during treatment continuation. 07/16/17 - patient seen in folow-up today, she received her first day of chemotherapy with Carboplatin and FARMWORKER GRAIN-16 yesterday. She tolerated well. No nausea , vomiting, diarrhea. No acute symptoms related to chemo at this time. Pain is same and controlled on current regimen. MRI of the brain was completed and failed to show any signs of metastatic disease to brain. 07/17/17 - Allison is status mediport placement today, she is due for her third treatment of Carbo/FARMWORKER GRAIN 16 tonight. Speaking with nursing patient has been having some increased confusion, possibily associated with morphine, worse immediately after morphine per nursing. She was on Fentanyl 50mcg on admission and this has been continued through her stay with the addition of short acting pain relief. She denies any nausea, vomiting, diarrhea. She is tolerating chemotherapy so far. 07/24/17 - Patient seen and evaluated today. Her blood counts have started to decrease more secondary to chemo. She remains afebrile (T-Max hospitalization 100.3 on 07/22), her mental status intermittently inappropriate, psychiatry has evaluated. 07/25/17 - Patient seen and Evaluated today in follow-up. She is not confused today, she is appropriate in her responses and thinking. She has decided to transfer care to [facility] and live with daughter for ongoing treatments of her small cell lung cancer. Her pain is controlled at this time. She denies, nausea, vomiting, diarhhea. 07/28/17 - Allison seen in follow-up today. She is feeling good, no acute complaints. Her blood counts are stable, still awaiting her WBC to recover, she continues on zarxio. 07/29/17 - Patient seen and evaluated in follow-up. She is doing better, her mental status seems appropriate for the past few days and she sttes her pain is controlled on her current regimen. I spoke to her Daughter Zhanna and we discussed plan after discharge, they are planning on treatment continuation at [facility] as her daughter lives in [place] and she will be staying there while she is having treatment. A follow-up appointment has been made with Dr. Camarillo office for allison and her daughter is aware of this. The [facility] office is also aware of when she is due for cycle 2 of chemotherapy. Objective - Vital Signs Vital signs: Vital Signs Temp 98 F 07/29/17 06:23 Pulse 84 07/29/17 06:31 Resp 16 07/29/17 06:23 BP 98/56 07/29/17 06:23 Pulse Ox 96 07/29/17 06:23 Intake & Output 07/28/17 07/29/17 07/29/17 18:59 06:59 18:59 Intake Total 1000 1375 Balance 1000 1375 Weight 91 kg 92.5 kg Intake: IV 1000 1375 Sodium Chloride 0.9% 1, 1000 1375 000 ml @ 125 mls/hr IV . Q8H [facility] Rx#:[id number] Other: Voiding Method Toilet Toilet # Voids 1 - Constitutional General appearance: Present: average body habitus, no acute distress - EENT Eyes: Present: EOMI, PERRLA, dentition normal ENT: Present: NA/AT, normal oropharynx - Neck Neck: Present: normal ROM - Respiratory Respiratory: bilateral: diminished, wheezing (Scattered) - Cardiovascular Rhythm: regular Heart sounds: normal: S1, S2 - Gastrointestinal General gastrointestinal: Present: normal bowel sounds, soft - Integumentary Integumentary: Present: pale - Neurologic Neurologic: Present: CNII-XII intact - Musculoskeletal Musculoskeletal: Present: gait normal, generalized weakness, strength equal bilaterally - Psychiatric Psychiatric: Present: A&O x's 3, appropriate affect, intact judgment & insight - Labs CBC & Chem 7: 07/29/17 06:45 07/29/17 06:45 Labs: Abnormal Lab Results - Last 24 Hours (Table) 07/29/17 07/29/17 Range/Units 06:45 06:45 WBC 3.0 L (3.8-10.6) k/uL RBC 2.82 L (3.80-5.40) m/uL Hgb 8.3 L (11.4-16.0) gm/dL Hct 26.4 L (34.0-46.0) % Plt Count 125 L (150-450) k/uL Carbon Dioxide 31 H (22-30) mmol/L Creatinine 0.51 L (0.52-1.04) mg/dL Calcium 8.3 L (8.4-10.2) mg/dL Total Protein 5.3 L (6.3-8.2) g/dL Albumin 3.2 L (3.5-5.0) g/dL Assessment and Plan (1) Small cell lung cancer Current Visit: Yes Status: Acute Priority: High Code(s): C34.90 - MALIGNANT NEOPLASM OF UNSP PART OF UNSP BRONCHUS OR LUNG SNOMED Code(s): 647787403 (2) Normochromic anemia Current Visit: Yes Status: Acute Code(s): D64.9 - ANEMIA, UNSPECIFIED SNOMED Code(s): 15041169 (3) Bone lesion Current Visit: Yes Status: Acute Priority: High Code(s): M89.9 - DISORDER OF BONE, UNSPECIFIED SNOMED Code(s): 86630670 (4) Intractable pain Current Visit: Yes Status: Acute Priority: High Code(s): R52 - PAIN, UNSPECIFIED SNOMED Code(s): 34189784 (5) COPD (chronic obstructive pulmonary disease) Current Visit: No Status: Acute Code(s): J44.9 - CHRONIC OBSTRUCTIVE PULMONARY DISEASE, UNSPECIFIED SNOMED Code(s): 68168029 Plan: Assessment and Recommendations: 1. Extensive Stage Small Cell Lung Cancer - Status Post Biopsy with Pathology revealing Small Cell - Right Scapula Lesion - Status Post chemotherapy with Carboplatin/VP16. Plan to treat with monthly zometa as well for metastatic disease bone. - MRI Brain Initial Staging Negative, repeat for confusion also negative - Consult placed for Dr. De Oliveira for mediport placement. - Dr. Rehman From Radiation Oncology Following, Likely plan radiation after chemotherapy outpatient at [facility] - Nurse Navigator Anastasia assisting in patient navigation with transportation issues and likely need to live with daughter in [place]. Will initiate process of continued care through [facility] after treatment cycle number one, stabilized, and discharged. - Daily CBC on chemotherapy and CMP - Plan for [facility] home and Social work to confirm appointment made with [facility] for follow-up. Dr. Rehman to assist with transition. Will check CBC in am and as long as improving ok to D/C form Medical oncology - OK for discharge from oncology standpoint, discussed with Dr. Rehman ( radiation Onc and the office of Dr. Blanco at [facility]) for an easy transition to continuation of care. 2. Presumptive Staph Aureus Bronchial Washings - Vancomycin initiated, afebrile. ?contaminate ok to move forward with chemo. 3. COPD 4. Increasing inappropriate confusion, although alert and oriented x3 - Improved - MRI of the Brain Negative for metastatic Disease - Steroid induced secondary to pre-medications with chemotherapy? 5. Intolerable pain secondary to metastatic Cancer - Improving - Fentanyl and PRN management - Patient will be discharged on fentanyl 100mcg duragesic, percocet 10/325 for breakthrough pain, and ativan 0.5mg for anxiety and nausea. 6. Pancytopenia - Secondary to Chemotherapy - Monitor Daily CBC with diff - Initiated [place] Stimulating Factor for Neutropenia and monitor for any s/s of infection, Diarrhea (infectious colitis), etc. - Monitor Hemoglobin, transfusions PRN hemoglobin less than 7 - Monitor PLatelet Count, transfuse for platelet count less than 15 when chemotherapy induced. 7. Acute Renal Insufficiency - Resolved - Likely secondary to Carboplatin - Monitor Renal Function. Continue hydration and encouraging po intake. Physician Attestation: I have completed the full history and physical of this patient and agree with above dictation by Carrie Cook NP. Dictated as a scribe.
== END 2017-07-29 15:25 | disposition home health service (06) | DRG 166 ==
LOC: EC 21:57 → 5ONC 23:43
PROVIDERS: ADMIT Family Medicine; ATTEND Family Medicine
PROC: 0B9F8ZX Drainage of Right Lower Lung Lobe, Via Natural or Artificial Opening Endoscopic, Diagnostic (ICD-10-PCS; principal; 2017-07-13 08:00)
PROC: 0BD68ZX Extraction of Right Lower Lobe Bronchus, Via Natural or Artificial Opening Endoscopic, Diagnostic (ICD-10-PCS; 2017-07-13 08:00)
PROC: 3E03305 Introduction of Other Antineoplastic into Peripheral Vein, Percutaneous Approach (ICD-10-PCS; 2017-07-15)
PROC: 02HV33Z Insertion of Infusion Device into Superior Vena Cava, Percutaneous Approach (ICD-10-PCS; 2017-07-17)
PROC: 0JH60WZ Insertion of Totally Implantable Vascular Access Device into Chest Subcutaneous Tissue and Fascia, Open Approach (ICD-10-PCS; 2017-07-17)
DX: C34.31 Malignant neoplasm of lower lobe, right bronchus or lung (principal); D61.810 Antineoplastic chemotherapy induced pancytopenia; C79.51 Secondary malignant neoplasm of bone; J96.11 Chronic respiratory failure with hypoxia; R44.3 Hallucinations, unspecified; E03.9 Hypothyroidism, unspecified; E78.5 Hyperlipidemia, unspecified; F32.9 Major depressive disorder, single episode, unspecified; F43.10 Post-traumatic stress disorder, unspecified; G47.33 Obstructive sleep apnea (adult) (pediatric); G89.3 Neoplasm related pain (acute) (chronic); G89.4 Chronic pain syndrome; K21.9 Gastro-esophageal reflux disease without esophagitis; K57.90 Diverticulosis of intestine, part unspecified, without perforation or abscess without bleeding; K58.9 Irritable bowel syndrome, unspecified; M81.0 Age-related osteoporosis without current pathological fracture; T45.1X5A Adverse effect of antineoplastic and immunosuppressive drugs, initial encounter; E66.9 Obesity, unspecified; K44.9 Diaphragmatic hernia without obstruction or gangrene; M19.90 Unspecified osteoarthritis, unspecified site; J44.9 Chronic obstructive pulmonary disease, unspecified; I10 Essential (primary) hypertension; N28.9 Disorder of kidney and ureter, unspecified; R25.1 Tremor, unspecified; F41.9 Anxiety disorder, unspecified; T40.2X5A Adverse effect of other opioids, initial encounter; Z79.51 Long term (current) use of inhaled steroids; Z79.890 Hormone replacement therapy; Z79.891 Long term (current) use of opiate analgesic; Z79.899 Other long term (current) drug therapy; Z90.49 Acquired absence of other specified parts of digestive tract; Z87.891 Personal history of nicotine dependence; Z82.49 Family history of ischemic heart disease and other diseases of the circulatory system; Z80.8 Family history of malignant neoplasm of other organs or systems; Z80.0 Family history of malignant neoplasm of digestive organs; Y92.239 Unspecified place in hospital as the place of occurrence of the external cause
CPT/HCPCS: 31623; 31624; 31625; 31633; 36415; 70553; 71046; 72156; 72157; 72158; 74018; 77001; 78582; 80048; 80053; 80202; 81001; 82150; 82565; 83690; 85025; 85610; 85730; 87070; 87077; 87186; 87205; 88104; 88108; 88173; 88305; 88341; 88342; 93005; 94640; 94760; 96361; 96374; 96375; 99285

== ENCOUNTER → 2018-04-17 | Outpatient (CLI) | payer OTHER ==
--- NOTE | 2018-04-20 18:58 | PE ---
EXAMINATION TYPE: PET CT fusion skull to thigh DATE OF EXAM: 04/17/2018 CLINICAL HISTORY: 63 year-old female restaging of small cell lung cancer, extensive stage with bone m etastases, diagnosed in May 2017. Last chemotherapy January 2018. TECHNIQUE: Following the intravenous administration of 15.0 mCi of F-18 FDG, whole body images are performed from the skull base to the midthigh. Images are reviewed on the computer in the coronal, a xial, and sagittal planes. Reconstructed rotating images are created on independent workstation and reviewed on the computer. A localization and attenuation correction CT is performed in conjunction with the PET scan. Glucose level: 110 mg/dL CTDI: 4.49 mGy DLP: 399.82 mGy-cm Injection site: Right AC COMPARISON: 06/20/2017. FINDINGS: PET: Bones: - There is elongated intense hypermetabolism along the right longus colli/paraspinal musculature susp ected physiologic muscular activity. - Physiologic vocal fold activity is also noted. - Near the level of the thoracic inlet, anterior paraspinal muscular uptake becomes more symmetrical, again, likely physiologic. - Focal intense elongated uptake involving the right posterior paraspinal musculature at the T5-T7 le vels could represent muscular uptake. - Enlarging abnormal hypermetabolism and paraspinal soft tissue at the T3 level, max SUV 6.4 versus 6 .2, previously. - New focal sclerosis bilateral T5 posterior elements with new hypermetabolism on the right, max SUV 6.5. - New sclerotic foci T9 vertebral body with new focal increased uptake, max SUV 4.4. - Additional uptake within T12, max SUV 5.3. - New uptake posterior elements of L5, max SUV 3.9. - Increased uptake medial left iliac bone, max SUV 7.1. - Sclerosis associated with increasing size and degree of uptake within the right iliac bone at the s uperior acetabulum, max SUV 6.9. - Increasing uptake and sclerosis involving the left posterior first rib max SUV 4.6. - Left lateral seventh rib uptake now has associated sclerosis but uptake involves a larger area, max SUV 3.3. - Despite decreased hypermetabolism, there is increasing sclerosis now with larger area of increased uptake along the inferior scapula, max SUV 3.8 versus 5.7, previously. - Increased uptake at the bilateral wrist/carpus may be on a degenerative basis, max SUV 10.4, and sh ould be correlated clinically. Chest: Right infrahilar nodularity appears larger measuring approximately 3.3 x 2.2 cm versus 1.6 x 1.2 cm, previously. Max SUV 7.8 versus versus 4.5, previously Focal uptake at the right base without clear CT correlate, max SUV 3.4. Abdomen: Approximately 12 hypermetabolic lesions throughout the liver not well appreciated on noncontrast CT. The one at the right hepatic dome appears slightly larger but is suspected to have been present on pr ior exam. Variable mild to moderate bowel uptake in the right-sided colon. Pelvis: Physiologic FDG uptake outside of the osseous structures. ATTENUATION CORRECTION CT: Visualized paranasal sinuses and mastoid air cells appear clear. Small C7 cervical ribs. No cervical lymphadenopathy. Heart normal size without pericardial effusion. Right anterior chest wall injection port with cathete r tip at the lower SVC. Conventional arch was a branching anatomy. No thoracic lymphadenopathy seen. Right infrahilar mass as outlined above. Moderate centrilobular emphysema. Strandy scarring at the ri ght base. Stable 5 mm right middle lobe pulmonary nodule shows no discrete FDG uptake. No plaque or e ffusion. Cholecystectomy clips. Adrenal glands are clear. Foci of hypermetabolism in the liver show no discret e CT abnormality at this time. No dilated small bowel, free fluid, or free air. Moderate stool burden . No mesenteric or retroperitoneal lymphadenopathy. Left-sided pelvic phleboliths. Uterus and ovaries are visualized. Bladder nondistended. Bones: New sclerotic lesions throughout the iliac bones, scattered throughout the spine, bilateral ri bs, inferior right scapula, distal left clavicle. The sclerotic foci show no discrete FDG uptake on c oncurrent PET suggesting sites of treated disease. IMPRESSION: 1. Overall disease progression as compared to 06/20/2017. Persistent and enlarging right infrahilar ne oplasm, new and enlarging hypermetabolic foci throughout the thoracic and lumbar spine, involving a c ouple left-sided ribs, inferior right scapula, and bilateral iliac bones. Numerous new and enlarging liver metastases. Focal hypermetabolism at the right base shows no discrete CT correlate and could r epresent occult pulmonary metastasis or early developing infectious/inflammatory process. 2. The hypermetabolic osseous metastases demonstrate a sclerotic appearance now. Additional sclerotic foci are ametabolic and likely correspond to sites of previously treated osseous disease. 3. Intense uptake within the left greater than right wrists/carpus may be on a degenerative basis. Cl inically correlate.
== END ==
LOC: RADPETMAIN 10:57
PROVIDERS: ATTEND Internal Medicine Hematology & Oncology
DX: C34.82 Malignant neoplasm of overlapping sites of left bronchus and lung (principal); C78.7 Secondary malignant neoplasm of liver and intrahepatic bile duct; C79.51 Secondary malignant neoplasm of bone; R93.89 Abnormal findings on diagnostic imaging of other specified body structures
CPT/HCPCS: 78815; A9552

== ENCOUNTER 2018-05-02 22:28 | Inpatient (IN) | payer OTHER ==
--- NOTE | 2018-05-02 22:39 | ED ---
General Adult HPI - General Chief complaint: Recheck/Abnormal Lab/Rx Stated complaint: cancer pt, pain Time Seen by Provider: 05/02/18 22:36 Source: EMS Mode of arrival: EMS Limitations: no limitations - History of Present Illness Initial comments: Allison is a 63-year-old female with known metastatic lung cancer with known metastases to the spine, ribs, scapula and iliac crests. The patient presents to the emergency department today for evaluation of intractable pain. Patient reports that last week she contacted her oncologist and her fentanyl patch was increased from 75-100 g. She's been compliant with her fentanyl patch she's been taking her by mouth Percocet daily however her pain has been uncontrolled. She contacted her oncologist who advised her to come to the emergency department for admission of the hospital for IV pain medication. Patient reports that this evening she was unable to sleep and decided to come to the ER for evaluation. Patient reports her pain is primarily in her upper back as well as her scapula. Pain is unchanged from what she has been experiencing for the past couple of months. She has no focal neurologic deficits she has no change in bowel or bladder habits. She has no urinary incontinence or retention. She does report chronic constipation which is attributed to high-dose narcotic use. She did have a bowel movement this morning she has not had any bowel incontinence. - Related Data Home Medications Medication Instructions Recorded Confirmed Albuterol Sulfate [Proair Hfa] 2 puff INHALATION RT-Q6H PRN 08/31/15 05/02/18 Ipratropium/Albuterol Sulfate 2 puff INHALATION RT-BID 08/31/15 05/02/18 [Combivent Respimat Inhaler] Levothyroxine Sodium [Synthroid] 25 mcg PO QAM 01/29/16 05/02/18 Pantoprazole Sodium [Protonix] 40 mg PO QAM 01/29/16 05/02/18 Tiotropium 18 Mcg/Puff [Spiriva] 1 cap INHALATION RT-DAILY 01/29/16 05/02/18 Simvastatin [Zocor] 20 mg PO HS 05/14/16 05/02/18 LORazepam [Ativan] 0.5 mg PO QID PRN 07/29/17 05/02/18 ALPRAZolam [Xanax] 0.5 mg PO Q6HR PRN 05/02/18 05/02/18 Albuterol Nebulized [Ventolin 2.5 mg INHALATION RT-Q6H PRN 05/02/18 05/02/18 Nebulized] Citalopram Hydrobromide [CeleXA] 10 mg PO DAILY 05/02/18 05/02/18 Fluticasone/Salmeterol [Advair 1 puff INHALATION RT-BID 05/02/18 05/02/18 500-50 Diskus] Prochlorperazine [Compazine] 10 mg PO TID PRN 05/02/18 05/02/18 QUEtiapine [SEROquel] 50 mg PO HS 05/02/18 05/02/18 Previous Rx's Medication Instructions Recorded fentaNYL 100MCG/HR PATCH 1 patch TRANSDERM Q72H patch 07/29/17 [Duragesic 100MCG/HR] oxyCODONE HCL/ACETAMINOPHEN 1 tab PO Q4HR PRN 3 Days #18 tab 07/29/17 [Percocet 10-325 mg] Allergies Allergy/AdvReac Type Severity Reaction Status Date / Time bee venom protein (honey bee) Allergy Anaphylaxis Verified 05/02/18 22:55 lidocaine [From Lidoderm] Allergy Rash/Hives Verified 05/02/18 22:55 Review of Systems ROS Statement: Those systems with pertinent positive or pertinent negative responses have been documented in the HPI. ROS Other: All systems not noted in ROS Statement are negative. Past Medical History Past Medical History: Cancer, COPD, GERD/Reflux, Hyperlipidemia, Hypertension, Osteoarthritis (OA), Sleep Apnea/CPAP/BIPAP Additional Past Medical History / Comment(s): COPD, obesity, osteoporosis, obstructive sleep apnea, hiatal hernia, degenerative arthritis , diverticulosis , history of alcoholism, previous history of gallstone with a previous cholecystectomy, lung cancer with METS to bones. History of Any Multi-Drug Resistant Organisms: None Reported Past Surgical History: Cholecystectomy Additional Past Surgical History / Comment(s): EGD,colonoscopy Past Anesthesia/Blood Transfusion Reactions: Previous Problems w/ Anesthesia, Family History of Problems w/ Anesthesia Additional Past Anesthesia/Blood Transfusion Reaction / Comment(s): EGD/ Colonoscopy,never has had general anesthesia, the patient also has had a previous cholecystectomy Past Psychological History: Anxiety, PTSD Smoking Status: Former smoker Past Alcohol Use History: None Reported Past Drug Use History: None Reported - Past Family History Mother Family Medical History: Cancer, Coronary Artery Disease (CAD) Additional Family Medical History / Comment(s): skin Father Family Medical History: No Reported History Additional Family Medical History / Comment(s): Father in a motor vehicle accident. Patient had one brother who had metastatic colon cancer and history of coronary artery disease. His sister had skin cancer. Patient lives alone and is functionally active does. 3 L of oxygen at rest and exertion Brother(s) Family Medical History: Cancer, Coronary Artery Disease (CAD), Myocardial Infarction ([place]) Sister(s) Family Medical History: Cancer Additional Family Medical History / Comment(s): cancer skin mom skin ca General Exam - General Exam Comments Initial Comments: Physical Exam GENERAL: Chronically ill-appearing, appears much older than stated age HENT: Normocephalic, Atraumatic. EYES: PERRL, EOMI PULMONARY: Unlabored CARDIOVASCULAR: Tachycardic Warm and well perfused extremities ABDOMEN: Obese SKIN: Pale : Deferred NEUROLOGIC: Patient is alert and oriented x3. Moving all extremities spontaneously MUSCULOSKELETAL: Normal extremities with adequate strength and full range of motion. No lower extremity swelling or edema. No calf tenderness. PSYCHIATRIC: Situational anxiety Limitations: no limitations Limitations: no limitations Course Vital Signs 05/02/18 05/02/18 05/03/18 22:30 23:28 00:03 Temperature 98.0 F Pulse Rate 125 H 110 H 108 H Respiratory 22 20 18 Rate Blood Pressure 116/102 104/75 109/77 O2 Sat by Pulse 95 97 96 Oximetry EKG Findings - EKG Comments: EKG Findings:: EKG obtained at 10:48 PM, rate is 1:15 there is a P-wave before each QRS rhythm is sinus tachycardia, there is a normal axis there are normal intervals, GA 160, QRS 76, QTC 464. There are no acute ST elevations or depressions there is no evidence of acute ischemia or infarction Medical Decision Making - Medical Decision Making The patient was seen and evaluated history was obtained from the patient and review of medical record EKG was obtained due to patient's tachycardia Patient with worsening chronic pain associated with metastatic cancer patient currently being treated with 100 g transdermal fentanyl patch and 20 mg by mouth Percocet daily. Patient reports she's been compliant with this regimen but has been experiencing progressively worsening pain she has contacted her oncologist who advised her to come to the emergency department for further evaluation Patient expresses severe anxiety and she has gotten IV morphine in the past and experienced hallucinations. Patient states that she does not want to have any hallucinations I intended to treat the patient with some dissociative doses of ketamine for her intractable pain that is not responding to narcotics however due to patient' s high anxiety do not feel she is a great candidate for this I will treat her with Dilaudid - Lab Data Result diagrams: 05/02/18 23:00 05/02/18 23:00 Lab Results 05/02/18 05/02/18 Range/Units 23:00 23:00 WBC 4.6 (3.8-10.6) k/uL RBC 4.02 (3.80-5.40) m/uL Hgb 11.7 (11.4-16.0) gm/dL Hct 35.0 (34.0-46.0) % MCV 86.9 (80.0-100.0) fL MCH 29.1 (25.0-35.0) pg MCHC 33.5 (31.0-37.0) g/dL RDW 15.5 (11.5-15.5) % Plt Count 168 (150-450) k/uL Neutrophils % 65 % Lymphocytes % 23 % Monocytes % 6 % Eosinophils % 3 % Basophils % 0 % Neutrophils # 3.0 (1.3-7.7) k/uL Lymphocytes # 1.1 (1.0-4.8) k/uL Monocytes # 0.3 (0-1.0) k/uL Eosinophils # 0.1 (0-0.7) k/uL Basophils # 0.0 (0-0.2) k/uL Sodium 140 (137-145) mmol/L Potassium 4.2 (3.5-5.1) mmol/L Chloride 107 (98-107) mmol/L Carbon Dioxide 26 (22-30) mmol/L Anion Gap 7 mmol/L BUN 14 (7-17) mg/dL Creatinine 0.65 (0.52-1.04) mg/dL Est GFR (CKD-EPI)AfAm >90 (>60 ml/min/1.73 sqM) Est GFR (CKD-EPI)NonAf >90 (>60 ml/min/1.73 sqM) Glucose 104 H (74-99) mg/dL Calcium 9.0 (8.4-10.2) mg/dL Total Bilirubin 0.4 (0.2-1.3) mg/dL AST 22 (14-36) U/L ALT 28 (9-52) U/L Alkaline Phosphatase 55 (38-126) U/L Total Protein 6.5 (6.3-8.2) g/dL Albumin 4.0 (3.5-5.0) g/dL Disposition Clinical Impression: Cancer associated pain, Metastatic lung cancer (metastasis from lung to other site), Intractable pain Disposition: ADMITTED IP TO THIS [facility] Condition: Serious Is patient prescribed a controlled substance at d/c from ED?: No
[2018-05-02] MEDS ORDERED: HYDROmorphone 1 MG/ML 1 ML SYRINGE IVP STA (22:50)
[2018-05-02] MEDS ORDERED: NALOXONE 0.4 MG/ML 1 ML VIAL IV PRN (23:10)
[2018-05-02] MEDS ORDERED: HYDROmorphone 0.5 MG/0.5 ML SYRINGE IVP PRN (23:10)
[2018-05-02 23:15] LABS: Basophils % (A) 0 %; Eosinophils # (A) 0.1 k/uL (0-0.7); Eosinophils % (A) 3 %; HGB 11.7 gm/dL (11.4-16.0); Lymphocytes # (A) 1.1 k/uL (1.0-4.8); Lymphocytes % (A) 23 %; MCH 29.1 pg (25.0-35.0); MCHC 33.5 g/dL (31.0-37.0); MCV 86.9 fL (80.0-100.0); Mean Platelet Volume 6.6; Monocytes # (A) 0.3 k/uL (0-1.0); Monocytes % (A) 6 %; Neutrophils % (A) 65 %; Platelet Count 168 k/uL (150-450); RBC 4.02 m/uL (3.80-5.40); RDW 15.5 % (11.5-15.5); WBC 4.6 k/uL (3.8-10.6)
[2018-05-02 23:24] LABS: ALT 28 U/L (9-52); AST 22 U/L (14-36); Alkaline Phosphatase 55 U/L (38-126); Anion Gap 7 mmol/L; Blood Urea Nitrogen 14 mg/dL (7-17); Carbon Dioxide 26 mmol/L (22-30); Chloride 107 mmol/L (98-107); Glucose 104 mg/dL (74-99); Potassium 4.2 mmol/L (3.5-5.1); Sodium 140 mmol/L (137-145); Total Bilirubin 0.4 mg/dL (0.2-1.3); Total Protein 6.5 g/dL (6.3-8.2)
[2018-05-03] MEDS ORDERED: HYDROmorphone 0.5 MG/0.5 ML SYRINGE IVP STA (00:13)
[2018-05-03 00:40] VITALS: BMI 33.9
[2018-05-03] MEDS ORDERED: HYDROmorphone 1 MG/ML 1 ML SYRINGE IM PRN (01:17)
[2018-05-03] MEDS ORDERED: ALPRAZolam 0.25 MG TAB PO STA (01:19)
[2018-05-03] MEDS ORDERED: ALBUTEROL NEBULIZED 2.5 MG/3 ML INHALATION PRN (01:20)
[2018-05-03] MEDS: ALPRAZolam 0.5 MG TAB PO PRN ×4 (01:38→22:30)
[2018-05-03] MEDS: oxyCODONE-APAP 10-325MG 1 EACH TAB PO PRN ×6 (01:38→22:30)
[2018-05-03] MEDS: HYDROmorphone 1 MG/ML 1 ML SYRINGE IVP PRN ×6 (04:59→20:02)
[2018-05-03] MEDS: LEVOTHYROXINE 50 MCG TAB PO SCH (05:43)
[2018-05-03] MEDS: CITALOPRAM HYDROBROMIDE 10 MG TAB PO SCH (07:55)
[2018-05-03] MEDS: IPRATROPIUM-ALBUTEROL 3 ML NEB INHALATION SCH ×2 (08:13→19:42)
[2018-05-03] MEDS ORDERED: ZOLEDRONIC ACID 4 MG in SODIUM CHLORIDE 0.9% 100 ML IV ONE (11:00)
--- NOTE | 2018-05-03 11:13 | P.HPIM ---
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 Jess Harkins with a previous medical history significant for hypertension and hypertensive cardiovascular disease, hyperlipidemia, GERD, COPD, sleep apnea, history of metastatic stage IV small cell lung cancer that was diagnosed back in June 2017 has been under the care of Dr. Lawrence and Dr. Pace underwent chemotherapy in the form of etoposide as well as carboplatin, patient has had a recent PET scan was supposed to follow-up with her oncologist next week however she ended up coming to the ER because of intractable mid spine pain and shoulder pain and left arm numbness patient was recently increased on her fentanyl 200 g every 72 hours, along with the Percocet for pain control however the pain was not well -controlled she was seen in the ER and he was felt the patient need to be admitted for evaluation and pain management, her PET scan showed a progression of her illness from the last one was done in 2018. Patient was quite tearful she was in a lot of pain she could not sit still due to her significant pain in her back, she is asking to increase her pain management Dilaudid every 2 hours for now. Review of Systems Constitutional: Reports chronic pain, Reports fatigue, Reports weakness, Denies sweats, Denies weight loss Eyes: denies blurred vision Ears: deny: decreased hearing Ears, nose, mouth and throat: Denies dysphagia, Denies neck lump, Denies swelling in throat, Denies sore throat Cardiovascular: Reports decreased exercise tolerance, Reports dyspnea on exertion, Reports shortness of breath, Denies chest pain, Denies lightheadedness , Denies rapid heart beat, Denies syncope Respiratory: Reports sleep apnea, Reports snoring, Denies congestion, Denies cough, Denies cough with sputum, Denies hemoptysis, Denies home oxygen, Denies wheezing Gastrointestinal: Denies abdominal pain, Denies belching, Denies BRBPR, Denies excessive gas, Denies heartburn, Denies hematemesis, Denies melena, Denies nausea, Denies vomiting Genitourinary: Denies dysuria, Denies hematuria Menstruation: Reports postmenopausal Musculoskeletal: Reports gait dysfunction, Reports low back pain, Reports muscle weakness, Denies myalgias Musculoskeletal: absent: ankle pain, ankle stiffness, ankle swelling, elbow pain , elbow stiffness, elbow swelling, foot pain, foot stiffness, foot swelling, hand pain, hand stiffness, hand swelling, hip pain, hip stiffness, hip swelling , knee pain, knee stiffness, knee swelling, shoulder pain, shoulder stiffness, shoulder swelling, wrist pain, wrist stiffness, wrist swelling Integumentary: Denies pruritus, Denies rash Neurological: Reports numbness, Denies weakness Psychiatric: Reports anxiety, Reports depression, Reports sadness/tearfulness, Denies sleep disturbances, Denies suicidal ideation Endocrine: Denies fatigue, Denies weight change Past Medical History Past Medical History: Cancer, COPD, GERD/Reflux, Hyperlipidemia, Hypertension, Osteoarthritis (OA) Additional Past Medical History / Comment(s): COPD, obesity, osteoporosis, hiatal hernia, degenerative arthritis , diverticulosis, history of alcoholism, previous history of gallstone with a previous cholecystectomy, lung cancer with METS to bones. History of Any Multi-Drug Resistant Organisms: None Reported Past Surgical History: Cholecystectomy Additional Past Surgical History / Comment(s): EGD,colonoscopy Past Anesthesia/Blood Transfusion Reactions: Previous Problems w/ Anesthesia, Family History of Problems w/ Anesthesia Additional Past Anesthesia/Blood Transfusion Reaction / Comment(s): EGD/ Colonoscopy,never has had general anesthesia, the patient also has had a previous cholecystectomy Past Psychological History: Anxiety, PTSD Smoking Status: Former smoker Past Alcohol Use History: None Reported Additional Past Alcohol Use History / Comment(s): quit smoking 2015,smoked approx 40 yrs 1ppd Past Drug Use History: None Reported - Past Family History Mother Family Medical History: Cancer, Coronary Artery Disease (CAD) (Mother at age of 82 from CAD and also had history of skin cancer.) Additional Family Medical History / Comment(s): skin Father Family Medical History: No Reported History Additional Family Medical History / Comment(s): Father at the age of 40 in a motor vehicle accident. Patient had one brother who had metastatic colon cancer and history of coronary artery disease. His sister had skin cancer. Patient lives alone and is functionally active does. 3 L of oxygen at rest and exertion Brother(s) Family Medical History: Cancer, Coronary Artery Disease (CAD) (Patient had one brother who from metastatic prostate cancer also had a history of coronary artery disease.), Myocardial Infarction ([place]) Sister(s) Family Medical History: Cancer (Patient has one sister with history of skin cancer.) Additional Family Medical History / Comment(s): cancer skin mom skin ca Daughter(s) Family Medical History: No Reported History (Patient has one daughter no major medical problems.) Medications and Allergies Home Medications Medication Instructions Recorded Confirmed Type Albuterol Sulfate [Proair Hfa] 2 puff INHALATION RT-Q6H PRN 08/31/15 05/02/18 History Ipratropium/Albuterol Sulfate 2 puff INHALATION RT-BID 08/31/15 05/02/18 History [Combivent Respimat Inhaler] Levothyroxine Sodium [Synthroid] 25 mcg PO QAM 01/29/16 05/02/18 History Pantoprazole Sodium [Protonix] 40 mg PO QAM 01/29/16 05/02/18 History Tiotropium 18 Mcg/Puff [Spiriva] 1 cap INHALATION RT-DAILY 01/29/16 05/02/18 History Simvastatin [Zocor] 20 mg PO HS 05/14/16 05/02/18 History fentaNYL 100MCG/HR PATCH 1 patch TRANSDERM Q72H patch 07/29/17 05/02/18 Rx [Duragesic 100MCG/HR] oxyCODONE HCL/ACETAMINOPHEN 1 tab PO Q4HR PRN 3 Days #18 tab 07/29/17 05/02/18 Rx [Percocet 10-325 mg] ALPRAZolam [Xanax] 0.5 mg PO Q6HR PRN 05/02/18 05/02/18 History Albuterol Nebulized [Ventolin 2.5 mg INHALATION RT-Q6H PRN 05/02/18 05/02/18 History Nebulized] Citalopram Hydrobromide [CeleXA] 10 mg PO DAILY 05/02/18 05/02/18 History Fluticasone/Salmeterol [Advair 1 puff INHALATION RT-BID 05/02/18 05/02/18 History 500-50 Diskus] Prochlorperazine [Compazine] 10 mg PO TID PRN 05/02/18 05/02/18 History QUEtiapine [SEROquel] 50 mg PO HS 05/02/18 05/02/18 History Allergies Allergy/AdvReac Type Severity Reaction Status Date / Time bee venom protein (honey bee) Allergy Anaphylaxis Verified 05/02/18 22:55 lidocaine [From Lidoderm] Allergy Rash/Hives Verified 05/02/18 22:55 Physical Exam Vitals: Vital Signs Temp Pulse Pulse Pulse Resp BP BP 05/03/18 08:18 05/03/18 08:16 86 05/03/18 05:00 98.3 F 76 16 99/62 05/03/18 00:15 90 18 05/03/18 00:03 108 H 18 109/77 05/02/18 23:56 98.3 F 92 20 155/48 05/02/18 23:28 110 H 20 104/75 05/02/18 22:30 98.0 F 125 H 22 116/102 Pulse Ox 05/03/18 08:18 96 05/03/18 08:16 05/03/18 05:00 98 05/03/18 00:15 05/03/18 00:03 96 05/02/18 23:56 97 05/02/18 23:28 97 05/02/18 22:30 95 Intake and Output 05/02/18 05/03/18 05/03/18 22:59 06:59 14:59 Intake Total 300 Balance 300 Intake: Oral 300 Other: Voiding Method Toilet Toilet # Voids 1 Weight 84.051 kg - Constitutional General appearance: average body habitus, mild distress - EENT Eyes: anicteric sclerae, EOMI, PERRLA, no ptosis, no scleral icterus, normal appearance ENT: hearing grossly normal, NA/AT, normal oropharynx, no thrush (Poor dentition ) Ears: bilateral: normal - Neck Neck: no lymphadenopathy, normal ROM, no rigidity, no stridor, no thyromegaly Carotids: bilateral: upstroke normal Thyroid: bilateral: normal size - Respiratory Respiratory: bilateral: diminished, prolonged expiration, negative: dullness, rales, rhonchi, wheezing - Cardiovascular Rhythm: regular Heart sounds: normal: S1, S2 Abnormal Heart Sounds: no systolic murmur, no rub, no S3 Gallop, no S4 Gallop, no click - Gastrointestinal General gastrointestinal: normal bowel sounds, no rigid, no scaphoid, soft, no splenomegaly, no tenderness, no umbilical hernia, no ventral hernia - Integumentary Integumentary: normal, normal turgor - Neurologic Neurologic: CNII-XII intact - Musculoskeletal Musculoskeletal: gait normal, strength equal bilaterally - Psychiatric Psychiatric: A&O x's 3, appropriate affect, intact judgment & insight Results CBC & Chem 7: 05/02/18 23:00 05/02/18 23:00 Labs: Abnormal Lab Results - Last 24 Hours (Table) 05/02/18 Range/Units 23:00 Glucose 104 H (74-99) mg/dL Thrombosis Risk Factor Assmnt - DVT/VTE Prophylaxis DVT/VTE Prophylaxis: Pharmacologic Prophylaxis ordered, Mechanical Prophylaxis ordered - Choose All That Apply Any of the Below Risk Factors Present?: Yes Each Factor Represents 1 point: Abnormal pulmonary function (COPD), Medical pt on bed rest Other Risk Factors: Yes Each Risk Factor Represents 2 Points: Age 61-74 years, Malignancy Thrombosis Risk Factor Assessment Total Risk Factor Score: 6 Thrombosis Risk Factor Assessment Level: High Risk Assessment and Plan Assessment: Assessment and plan: 1. Intractable pain secondary to metastatic stage IV small cell lung cancer with metastases to the spine scapula ribs pelvis and liver. Continue patient on fentanyl patch 100 g every 72 hours, continue with Dilaudid 1 mg IV push every 2 hours, continue Percocet for breakthrough pain, and collagen consultation, consider palliative care, consider palliative radiation. 2. History of hypertension. Currently not taking any medication her pressure is stable. 3. COPD. Continue patient on Combivent, Spiriva, albuterol, Advair. 4. Hypothyroidism. Continue Synthroid 25 g orally once every day. 5. Hyperlipidemia. Continue patient on simvastatin 20 mg at bedtime. 6. Depressive disorder. Continue citalopram 10 mg orally once every day. 7. Anxiety. Continue Xanax 0.5 mg every 6 hours as needed. 8. Insomnia. Continue Seroquel 50 mg at bedtime. 9. Nausea. Continue current anti-emetics. 10. DVT prophylaxis. Continue patient on Lovenox 40 mg subcutaneously every 24 hours. 11. GI prophylaxis. Continue patient on PPI. 12. Admit to inpatient. 13. Full code as of now, consider palliative care.
[2018-05-03] MEDS ORDERED: PROCHLORPERAZINE 10 MG TAB PO PRN (11:23)
[2018-05-03] MEDS ORDERED: ALBUTEROL INHALER 60 PUFF/8 GM INHALER INHALATION PRN (11:23)
[2018-05-03] MEDS: SENNOSIDES-DOCUSATE SODIUM 1 EACH TAB PO SCH ×2 (11:42→21:46)
[2018-05-03] MEDS: ENOXAPARIN 40 MG/0.4 ML SYRINGE SQ SCH (11:42)
[2018-05-03] MEDS: DEXAMETHASONE 4 MG TAB PO SCH ×3 (11:42→21:46)
--- NOTE | 2018-05-03 17:07 | P.CONS ---
History of Present Illness - Reason for Consult Consult date: 05/03/18 back pain Requesting physician: Adama Perera - Chief Complaint mid-upper back pain - History of Present Illness The patient is a 63 year old female with a history of extensive stage small- cell lung cancer. She was diagnosed in 06/2017 and underwent 5 cycles of Carbo/ VP16 finishing her last cycle with Dr. Blanco on 12/16/17. She now presents with disease progression and severe thoracic spine pain. The patient's PET-CT from 04/17 showed significant disease progression with uptake in T3, T5, T9 and T12. There were also new lesions in the left iliac bone and the left first rib. She has multiple liver lesions now as well. This is all a marked progression compared to her PET-CT at [facility] 01/13/18 which showed good response to chemotherapy. She has had worsening back pain over the past couple months. She has been on increasing doses of fentanyl and Percocet, however this past week the pain became intolerable. She reports the pain is in the mid-back between the shoulder blades up through the low neck. There are no reliving factors; it is exacerbated by movement. She has some new numbness in the left arm/axilla. She otherwise denies numbness/tingling loss of bladder/ bowel control or weakness of the extremities. She has required frequent dilaudid since her admission. Review of Systems Constitutional: Denies chills, Denies fever Eyes: bilateral blurred vision Ears: deny: decreased hearing Ears, nose, mouth and throat: Denies headache Cardiovascular: Denies chest pain Respiratory: Denies cough, Denies hemoptysis Gastrointestinal: Denies abdominal pain Musculoskeletal: Denies leg numbness/tingling Integumentary: Denies rash Neurological: Denies balance difficulties, Denies confusion, Denies headaches, Denies loss of vision, Denies motor disturbance, Denies syncope Psychiatric: Reports anxiety, Reports depression Past Medical History Past Medical History: Cancer, COPD, GERD/Reflux, Hyperlipidemia, Hypertension, Osteoarthritis (OA) Additional Past Medical History / Comment(s): COPD, obesity, osteoporosis, hiatal hernia, degenerative arthritis , diverticulosis, history of alcoholism, previous history of gallstone with a previous cholecystectomy, lung cancer with METS to bones. History of Any Multi-Drug Resistant Organisms: None Reported Past Surgical History: Cholecystectomy Additional Past Surgical History / Comment(s): EGD,colonoscopy Past Anesthesia/Blood Transfusion Reactions: Previous Problems w/ Anesthesia, Family History of Problems w/ Anesthesia Additional Past Anesthesia/Blood Transfusion Reaction / Comm: EGD/Colonoscopy, never has had general anesthesia, the patient also has had a previous cholecystectomy Past Psychological History: Anxiety, PTSD Smoking Status: Former smoker Past Alcohol Use History: None Reported Additional Past Alcohol Use History / Comment(s): quit smoking 2015,smoked approx 40 yrs 1ppd Past Drug Use History: None Reported - Past Family History Mother Family Medical History: Cancer, Coronary Artery Disease (CAD) (Mother at age of 82 from CAD and also had history of skin cancer.) Additional Family Medical History / Comment(s): skin Father Family Medical History: No Reported History Additional Family Medical History / Comment(s): Father at the age of 40 in a motor vehicle accident. Patient had one brother who had metastatic colon cancer and history of coronary artery disease. His sister had skin cancer. Patient lives alone and is functionally active does. 3 L of oxygen at rest and exertion Brother(s) Family Medical History: Cancer, Coronary Artery Disease (CAD) (Patient had one brother who from metastatic prostate cancer also had a history of coronary artery disease.), Myocardial Infarction ([place]) Sister(s) Family Medical History: Cancer (Patient has one sister with history of skin cancer.) Additional Family Medical History / Comment(s): cancer skin mom skin ca Daughter(s) Family Medical History: No Reported History (Patient has one daughter no major medical problems.) Medications and Allergies Home Medications Medication Instructions Recorded Confirmed Type Albuterol Sulfate [Proair Hfa] 2 puff INHALATION RT-Q6H PRN 08/31/15 05/02/18 History Ipratropium/Albuterol Sulfate 2 puff INHALATION RT-BID 08/31/15 05/02/18 History [Combivent Respimat Inhaler] Levothyroxine Sodium [Synthroid] 25 mcg PO QAM 01/29/16 05/02/18 History Pantoprazole Sodium [Protonix] 40 mg PO QAM 01/29/16 05/02/18 History Tiotropium 18 Mcg/Puff [Spiriva] 1 cap INHALATION RT-DAILY 01/29/16 05/02/18 History Simvastatin [Zocor] 20 mg PO HS 05/14/16 05/02/18 History fentaNYL 100MCG/HR PATCH 1 patch TRANSDERM Q72H patch 07/29/17 05/02/18 Rx [Duragesic 100MCG/HR] oxyCODONE HCL/ACETAMINOPHEN 1 tab PO Q4HR PRN 3 Days #18 tab 07/29/17 05/02/18 Rx [Percocet 10-325 mg] ALPRAZolam [Xanax] 0.5 mg PO Q6HR PRN 05/02/18 05/02/18 History Albuterol Nebulized [Ventolin 2.5 mg INHALATION RT-Q6H PRN 05/02/18 05/02/18 History Nebulized] Citalopram Hydrobromide [CeleXA] 10 mg PO DAILY 05/02/18 05/02/18 History Fluticasone/Salmeterol [Advair 1 puff INHALATION RT-BID 05/02/18 05/02/18 History 500-50 Diskus] Prochlorperazine [Compazine] 10 mg PO TID PRN 05/02/18 05/02/18 History QUEtiapine [SEROquel] 50 mg PO HS 05/02/18 05/02/18 History Allergies Allergy/AdvReac Type Severity Reaction Status Date / Time bee venom protein (honey bee) Allergy Anaphylaxis Verified 05/02/18 22:55 lidocaine [From Lidoderm] Allergy Rash/Hives Verified 05/02/18 22:55 Physical Exam Vitals: Vital Signs Temp Pulse Pulse Pulse Resp BP BP 05/03/18 15:44 87 18 05/03/18 12:46 98.6 F 87 18 127/84 05/03/18 08:18 05/03/18 08:16 86 05/03/18 05:00 98.3 F 76 16 99/62 05/03/18 00:15 90 18 05/03/18 00:03 108 H 18 109/77 05/02/18 23:56 98.3 F 92 20 155/48 05/02/18 23:28 110 H 20 104/75 05/02/18 22:30 98.0 F 125 H 22 116/102 Pulse Ox 05/03/18 15:44 05/03/18 12:46 97 05/03/18 08:18 96 05/03/18 08:16 05/03/18 05:00 98 05/03/18 00:15 05/03/18 00:03 96 05/02/18 23:56 97 05/02/18 23:28 97 05/02/18 22:30 95 Intake and Output 05/03/18 05/03/18 05/03/18 06:59 14:59 22:59 Intake Total 300 880 Balance 300 880 Intake: Intake, IV Titration 100 Amount Zoledronic Acid 4 mg In 100 Sodium Chloride 0.9% 100 ml @ 315 mls/hr IV ONCE ONE Rx#:[id number] Oral 300 780 Other: Voiding Method Toilet Toilet Toilet # Voids 1 3 3 - Constitutional General appearance: no acute distress - EENT Eyes: EOMI, PERRLA ENT: NA/AT - Neck Neck: no lymphadenopathy - Respiratory Respiratory: bilateral: CTA - Cardiovascular Rhythm: regular Heart sounds: normal: S1, S2 - Gastrointestinal General gastrointestinal: no distended, no tenderness - Integumentary Integumentary: no calor - Neurologic Neurologic: CNII-XII intact - Musculoskeletal Musculoskeletal: strength equal bilaterally - Psychiatric Psychiatric: A&O x's 3, appropriate affect Results CBC & Chem 7: 05/02/18 23:00 05/02/18 23:00 Labs: Abnormal Lab Results - Last 24 Hours (Table) 05/02/18 Range/Units 23:00 Glucose 104 H (74-99) mg/dL Assessment and Plan Plan: 63 year old female diagnosed with extensive stage small-cell lung cancer. She is status-post chemotherapy with Carbo/VP16 under the care of Dr. Blanco having finished in 11/2017. She now presents with disease progression including new liver lesions and multifocal osseous disease. 1. Thoracic spine pain: Reviewing the patient's recent PET-CT, there has been progression of her osseous disease in the T-spine. No overt evidence of myelopathy. I have recommended the patient undergo a palliative course of XRT to the T-spine. She will undergo simulation early tomorrow AM with treatment delivery the same day. We will target 4-5 treatments. I explained typical side effects such as fatigue, skin irritation and possible esophagitis. The patient is understanding of these and would like to proceed with therapy. She is very adamant about wanting to achieve some level of pain control prior to discharge. I explained that this may be difficult as it can sometimes take 1-2 weeks for the full effect of radiotherapy to be realized. 2. Progression of extensive stage small cell: Patient has been seen by Dr. Pace as an outpatient. She is due to follow-up later this month. She did discuss second line therapy with him at the time. We did discuss hospice, but she seems more interested in second line therapy at the current time. Would consider repeat MRI of the brain to rule-out intracranial progression. Time with Patient: Greater than 30
[2018-05-03] MEDS: SYMBICORT 160-4.5 MCG INHALER INHALATION SCH (19:42)
[2018-05-03] MEDS: QUEtiapine 50 MG TAB PO SCH (21:46)
--- NOTE | 2018-05-03 22:43 | P.CONS ---
History of Present Illness - Reason for Consult Consult date: 05/03/18 Malignancy related pain Requesting physician: Tammy Graves - Chief Complaint intractable pain - History of Present Illness Ms. Najera is a very pleasant female pt with a history of extensive stage small-cell lung cancer, diagnosed in 06/2017. She has had 5 cycles of Carbo/SYSTEM OPERATOR with her last cycle at [facility] in 12/16/17. She has seen Dr. Pace but I do not have all the details of her most recent treatment. She presents with severe thoracic spine pain, progressive over the last few weeks, she was advised to come to the hospital but refused until she could not longer manage it at home. She cannot get comfortable, it hurts to breathe. No fever, nausea or vomiting, but has no appetite, cough is occasional and non-productive, denies bowel or bladder complaints, bleeding or swelling, no numbness or tingling in the lower extremities, some tingling in the LUE. Review of Systems 14 point ROS Is negative except as stated in HPI Past Medical History Past Medical History: Cancer, COPD, GERD/Reflux, Hyperlipidemia, Hypertension, Osteoarthritis (OA) Additional Past Medical History / Comment(s): COPD, obesity, osteoporosis, hiatal hernia, degenerative arthritis , diverticulosis, history of alcoholism, previous history of gallstone with a previous cholecystectomy, lung cancer with METS to bones. History of Any Multi-Drug Resistant Organisms: None Reported Past Surgical History: Cholecystectomy Additional Past Surgical History / Comment(s): EGD,colonoscopy Past Anesthesia/Blood Transfusion Reactions: Previous Problems w/ Anesthesia, Family History of Problems w/ Anesthesia Additional Past Anesthesia/Blood Transfusion Reaction / Comm: EGD/Colonoscopy, never has had general anesthesia, the patient also has had a previous cholecystectomy Past Psychological History: Anxiety, PTSD Smoking Status: Former smoker Past Alcohol Use History: None Reported Additional Past Alcohol Use History / Comment(s): quit smoking 2015,smoked approx 40 yrs 1ppd Past Drug Use History: None Reported - Past Family History Mother Family Medical History: Cancer, Coronary Artery Disease (CAD) (Mother at age of 82 from CAD and also had history of skin cancer.) Additional Family Medical History / Comment(s): skin Father Family Medical History: No Reported History Additional Family Medical History / Comment(s): Father at the age of 40 in a motor vehicle accident. Patient had one brother who had metastatic colon cancer and history of coronary artery disease. His sister had skin cancer. Patient lives alone and is functionally active does. 3 L of oxygen at rest and exertion Brother(s) Family Medical History: Cancer, Coronary Artery Disease (CAD) (Patient had one brother who from metastatic prostate cancer also had a history of coronary artery disease.), Myocardial Infarction ([place]) Sister(s) Family Medical History: Cancer (Patient has one sister with history of skin cancer.) Additional Family Medical History / Comment(s): cancer skin mom skin ca Daughter(s) Family Medical History: No Reported History (Patient has one daughter no major medical problems.) Medications and Allergies Home Medications Medication Instructions Recorded Confirmed Type Albuterol Sulfate [Proair Hfa] 2 puff INHALATION RT-Q6H PRN 08/31/15 05/02/18 History Ipratropium/Albuterol Sulfate 2 puff INHALATION RT-BID 08/31/15 05/02/18 History [Combivent Respimat Inhaler] Levothyroxine Sodium [Synthroid] 25 mcg PO QAM 01/29/16 05/02/18 History Pantoprazole Sodium [Protonix] 40 mg PO QAM 01/29/16 05/02/18 History Tiotropium 18 Mcg/Puff [Spiriva] 1 cap INHALATION RT-DAILY 01/29/16 05/02/18 History Simvastatin [Zocor] 20 mg PO HS 05/14/16 05/02/18 History fentaNYL 100MCG/HR PATCH 1 patch TRANSDERM Q72H patch 07/29/17 05/02/18 Rx [Duragesic 100MCG/HR] oxyCODONE HCL/ACETAMINOPHEN 1 tab PO Q4HR PRN 3 Days #18 tab 07/29/17 05/02/18 Rx [Percocet 10-325 mg] ALPRAZolam [Xanax] 0.5 mg PO Q6HR PRN 05/02/18 05/02/18 History Albuterol Nebulized [Ventolin 2.5 mg INHALATION RT-Q6H PRN 05/02/18 05/02/18 History Nebulized] Citalopram Hydrobromide [CeleXA] 10 mg PO DAILY 05/02/18 05/02/18 History Fluticasone/Salmeterol [Advair 1 puff INHALATION RT-BID 05/02/18 05/02/18 History 500-50 Diskus] Prochlorperazine [Compazine] 10 mg PO TID PRN 05/02/18 05/02/18 History QUEtiapine [SEROquel] 50 mg PO HS 05/02/18 05/02/18 History Allergies Allergy/AdvReac Type Severity Reaction Status Date / Time bee venom protein (honey bee) Allergy Anaphylaxis Verified 05/02/18 22:55 lidocaine [From Lidoderm] Allergy Rash/Hives Verified 05/02/18 22:55 Physical Exam Vitals: Vital Signs Temp Pulse Pulse Pulse Resp BP BP 05/03/18 19:53 88 05/03/18 19:43 88 05/03/18 15:44 87 18 05/03/18 12:46 98.6 F 87 18 127/84 05/03/18 08:18 05/03/18 08:16 86 05/03/18 05:00 98.3 F 76 16 99/62 05/03/18 00:15 90 18 05/03/18 00:03 108 H 18 109/77 05/02/18 23:56 98.3 F 92 20 155/48 05/02/18 23:28 110 H 20 104/75 05/02/18 22:30 98.0 F 125 H 22 116/102 Pulse Ox 05/03/18 19:53 05/03/18 19:43 05/03/18 15:44 05/03/18 12:46 97 05/03/18 08:18 96 05/03/18 08:16 05/03/18 05:00 98 05/03/18 00:15 05/03/18 00:03 96 05/02/18 23:56 97 05/02/18 23:28 97 05/02/18 22:30 95 Intake and Output 05/03/18 05/03/18 05/03/18 06:59 14:59 22:59 Intake Total 300 880 Balance 300 880 Intake: Intake, IV Titration 100 Amount Zoledronic Acid 4 mg In 100 Sodium Chloride 0.9% 100 ml @ 315 mls/hr IV ONCE ONE Rx#:[id number] Oral 300 780 Other: Voiding Method Toilet Toilet Toilet # Voids 1 3 3 - Constitutional General appearance: cooperative, disheveled, obese, severe distress - EENT Eyes: anicteric sclerae, EOMI ENT: hearing grossly normal, normal oropharynx - Neck Neck: no lymphadenopathy - Respiratory Respiratory: bilateral: diminished - Cardiovascular Heart sounds: normal: S1, S2 Abnormal Heart Sounds: no systolic murmur, no diastolic murmur, no rub, no S3 Gallop, no S4 Gallop, no click, no other leg Peripheral Edema: bilateral: Trace - Gastrointestinal General gastrointestinal: no absent bowel sounds, no decreased bowel sounds, no distended, no hepatomegaly, no hyperactive bowel sounds, normal bowel sounds, no organomegaly, no rigid, no scaphoid, soft, no splenomegaly, no tenderness, no umbilical hernia, no ventral hernia - Integumentary Integumentary: pale - Neurologic Neurologic: CNII-XII intact - Musculoskeletal Palpation of the T-3 spine area elicited pain Musculoskeletal: strength equal bilaterally - Psychiatric Psychiatric: A&O x's 3, appropriate affect, intact judgment & insight Results CBC & Chem 7: 05/02/18 23:00 05/02/18 23:00 Labs: Abnormal Lab Results - Last 24 Hours (Table) 05/02/18 Range/Units 23:00 Glucose 104 H (74-99) mg/dL Assessment and Plan (1) Cancer associated pain Narrative/Plan: Pain meds adjusted, bisphosphonate given for bone mets, steroids for bone pain from malignancy. Rad/Onc consulted for opinion and treatment options Current Visit: Yes Status: Acute Priority: High Code(s): G89.3 - NEOPLASM RELATED PAIN (ACUTE) (CHRONIC) SNOMED Code(s): 75051263663305 (2) Metastatic lung cancer (metastasis from lung to other site) Narrative/Plan: Dr. Rehman reviewed the most recent PET scans and there appears to be significant disease progression in the spine, left iliac and left rib with multiple liver lesions now. Will review case with primary Oncologist Dr. Pace and may need to contact Dr. Blanco at [place] do determine what treatment options are left available to the pt. Current Visit: Yes Status: Acute Priority: High Code(s): C34.90 - MALIGNANT NEOPLASM OF UNSP PART OF UNSP BRONCHUS OR LUNG SNOMED Code(s): 76894841 Plan: Case was discussed with Radiation Oncology who has been consulted to see pt. We discussed most recent PET scan and Rad/Onc was able to see PET done in Nov at [facility]. Unfortunately there is rather significant progression of disease. Steroids have been started, pain meds adjusted. Dr rosaests: I have performed history and physical exam of patient, developed impression and plan of care, discussed with dictator. Agree with dictation, documented as a scribe.
[2018-05-04] MEDS: HYDROmorphone 1 MG/ML 1 ML SYRINGE IVP PRN ×7 (04:48→22:21)
[2018-05-04] MEDS: LEVOTHYROXINE 50 MCG TAB PO SCH (05:42)
[2018-05-04] MEDS: oxyCODONE-APAP 10-325MG 1 EACH TAB PO PRN ×5 (05:42→23:00)
[2018-05-04] MEDS: CITALOPRAM HYDROBROMIDE 10 MG TAB PO SCH (08:03)
[2018-05-04] MEDS: SENNOSIDES-DOCUSATE SODIUM 1 EACH TAB PO SCH ×2 (08:03→20:20)
[2018-05-04] MEDS: DEXAMETHASONE 4 MG TAB PO SCH ×3 (08:03→22:20)
[2018-05-04] MEDS: PANTOPRAZOLE 40 MG TABLET PO SCH (08:03)
[2018-05-04] MEDS: ENOXAPARIN 40 MG/0.4 ML SYRINGE SQ SCH (08:03)
[2018-05-04] MEDS: IPRATROPIUM-ALBUTEROL 3 ML NEB INHALATION SCH ×2 (08:40→20:42)
[2018-05-04] MEDS: SYMBICORT 160-4.5 MCG INHALER INHALATION SCH ×2 (08:40→20:42)
[2018-05-04] MEDS: IPRATROPIUM 0.5 MG/2.5 ML NEBU INHALATION SCH ×2 (11:52→16:37)
--- NOTE | 2018-05-04 14:11 | P.PN ---
Subjective Progress Note Date: 05/04/18 Principal diagnosis: metastatic small-cell lung cancer - intractable back pain The patient was pre-medicated before coming down for radiotherapy. Her pain is currently 5/10, but this has been worse depending on how recently she had her medication. The pain is mostly in the mid-upper back. Objective - Vital Signs Vital signs: Vital Signs Temp 97.6 F 05/04/18 05:00 Pulse 100 05/04/18 09:16 Resp 18 05/04/18 08:00 BP 117/74 05/04/18 05:00 Pulse Ox 94 L 05/04/18 08:42 Intake & Output 05/03/18 05/04/18 05/04/18 18:59 06:59 18:59 Intake Total 880 540 240 Balance 880 540 240 Intake: Intake, IV Titration 100 Amount Zoledronic Acid 4 mg In 100 Sodium Chloride 0.9% 100 ml @ 315 mls/hr IV ONCE ONE Rx#:[id number] Oral 780 540 240 Other: Voiding Method Toilet Toilet Toilet # Voids 3 2 2 - Constitutional General appearance: Absent: no acute distress - EENT Eyes: Present: EOMI, PERRLA ENT: Present: NA/AT - Neck Neck: Absent: lymphadenopathy - Respiratory Respiratory: bilateral: CTA - Cardiovascular Rhythm: regular - Gastrointestinal General gastrointestinal: Present: soft. Absent: tenderness - Neurologic Neurologic: Present: CNII-XII intact - Psychiatric Psychiatric: Present: A&O x's 3, appropriate affect - Labs CBC & Chem 7: 05/02/18 23:00 05/02/18 23:00 Assessment and Plan Plan: 63 year old female with limited stage small-cell lung cancer. She presents with progression after first line chemo with disease in the thoracic spine resulting in intractable pain. 1. T-spine: The patient underwent simulation and 1/5 treatments today for the thoracic spinal disease. Continue to optimize pain control. Patient can finish XRT as an outpatient if discharged. 2. Metastatic SCLC: Will need to discuss with medical oncology next line therapy - likely as outpatient. Time with Patient: Less than 30
[2018-05-04] MEDS: ALPRAZolam 0.5 MG TAB PO PRN ×2 (14:37→23:00)
--- NOTE | 2018-05-04 14:56 | P.PN ---
Subjective Progress Note Date: 05/04/18 This is a 63-year-old female one of Dr. Jess Harkins with a previous medical history significant for hypertension and hypertensive cardiovascular disease, hyperlipidemia, GERD, COPD, sleep apnea, history of metastatic stage IV small cell lung cancer that was diagnosed back in June 2017 has been under the care of Dr. Lawrence and Dr. Pace underwent chemotherapy in the form of etoposide as well as carboplatin, patient has had a recent PET scan was supposed to follow-up with her oncologist next week however she ended up coming to the ER because of intractable mid spine pain and shoulder pain and left arm numbness patient was recently increased on her fentanyl 200 g every 72 hours, along with the Percocet for pain control however the pain was not well -controlled she was seen in the ER and he was felt the patient need to be admitted for evaluation and pain management, her PET scan showed a progression of her illness from the last one was done in 2018. Patient was quite tearful she was in a lot of pain she could not sit still due to her significant pain in her back, she is asking to increase her pain management Dilaudid every 2 hours for now. 05/04: Patient has been seen by oncology and radiation oncology and started radiation therapy today. Dexamethasone 4 mg 3 times daily and Zometa were started yesterday. She has been afebrile, heart rate running between 70 and 106 , pulse ox 94% on 4 L nasal cannula, blood pressure 117/74. Patient is seen after radiation therapy. She states she has been gone from her room for 4 hours with a lot of waiting time and is in pain 9 out of 10. This morning she was at a pain level of 6 out of 10. Majority of her pain is in the spinal area. She states she has been able to eat and drink. Yesterday she did have substantial bowel movements and constipation is resolved. Patient is scheduled for repeat radiation treatment tomorrow at 12:30. Patient voices concern that family members at home may have influenza and they are going to the doctor today. We'll plan to follow up on this tomorrow and patient may require prophylactic Tamiflu. Review of Systems Constitutional: Reports chronic pain, Reports fatigue, Reports weakness, Denies sweats, Denies weight loss Eyes: denies blurred vision Ears: deny: decreased hearing Ears, nose, mouth and throat: Denies dysphagia, Denies neck lump, Denies swelling in throat, Denies sore throat Cardiovascular: Reports decreased exercise tolerance, Reports dyspnea on exertion, Reports shortness of breath, Denies chest pain, Denies lightheadedness , Denies rapid heart beat, Denies syncope Respiratory: Reports sleep apnea, Reports snoring, Denies congestion, Denies cough, Denies cough with sputum, Denies hemoptysis, Denies home oxygen, Denies wheezing Gastrointestinal: Denies abdominal pain, Denies belching, Denies BRBPR, Denies excessive gas, Denies heartburn, Denies hematemesis, Denies melena, Denies nausea, Denies vomiting Genitourinary: Denies dysuria, Denies hematuria Menstruation: Reports postmenopausal Musculoskeletal: Reports gait dysfunction, Reports low back pain, Reports muscle weakness, Denies myalgias Musculoskeletal: absent: ankle pain, ankle stiffness, ankle swelling, elbow pain , elbow stiffness, elbow swelling, foot pain, foot stiffness, foot swelling, hand pain, hand stiffness, hand swelling, hip pain, hip stiffness, hip swelling , knee pain, knee stiffness, knee swelling, shoulder pain, shoulder stiffness, shoulder swelling, wrist pain, wrist stiffness, wrist swelling Neurological: Reports numbness, Denies weakness Psychiatric: Reports anxiety, Reports depression, Reports sadness/tearfulness, Denies sleep disturbances, Denies suicidal ideation Endocrine: Denies fatigue, Denies weight change Objective - Vital Signs Vital signs: Vital Signs Temp 97.6 F 05/04/18 05:00 Pulse 100 05/04/18 09:16 Resp 18 05/04/18 05:00 BP 117/74 05/04/18 05:00 Pulse Ox 94 L 05/04/18 08:42 Intake & Output 05/03/18 05/04/18 05/04/18 18:59 06:59 18:59 Intake Total 880 540 Balance 880 540 Intake: Intake, IV Titration 100 Amount Zoledronic Acid 4 mg In 100 Sodium Chloride 0.9% 100 ml @ 315 mls/hr IV ONCE ONE Rx#:[id number] Oral 780 540 Other: Voiding Method Toilet Toilet # Voids 3 2 - Exam General appearance: average body habitus, mild distress due to pain - EENT Eyes: anicteric sclerae, EOMI, PERRLA, no ptosis, no scleral icterus, normal appearance ENT: hearing grossly normal, NA/AT, normal oropharynx, no thrush (Poor dentition ) Ears: bilateral: normal - Neck Neck: no lymphadenopathy, normal ROM, no rigidity, no stridor, no thyromegaly Carotids: bilateral: upstroke normal Thyroid: bilateral: normal size - Respiratory Respiratory: bilateral: diminished, prolonged expiration, negative: dullness, rales, rhonchi, wheezing - Cardiovascular Rhythm: regular Heart sounds: normal: S1, S2 Abnormal Heart Sounds: no systolic murmur, no rub, no S3 Gallop, no S4 Gallop, no click - Gastrointestinal General gastrointestinal: normal bowel sounds, no rigid, no scaphoid, soft, no splenomegaly, no tenderness, no umbilical hernia, no ventral hernia - Integumentary Integumentary: normal, normal turgor - Neurologic Neurologic: CNII-XII intact - Musculoskeletal Musculoskeletal: gait normal, strength equal bilaterally - Psychiatric Psychiatric: A&O x's 3, appropriate affect, intact judgment & insight - Labs CBC & Chem 7: 05/02/18 23:00 05/02/18 23:00 Assessment and Plan Plan: 1. Intractable pain secondary to metastatic stage IV small cell lung cancer with metastases to the spine scapula ribs pelvis and liver. Continue patient on fentanyl patch 100 g every 72 hours, continue with Dilaudid 1 mg IV push every 2 hours, continue Percocet for breakthrough pain, oncology and radiation oncology consultations appreciated, consider palliative care. Patient has been started on dexamethasone and radiation treatment. 2. History of hypertension. Currently not taking any medication her pressure is stable. 3. COPD. Continue patient on Combivent, Spiriva, albuterol, Advair. 4. Hypothyroidism. Continue Synthroid 25 g orally once every day. 5. Hyperlipidemia. Continue patient on simvastatin 20 mg at bedtime. 6. Recurrent depression. Continue citalopram 10 mg orally once every day. 7. Generalized anxiety disorder. Continue Xanax 0.5 mg every 6 hours as needed. 8. Insomnia. Continue Seroquel 50 mg at bedtime. 9. Nausea. Continue current anti-emetics. 10. DVT prophylaxis. Continue patient on Lovenox 40 mg subcutaneously every 24 hours. 11. GI prophylaxis. Continue patient on PPI. Full code as of now, consider palliative care. Discharge plan: To be determined Impression and plan of care have been directed as dictated by the signing physician. Fernanda Taylor nurse practitioner acting as scribe for signing physician.
[2018-05-04] MEDS: QUEtiapine 50 MG TAB PO SCH (20:20)
--- NOTE | 2018-05-04 21:10 | P.PN ---
Subjective Progress Note Date: 05/04/18 The patient appears definitely more comfortable today. She states that she still has some pain. She is quite anxious about having "good pain control was course of portion was home. No history of any fever/chills/nausea/vomiting. No history of any increased weakness or loss of sensation in her extremities. No loss of bowel or bladder control. Objective - Vital Signs Vital signs: Vital Signs Temp 97.6 F 05/04/18 05:00 Pulse 100 05/04/18 16:00 Resp 18 05/04/18 16:00 BP 117/74 05/04/18 05:00 Pulse Ox 94 L 05/04/18 08:42 Intake & Output 05/04/18 05/04/18 05/05/18 06:59 18:59 06:59 Intake Total 540 1080 Balance 540 1080 Intake: Oral 540 1080 Other: Voiding Method Toilet Toilet Toilet # Voids 2 3 1 - Constitutional General appearance: Present: no acute distress - EENT Eyes: Present: EOMI ENT: Present: hearing grossly normal, normal oropharynx - Respiratory Respiratory: bilateral: CTA - Cardiovascular Rhythm: regular Heart sounds: normal: S1, S2 - Gastrointestinal General gastrointestinal: Present: normal bowel sounds, soft - Integumentary Integumentary: Present: normal - Neurologic Neurologic: Present: CNII-XII intact - Musculoskeletal Musculoskeletal: Present: generalized weakness, strength equal bilaterally - Psychiatric Psychiatric: Present: A&O x's 3, appropriate affect - Labs CBC & Chem 7: 05/02/18 23:00 05/02/18 23:00 Assessment and Plan (1) Cancer associated pain Narrative/Plan: The patient is definitely more comfortable today. This is likely due to the addition of steroids to her pain medication regimen. Continue current regimen. Switch to orals when the patient nears discharge. She will continue on a steroid taper throughout radiation The patient has been seen by radiation oncology, and will start palliative radiation. It has been discussed with her, that radiation effects may lag behind actual dates of treatment. She is very anxious about being comfortable before she goes home. She was advised that most likely the majority of her treatment would be outpatient, and discharge would be planned when her pain control is felt to be reasonable. Current Visit: Yes Status: Acute Priority: High Code(s): G89.3 - NEOPLASM RELATED PAIN (ACUTE) (CHRONIC) SNOMED Code(s): 30446092023060 (2) Metastatic lung cancer (metastasis from lung to other site) Narrative/Plan: The patient's recent CT scan show significant progression. After completion of palliative radiation, she will follow-up with Dr. Pace to discuss systemic treatment options Current Visit: Yes Status: Acute Priority: High Code(s): C34.90 - MALIGNANT NEOPLASM OF UNSP PART OF UNSP BRONCHUS OR LUNG SNOMED Code(s): 71876362
[2018-05-05] MEDS: HYDROmorphone 1 MG/ML 1 ML SYRINGE IVP PRN ×11 (01:08→23:00)
[2018-05-05] MEDS: oxyCODONE-APAP 10-325MG 1 EACH TAB PO PRN ×5 (02:58→23:57)
[2018-05-05] MEDS: LEVOTHYROXINE 50 MCG TAB PO SCH (05:40)
[2018-05-05] MEDS: ALPRAZolam 0.5 MG TAB PO PRN ×3 (05:40→23:58)
[2018-05-05] MEDS: IPRATROPIUM-ALBUTEROL 3 ML NEB INHALATION SCH ×2 (07:27→21:19)
[2018-05-05] MEDS: SYMBICORT 160-4.5 MCG INHALER INHALATION SCH ×3 (07:27→21:19)
[2018-05-05] MEDS: DEXAMETHASONE 4 MG TAB PO SCH ×3 (08:31→21:14)
[2018-05-05] MEDS: CITALOPRAM HYDROBROMIDE 10 MG TAB PO SCH (08:31)
[2018-05-05] MEDS: ENOXAPARIN 40 MG/0.4 ML SYRINGE SQ SCH (08:32)
[2018-05-05] MEDS: PANTOPRAZOLE 40 MG TABLET PO SCH (08:32)
[2018-05-05] MEDS: SENNOSIDES-DOCUSATE SODIUM 1 EACH TAB PO SCH ×2 (08:32→21:14)
[2018-05-05] MEDS: IPRATROPIUM 0.5 MG/2.5 ML NEBU INHALATION SCH ×2 (10:59→17:03)
--- NOTE | 2018-05-05 11:17 | P.PN ---
Subjective Progress Note Date: 05/05/18 This is a 63-year-old female one of Dr. Jess Harkins with a previous medical history significant for hypertension and hypertensive cardiovascular disease, hyperlipidemia, GERD, COPD, sleep apnea, history of metastatic stage IV small cell lung cancer that was diagnosed back in June 2017 has been under the care of Dr. Lawrence and Dr. Pace underwent chemotherapy in the form of etoposide as well as carboplatin, patient has had a recent PET scan was supposed to follow-up with her oncologist next week however she ended up coming to the ER because of intractable mid spine pain and shoulder pain and left arm numbness patient was recently increased on her fentanyl 200 g every 72 hours, along with the Percocet for pain control however the pain was not well- controlled she was seen in the ER and he was felt the patient need to be admitted for evaluation and pain management, her PET scan showed a progression of her illness from the last one was done in 2018. Patient was quite tearful sh e was in a lot of pain she could not sit still due to her significant pain in her back, she is asking to increase her pain management Dilaudid every 2 hours for now. 05/04: Patient has been seen by oncology and radiation oncology and started radiation therapy today. Dexamethasone 4 mg 3 times daily and Zometa were started yesterday. She has been afebrile, heart rate running between 70 and 106, pulse ox 94% on 4 L nasal cannula, blood pressure 117/74. Patient is seen after radiation therapy. She states she has been gone from her room for 4 hours with a lot of waiting time and is in pain 9 out of 10. This morning she was at a pain level of 6 out of 10. Majority of her pain is in the spinal area. She states she has been able to eat and drink. Yesterday she did have substantial bowel movements and constipation is resolved. Patient is scheduled for repeat radiation treatment tomorrow at 12:30. Patient voices concern that family members at home may have influenza and they are going to the doctor today. We'll plan to follow up on this tomorrow and patient may require prophylactic Tamiflu. 05/05: Patient has been afebrile, heart rate running in 80s and 90s, pulse ox 90- 95% on 4 L, blood pressure 114/74. Patient is complaining of more shakiness which she has chronically but it is much worse today. She sings her pain is a little bit better from yesterday but does not feel that's well enough to go home. She states her last bowel movement was on Thursday. She is asking for more medication for constipation and MiraLAX and milk of magnesia will be added. Patient is scheduled for radiation therapy this afternoon. Review of Systems Constitutional: Reports chronic pain, Reports fatigue, Reports weakness, Denies sweats, Denies weight loss Eyes: denies blurred vision Ears: deny: decreased hearing Ears, nose, mouth and throat: Denies dysphagia, Denies neck lump, Denies swelling in throat, Denies sore throat Cardiovascular: Reports decreased exercise tolerance, Reports dyspnea on exertion, Reports shortness of breath, Denies chest pain, Denies lightheadedness, Denies rapid heart beat, Denies syncope Respiratory: Reports sleep apnea, Reports snoring, Denies congestion, Denies cough, Denies cough with sputum, Denies hemoptysis, Denies home oxygen, Denies wheezing Gastrointestinal: Denies abdominal pain, Denies belching, Denies BRBPR, Denies excessive gas, Denies heartburn, Denies hematemesis, Denies melena, Denies nausea, Denies vomiting Genitourinary: Denies dysuria, Denies hematuria Menstruation: Reports postmenopausal Musculoskeletal: Reports gait dysfunction, Reports low back pain, Reports muscle weakness, Denies myalgias Musculoskeletal: absent: ankle pain, ankle stiffness, ankle swelling, elbow pain, elbow stiffness, elbow swelling, foot pain, foot stiffness, foot swelling, hand pain, hand stiffness, hand swelling, hip pain, hip stiffness, hip swelling, knee pain, knee stiffness, knee swelling, shoulder pain, shoulder stiffness, shoulder swelling, wrist pain, wrist stiffness, wrist swelling Neurological: Reports numbness, Denies weakness Psychiatric: Reports anxiety, Reports depression, Reports sadness/tearfulness, Denies sleep disturbances, Denies suicidal ideation Endocrine: Denies fatigue, Denies weight change Objective - Vital Signs Vital signs: Vital Signs Temp 98.1 F 05/05/18 05:00 Pulse 70 05/05/18 07:54 Resp 18 05/05/18 07:54 BP 114/74 05/05/18 07:54 Pulse Ox 95 05/05/18 07:54 Intake & Output 03/07/1805/05/18 05/05/18 18:59 06:59 18:59 Intake Total 1080 650 Balance 1080 650 Intake: Oral 1080 650 Other: Voiding Method Toilet Toilet # Voids 3 1 - Exam General appearance: average body habitus, distress due to pain, upper body tremors - EENT Eyes: anicteric sclerae, EOMI, PERRLA, no ptosis, no scleral icterus, normal appearance ENT: hearing grossly normal, NA/AT, normal oropharynx, no thrush (Poor dentition) Ears: bilateral: normal - Neck Neck: no lymphadenopathy, normal ROM, no rigidity, no stridor, no thyromegaly Carotids: bilateral: upstroke normal Thyroid: bilateral: normal size - Respiratory Respiratory: bilateral: diminished, prolonged expiration, negative: dullness, rales, rhonchi, wheezing - Cardiovascular Rhythm: regular Heart sounds: normal: S1, S2 Abnormal Heart Sounds: no systolic murmur, no rub, no S3 Gallop, no S4 Gallop, no click - Gastrointestinal General gastrointestinal: normal bowel sounds, no rigid, no scaphoid, soft, no splenomegaly, no tenderness, no umbilical hernia, no ventral hernia - Integumentary Integumentary: normal, normal turgor - Neurologic Neurologic: CNII-XII intact - Musculoskeletal Musculoskeletal: gait normal, strength equal bilaterally - Psychiatric Psychiatric: A&O x's 3, appropriate affect, intact judgment & insight - Labs CBC & Chem 7: 05/02/18 23:00 05/02/18 23:00 Assessment and Plan Plan: 1. Intractable pain secondary to metastatic stage IV small cell lung cancer with metastases to the spine scapula ribs pelvis and liver. Continue patient on fentanyl patch 100 g every 72 hours, continue with Dilaudid 1 mg IV push every 2 hours, continue Percocet for breakthrough pain, oncology and radiation oncology consultations appreciated, consider palliative care. Patient has been started on dexamethasone. Repeat radiation treatment today. 2. History of hypertension. Currently not taking any medication her pressure is stable. 3. COPD. Continue patient on Combivent, Spiriva, albuterol, Advair. 4. Hypothyroidism. Continue Synthroid 25 g orally once every day. 5. Hyperlipidemia. Continue patient on simvastatin 20 mg at bedtime. 6. Recurrent depression. Continue citalopram 10 mg orally once every day. 7. Generalized anxiety disorder. Continue Xanax 0.5 mg every 6 hours as needed. 8. Insomnia. Continue Seroquel 50 mg at bedtime. 9. Nausea. Continue current anti-emetics. 10. DVT prophylaxis. Continue patient on Lovenox 40 mg subcutaneously every 24 hours. 11. GI prophylaxis. Continue patient on PPI. Full code as of now, consider palliative care. Discharge plan: home Impression and plan of care have been directed as dictated by the signing physician. Fernanda Taylor nurse practitioner acting as scribe for signing physician.
[2018-05-05] MEDS: POLYETHYLENE GLYCOL 3350 17 GM POWD.PACK PO SCH (21:14)
[2018-05-05] MEDS: MAGNESIUM HYDROXIDE 2,400 MG/10 ML CUP PO SCH (21:57)
[2018-05-05] MEDS: QUEtiapine 50 MG TAB PO SCH (21:57)
[2018-05-06] MEDS: HYDROmorphone 1 MG/ML 1 ML SYRINGE IVP PRN ×9 (00:56→20:44)
[2018-05-06] MEDS ORDERED: oxyCODONE-APAP 10-325MG 1 EACH TAB ONE (04:15)
[2018-05-06] MEDS ORDERED: LEVOTHYROXINE 50 MCG TAB ONE (04:15)
[2018-05-06] MEDS ORDERED: HYDROmorphone 1 MG/ML 1 ML SYRINGE ONE ×2 (04:15)
[2018-05-06] MEDS: LEVOTHYROXINE 50 MCG TAB PO SCH (06:28)
[2018-05-06] MEDS: SENNOSIDES-DOCUSATE SODIUM 1 EACH TAB PO SCH ×2 (07:34→20:39)
[2018-05-06] MEDS: DEXAMETHASONE 4 MG TAB PO SCH ×3 (07:34→22:08)
[2018-05-06] MEDS: ENOXAPARIN 40 MG/0.4 ML SYRINGE SQ SCH (07:34)
[2018-05-06] MEDS: PANTOPRAZOLE 40 MG TABLET PO SCH (07:34)
[2018-05-06] MEDS: CITALOPRAM HYDROBROMIDE 10 MG TAB PO SCH (07:34)
[2018-05-06] MEDS: MAGNESIUM HYDROXIDE 2,400 MG/10 ML CUP PO SCH ×2 (07:34→20:39)
[2018-05-06] MEDS: SYMBICORT 160-4.5 MCG INHALER INHALATION SCH ×2 (08:03→20:28)
[2018-05-06] MEDS: oxyCODONE-APAP 10-325MG 1 EACH TAB PO PRN (08:52)
[2018-05-06] MEDS: IPRATROPIUM-ALBUTEROL 3 ML NEB INHALATION SCH ×2 (10:05→20:30)
[2018-05-06] MEDS: IPRATROPIUM 0.5 MG/2.5 ML NEBU INHALATION SCH ×2 (10:06→16:42)
[2018-05-06] MEDS ORDERED: ALPRAZolam 0.5 MG TAB PO SCH (11:15)
[2018-05-06] MEDS: ALPRAZolam 0.5 MG TAB PO SCH ×3 (11:32→22:08)
--- NOTE | 2018-05-06 11:51 | P.PN ---
Subjective Progress Note Date: 05/06/18 This is a 63-year-old female one of Dr. Jess Harkins with a previous medical history significant for hypertension and hypertensive cardiovascular disease, hyperlipidemia, GERD, COPD, sleep apnea, history of metastatic stage IV small cell lung cancer that was diagnosed back in June 2017 has been under the care of Dr. Lawrence and Dr. Pace underwent chemotherapy in the form of etoposide as well as carboplatin, patient has had a recent PET scan was supposed to follow-up with her oncologist next week however she ended up coming to the ER because of intractable mid spine pain and shoulder pain and left arm numbness patient was recently increased on her fentanyl 200 g every 72 hours, along with the Percocet for pain control however the pain was not well- controlled she was seen in the ER and he was felt the patient need to be admitted for evaluation and pain management, her PET scan showed a progression of her illness from the last one was done in 2018. Patient was quite tearful sh e was in a lot of pain she could not sit still due to her significant pain in her back, she is asking to increase her pain management Dilaudid every 2 hours for now. 05/04: Patient has been seen by oncology and radiation oncology and started radiation therapy today. Dexamethasone 4 mg 3 times daily and Zometa were started yesterday. She has been afebrile, heart rate running between 70 and 106, pulse ox 94% on 4 L nasal cannula, blood pressure 117/74. Patient is seen after radiation therapy. She states she has been gone from her room for 4 hours with a lot of waiting time and is in pain 9 out of 10. This morning she was at a pain level of 6 out of 10. Majority of her pain is in the spinal area. She states she has been able to eat and drink. Yesterday she did have substantial bowel movements and constipation is resolved. Patient is scheduled for repeat radiation treatment tomorrow at 12:30. Patient voices concern that family members at home may have influenza and they are going to the doctor today. We'll plan to follow up on this tomorrow and patient may require prophylactic Tamiflu. 05/05: Patient has been afebrile, heart rate running in 80s and 90s, pulse ox 90- 95% on 4 L, blood pressure 114/74. Patient is complaining of more shakiness which she has chronically but it is much worse today. She sings her pain is a little bit better from yesterday but does not feel that's well enough to go home. She states her last bowel movement was on Thursday. She is asking for more medication for constipation and MiraLAX and milk of magnesia will be added. Patient is scheduled for radiation therapy this afternoon. 05/06: Patient has been afebrile, BP 108/74, HR 90s, pulse ox 94% on 4L nasal cannula. Patient is scheduled for repeat radiation treatment this afternoon. She continues to have shakiness for which Xanax has been changed to scheduled 4 times daily and oncology is also endorsing pain control. Plan most likely was discharged the next 24-48 hours and patient will be going to stay with her daughter. Review of Systems Constitutional: Reports chronic pain, Reports fatigue, Reports weakness, Denies sweats, Denies weight loss, reports tremors Eyes: denies blurred vision Ears: deny: decreased hearing Ears, nose, mouth and throat: Denies dysphagia, Denies neck lump, Denies swelling in throat, Denies sore throat Cardiovascular: Reports decreased exercise tolerance, Reports dyspnea on exertion, Reports shortness of breath, Denies chest pain, Denies lightheadedness, Denies rapid heart beat, Denies syncope Respiratory: Reports sleep apnea, Reports snoring, Denies congestion, Denies cough, Denies cough with sputum, Denies hemoptysis, Denies home oxygen, Denies wheezing Gastrointestinal: Denies abdominal pain, Denies belching, Denies BRBPR, Denies excessive gas, Denies heartburn, Denies hematemesis, Denies melena, Denies nausea, Denies vomiting Genitourinary: Denies dysuria, Denies hematuria Menstruation: Reports postmenopausal Musculoskeletal: Reports gait dysfunction, Reports low back pain, Reports muscle weakness, Denies myalgias Musculoskeletal: absent: ankle pain, ankle stiffness, ankle swelling, elbow pain, elbow stiffness, elbow swelling, foot pain, foot stiffness, foot swelling, hand pain, hand stiffness, hand swelling, hip pain, hip stiffness, hip swelling, knee pain, knee stiffness, knee swelling, shoulder pain, shoulder stiffness, shoulder swelling, wrist pain, wrist stiffness, wrist swelling Neurological: Reports numbness, Denies weakness Psychiatric: Reports anxiety, Reports depression, Reports sadness/tearfulness, Denies sleep disturbances, Denies suicidal ideation Endocrine: Denies fatigue, Denies weight change Objective - Vital Signs Vital signs: Vital Signs Temp 97.9 F 05/06/18 04:12 Pulse 60 05/06/18 04:12 Resp 18 05/06/18 04:12 BP 108/74 05/06/18 04:12 Pulse Ox 94 L 05/06/18 04:12 Intake & Output 05/05/18 05/06/18 05/06/18 18:59 06:59 18:59 Intake Total 540 Balance 540 Intake: Oral 540 Other: Voiding Method Toilet Toilet Toilet # Voids 2 4 - Exam General appearance: average body habitus, upper body tremors - EENT Eyes: anicteric sclerae, EOMI, PERRLA, no ptosis, no scleral icterus, normal appearance ENT: hearing grossly normal, NA/AT, normal oropharynx, no thrush (Poor dentition) Ears: bilateral: normal - Neck Neck: no lymphadenopathy, normal ROM, no rigidity, no stridor, no thyromegaly Carotids: bilateral: upstroke normal Thyroid: bilateral: normal size - Respiratory Respiratory: bilateral: diminished, prolonged expiration, negative: dullness, rales, rhonchi, wheezing - Cardiovascular Rhythm: regular Heart sounds: normal: S1, S2 Abnormal Heart Sounds: no systolic murmur, no rub, no S3 Gallop, no S4 Gallop, no click - Gastrointestinal General gastrointestinal: normal bowel sounds, no rigid, no scaphoid, soft, no splenomegaly, no tenderness, no umbilical hernia, no ventral hernia - Integumentary Integumentary: normal, normal turgor - Neurologic Neurologic: CNII-XII intact - Musculoskeletal Musculoskeletal: gait normal, strength equal bilaterally - Psychiatric Psychiatric: A&O x's 3, appropriate affect, intact judgment & insight - Labs CBC & Chem 7: 05/02/18 23:00 05/02/18 23:00 Assessment and Plan Plan: 1. Intractable pain secondary to metastatic stage IV small cell lung cancer with metastases to the spine scapula ribs pelvis and liver. Continue patient on fentanyl patch 100 g every 72 hours, continue with Dilaudid 2 mg IV push every 2 hours, Percocet discontinued, oncology and radiation oncology consultations appreciated, consider palliative care. Patient has been started on dexamethasone. Repeat radiation treatment today. 2. History of hypertension. Currently not taking any medication her pressure is stable. 3. COPD. Continue patient on Combivent, Spiriva, albuterol, Advair. 4. Hypothyroidism. Continue Synthroid 25 g orally once every day. 5. Hyperlipidemia. Continue patient on simvastatin 20 mg at bedtime. 6. Recurrent depression. Continue citalopram 10 mg orally once every day. 7. Generalized anxiety disorder. Continue Xanax 0.5 mg every 6 hours as needed. 8. Insomnia. Continue Seroquel 50 mg at bedtime. 9. Nausea. Continue current anti-emetics. 10. DVT prophylaxis. Continue patient on Lovenox 40 mg subcutaneously every 24 hours. 11. GI prophylaxis. Continue patient on PPI. Full code as of now, consider palliative care. Discharge plan: home with daughter in the next 24-48 hours Impression and plan of care have been directed as dictated by the signing physician. Fernanda Taylor nurse practitioner acting as scribe for signing physician.
--- NOTE | 2018-05-06 16:36 | P.PN ---
Subjective Progress Note Date: 05/06/18 Principal diagnosis: intractable pain r/t malignancy In f/u pt states back pain may be a little better, tolerating radiation, left shoulder is hurting a little more, we discussed pain mgmt, she admits to severe aniety about diagnosis and prognosis as well as her living situation Objective - Vital Signs Vital signs: Vital Signs Temp 98.5 F 05/06/18 13:00 Pulse 72 05/06/18 13:00 Resp 16 05/06/18 13:00 BP 128/78 05/06/18 13:00 Pulse Ox 94 L 05/06/18 13:00 Intake & Output 05/05/18 05/06/18 05/06/18 18:59 06:59 18:59 Intake Total 540 Balance 540 Weight 84.051 kg Intake: Oral 540 Other: Voiding Method Toilet Toilet Toilet # Voids 2 4 3 - Exam WD, obese, generalized tremor noted, worse as pt becomes more anxious, she will get SOB when speaking. After talking with her and calming her down less tremor, respirations unlabored, she ambulated independently, no swelling - Labs CBC & Chem 7: 05/02/18 23:00 05/02/18 23:00 Assessment and Plan (1) Cancer associated pain Narrative/Plan: We had a long discussion about pain mgmt. An effective regimen should consist of 1 long acting and 1 short acting pain medication because more then that and pt get confused-she agreed. We developed a plan that consists of ATC xanax- there is certainly a component of anxiety to her pain. Fentanyl will cont at current dose, percocet discontinued and IV dilaudid increased to 2mg Q 2 hours. We will calculate equivalents to adjust fentanyl and dilaudid. Pt will not take morphine with fentanyl as it caused her to hallucinate before. She gets a rash with lidoderm patches Cont bowel protocol Cont steroids and XRT Current Visit: Yes Status: Acute Priority: High Code(s): G89.3 - NEOPLASM RELATED PAIN (ACUTE) (CHRONIC) SNOMED Code(s): 26968963250459 (2) Metastatic lung cancer (metastasis from lung to other site) Narrative/Plan: Pt states that she is going to have to return to her daughters home so, she gave me contact info for her palliative care nurse and Dr. Coleman the Oncologist she sees in that community. Will communicate pt condition. She will have to set up appt to follow up. Current Visit: Yes Status: Acute Priority: High Code(s): C34.90 - MALIGNANT NEOPLASM OF UNSP PART OF UNSP BRONCHUS OR LUNG SNOMED Code(s): 42620831 Plan: D
[2018-05-06] MEDS: POLYETHYLENE GLYCOL 3350 17 GM POWD.PACK PO SCH (20:39)
[2018-05-06] MEDS: QUEtiapine 50 MG TAB PO SCH (20:39)
[2018-05-07] MEDS: HYDROmorphone 1 MG/ML 1 ML SYRINGE IVP PRN ×9 (03:05→23:31)
[2018-05-07] MEDS: LEVOTHYROXINE 50 MCG TAB PO SCH (05:19)
[2018-05-07] MEDS: CITALOPRAM HYDROBROMIDE 10 MG TAB PO SCH (08:26)
[2018-05-07] MEDS: SENNOSIDES-DOCUSATE SODIUM 1 EACH TAB PO SCH ×2 (08:26→21:28)
[2018-05-07] MEDS: DEXAMETHASONE 4 MG TAB PO SCH ×3 (08:26→21:27)
[2018-05-07] MEDS: ALPRAZolam 0.5 MG TAB PO SCH ×4 (08:26→21:27)
[2018-05-07] MEDS: ENOXAPARIN 40 MG/0.4 ML SYRINGE SQ SCH (08:27)
[2018-05-07] MEDS: PANTOPRAZOLE 40 MG TABLET PO SCH (08:27)
[2018-05-07] MEDS: MAGNESIUM HYDROXIDE 2,400 MG/10 ML CUP PO SCH ×2 (08:27→21:26)
[2018-05-07] MEDS: SYMBICORT 160-4.5 MCG INHALER INHALATION SCH ×2 (08:40→19:07)
[2018-05-07] MEDS: IPRATROPIUM-ALBUTEROL 3 ML NEB INHALATION SCH ×2 (08:40→19:08)
--- NOTE | 2018-05-07 12:42 | P.PN ---
Subjective Progress Note Date: 05/07/18 This is a 63-year-old female one of Dr. Jess Harkins with a previous medical history significant for hypertension and hypertensive cardiovascular disease, hyperlipidemia, GERD, COPD, sleep apnea, history of metastatic stage IV small cell lung cancer that was diagnosed back in June 2017 has been under the care of Dr. Lawrence and Dr. Pace underwent chemotherapy in the form of etoposide as well as carboplatin, patient has had a recent PET scan was supposed to follow-up with her oncologist next week however she ended up coming to the ER because of intractable mid spine pain and shoulder pain and left arm numbness patient was recently increased on her fentanyl 200 g every 72 hours, along with the Percocet for pain control however the pain was not well- controlled she was seen in the ER and he was felt the patient need to be admitted for evaluation and pain management, her PET scan showed a progression of her illness from the last one was done in 2018. Patient was quite tearful sh e was in a lot of pain she could not sit still due to her significant pain in her back, she is asking to increase her pain management Dilaudid every 2 hours for now. 05/04: Patient has been seen by oncology and radiation oncology and started radiation therapy today. Dexamethasone 4 mg 3 times daily and Zometa were started yesterday. She has been afebrile, heart rate running between 70 and 106, pulse ox 94% on 4 L nasal cannula, blood pressure 117/74. Patient is seen after radiation therapy. She states she has been gone from her room for 4 hours with a lot of waiting time and is in pain 9 out of 10. This morning she was at a pain level of 6 out of 10. Majority of her pain is in the spinal area. She states she has been able to eat and drink. Yesterday she did have substantial bowel movements and constipation is resolved. Patient is scheduled for repeat radiation treatment tomorrow at 12:30. Patient voices concern that family members at home may have influenza and they are going to the doctor today. We'll plan to follow up on this tomorrow and patient may require prophylactic Tamiflu. 05/05: Patient has been afebrile, heart rate running in 80s and 90s, pulse ox 90- 95% on 4 L, blood pressure 114/74. Patient is complaining of more shakiness which she has chronically but it is much worse today. She sings her pain is a little bit better from yesterday but does not feel that's well enough to go home. She states her last bowel movement was on Thursday. She is asking for more medication for constipation and MiraLAX and milk of magnesia will be added. Patient is scheduled for radiation therapy this afternoon. 05/06: Patient has been afebrile, BP 108/74, HR 90s, pulse ox 94% on 4L nasal cannula. Patient is scheduled for repeat radiation treatment this afternoon. She continues to have shakiness for which Xanax has been changed to scheduled 4 times daily and oncology is also endorsing pain control. Plan most likely was discharged the next 24-48 hours and patient will be going to stay with her daughter. 05/07: Patient is complaining that the medication only lasts for an hour. This would be Dilaudid that she is 2 mg IV every 2 hours. She is continued on the dexamethasone and fentanyl patch. She denies having any cough, shortness of breath, bowel movement. She is passing gas. She is on ensure and not eating very much food. Patient encouraged to eat more food including lots of protein. She continues to have tremors. She is scheduled for radiation treatment today and her last treatment will be on Thursday. She has been afebrile, blood pressure 96/60, heart rate in the 80s, pulse ox 95% on 4 L nasal cannula. Patient is stating that she does not want hospice and wants all aggressive treatment for her cancer. Review of Systems Constitutional: Reports chronic pain, Reports fatigue, Reports weakness, Denies sweats, reports tremors Eyes: denies blurred vision Ears: deny: decreased hearing Ears, nose, mouth and throat: Denies dysphagia, Denies neck lump, Denies swelling in throat, Denies sore throat Cardiovascular: Reports decreased exercise tolerance, Reports dyspnea on exertion, Reports shortness of breath, Denies chest pain, Denies lightheadedness, Denies rapid heart beat, Denies syncope Respiratory: Reports sleep apnea, Reports snoring, Denies congestion, Denies cough, Denies cough with sputum, Denies hemoptysis, Denies home oxygen, Denies wheezing Gastrointestinal: Denies abdominal pain, Denies belching, Denies BRBPR, Denies excessive gas, Denies heartburn, Denies hematemesis, Denies melena, Denies nausea, Denies vomiting Genitourinary: Denies dysuria, Denies hematuria Menstruation: Reports postmenopausal Musculoskeletal: Reports gait dysfunction, Reports low back pain, Reports muscle weakness, Denies myalgias Musculoskeletal: absent: ankle pain, ankle stiffness, ankle swelling, elbow pain, elbow stiffness, elbow swelling, foot pain, foot stiffness, foot swelling, hand pain, hand stiffness, hand swelling, hip pain, hip stiffness, hip swelling, knee pain, knee stiffness, knee swelling, shoulder pain, shoulder stiffness, shoulder swelling, wrist pain, wrist stiffness, wrist swelling Neurological: Reports numbness, Denies weakness Psychiatric: Reports anxiety, Reports depression, Reports sadness/tearfulness, Denies sleep disturbances, Denies suicidal ideation Endocrine: Denies fatigue, Denies weight change Objective - Vital Signs Vital signs: Vital Signs Temp 98.2 F 05/07/18 05:00 Pulse 88 05/07/18 08:52 Resp 16 05/07/18 05:00 BP 96/60 05/07/18 05:00 Pulse Ox 95 05/07/18 05:00 Intake & Output 05/06/18 05/07/18 05/07/18 18:59 06:59 18:59 Intake Total 720 Balance 720 Weight 84.051 kg Intake: Oral 720 Other: Voiding Method Toilet Toilet # Voids 3 2 - Exam General appearance: average body habitus, upper body tremors, patient appears to be slightly more comfortable today - EENT Eyes: anicteric sclerae, EOMI, PERRLA, no ptosis, no scleral icterus, normal appearance ENT: hearing grossly normal, NA/AT, normal oropharynx, no thrush (Poor dentition) Ears: bilateral: normal - Neck Neck: no lymphadenopathy, normal ROM, no rigidity, no stridor, no thyromegaly Carotids: bilateral: upstroke normal Thyroid: bilateral: normal size - Respiratory Respiratory: bilateral: diminished, prolonged expiration, negative: dullness, rales, rhonchi, wheezing - Cardiovascular Rhythm: regular Heart sounds: normal: S1, S2 Abnormal Heart Sounds: no systolic murmur, no rub, no S3 Gallop, no S4 Gallop, no click - Gastrointestinal General gastrointestinal: normal bowel sounds, no rigid, no scaphoid, soft, no splenomegaly, no tenderness, no umbilical hernia, no ventral hernia - Integumentary Integumentary: normal, normal turgor - Neurologic Neurologic: CNII-XII intact - Musculoskeletal Musculoskeletal: gait normal, strength equal bilaterally - Psychiatric Psychiatric: A&O x's 3, appropriate affect, intact judgment & insight - Labs CBC & Chem 7: 05/02/18 23:00 05/02/18 23:00 Assessment and Plan Plan: 1. Intractable pain secondary to metastatic stage IV small cell lung cancer w ith metastases to the spine scapula ribs pelvis and liver. Continue patient on fentanyl patch 100 g every 72 hours, continue with Dilaudid 2 mg IV push every 2 hours, Percocet discontinued, oncology and radiation oncology consultations appreciated, consider palliative care but patient wants all aggressive treatment. Continue dexamethasone. Repeat radiation treatment today. Last radiation on Thursday 2. History of hypertension. Currently not taking any medication her pressure is stable. 3. COPD. Continue patient on Combivent, Spiriva, albuterol, Advair. 4. Hypothyroidism. Continue Synthroid 25 g orally once every day. 5. Hyperlipidemia. Continue patient on simvastatin 20 mg at bedtime. 6. Recurrent depression. Continue citalopram 10 mg orally once every day. 7. Generalized anxiety disorder. Continue Xanax 0.5 mg every 6 hours as needed. 8. Insomnia. Continue Seroquel 50 mg at bedtime. 9. Nausea. Continue current anti-emetics. 10. DVT prophylaxis. Continue patient on Lovenox 40 mg subcutaneously every 24 hours. 11. GI prophylaxis. Continue patient on PPI. Full code as of now, consider palliative care. Discharge plan: home after radiation treatment on Thursday Impression and plan of care have been directed as dictated by the signing physician. Fernanda Taylor nurse practitioner acting as scribe for signing physician.
[2018-05-07] MEDS: IPRATROPIUM 0.5 MG/2.5 ML NEBU INHALATION SCH ×2 (13:13→16:35)
--- NOTE | 2018-05-07 20:00 | P.PN ---
Subjective Progress Note Date: 05/07/18 Principal diagnosis: Small Cell Lung Cancer Pain is improved today, no acute events through the day Objective - Vital Signs Vital signs: Vital Signs Temp 98.4 F 05/07/18 11:20 Pulse 94 05/07/18 11:20 Resp 16 05/07/18 11:20 BP 136/87 05/07/18 11:20 Pulse Ox 95 05/07/18 11:20 Intake & Output 05/06/18 05/07/18 05/07/18 18:59 06:59 18:59 Intake Total 720 2160 Balance 720 2160 Weight 84.051 kg Intake: Oral 720 2160 Other: Voiding Method Toilet Toilet Toilet # Voids 3 2 2 - Constitutional General appearance: Present: cooperative, morbidly obese - EENT Eyes: Present: EOMI, PERRLA, normal appearance ENT: Present: NA/AT, normal oropharynx - Neck Details: Supple Neck: Present: normal ROM - Respiratory Respiratory: bilateral: diminished, wheezing (expiratory, no increased effort except when anxious) - Cardiovascular Rhythm: regularly irregular Heart sounds: normal: S1, S2 - Gastrointestinal General gastrointestinal: Present: normal bowel sounds, soft, tenderness - Integumentary Integumentary: Present: pale - Neurologic Neurologic: Present: CNII-XII intact - Musculoskeletal Musculoskeletal: Present: generalized weakness, strength equal bilaterally - Psychiatric Psychiatric: Present: A&O x's 3, appropriate affect, intact judgment & insight - Labs CBC & Chem 7: 05/02/18 23:00 05/02/18 23:00 Assessment and Plan Plan: Assessment and Plan (1) Cancer associated pain - Continue Fentanyl Patches with PRN Dilaudid for Breakthrough - Continue Radiation for palliative Pain relief - Continue Steroids and add PPI - Continue Bowel Protocol for narcotic induced constipation (2) Metastatic lung cancer (metastasis from lung to other site) - Extensive Stage Small Cell - She received first dose of chemotherapy inpatient at diagnosis and consecutive through [facility] with Dr. Blanco - Plan is to return to live with Daughter in [place] and resume care at discharge with Dr. Blanco at [facility] Physician Attestation: I have completed the full history and physical and developed the completed impression and plan and agree with above dictation by Carrie Cook NP Dictated as a scribe
[2018-05-07] MEDS: POLYETHYLENE GLYCOL 3350 17 GM POWD.PACK PO SCH (21:26)
[2018-05-07] MEDS: QUEtiapine 50 MG TAB PO SCH (21:27)
[2018-05-08] MEDS: HYDROmorphone 1 MG/ML 1 ML SYRINGE IVP PRN ×4 (04:35→11:19)
[2018-05-08] MEDS: LEVOTHYROXINE 50 MCG TAB PO SCH (05:57)
[2018-05-08] MEDS: PANTOPRAZOLE 40 MG TABLET PO SCH (08:18)
[2018-05-08] MEDS: ALPRAZolam 0.5 MG TAB PO SCH ×4 (08:18→21:27)
[2018-05-08] MEDS: SENNOSIDES-DOCUSATE SODIUM 1 EACH TAB PO SCH ×2 (08:18→19:47)
[2018-05-08] MEDS: CITALOPRAM HYDROBROMIDE 10 MG TAB PO SCH (08:18)
[2018-05-08] MEDS: ENOXAPARIN 40 MG/0.4 ML SYRINGE SQ SCH (08:18)
[2018-05-08] MEDS: DEXAMETHASONE 4 MG TAB PO SCH ×3 (08:18→21:27)
[2018-05-08] MEDS: MAGNESIUM HYDROXIDE 2,400 MG/10 ML CUP PO SCH ×2 (08:19→19:46)
[2018-05-08] MEDS: SYMBICORT 160-4.5 MCG INHALER INHALATION SCH ×2 (08:41→21:04)
[2018-05-08] MEDS: IPRATROPIUM-ALBUTEROL 3 ML NEB INHALATION SCH ×2 (08:41→21:04)
[2018-05-08] MEDS ORDERED: HYDROmorphone 2 MG TAB PO PRN (11:49)
[2018-05-08] MEDS: IPRATROPIUM 0.5 MG/2.5 ML NEBU INHALATION SCH ×2 (11:51→16:28)
--- NOTE | 2018-05-08 12:32 | P.PN ---
Subjective Progress Note Date: 05/08/18 This is a 63-year-old female one of Dr. eJss Harkins with a previous medical history significant for hypertension and hypertensive cardiovascular disease, hyperlipidemia, GERD, COPD, sleep apnea, history of metastatic stage IV small cell lung cancer that was diagnosed back in June 2017 has been under the care of Dr. Lawrence and Dr. Pace underwent chemotherapy in the form of etoposide as well as carboplatin, patient has had a recent PET scan was supposed to follow-up with her oncologist next week however she ended up coming to the ER because of intractable mid spine pain and shoulder pain and left arm numbness patient was recently increased on her fentanyl 200 g every 72 hours, along with the Percocet for pain control however the pain was not well- controlled she was seen in the ER and he was felt the patient need to be admitted for evaluation and pain management, her PET scan showed a progression of her illness from the last one was done in 2018. Patient was quite tearful sh e was in a lot of pain she could not sit still due to her significant pain in her back, she is asking to increase her pain management Dilaudid every 2 hours for now. 05/04: Patient has been seen by oncology and radiation oncology and started radiation therapy today. Dexamethasone 4 mg 3 times daily and Zometa were started yesterday. She has been afebrile, heart rate running between 70 and 106, pulse ox 94% on 4 L nasal cannula, blood pressure 117/74. Patient is seen after radiation therapy. She states she has been gone from her room for 4 hours with a lot of waiting time and is in pain 9 out of 10. This morning she was at a pain level of 6 out of 10. Majority of her pain is in the spinal area. She states she has been able to eat and drink. Yesterday she did have substantial bowel movements and constipation is resolved. Patient is scheduled for repeat radiation treatment tomorrow at 12:30. Patient voices concern that family members at home may have influenza and they are going to the doctor today. We'll plan to follow up on this tomorrow and patient may require prophylactic Tamiflu. 05/05: Patient has been afebrile, heart rate running in 80s and 90s, pulse ox 90- 95% on 4 L, blood pressure 114/74. Patient is complaining of more shakiness which she has chronically but it is much worse today. She sings her pain is a little bit better from yesterday but does not feel that's well enough to go home. She states her last bowel movement was on Thursday. She is asking for more medication for constipation and MiraLAX and milk of magnesia will be added. Patient is scheduled for radiation therapy this afternoon. 05/06: Patient has been afebrile, BP 108/74, HR 90s, pulse ox 94% on 4L nasal cannula. Patient is scheduled for repeat radiation treatment this afternoon. She continues to have shakiness for which Xanax has been changed to scheduled 4 times daily and oncology is also endorsing pain control. Plan most likely was discharged the next 24-48 hours and patient will be going to stay with her daughter. 05/07: Patient is complaining that the medication only lasts for an hour. This would be Dilaudid that she is 2 mg IV every 2 hours. She is continued on the dexamethasone and fentanyl patch. She denies having any cough, shortness of breath, bowel movement. She is passing gas. She is on ensure and not eating very much food. Patient encouraged to eat more food including lots of protein. She continues to have tremors. She is scheduled for radiation treatment today and her last treatment will be on Thursday. She has been afebrile, blood pressure 96/60, heart rate in the 80s, pulse ox 95% on 4 L nasal cannula. Patient is stating that she does not want hospice and wants all aggressive treatment for her cancer. 05/08: Patient has been afebrile, heart rate in the 60s to 80s, blood pressure 110/74, pulse ox 95% on 4 L nasal cannula. The patient is to continue on radiation for palliative care. She is planning to follow-up with Dr. Blanco at [facility] regarding further chemotherapy. Social work met with the patient yesterday to determine discharge planning and help with emotional concerns. Patient is planning that if pain is not controlled and second round of radiation is not an option then she would consider hospice. She does have relationship issues with her daughters which was discussed. Please see medical social work documentation for details. Patient continues to have pain control issues for which we will add in oral Dilaudid 2 mg every 4 hours scheduled and keep the IV Dilaudid for breakthrough pain with attempt to try and transition her to oral option for discharge. Patient will continue on the Duragesic patch 100 g and gabapentin has been added along with Toradol IV push every 6 hours scheduled. Reviewed patient's current condition and recommend the patient consider hospice care for pain control. Patient is very tearful during discussion and states that she wants to have more treatment as her mind is okay but she cannot control her pain. She is scheduled for radiation therapy on Thursday. Anticipate we will try to discharge Thursday after palliative radiation therapy is completed. Review of Systems Constitutional: Reports chronic pain, Reports fatigue, Reports weakness, Denies sweats, reports tremors Eyes: denies blurred vision Ears: deny: decreased hearing Ears, nose, mouth and throat: Denies dysphagia, Denies neck lump, Denies swelling in throat, Denies sore throat Cardiovascular: Reports decreased exercise tolerance, Reports dyspnea on exertion, Reports shortness of breath, Denies chest pain, Denies lightheadedness, Denies rapid heart beat, Denies syncope Respiratory: Reports sleep apnea, Reports snoring, Denies congestion, Denies cough, Denies cough with sputum, Denies hemoptysis, Denies home oxygen, Denies wheezing Gastrointestinal: Denies abdominal pain, Denies belching, Denies BRBPR, Denies excessive gas, Denies heartburn, Denies hematemesis, Denies melena, Denies nausea, Denies vomiting Genitourinary: Denies dysuria, Denies hematuria Menstruation: Reports postmenopausal Musculoskeletal: Reports gait dysfunction, Reports low back pain, Reports muscle weakness, Denies myalgias, reports spine pain, left scapular pain, complains of numbness left arm Musculoskeletal: absent: ankle pain, ankle stiffness, ankle swelling, elbow pain, elbow stiffness, elbow swelling, foot pain, foot stiffness, foot swelling, hand pain, hand stiffness, hand swelling, hip pain, hip stiffness, hip swelling, knee pain, knee stiffness, knee swelling, shoulder pain, shoulder stiffness, shoulder swelling, wrist pain, wrist stiffness, wrist swelling Neurological: Reports numbness, Denies weakness Psychiatric: Reports anxiety, Reports depression, Reports sadness/tearfulness, Denies sleep disturbances, Denies suicidal ideation Endocrine: Denies fatigue, Denies weight change Objective - Vital Signs Vital signs: Vital Signs Temp 98.0 F 05/08/18 04:41 Pulse 88 05/08/18 08:57 Resp 16 05/08/18 04:41 BP 110/74 05/08/18 04:41 Pulse Ox 95 05/08/18 04:41 Intake & Output 05/07/18 05/08/18 05/08/18 18:59 06:59 18:59 Intake Total 5040 250 Balance 5040 250 Intake: Oral 5040 250 Other: Voiding Method Toilet Toilet # Voids 2 1 # Bowel Movements 2 - Exam General appearance: average body habitus, upper body tremors, patient appears to be slightly more comfortable today, tearful during discussion of hospice - EENT Eyes: anicteric sclerae, EOMI, PERRLA, no ptosis, no scleral icterus, normal appearance ENT: hearing grossly normal, NA/AT, normal oropharynx, no thrush (Poor dentition) Ears: bilateral: normal - Neck Neck: no lymphadenopathy, normal ROM, no rigidity, no stridor, no thyromegaly Carotids: bilateral: upstroke normal Thyroid: bilateral: normal size - Respiratory Respiratory: bilateral: diminished, prolonged expiration, negative: dullness, rales, rhonchi, wheezing - Cardiovascular Rhythm: regular Heart sounds: normal: S1, S2 Abnormal Heart Sounds: no systolic murmur, no rub, no S3 Gallop, no S4 Gallop, no click - Gastrointestinal General gastrointestinal: normal bowel sounds, no rigid, no scaphoid, soft, no splenomegaly, no tenderness, no umbilical hernia, no ventral hernia - Integumentary Integumentary: normal, normal turgor - Neurologic Neurologic: CNII-XII intact - Musculoskeletal Musculoskeletal: gait normal, strength equal bilaterally - Psychiatric Psychiatric: A&O x's 3, appropriate affect, intact judgment & insight - Labs CBC & Chem 7: 05/02/18 23:00 05/02/18 23:00 Assessment and Plan Plan: 1. Intractable pain secondary to metastatic stage IV small cell lung cancer with metastases to the spine scapula ribs pelvis and liver. Continue patient on fentanyl patch 100 g every 72 hours, continue with Dilaudid 2 mg IV push every 2 hours, Percocet discontinued, oncology and radiation oncology consultations appreciated, consider palliative care but patient wants all aggressive treatment. Continue dexamethasone. Repeat radiation treatment today. Last radiation on Thursday. Added oral Dilaudid 2 mg every 4 hours scheduled, g abapentin 100 mg 3 times daily, Toradol 60 mg IV every 6 hours. 2. History of hypertension. Currently not taking any medication her pressure is stable. 3. COPD. Continue patient on Combivent, Spiriva, albuterol, Advair. 4. Hypothyroidism. Continue Synthroid 25 g orally once every day. 5. Hyperlipidemia. Continue patient on simvastatin 20 mg at bedtime. 6. Recurrent depression. Continue citalopram 10 mg orally once every day. 7. Generalized anxiety disorder. Continue Xanax 0.5 mg every 6 hours as needed. 8. Insomnia. Continue Seroquel 50 mg at bedtime. 9. Nausea. Continue current anti-emetics. 10. DVT prophylaxis. Continue patient on Lovenox 40 mg subcutaneously every 24 hours. 11. GI prophylaxis. Continue patient on PPI. Full code as of now, consider palliative care. Discussed hospice care. Discharge plan: home after radiation treatment on Thursday Impression and plan of care have been directed as dictated by the signing physician. Fernanda Taylor nurse practitioner acting as scribe for signing physician.
[2018-05-08] MEDS: HYDROmorphone 2 MG TAB PO SCH ×3 (13:49→19:48)
[2018-05-08] MEDS: GABAPENTIN 100 MG CAP PO SCH ×3 (13:49→21:29)
[2018-05-08] MEDS: KETOROLAC 30 MG/ML 1 ML VIAL IVP SCH ×3 (13:50→23:32)
[2018-05-08] MEDS: POLYETHYLENE GLYCOL 3350 17 GM POWD.PACK PO SCH (19:46)
[2018-05-08] MEDS: QUEtiapine 50 MG TAB PO SCH (19:49)
[2018-05-09] MEDS: HYDROmorphone 2 MG TAB PO SCH ×6 (01:34→20:04)
[2018-05-09] MEDS: KETOROLAC 30 MG/ML 1 ML VIAL IVP SCH ×2 (05:59→14:31)
[2018-05-09] MEDS: LEVOTHYROXINE 50 MCG TAB PO SCH (06:14)
[2018-05-09] MEDS: GABAPENTIN 100 MG CAP PO SCH ×3 (08:28→22:04)
[2018-05-09] MEDS: DEXAMETHASONE 4 MG TAB PO SCH ×3 (08:28→22:04)
[2018-05-09] MEDS: SENNOSIDES-DOCUSATE SODIUM 1 EACH TAB PO SCH ×2 (08:28→20:08)
[2018-05-09] MEDS: ALPRAZolam 0.5 MG TAB PO SCH ×4 (08:28→22:04)
[2018-05-09] MEDS: PANTOPRAZOLE 40 MG TABLET PO SCH (08:28)
[2018-05-09] MEDS: MAGNESIUM HYDROXIDE 2,400 MG/10 ML CUP PO SCH ×2 (08:29→20:08)
[2018-05-09] MEDS: ENOXAPARIN 40 MG/0.4 ML SYRINGE SQ SCH (08:29)
[2018-05-09] MEDS: CITALOPRAM HYDROBROMIDE 10 MG TAB PO SCH (08:29)
[2018-05-09] MEDS: IPRATROPIUM-ALBUTEROL 3 ML NEB INHALATION SCH ×2 (08:45→20:58)
[2018-05-09] MEDS: SYMBICORT 160-4.5 MCG INHALER INHALATION SCH ×2 (08:45→20:58)
[2018-05-09] MEDS: IPRATROPIUM 0.5 MG/2.5 ML NEBU INHALATION SCH ×2 (12:29→15:38)
--- NOTE | 2018-05-09 14:00 | P.PN ---
Subjective This is a 63-year-old female one of Dr. Jess Harkins with a previous medical history significant for hypertension and hypertensive cardi ovascular disease, hyperlipidemia, GERD, COPD, sleep apnea, history of metastatic stage IV small cell lung cancer that was diagnosed back in June 2017 has been under the care of Dr. Lawrence and Dr. Pace underwent chemotherapy in the form of etoposide as well as carboplatin, patient has had a recent PET scan was supposed to follow-up with her oncologist next week however she ended up coming to the ER because of intractable mid spine pain and shoulder pain and left arm numbness patient was recently increased on her fentanyl 200 g every 72 hours, along with the Percocet for pain control however the pain was not well- controlled she was seen in the ER and he was felt the patient need to be ad mitted for evaluation and pain management, her PET scan showed a progression of her illness from the last one was done in 2018. Patient was quite tearful she was in a lot of pain she could not sit still due to her significant pain in her back, she is asking to increase her pain management Dilaudid every 2 hours for now. 05/04: Patient has been seen by oncology and radiation oncology and started ra diation therapy today. Dexamethasone 4 mg 3 times daily and Zometa were started yesterday. She has been afebrile, heart rate running between 70 and 106, pulse ox 94% on 4 L nasal cannula, blood pressure 117/74. Patient is seen after radiation therapy. She states she has been gone from her room for 4 hours with a lot of waiting time and is in pain 9 out of 10. This morning she was at a pain level of 6 out of 10. Majority of her pain is in the spinal area. She states she has been able to eat and drink. Yesterday she did have substantial bowel movements and constipation is resolved. Patient is scheduled for repeat radiation treatment tomorrow at 12:30. Patient voices concern that family members at home may have influenza and they are going to the doctor today. We'll plan to follow up on this tomorrow and patient may require prophylactic Tamiflu. 05/05: Patient has been afebrile, heart rate running in 80s and 90s, pulse ox 90- 95% on 4 L, blood pressure 114/74. Patient is complaining of more shakiness which she has chronically but it is much worse today. She sings her pain is a little bit better from yesterday but does not feel that's well enough to go home. She states her last bowel movement was on Thursday. She is asking for more medication for constipation and MiraLAX and milk of magnesia will be added. Patient is scheduled for radiation therapy this afternoon. 05/06: Patient has been afebrile, BP 108/74, HR 90s, pulse ox 94% on 4L nasal cannula. Patient is scheduled for repeat radiation treatment this afternoon. She continues to have shakiness for which Xanax has been changed to scheduled 4 times daily and oncology is also endorsing pain control. Plan most likely was discharged the next 24-48 hours and patient will be going to stay with her daughter. 05/07: Patient is complaining that the medication only lasts for an hour. This would be Dilaudid that she is 2 mg IV every 2 hours. She is continued on the dexamethasone and fentanyl patch. She denies having any cough, shortness of breath, bowel movement. She is passing gas. She is on ensure and not eating very much food. Patient encouraged to eat more food including lots of protein. She continues to have tremors. She is scheduled for radiation treatment today and her last treatment will be on Thursday. She has been afebrile, blood pressure 96/60, heart rate in the 80s, pulse ox 95% on 4 L nasal cannula. Patient is stating that she does not want hospice and wants all aggressive treatment for her cancer. 05/08: Patient has been afebrile, heart rate in the 60s to 80s, blood pressure 110/74, pulse ox 95% on 4 L nasal cannula. The patient is to continue on radiation for palliative care. She is planning to follow-up with Dr. Blanco at [facility] regarding further chemotherapy. Social work met with the patient yesterday to determine discharge planning and help with emotional concerns. Patient is planning that if pain is not controlled and second round of radiation is not an option then she would consider hospice. She does have relationship issues with her daughters which was discussed. Please see medical social work documentation for details. Patient continues to have pain control issues for which we will add in oral Dilaudid 2 mg every 4 hours scheduled and keep the IV Dilaudid for breakthrough pain with attempt to try and transition her to oral option for discharge. Patient will continue on the Duragesic patch 100 g and gabapentin has been added along with Toradol IV push every 6 hours scheduled. Reviewed patient's current condition and recommend the patient consider hospice care for pain control. Patient is very tearful during discussion and states that she wants to have more treatment as her mind is okay but she cannot control her pain. She is scheduled for radiation therapy on Thursday. Anticipate we will try to discharge Thursday after palliative radiation therapy is completed. 05/09: Patient evaluated today, blood pressure 93/59, 95% on 4 L nasal cannula, heart rate in the 60s, she remains afebrile. She continues on fentanyl 100 MCG patch, gabapentin 3 times a day, and IV hydromorphone and ketorolac for pain control. Patient reports better pain control today and has not needed IV Dilaudid since yesterday. Planning on radiation tomorrow and possible discharge afterwards. Will follow up with Dr. Cintron for pain managmenet. Today patient reports she would like to speak with hospice, informational consult placed for Hospice. Objective - Vital Signs Vital signs: Vital Signs Temp 98.3 F 05/09/18 03:58 Pulse 72 05/09/18 09:05 Resp 18 05/09/18 08:30 BP 93/59 05/09/18 03:58 Pulse Ox 95 05/09/18 03:58 Intake & Output 05/08/18 05/09/18 05/09/18 17:59 06:59 18:59 Intake Total 240 Balance 240 Intake: Oral 240 Other: Voiding Method Toilet # Voids 2 # Bowel Movements 2 - Constitutional General appearance: Present: average body habitus, no acute distress - EENT Eyes: Present: EOMI, PERRLA ENT: Present: hearing grossly normal, normal oropharynx - Neck Neck: Present: normal ROM. Absent: lymphadenopathy, thyromegaly - Respiratory Respiratory: bilateral: diminished, negative: dullness, rales, rhonchi, wheezing - Cardiovascular Rhythm: regular Heart sounds: normal: S1, S2 - Gastrointestinal General gastrointestinal: Present: normal bowel sounds, soft. Absent: distended, hepatomegaly, organomegaly - Neurologic Neurologic: Present: CNII-XII intact. Absent: focal deficits - Musculoskeletal Musculoskeletal: Present: gait normal - Psychiatric Psychiatric: Present: A&O x's 3, appropriate affect, intact judgment & insight - Labs CBC & Chem 7: 05/02/18 23:00 05/02/18 23:00 Assessment and Plan Plan: 1. Intractable pain secondary to metastatic stage IV small cell lung cancer with metastases to the spine scapula ribs pelvis and liver. Continue patient on fentanyl patch 100 g every 72 hours, Dilaudid 2 mg IV push every 2 hours, oncology and radiation oncology consultations appreciated, consider palliative care but patient wants all aggressive treatment. She is open to speak with Hospice today, consult placed. Continue dexamethasone. Repeat radiation treatment Thursday. Added oral Dilaudid 2 mg every 4 hours scheduled, gabapentin 100 mg 3 times daily, Toradol 60 mg IV every 6 hours. 2. History of hypertension. Currently not taking any medication her pressure is stable. 3. COPD. Continue patient on Combivent, Spiriva, albuterol, Advair. 4. Hypothyroidism. Continue Synthroid 25 g orally once every day. 5. Hyperlipidemia. Continue patient on simvastatin 20 mg at bedtime. 6. Recurrent depression. Continue citalopram 10 mg orally once every day. 7. Generalized anxiety disorder. Continue Xanax 0.5 mg every 6 hours as needed. 8. Insomnia. Continue Seroquel 50 mg at bedtime. 9. Nausea. Continue Compazine 10 mg 3 times a day when necessary. 10. DVT prophylaxis. Continue patient on Lovenox 40 mg subcutaneously every 24 hours. 11. GI prophylaxis. Continue patient on Protonix 40 mg daily. Full code as of now, consider palliative care. Discussed hospice care. Discharge plan: home after radiation treatment on Thursday The above impression and plan of care have been discussed and directed by signing physician. Erika Pizano nurse practitioner acting as scribe for signing physician.
[2018-05-09] MEDS: POLYETHYLENE GLYCOL 3350 17 GM POWD.PACK PO SCH (14:14)
[2018-05-09] MEDS: QUEtiapine 50 MG TAB PO SCH (20:05)
[2018-05-09 20:44] VITALS: TEMP 98.1
[2018-05-10] MEDS: HYDROmorphone 2 MG TAB PO SCH ×5 (00:26→14:52)
[2018-05-10] MEDS: LEVOTHYROXINE 50 MCG TAB PO SCH (06:20)
[2018-05-10] MEDS: ENOXAPARIN 40 MG/0.4 ML SYRINGE SQ SCH ×2 (08:02→08:12)
[2018-05-10] MEDS: DEXAMETHASONE 4 MG TAB PO SCH ×2 (08:02→14:52)
[2018-05-10] MEDS: CITALOPRAM HYDROBROMIDE 10 MG TAB PO SCH (08:02)
[2018-05-10] MEDS: PANTOPRAZOLE 40 MG TABLET PO SCH (08:02)
[2018-05-10] MEDS: ALPRAZolam 0.5 MG TAB PO SCH ×2 (08:02→11:44)
[2018-05-10] MEDS: GABAPENTIN 100 MG CAP PO SCH ×2 (08:03→14:53)
[2018-05-10] MEDS: SENNOSIDES-DOCUSATE SODIUM 1 EACH TAB PO SCH (08:04)
[2018-05-10] MEDS: MAGNESIUM HYDROXIDE 2,400 MG/10 ML CUP PO SCH (08:04)
[2018-05-10] MEDS: SYMBICORT 160-4.5 MCG INHALER INHALATION SCH (09:16)
[2018-05-10] MEDS: IPRATROPIUM-ALBUTEROL 3 ML NEB INHALATION SCH (09:18)
--- NOTE | 2018-05-10 11:34 | P.DS ---
Providers Date of admission: 05/02/18 23:14 Expected date of discharge: 05/10/18 Attending physician: Tania Yates Consults: 05/02/18 23:12 Consult Physician Routine Consulting Provider: Can Pace Consult Reason/Comments: establilshed paitent Do you want consulting provider notified?: Yes, Notify in am 05/03/18 10:49 Consult Physician Routine Consulting Provider: Chandler Rehman Consult Reason/Comments: painful bone mets Do you want consulting provider notified?: Yes [facility] care physician: [facility] Course: This is a 63-year-old female one of Dr. Jess Harkins with a previous medical history significant for hypertension and hypertensive cardiovascular disease, hyperlipidemia, GERD, COPD, sleep apnea, history of metastatic stage IV small cell lung cancer that was diagnosed back in June 2017 has been under the care of Dr. Lawrence and Dr. Pace underwent chemotherapy in the form of etoposide as well as carboplatin, patient has had a recent PET scan was supposed to follow-up with her oncologist next week however she ended up coming to the ER because of intractable mid spine pain and shoulder pain and left arm numbness patient was recently increased on her fentanyl 200 g every 72 hours, along with the Percocet for pain control however the pain was not well- controlled she was seen in the ER and he was felt the patient need to be admitted for evaluation and pain management, her PET scan showed a progression of her illness from the last one was done in 2018. Patient was quite tearful she was in a lot of pain she could not sit still due to her significant pain in her back, she is asking to increase her pain management Dilaudid every 2 hours for now. 05/04: Patient has been seen by oncology and radiation oncology and started radiation therapy today. Dexamethasone 4 mg 3 times daily and Zometa were started yesterday. She has been afebrile, heart rate running between 70 and 106, pulse ox 94% on 4 L nasal cannula, blood pressure 117/74. Patient is seen after radiation therapy. She states she has been gone from her room for 4 hours with a lot of waiting time and is in pain 9 out of 10. This morning she was at a pain level of 6 out of 10. Majority of her pain is in the spinal area. She states she has been able to eat and drink. Yesterday she did have substantial bowel movements and constipation is resolved. Patient is scheduled for repeat radiation treatment tomorrow at 12:30. Patient voices concern that family members at home may have influenza and they are going to the doctor today. We'll plan to follow up on this tomorrow and patient may require prophylactic Tamiflu. 05/05: Patient has been afebrile, heart rate running in 80s and 90s, pulse ox 90- 95% on 4 L, blood pressure 114/74. Patient is complaining of more shakiness which she has chronically but it is much worse today. She sings her pain is a little bit better from yesterday but does not feel that's well enough to go home. She states her last bowel movement was on Thursday. She is asking for more medication for constipation and MiraLAX and milk of magnesia will be added. Patient is scheduled for radiation therapy this afternoon. 05/06: Patient has been afebrile, BP 108/74, HR 90s, pulse ox 94% on 4L nasal cannula. Patient is scheduled for repeat radiation treatment this afternoon. She continues to have shakiness for which Xanax has been changed to scheduled 4 times daily and oncology is also endorsing pain control. Plan most likely was discharged the next 24-48 hours and patient will be going to stay with her daugh dana. 05/07: Patient is complaining that the medication only lasts for an hour. This would be Dilaudid that she is 2 mg IV every 2 hours. She is continued on the dexamethasone and fentanyl patch. She denies having any cough, shortness of breath, bowel movement. She is passing gas. She is on ensure and not eating very much food. Patient encouraged to eat more food including lots of protein. She continues to have tremors. She is scheduled for radiation treatment today and her last treatment will be on Thursday. She has been afebrile, blood pressure 96/60, heart rate in the 80s, pulse ox 95% on 4 L nasal cannula. Patient is stating that she does not want hospice and wants all aggressive treatment for her cancer. 05/08: Patient has been afebrile, heart rate in the 60s to 80s, blood pressure 110/74, pulse ox 95% on 4 L nasal cannula. The patient is to continue on radiation for palliative care. She is planning to follow-up with Dr. Blanco at [facility] regarding further chemotherapy. Social work met with the patient yesterday to determine discharge planning and help with emotional concerns. Patient is planning that if pain is not controlled and second round of radiation is not an option then she would consider hospice. She does have relationship issues with her daughters which was discussed. Please see medical social work documentation for details. Patient continues to have pain control issues for which we will add in oral Dilaudid 2 mg every 4 hours scheduled and keep the IV Dilaudid for breakthrough pain with attempt to try and transition her to oral option for discharge. Patient will continue on the Duragesic patch 100 g and gabapentin has been added along with Toradol IV push every 6 hours scheduled. Reviewed patient's current condition and recommend the patient consider hospice care for pain control. Patient is very tearful during discussion and states that she wants to have more treatment as her mind is okay but she cannot control her pain. She is scheduled for radiation therapy on Thursday. Anticipate we will try to discharge Thursday after palliative radiation therapy is completed. 05/09: Patient evaluated today, blood pressure 93/59, 95% on 4 L nasal cannula, heart rate in the 60s, she remains afebrile. She continues on fentanyl 100 MCG patch, gabapentin 3 times a day, and IV hydromorphone and ketorolac for pain control. Patient reports better pain control today and has not needed IV Dilaudid since yesterday. Planning on radiation tomorrow and possible discharge afterwards. Will follow up with Dr. Cintron for pain managmenet. Today patient reports she would like to speak with hospice, informational consult placed for Hospice. 05/10: Patient has been afebrile, pulse ox 94% on 5 L, blood pressure 112/75, heart rate in the 70s and 80s. Patient continues to have improved pain control with the current regime. We will plan to provide 3 days worth of Dilaudid and Neurontin. Patient is aware that she needs to follow-up with her oncologist for additional prescriptions. She is scheduled for radiation treatment this afternoon and will be discharged home later today. Discharge diagnoses: 1. Intractable pain secondary to metastatic stage IV small cell lung cancer with metastases to the spine scapula ribs pelvis and liver. 2. History of hypertension. 3. COPD. 4. Hypothyroidism. 5. Hyperlipidemia. 6. Recurrent depression. 7. Generalized anxiety disorder. 8. Insomnia. 9. Nausea. Discharge plan: home after radiation treatment Impression and plan of care have been directed as dictated by the signing physician. Fernanda Taylor nurse practitioner acting as scribe for signing physician. Patient Condition at Discharge: Good Plan - Discharge Summary Discharge Rx Participant: No New Discharge Prescriptions: New HYDROmorphone [Dilaudid] 2 mg PO Q4HR #18 tab Dexamethasone [Hexadrol] 4 mg PO TID #42 tab Magnesium Hydroxide [Milk of Magnesia Concentrate] 2,400 mg PO BID ml Polyethylene Glycol 3350 [Miralax] 17 gm PO HS #0 powd.pack Gabapentin [Neurontin] 100 mg PO TID #9 cap Sennosides-Docusate Sodium [Senokot-S] 2 each PO BID tab Continue Ipratropium/Albuterol Sulfate [Combivent Respimat Inhaler] 2 puff INHALATION RT-BID Albuterol Sulfate [Proair Hfa] 2 puff INHALATION RT-Q6H PRN PRN Reason: Shortness Of Breath Levothyroxine Sodium [Synthroid] 25 mcg PO QAM Tiotropium 18 Mcg/Puff [Spiriva] 1 cap INHALATION RT-DAILY Pantoprazole Sodium [Protonix] 40 mg PO QAM Simvastatin [Zocor] 20 mg PO HS fentaNYL 100MCG/HR PATCH [Duragesic 100MCG/HR] 1 patch TRANSDERM Q72H patch QUEtiapine [SEROquel] 50 mg PO HS Fluticasone/Salmeterol [Advair 500-50 Diskus] 1 puff INHALATION RT-BID Albuterol Nebulized [Ventolin Nebulized] 2.5 mg INHALATION RT-Q6H PRN PRN Reason: Shortness Of Breath ALPRAZolam [Xanax] 0.5 mg PO Q6HR PRN PRN Reason: Anxiety Prochlorperazine [Compazine] 10 mg PO TID PRN PRN Reason: Nausea Citalopram Hydrobromide [CeleXA] 10 mg PO DAILY Discontinued oxyCODONE HCL/ACETAMINOPHEN [Percocet 10-325 mg] 1 tab PO Q4HR PRN 3 Days #18 tab PRN Reason: Pain Discharge Medication List Albuterol Sulfate [Proair Hfa] 2 puff INHALATION RT-Q6H PRN 08/31/15 [History] Ipratropium/Albuterol Sulfate [Combivent Respimat Inhaler] 2 puff INHALATION RT- BID 08/31/15 [History] Levothyroxine Sodium [Synthroid] 25 mcg PO QAM 01/29/16 [History] Pantoprazole Sodium [Protonix] 40 mg PO QAM 01/29/16 [History] Tiotropium 18 Mcg/Puff [Spiriva] 1 cap INHALATION RT-DAILY 01/29/16 [History] Simvastatin [Zocor] 20 mg PO HS 05/14/16 [History] fentaNYL 100MCG/HR PATCH [Duragesic 100MCG/HR] 1 patch TRANSDERM Q72H patch 07/29/17 [Rx] ALPRAZolam [Xanax] 0.5 mg PO Q6HR PRN 05/02/18 [History] Albuterol Nebulized [Ventolin Nebulized] 2.5 mg INHALATION RT-Q6H PRN 05/02/18 [History] Citalopram Hydrobromide [CeleXA] 10 mg PO DAILY 05/02/18 [History] Fluticasone/Salmeterol [Advair 500-50 Diskus] 1 puff INHALATION RT-BID 05/02/18 [History] Prochlorperazine [Compazine] 10 mg PO TID PRN 05/02/18 [History] QUEtiapine [SEROquel] 50 mg PO HS 05/02/18 [History] Dexamethasone [Hexadrol] 4 mg PO TID #42 tab 05/10/18 [Rx] Gabapentin [Neurontin] 100 mg PO TID #9 cap 05/10/18 [Rx] HYDROmorphone [Dilaudid] 2 mg PO Q4HR #18 tab 05/10/18 [Rx] Magnesium Hydroxide [Milk of Magnesia Concentrate] 2,400 mg PO BID ml 05/10/18 [Rx] Polyethylene Glycol 3350 [Miralax] 17 gm PO HS #0 powd.pack 05/10/18 [Rx] Sennosides-Docusate Sodium [Senokot-S] 2 each PO BID tab 05/10/18 [Rx] Follow up Appointment(s)/Referral(s): Torin Mercado MD [Primary Care Provider] - 05/13/18 2:45 pm
[2018-05-10] MEDS: IPRATROPIUM 0.5 MG/2.5 ML NEBU INHALATION SCH (11:54)
[2018-05-10 12:09] VITALS: BP 120/77; PULSE 72; RESP 24
== END 2018-05-10 15:09 | disposition home or self-care (01) | DRG 948 ==
LOC: EC 22:28 → 3NMEDONC 23:14
PROVIDERS: ADMIT Internal Medicine; ATTEND Internal Medicine
PROC: D0062ZZ Beam Radiation of Spinal Cord using Photons >10 MeV (ICD-10-PCS; principal; 2018-05-04)
DX: G89.3 Neoplasm related pain (acute) (chronic) (principal); C79.51 Secondary malignant neoplasm of bone; C78.7 Secondary malignant neoplasm of liver and intrahepatic bile duct; F33.9 Major depressive disorder, recurrent, unspecified; C34.90 Malignant neoplasm of unspecified part of unspecified bronchus or lung; I11.9 Hypertensive heart disease without heart failure; K59.03 Drug induced constipation; T40.2X5A Adverse effect of other opioids, initial encounter; K21.9 Gastro-esophageal reflux disease without esophagitis; J44.9 Chronic obstructive pulmonary disease, unspecified; G47.33 Obstructive sleep apnea (adult) (pediatric); E78.5 Hyperlipidemia, unspecified; M19.90 Unspecified osteoarthritis, unspecified site; F43.10 Post-traumatic stress disorder, unspecified; F41.1 Generalized anxiety disorder; E66.9 Obesity, unspecified; R00.0 Tachycardia, unspecified; G47.00 Insomnia, unspecified; R20.0 Anesthesia of skin; R11.0 Nausea; E03.9 Hypothyroidism, unspecified; M81.0 Age-related osteoporosis without current pathological fracture; F10.21 Alcohol dependence, in remission; K57.90 Diverticulosis of intestine, part unspecified, without perforation or abscess without bleeding; K44.9 Diaphragmatic hernia without obstruction or gangrene; M54.6 Pain in thoracic spine; R25.1 Tremor, unspecified; Z68.33 Body mass index [BMI] 33.0-33.9, adult; Z71.3 Dietary counseling and surveillance; Z79.899 Other long term (current) drug therapy; Z79.890 Hormone replacement therapy; Z92.21 Personal history of antineoplastic chemotherapy; Z90.49 Acquired absence of other specified parts of digestive tract; Z87.891 Personal history of nicotine dependence; Z88.8 Allergy status to other drugs, medicaments and biological substances; Z91.030 Bee allergy status; Z82.49 Family history of ischemic heart disease and other diseases of the circulatory system; Z80.0 Family history of malignant neoplasm of digestive organs
CPT/HCPCS: 36415; 77295; 77300; 77334; 77336; 77412; 77417; 80053; 85025; 93005; 94640; 94760; 96374; 99284; 99285

== ENCOUNTER 2018-06-30 16:24 | Inpatient (IN) | payer OTHER ==
[2018-06-30] MEDS ORDERED: SODIUM CHLORIDE 0.9% 1,000 ML IV STA ×2 (16:41)
[2018-06-30 17:34] LABS: Basophils % (A) 1 %; Eosinophils # (A) 0.1 k/uL (0-0.7); Eosinophils % (A) 1 %; HCT 33.8 % (34.0-46.0); HGB 11.2 gm/dL (11.4-16.0); Hypochromasia Slight; Lymphocytes # (A) 0.6 k/uL (1.0-4.8); Lymphocytes % (A) 9 %; MCH 30.7 pg (25.0-35.0); MCHC 33.3 g/dL (31.0-37.0); Mean Platelet Volume 8.3; Monocytes # (A) 0.3 k/uL (0-1.0); Monocytes % (A) 5 %; Neutrophils # (A) 5.2 k/uL (1.3-7.7); Neutrophils % (A) 82 %; Platelet Count 184 k/uL (150-450); RBC 3.65 m/uL (3.80-5.40); RDW 15.2 % (11.5-15.5); WBC 6.4 k/uL (3.8-10.6)
[2018-06-30 17:43] LABS: ALT 38 U/L (9-52); AST 58 U/L (14-36); Albumin 3.7 g/dL (3.5-5.0); Alkaline Phosphatase 149 U/L (38-126); Amylase 31 U/L (30-110); Anion Gap 8 mmol/L; Appearance,Urine Cloudy (Clear); Bacteria,Urine Rare /hpf; Bilirubin,Urine Negative (Negative); Blood Urea Nitrogen 14 mg/dL (7-17); Blood,Urine Negative (Negative); Calcium 9.8 mg/dL (8.4-10.2); Carbon Dioxide 25 mmol/L (22-30); Chloride 108 mmol/L (98-107); Color,Urine Yellow; Glucose 95 mg/dL (74-99); Glucose,Urine (UA) Negative (Negative); Ketones,Urine Negative (Negative); Leukocyte Esterase,Urine Small (Negative); Lipase 62 U/L (23-300); Mucus,Urine Many /hpf; Nitrite,Urine Negative (Negative); PH, Urine 5.5 (5.0-8.0); Potassium 4.2 mmol/L (3.5-5.1); Protein,Urine 1+ (Negative); RBC,Urine 2 /hpf (0-5); Sodium 141 mmol/L (137-145); Specific Gravity,Urine 1.041 (1.001-1.035); Squamous Epithelial Cell,Urine 7 /hpf (0-4); Total Bilirubin 0.8 mg/dL (0.2-1.3); Total Protein 6.1 g/dL (6.3-8.2); WBC,Urine 22 /hpf (0-5)
[2018-06-30 17:51] LABS: MCV 92.4 fL (80.0-100.0)
--- NOTE | 2018-06-30 18:10 | ED ---
Abdominal Pain HPI - General Chief Complaint: Abdominal Pain Stated Complaint: abd pain Time Seen by Provider: 06/30/18 16:40 Source: patient, RN notes reviewed, old records reviewed Mode of arrival: wheelchair Limitations: no limitations - History of Present Illness Initial Comments: This is a 63-year-old female the ER for evaluation. She presents with abdominal pain. Patient sent in by oncologist for IV hydration and computed tomography scan of abdomen and pelvis regarding this abdominal pain. Patient has no fevers mild nausea no vomiting, no diarrhea. No prior significant history of similar complaint patient has abdominal pain cramping and diarrhea, PCP concern for pancreatitis. MD Complaint: abdominal pain -: days(s) Location: periumbilical, epigastric Radiation: epigastric, back Migration to: bilateral flank Severity: moderate Severity scale (1-10): 5 Quality: aching, sharp Consistency: constant Improves With: nothing Worsens With: nothing Associated Symptoms: nausea - Related Data Home Medications Medication Instructions Recorded Confirmed Albuterol Sulfate [Proair Hfa] 2 puff INHALATION RT-Q6H PRN 08/31/15 06/30/18 Ipratropium/Albuterol Sulfate 2 puff INHALATION RT-BID 08/31/15 06/30/18 [Combivent Respimat Inhaler] Levothyroxine Sodium [Synthroid] 25 mcg PO DAILY 01/29/16 06/30/18 Pantoprazole Sodium [Protonix] 40 mg PO DAILY 01/29/16 06/30/18 Tiotropium 18 Mcg/Puff [Spiriva] 1 cap INHALATION RT-DAILY 01/29/16 06/30/18 Simvastatin [Zocor] 20 mg PO HS 05/14/16 06/30/18 ALPRAZolam [Xanax] 0.5 mg PO Q6HR PRN 05/02/18 06/30/18 Albuterol Nebulized [Ventolin 2.5 mg INHALATION RT-Q6H PRN 05/02/18 06/30/18 Nebulized] Fluticasone/Salmeterol [Advair 1 puff INHALATION RT-BID 05/02/18 06/30/18 500-50 Diskus] Prochlorperazine [Compazine] 10 mg PO TID PRN 05/02/18 06/30/18 QUEtiapine [SEROquel] 50 mg PO HS 05/02/18 06/30/18 oxyCODONE-APAP 10-325MG [Percocet 1 - 2 tab PO Q6H PRN 06/30/18 06/30/18 10-325 mg] Previous Rx's Medication Instructions Recorded fentaNYL 100MCG/HR PATCH 1 patch TRANSDERM Q72H patch 07/29/17 [Duragesic 100MCG/HR] Allergies Allergy/AdvReac Type Severity Reaction Status Date / Time bee venom protein (honey bee) Allergy Anaphylaxis Verified 06/30/18 17:23 lidocaine [From Lidoderm] Allergy Rash/Hives Verified 06/30/18 17:23 Review of Systems ROS Statement: Those systems with pertinent positive or pertinent negative responses have been documented in the HPI. ROS Other: All systems not noted in ROS Statement are negative. Past Medical History Past Medical History: Cancer, COPD, GERD/Reflux, Hyperlipidemia, Hypertension, Osteoarthritis (OA) Additional Past Medical History / Comment(s): COPD, obesity, osteoporosis, hiatal hernia, degenerative arthritis , diverticulosis, history of alcoholism, previous history of gallstone with a previous cholecystectomy, lung cancer with METS to bones. History of Any Multi-Drug Resistant Organisms: None Reported Past Surgical History: Cholecystectomy Additional Past Surgical History / Comment(s): EGD,colonoscopy Past Anesthesia/Blood Transfusion Reactions: Previous Problems w/ Anesthesia, Family History of Problems w/ Anesthesia Additional Past Anesthesia/Blood Transfusion Reaction / Comment(s): EGD/Colonoscopy,never has had general anesthesia, the patient also has had a previous cholecystectomy Past Psychological History: Anxiety, PTSD Smoking Status: Former smoker Past Alcohol Use History: None Reported Past Drug Use History: None Reported - Past Family History Mother Family Medical History: Cancer, Coronary Artery Disease (CAD) (Mother at age of 82 from CAD and also had history of skin cancer.) Additional Family Medical History / Comment(s): skin Father Family Medical History: No Reported History Additional Family Medical History / Comment(s): Father at the age of 40 in a motor vehicle accident. Patient had one brother who had metastatic colon cancer and history of coronary artery disease. His sister had skin cancer. Patient lives alone and is functionally active does. 3 L of oxygen at rest and exertion Brother(s) Family Medical History: Cancer, Coronary Artery Disease (CAD) (Patient had one brother who from metastatic prostate cancer also had a history of coronary artery disease.), Myocardial Infarction ([place]) Sister(s) Family Medical History: Cancer (Patient has one sister with history of skin can cer.) Additional Family Medical History / Comment(s): cancer skin mom skin ca Daughter(s) Family Medical History: No Reported History (Patient has one daughter no major medical problems.) General Exam Limitations: no limitations General appearance: alert, in no apparent distress Head exam: Present: atraumatic, normocephalic, normal inspection Eye exam: Present: normal appearance, PERRL, EOMI. Absent: scleral icterus, conjunctival injection, periorbital swelling ENT exam: Present: normal exam, mucous membranes moist Neck exam: Present: normal inspection. Absent: tenderness, meningismus, lymphadenopathy Respiratory exam: Present: normal lung sounds bilaterally. Absent: respiratory distress, wheezes, rales, rhonchi, stridor Cardiovascular Exam: Present: regular rate, normal rhythm, normal heart sounds. Absent: systolic murmur, diastolic murmur, rubs, gallop, clicks GI/Abdominal exam: Present: soft, normal bowel sounds. Absent: distended, tenderness, guarding, rebound, rigid Extremities exam: Present: normal inspection, full ROM, normal capillary refill. Absent: tenderness, pedal edema, joint swelling, calf tenderness Back exam: Present: normal inspection Neurological exam: Present: alert, oriented X3, CN II-XII intact Psychiatric exam: Present: normal affect, normal mood Skin exam: Present: warm, dry, intact, normal color. Absent: rash Course Vital Signs 06/30/18 06/30/18 06/30/18 16:33 16:51 18:00 Temperature 98.3 F Pulse Rate 135 H 116 H 118 H Respiratory 22 18 18 Rate Blood Pressure 87/56 115/84 126/82 O2 Sat by Pulse 95 97 96 Oximetry 06/30/18 06/30/18 19:07 19:17 Temperature Pulse Rate 107 H Respiratory 18 17 Rate Blood Pressure 133/89 O2 Sat by Pulse 97 Oximetry - Reevaluation(s) Reevaluation #1: 06/30/18 18:10 Medical record reviewed Reevaluation #2: 06/30/18 18:10 Patient improving with hydration and pain control Medical Decision Making - Medical Decision Making 63 female the ER for evaluation of pain cancer related pain secondary to 1 and pressure in her duodenum shortness CT. Patient has improved pain control currently. Patient will be admitted for pain control - Lab Data Result diagrams: 06/30/18 17:10 06/30/18 17:10 Lab Results 06/30/18 06/30/18 06/30/18 Range/Units 17:10 17:10 17:10 WBC 6.4 (3.8-10.6) k/uL RBC 3.65 L (3.80-5.40) m/uL Hgb 11.2 L (11.4-16.0) gm/dL Hct 33.8 L (34.0-46.0) % MCV 92.4 D (80.0-100.0) fL MCH 30.7 (25.0-35.0) pg MCHC 33.3 (31.0-37.0) g/dL RDW 15.2 (11.5-15.5) % Plt Count 184 (150-450) k/uL Neutrophils % 82 % Lymphocytes % 9 % Monocytes % 5 % Eosinophils % 1 % Basophils % 1 % Neutrophils # 5.2 (1.3-7.7) k/uL Lymphocytes # 0.6 L (1.0-4.8) k/uL Monocytes # 0.3 (0-1.0) k/uL Eosinophils # 0.1 (0-0.7) k/uL Basophils # 0.0 (0-0.2) k/uL Hypochromasia Slight Sodium 141 (137-145) mmol/L Potassium 4.2 (3.5-5.1) mmol/L Chloride 108 H (98-107) mmol/L Carbon Dioxide 25 (22-30) mmol/L Anion Gap 8 mmol/L BUN 14 (7-17) mg/dL Creatinine 0.67 (0.52-1.04) mg/dL Est GFR (CKD-EPI)AfAm >90 (>60 ml/min/1.73 sqM) Est GFR (CKD-EPI)NonAf >90 (>60 ml/min/1.73 sqM) Glucose 95 (74-99) mg/dL Plasma Lactic Acid Chris (0.7-2.0) mmol/L Calcium 9.8 (8.4-10.2) mg/dL Total Bilirubin 0.8 (0.2-1.3) mg/dL AST 58 H (14-36) U/L ALT 38 (9-52) U/L Alkaline Phosphatase 149 H (38-126) U/L Total Protein 6.1 L (6.3-8.2) g/dL Albumin 3.7 (3.5-5.0) g/dL Amylase 31 (30-110) U/L Lipase 62 (23-300) U/L Urine Color Yellow Urine Appearance Cloudy H (Clear) Urine pH 5.5 (5.0-8.0) Ur Specific [place] 1.041 H (1.001-1.035) Urine Protein 1+ H (Negative) Urine Glucose (UA) Negative (Negative) Urine Ketones Negative (Negative) Urine Blood Negative (Negative) Urine Nitrite Negative (Negative) Urine Bilirubin Negative (Negative) Urine Urobilinogen 2.0 (<2.0) mg/dL Ur Leukocyte Esterase Small H (Negative) Urine RBC 2 (0-5) /hpf Urine WBC 22 H (0-5) /hpf Ur Squamous Epith Cells 7 H (0-4) /hpf Urine Bacteria Rare H (None) /hpf Urine Mucus Many H (None) /hpf 06/30/18 Range/Units 17:10 WBC (3.8-10.6) k/uL RBC (3.80-5.40) m/uL Hgb (11.4-16.0) gm/dL Hct (34.0-46.0) % MCV (80.0-100.0) fL MCH (25.0-35.0) pg MCHC (31.0-37.0) g/dL RDW (11.5-15.5) % Plt Count (150-450) k/uL Neutrophils % % Lymphocytes % % Monocytes % % Eosinophils % % Basophils % % Neutrophils # (1.3-7.7) k/uL Lymphocytes # (1.0-4.8) k/uL Monocytes # (0-1.0) k/uL Eosinophils # (0-0.7) k/uL Basophils # (0-0.2) k/uL Hypochromasia Sodium (137-145) mmol/L Potassium (3.5-5.1) mmol/L Chloride (98-107) mmol/L Carbon Dioxide (22-30) mmol/L Anion Gap mmol/L BUN (7-17) mg/dL Creatinine (0.52-1.04) mg/dL Est GFR (CKD-EPI)AfAm (>60 ml/min/1.73 sqM) Est GFR (CKD-EPI)NonAf (>60 ml/min/1.73 sqM) Glucose (74-99) mg/dL Plasma Lactic Acid Chris 1.3 (0.7-2.0) mmol/L Calcium (8.4-10.2) mg/dL Total Bilirubin (0.2-1.3) mg/dL AST (14-36) U/L ALT (9-52) U/L Alkaline Phosphatase (38-126) U/L Total Protein (6.3-8.2) g/dL Albumin (3.5-5.0) g/dL Amylase (30-110) U/L Lipase (23-300) U/L Urine Color Urine Appearance (Clear) Urine pH (5.0-8.0) Ur Specific [place] (1.001-1.035) Urine Protein (Negative) Urine Glucose (UA) (Negative) Urine Ketones (Negative) Urine Blood (Negative) Urine Nitrite (Negative) Urine Bilirubin (Negative) Urine Urobilinogen (<2.0) mg/dL Ur Leukocyte Esterase (Negative) Urine RBC (0-5) /hpf Urine WBC (0-5) /hpf Ur Squamous Epith Cells (0-4) /hpf Urine Bacteria (None) /hpf Urine Mucus (None) /hpf - Radiology Data Radiology results: report reviewed (CT abdomen pelvis is positive for lung metastasis and duodenal pressure), image reviewed Disposition Clinical Impression: Intractable pain, Small cell lung cancer, Metastatic lung cancer (metastasis from lung to other site) Disposition: ADMITTED IP TO THIS HOSP Condition: Fair Is patient prescribed a controlled substance at d/c from ED?: No Referrals: Torin Mercado MD [Primary Care Provider] - 1-2 days
--- NOTE | 2018-06-30 18:30 | CT ---
EXAMINATION TYPE: CT abdomen pelvis w con DATE OF EXAM: 06/30/2018 COMPARISON: PET CT 04/17/2018 HISTORY: Generalized pain with vomiting. History lung cancer with mets to liver per patient. CT DLP: 878.2 mGycm Automated exposure control for dose reduction was used. TECHNIQUE: Helical acquisition of images was performed from the lung bases through the pelvis. CONTRAST: Performed without Oral Contrast and with IV Contrast, patient injected with 100 mL of Isovu e 300. FINDINGS: Liver/biliary tree: The liver metastases are larger and more numerous and the associated hepatomegaly is more prominent in all dimensions. For example, the midclavicular line and longitudinal liver elier urement exceeds 22 cm currently; this measurement was 15 cm on 04/17/2018. Bowel: There is no bowel obstruction. The stomach is nondistended; it is collapsed upon itself. The d istal stomach/ proximal duodenum is narrowed due to the hepatomegaly nearly abutting the pancreatic n breann. The mid and distal duodenum, jejunum, ileum, and colon have normal appearance. Pancreas, spleen, kidneys, adrenals: Unremarkable. Urinary tract: No obstructive uropathy. Vasculature: No acute findings. However, as a result of hepatomegaly there is mass effect upon the in trahepatic cava, the hepatic venous structures, and the portal vein within the pat hepatis. Skeletal structures: Multifocal metastases noted. Visualized supradiaphragmatic structures: Right lower lobe/inferior pulmonary ligament 4 x 3 cm mass is partially visualized. IMPRESSION: HEPATOMEGALY CAUSING MASS EFFECT UPON THE GASTRODUODENAL JUNCTION.
[2018-06-30] MEDS ORDERED: PANTOPRAZOLE 40 MG/10 ML VIAL IVP STA (19:26)
[2018-06-30] MEDS ORDERED: MORPHINE SULFATE 4 MG/ML SYRINGE IVP PRN (19:26)
[2018-06-30] MEDS ORDERED: ONDANSETRON 4 MG/2 ML VIAL IVP STA (19:26)
[2018-06-30] MEDS ORDERED: ONDANSETRON 4 MG/2 ML VIAL IVP PRN (19:26)
[2018-06-30] MEDS ORDERED: MORPHINE SULFATE 4 MG/ML SYRINGE IVP STA (19:26)
[2018-06-30] MEDS ORDERED: IPRATROPIUM-ALBUTEROL 3 ML NEB INHALATION PRN (21:30)
[2018-06-30] MEDS: oxyCODONE-APAP 10-325MG 1 EACH TAB PO PRN (21:44)
[2018-06-30] MEDS: QUEtiapine 50 MG TAB PO SCH (22:58)
[2018-06-30] MEDS: ATORVASTATIN 10 MG TAB PO SCH (22:58)
[2018-07-01] MEDS ORDERED: HEPARIN SODIUM,PORCINE 5,000 UNIT/ML 1 ML VIAL SQ SCH
[2018-07-01] MEDS: ALPRAZolam 0.5 MG TAB PO PRN ×4 (00:04→21:45)
[2018-07-01] MEDS: LEVOTHYROXINE 25 MCG TAB PO SCH (05:25)
[2018-07-01] MEDS: oxyCODONE-APAP 10-325MG 1 EACH TAB PO PRN ×4 (05:27→19:49)
[2018-07-01] MEDS ORDERED: PANTOPRAZOLE 40 MG TABLET PO SCH (09:00)
[2018-07-01] MEDS: ENOXAPARIN 40 MG/0.4 ML SYRINGE SQ SCH (10:01)
[2018-07-01] MEDS: PANTOPRAZOLE 40 MG/10 ML VIAL IVP SCH (10:02)
--- NOTE | 2018-07-01 11:59 | P.HPIM ---
History of Present Illness H&P Date: 07/01/18 Chief Complaint: Intractable abdominal pain due to metastatic lung cancer to the liver. This is a 63-year-old female one of Dr. Jess Harkins with a previous medical history significant for hypertension and hypertensive cardiovascular disease, hyperlipidemia, GERD, COPD, sleep apnea, history of metastatic stage IV small cell lung cancer that was diagnosed back in June 2017 has been under the care of Dr. Lawrence and Dr. Pace underwent chemotherapy in the form of etoposide as well as carboplatin, patient has had a recent PET scan that showed metastatic disease to the spine as well as the liver and the patient ended up going for additional therapy and was started on Opdivo therapy through her oncologist and she was sent from his office yesterday because of intractable abdominal pain thinking that she the patient is having pancreatitis however the patient is indeed showing significant stretching of the liver capsule due to metastatic liver disease she was kept on Percocet and fentanyl patch was admitted to the hospital for pain control will be seen in consultation by hematology oncology. Review of Systems Constitutional: Reports anorexia, Reports chronic pain, Reports fatigue, Reports lethargy, Reports malaise, Reports weakness, Reports weight loss Eyes: denies blurred vision, denies bulging eye, denies decreased vision Ears: deny: decreased hearing Ears, nose, mouth and throat: Denies dysphagia, Denies swelling in throat, De nies sore throat Cardiovascular: Reports decreased exercise tolerance, Reports dyspnea on exertion, Reports shortness of breath, Denies chest pain, Denies rapid heart beat, Denies syncope Respiratory: Reports cough, Reports home oxygen, Denies congestion, Denies cough with sputum, Denies sleep apnea, Denies snoring, Denies wheezing Gastrointestinal: Reports abdominal pain, Reports early satiety, Reports indigestion, Reports loss of appetite, Reports nausea, Denies bloating, Denies BRBPR, Denies change in bowel habits, Denies constipation, Denies excessive gas, Denies hematemesis, Denies hematochezia, Denies melena, Denies vomiting Genitourinary: Reports nocturia, Denies dysuria Menstruation: Reports postmenopausal Musculoskeletal: Reports loss of height, Reports low back pain, Denies myalgias Musculoskeletal: absent: ankle pain, ankle stiffness, ankle swelling, elbow pain, elbow stiffness, elbow swelling, foot pain, foot stiffness, foot swelling, hand pain, hand stiffness, hand swelling, hip pain, hip stiffness, hip swelling, knee pain, knee stiffness, knee swelling, shoulder pain, shoulder stiffness, shoulder swelling, wrist pain, wrist stiffness, wrist swelling Integumentary: Denies pruritus, Denies rash Neurological: Denies numbness, Denies weakness Psychiatric: Reports anxiety, Reports depression, Denies sadness/tearfulness, Denies sleep disturbances, Denies suicidal ideation Endocrine: Denies fatigue, Denies weight change Past Medical History Past Medical History: Cancer, COPD, GERD/Reflux, Hyperlipidemia, Hypertension, Osteoarthritis (OA) Additional Past Medical History / Comment(s): COPD, obesity, osteoporosis, hiatal hernia, degenerative arthritis , diverticulosis, history of alcoholism, previous history of gallstone with a previous cholecystectomy, lung cancer with METS to bones and liver. History of Any Multi-Drug Resistant Organisms: None Reported Past Surgical History: Cholecystectomy Additional Past Surgical History / Comment(s): EGD,colonoscopy Past Anesthesia/Blood Transfusion Reactions: Previous Problems w/ Anesthesia, Family History of Problems w/ Anesthesia Additional Past Anesthesia/Blood Transfusion Reaction / Comment(s): EGD/Colonoscopy,never has had general anesthesia, the patient also has had a previous cholecystectomy Past Psychological History: Anxiety, PTSD Smoking Status: Former smoker Past Alcohol Use History: None Reported Additional Past Alcohol Use History / Comment(s): quit smoking 2015,smoked approx 40 yrs 1ppd Past Drug Use History: None Reported - Past Family History Mother Family Medical History: Cancer, Coronary Artery Disease (CAD) Additional Family Medical History / Comment(s): skin Father Family Medical History: No Reported History Additional Family Medical History / Comment(s): Father at the age of 40 in a motor vehicle accident. Patient had one brother who had metastatic colon cancer and history of coronary artery disease. His sister had skin cancer. Patient lives alone and is functionally active does. 3 L of oxygen at rest and exertion Brother(s) Family Medical History: Cancer, Coronary Artery Disease (CAD) (Patient had one brother who from metastatic prostate cancer also had a history of coronary artery disease.), Myocardial Infarction ([place]) Sister(s) Family Medical History: Cancer Additional Family Medical History / Comment(s): cancer skin mom skin ca Daughter(s) Family Medical History: No Reported History Medications and Allergies Home Medications Medication Instructions Recorded Confirmed Type Albuterol Sulfate [Proair Hfa] 2 puff INHALATION RT-Q6H PRN 08/31/15 06/30/18 History Ipratropium/Albuterol Sulfate 2 puff INHALATION RT-BID 08/31/15 06/30/18 History [Combivent Respimat Inhaler] Levothyroxine Sodium [Synthroid] 25 mcg PO DAILY 01/29/16 06/30/18 History Pantoprazole Sodium [Protonix] 40 mg PO DAILY 01/29/16 06/30/18 History Tiotropium 18 Mcg/Puff [Spiriva] 1 cap INHALATION RT-DAILY 01/29/16 06/30/18 History Simvastatin [Zocor] 20 mg PO HS 05/14/16 06/30/18 History fentaNYL 100MCG/HR PATCH 1 patch TRANSDERM Q72H patch 07/29/17 06/30/18 Rx [Duragesic 100MCG/HR] ALPRAZolam [Xanax] 0.5 mg PO Q6HR PRN 05/02/18 06/30/18 History Albuterol Nebulized [Ventolin 2.5 mg INHALATION RT-Q6H PRN 05/02/18 06/30/18 History Nebulized] Fluticasone/Salmeterol [Advair 1 puff INHALATION RT-BID 05/02/18 06/30/18 History 500-50 Diskus] Prochlorperazine [Compazine] 10 mg PO TID PRN 05/02/18 06/30/18 History QUEtiapine [SEROquel] 50 mg PO HS 05/02/18 06/30/18 History oxyCODONE-APAP 10-325MG [Percocet 1 - 2 tab PO Q6H PRN 06/30/18 06/30/18 History 10-325 mg] Allergies Allergy/AdvReac Type Severity Reaction Status Date / Time bee venom protein (honey bee) Allergy Anaphylaxis Verified 06/30/18 17:23 lidocaine [From Lidoderm] Allergy Rash/Hives Verified 06/30/18 17:23 Physical Exam Vitals: Vital Signs Temp Pulse Pulse Resp BP BP Pulse Ox 07/01/18 05:00 98.1 F 85 16 116/57 99 06/30/18 22:00 97.3 F L 111 H 20 140/86 98 06/30/18 19:17 17 06/30/18 19:07 107 H 18 133/89 97 06/30/18 18:00 118 H 18 126/82 96 06/30/18 16:51 116 H 18 115/84 97 06/30/18 16:33 98.3 F 135 H 22 87/56 95 Intake and Output 06/30/18 07/01/18 07/01/18 22:59 06:59 14:59 Intake Total 590 590 Balance 590 590 Intake: Oral 590 590 Other: # Voids 1 2 Weight 79.464 kg - Constitutional General appearance: average body habitus, mild distress - EENT Eyes: anicteric sclerae, EOMI, PERRLA, no ptosis, no scleral icterus, normal appearance ENT: hearing grossly normal, NA/AT, normal oropharynx, no thrush Ears: bilateral: normal - Neck Neck: no lymphadenopathy, normal ROM, no rigidity, no stridor, no thyromegaly Carotids: bilateral: upstroke normal - Respiratory Respiratory: bilateral: diminished, prolonged expiration, negative: dullness, rales, rhonchi, wheezing - Cardiovascular Rhythm: regular Heart sounds: normal: S1, S2 Abnormal Heart Sounds: systolic murmur, no S3 Gallop - Gastrointestinal General gastrointestinal: normal bowel sounds, soft, no splenomegaly, no tenderness, no umbilical hernia, no ventral hernia - Integumentary Integumentary: normal, normal turgor - Neurologic Neurologic: CNII-XII intact - Musculoskeletal Musculoskeletal: gait normal, generalized weakness, strength equal bilaterally - Psychiatric Psychiatric: A&O x's 3, appropriate affect, intact judgment & insight Results CBC & Chem 7: 06/30/18 17:10 06/30/18 17:10 Labs: Abnormal Lab Results - Last 24 Hours (Table) 06/30/18 06/30/18 06/30/18 Range/Units 17:10 17:10 17:10 RBC 3.65 L (3.80-5.40) m/uL Hgb 11.2 L (11.4-16.0) gm/dL Hct 33.8 L (34.0-46.0) % Lymphocytes # 0.6 L (1.0-4.8) k/uL Chloride 108 H (98-107) mmol/L AST 58 H (14-36) U/L Alkaline Phosphatase 149 H (38-126) U/L Total Protein 6.1 L (6.3-8.2) g/dL Urine Appearance Cloudy H (Clear) Ur Specific [place] 1.041 H (1.001-1.035) Urine Protein 1+ H (Negative) Ur Leukocyte Esterase Small H (Negative) Urine WBC 22 H (0-5) /hpf Ur Squamous Epith Cells 7 H (0-4) /hpf Urine Bacteria Rare H (None) /hpf Urine Mucus Many H (None) /hpf Microbiology - Last 24 Hours (Table) 06/30/18 17:10 Urine Culture - Preliminary Urine,Voided Thrombosis Risk Factor Assmnt - DVT/VTE Prophylaxis DVT/VTE Prophylaxis: Pharmacologic Prophylaxis ordered, Mechanical Prophylaxis ordered - Choose All That Apply Any of the Below Risk Factors Present?: Yes Each Factor Represents 1 point: Abnormal pulmonary function (COPD), Obesity (BMI >25) Other Risk Factors: Yes Each Risk Factor Represents 2 Points: Age 61-74 years Other congenital or acquired thrombophilia - If yes, enter type in comment: No Thrombosis Risk Factor Assessment Total Risk Factor Score: 4 Thrombosis Risk Factor Assessment Level: Moderate Risk Assessment and Plan Assessment: Assessment and plan: 1. Metastatic small cell lung cancer to the liver and bones post-remission therapy currently on Opdivo. Consult hematology oncology. 2. Intractable abdominal pain due to the liver metastatic disease. Continue patient on fentanyl patch 100 g 72 hours as well as Percocet one to 2 tablet every 6 hours as needed. Patient cannot tolerate Dilaudid or morphine at this point in time so we'll continue with current pain management as outlined by oncology. 3. History of hypertension. Currently not taking any medication her pressure is stable. 4. COPD. Continue patient on DuoNeb 3 mg position 4 times every day. 5. Hypothyroidism. Continue Synthroid 25 g orally once every day. 6. Hyperlipidemia. Continue patient on Lipitor 10 mg at bedtime. 7. Anxiety. Continue Xanax 0.5 mg every 6 hours as needed. 8. Insomnia. Continue Seroquel 50 mg at bedtime. 9. Nausea. Continue Zofran 4 mg IV push every 6 hours as needed. 10. DVT prophylaxis. Continue patient on Lovenox 40 mg subcutaneously every 24 hours. 11. GI prophylaxis. Continue patient on Protonix 40 mg IV push every 24 hours. 12. Admitted to inpatient. Estimate a length of stay 2 midnights.
[2018-07-01] MEDS: predniSONE 20 MG TAB PO SCH (12:05)
--- NOTE | 2018-07-01 13:43 | P.CONS ---
History of Present Illness - Reason for Consult Consult date: 07/01/18 Small cell lung cancer, intractable abdominal pain and diarrhea Requesting physician: Alex Wise - Chief Complaint Small cell lung cancer, intractable abdominal pain and diarrhea - History of Present Illness Mrs. Nath is a very pleasant 63-year-old female patient with a history of extensive stage small-cell lung cancer diagnosed 06/2017. She was treated by Dr. Blanco with 5 cycles of Carbo/VP16, completed 12/16/17. She had a PET/CT at [facility] on 01/13/2018 which showed a good response to treatment. She presented in April with complaints of severe thoracic spine pain, PET/CT showed significant disease progression with uptake in T3, T5, T9 and T12, new lesions in the left iliac bone and the left first rib, also multiple liver lesions. Patient did receive radiation therapy to painful bony lesions with improvement in her pain, she first started on compassionate use nivolumab, monthly cycle, s/p 2 doses. She presents to the hospital with 1-2 weeks of increasing abdominal pain, right upper quadrant/epigastric area, feels like and "knot" and it is tight, associated with vomiting 1, persistent nausea, no appetite, complains of severe diarrhea, watery, denies rectal pain or bleeding. Patient denies fevers, chills, difficulty swallowing, chest pain, shortness of breath, she is independently ambulatory. Review of Systems 14 point review of systems is negative except as stated in HPI Past Medical History Past Medical History: Cancer, COPD, GERD/Reflux, Hyperlipidemia, Hypertension, Osteoarthritis (OA) Additional Past Medical History / Comment(s): COPD, obesity, osteoporosis, hiatal hernia, degenerative arthritis , diverticulosis, history of alcoholism, previous history of gallstone with a previous cholecystectomy, lung cancer with METS to bones. History of Any Multi-Drug Resistant Organisms: None Reported Past Surgical History: Cholecystectomy Additional Past Surgical History / Comment(s): EGD,colonoscopy Past Anesthesia/Blood Transfusion Reactions: Previous Problems w/ Anesthesia, Family History of Problems w/ Anesthesia Additional Past Anesthesia/Blood Transfusion Reaction / Comm: EGD /Colonoscopy,never has had general anesthesia, the patient also has had a previous cholecystectomy Past Psychological History: Anxiety, PTSD Smoking Status: Former smoker Past Alcohol Use History: None Reported Additional Past Alcohol Use History / Comment(s): quit smoking 2015,smoked approx 40 yrs 1ppd Past Drug Use History: None Reported - Past Family History Mother Family Medical History: Cancer, Coronary Artery Disease (CAD) Additional Family Medical History / Comment(s): skin Father Family Medical History: No Reported History Additional Family Medical History / Comment(s): Father at the age of 40 in a motor vehicle accident. Patient had one brother who had metastatic colon cancer and history of coronary artery disease. His sister had skin cancer. Patient lives alone and is functionally active does. 3 L of oxygen at rest and exertion Brother(s) Family Medical History: Cancer, Coronary Artery Disease (CAD) (Patient had one brother who from metastatic prostate cancer also had a history of coronary artery disease.), Myocardial Infarction ([place]) Sister(s) Family Medical History: Cancer Additional Family Medical History / Comment(s): cancer skin mom skin ca Daughter(s) Family Medical History: No Reported History Medications and Allergies Home Medications Medication Instructions Recorded Confirmed Type Albuterol Sulfate [Proair Hfa] 2 puff INHALATION RT-Q6H PRN 08/31/15 06/30/18 History Ipratropium/Albuterol Sulfate 2 puff INHALATION RT-BID 08/31/15 06/30/18 History [Combivent Respimat Inhaler] Levothyroxine Sodium [Synthroid] 25 mcg PO DAILY 01/29/16 06/30/18 History Pantoprazole Sodium [Protonix] 40 mg PO DAILY 01/29/16 06/30/18 History Tiotropium 18 Mcg/Puff [Spiriva] 1 cap INHALATION RT-DAILY 01/29/16 06/30/18 History Simvastatin [Zocor] 20 mg PO HS 05/14/16 06/30/18 History fentaNYL 100MCG/HR PATCH 1 patch TRANSDERM Q72H patch 07/29/17 06/30/18 Rx [Duragesic 100MCG/HR] ALPRAZolam [Xanax] 0.5 mg PO Q6HR PRN 05/02/18 06/30/18 History Albuterol Nebulized [Ventolin 2.5 mg INHALATION RT-Q6H PRN 05/02/18 06/30/18 History Nebulized] Fluticasone/Salmeterol [Advair 1 puff INHALATION RT-BID 05/02/18 06/30/18 History 500-50 Diskus] Prochlorperazine [Compazine] 10 mg PO TID PRN 05/02/18 06/30/18 History QUEtiapine [SEROquel] 50 mg PO HS 05/02/18 06/30/18 History oxyCODONE-APAP 10-325MG [Percocet 1 - 2 tab PO Q6H PRN 06/30/18 06/30/18 History 10-325 mg] Allergies Allergy/AdvReac Type Severity Reaction Status Date / Time bee venom protein (honey bee) Allergy Anaphylaxis Verified 06/30/18 17:23 lidocaine [From Lidoderm] Allergy Rash/Hives Verified 06/30/18 17:23 Physical Exam Vitals: Vital Signs Temp Pulse Pulse Resp BP BP Pulse Ox 07/01/18 05:00 98.1 F 85 16 116/57 99 06/30/18 22:00 97.3 F L 111 H 20 140/86 98 06/30/18 19:17 17 06/30/18 19:07 107 H 18 133/89 97 06/30/18 18:00 118 H 18 126/82 96 06/30/18 16:51 116 H 18 115/84 97 06/30/18 16:33 98.3 F 135 H 22 87/56 95 Intake and Output 06/30/18 07/01/18 07/01/18 22:59 06:59 14:59 Intake Total 590 590 Balance 590 590 Intake: Oral 590 590 Other: # Voids 1 2 Weight 79.464 kg - Constitutional General appearance: cooperative, no acute distress, obese - EENT Eyes: anicteric sclerae, EOMI ENT: hearing grossly normal, normal oropharynx - Neck Neck: no lymphadenopathy - Respiratory Respiratory: bilateral: CTA, diminished (Bases), prolonged expiration - Cardiovascular Rhythm: regular Heart sounds: normal: S1, S2 leg Peripheral Edema: bilateral: Trace - Gastrointestinal General gastrointestinal: no absent bowel sounds, no decreased bowel sounds, distended, no hepatomegaly, no hyperactive bowel sounds, normal bowel sounds, no organomegaly, no rigid, no scaphoid, soft, no splenomegaly, tenderness, no umbilical hernia, no ventral hernia Localized gastrointestinal: tender: RUQ - Integumentary Integumentary: pale - Neurologic Neurologic: CNII-XII intact - Musculoskeletal Musculoskeletal: generalized weakness, strength equal bilaterally - Psychiatric Psychiatric: A&O x's 3, appropriate affect, intact judgment & insight Results CBC & Chem 7: 06/30/18 17:10 06/30/18 17:10 Labs: Abnormal Lab Results - Last 24 Hours (Table) 06/30/18 06/30/18 06/30/18 Range/Units 17:10 17:10 17:10 RBC 3.65 L (3.80-5.40) m/uL Hgb 11.2 L (11.4-16.0) gm/dL Hct 33.8 L (34.0-46.0) % Lymphocytes # 0.6 L (1.0-4.8) k/uL Chloride 108 H (98-107) mmol/L AST 58 H (14-36) U/L Alkaline Phosphatase 149 H (38-126) U/L Total Protein 6.1 L (6.3-8.2) g/dL Urine Appearance Cloudy H (Clear) Ur Specific [place] 1.041 H (1.001-1.035) Urine Protein 1+ H (Negative) Ur Leukocyte Esterase Small H (Negative) Urine WBC 22 H (0-5) /hpf Ur Squamous Epith Cells 7 H (0-4) /hpf Urine Bacteria Rare H (None) /hpf Urine Mucus Many H (None) /hpf Microbiology - Last 24 Hours (Table) 06/30/18 17:10 Urine Culture - Preliminary Urine,Voided CT scan - abdomen: report reviewed CT scan - pelvis: report reviewed Assessment and Plan (1) Diarrhea Narrative/Plan: Profound diarrhea, suspicious for immune related colitis. Prednisone has been started. Strict I&O. Stool specimens. Clear liquids only. Current Visit: Yes Status: Acute Priority: High Code(s): R19.7 - DIARRHEA, UNSPECIFIED SNOMED Code(s): 52219481 (2) Intractable pain Narrative/Plan: Cont pain meds from home as prescribed, no acute changes Current Visit: Yes Status: Acute Priority: High Code(s): R52 - PAIN, UNSPECIFIED SNOMED Code(s): 00001149 (3) Small cell lung cancer Narrative/Plan: S/P 2 doses of monthly nivolumab Current Visit: Yes Status: Chronic Priority: High Code(s): C34.90 - MALIGNANT NEOPLASM OF UNSP PART OF UNSP BRONCHUS OR LUNG SNOMED Code(s): 829895990 Plan: Dr. Perera reviewed CT of the abdomen and pelvis with patient. There does seem to be an increase in the number and size of liver metastasis. Patient has had 2 or 3 cycles of nivolumab immunotherapy. It can be difficult with immunotherapy to determine this early in treatment if this is actual disease progression versus the immune treatment targeting previously unidentified malignancy and causing inflammation around malignancy giving a picture of pseudo progression. With patient's presentation though, this is quite difficult to determine at this time. Patient has been started on the prednisone taper for suspect colitis from immunotherapy, we will see how her symptoms improve. When seen her pain did seem to be a little better controlled, we will continue to follow with this. Dr. Perera did discuss the case with Dr. Pace. They have reviewed the images. Suspect progressive disease versus a pseudo-progression. Plan is to control patient's pain and discharge with follow-up to discuss salvage treatment options. 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 Doctor attests: I performed a history and physical examination, developed impression and plan of this patient, discussed with dictator. I agree with dictators note, documented as a scribe.
[2018-07-01] MEDS: ATORVASTATIN 10 MG TAB PO SCH (21:08)
[2018-07-01] MEDS: QUEtiapine 50 MG TAB PO SCH (21:08)
[2018-07-02] MEDS: oxyCODONE-APAP 10-325MG 1 EACH TAB PO PRN ×4 (02:15→22:58)
[2018-07-02] MEDS: LEVOTHYROXINE 25 MCG TAB PO SCH (05:29)
[2018-07-02] MEDS: ALPRAZolam 0.5 MG TAB PO PRN ×5 (05:29→22:59)
[2018-07-02] MEDS: PANTOPRAZOLE 40 MG/10 ML VIAL IVP SCH (09:31)
[2018-07-02] MEDS: ENOXAPARIN 40 MG/0.4 ML SYRINGE SQ SCH ×2 (09:31→09:38)
[2018-07-02] MEDS: predniSONE 20 MG TAB PO SCH (09:32)
--- NOTE | 2018-07-02 14:00 | P.PN ---
Subjective Progress Note Date: 07/02/18 This is a 63-year-old female one of Dr. Jess Harkins with a previous medical history significant for hypertension and hypertensive cardiovascular disease, hyperlipidemia, GERD, COPD, sleep apnea, history of metastatic stage IV small cell lung cancer that was diagnosed back in June 2017 has been under the care of Dr. Lawrence and Dr. Pace underwent chemotherapy in the form of etoposide as well as carboplatin, patient has had a recent PET scan that showed metastatic disease to the spine as well as the liver and the patient ended up going for additional therapy and was started on Opdivo therapy through her oncologist and she was sent from his office yesterday because of intractable abdominal pain thinking that she the patient is having pancreatitis however the patient is indeed showing significant stretching of the liver capsule due to metastatic liver disease she was kept on Percocet and fentanyl patch was admitted to the hospital for pain control will be seen in consultation by hematology oncology. 07/02: The patient states that her right upper quadrant pain is a little bit be tter today but she has worsening pain in the lower back area. She states her breathing is worse and she can't walk to the doorway. She is currently on 4 L nasal cannula. Patient is very upset and tearful during evaluation. She states she now she doesn't have long because a CAT scan showed worsening in her liver masses. She is requesting Xanax be increased to every 4 hours which we will do. Discussed with patient in length about hospice care and she is not interested and states that she wants to do all treatment that is possible. Patient is followed by oncology. Oncology started steroids yesterday per day for colitis. Diarrhea is improved today. Urine culture is finalized with no growth. Patient has been afebrile, heart rate in the 80s and 90s, blood pressure 105/60, pulse ox 97% on 4 L. The patient has had high blood pressure readings most likely secondary to pain. Patient would like her diet advanced as she would like more options to eat and that she would do better. Full liquid diet will be started. Review of Systems Constitutional: Reports anorexia, Reports chronic pain, Reports fatigue, Reports lethargy, Reports malaise, Reports weakness, Reports weight loss Eyes: denies blurred vision, denies bulging eye, denies decreased vision Ears: deny: decreased hearing Ears, nose, mouth and throat: Denies dysphagia, Denies swelling in throat, Denies sore throat Cardiovascular: Reports decreased exercise tolerance, Reports dyspnea on exertion, Reports shortness of breath, Denies chest pain, Denies rapid heart beat, Denies syncope Respiratory: Reports cough, Reports home oxygen, Denies congestion, Denies cough with sputum, Denies sleep apnea, Denies snoring, Denies wheezing Gastrointestinal: Reports abdominal pain, Reports early satiety, Reports indigestion, Reports loss of appetite, Reports nausea, Denies bloating, Denies BRBPR, reports change in bowel habits, Denies constipation, Denies excessive gas, Denies hematemesis, Denies hematochezia, Denies melena, Denies vomiting, reports diarrhea Genitourinary: Reports nocturia, Denies dysuria Menstruation: Reports postmenopausal Musculoskeletal: Reports loss of height, Reports low back pain, Denies myalgias Musculoskeletal: absent: ankle pain, ankle stiffness, ankle swelling, elbow pain, elbow stiffness, elbow swelling, foot pain, foot stiffness, foot swelling, hand pain, hand stiffness, hand swelling, hip pain, hip stiffness, hip swelling, knee pain, knee stiffness, knee swelling, shoulder pain, shoulder stiffness, shoulder swelling, wrist pain, wrist stiffness, wrist swelling Integumentary: Denies pruritus, Denies rash Neurological: Denies numbness, Denies weakness Psychiatric: Reports anxiety, Reports depression, Denies sadness/tearfulness, Denies sleep disturbances, Denies suicidal ideation Endocrine: Denies fatigue, Denies weight change Objective - Vital Signs Vital signs: Vital Signs Temp 97.7 F 07/02/18 05:00 Pulse 92 07/02/18 05:00 Resp 16 07/02/18 05:00 BP 105/60 07/02/18 05:00 Pulse Ox 99 07/02/18 05:00 Intake & Output 07/01/18 07/02/18 07/02/18 18:59 06:59 18:59 Intake Total 2150 1390 800 Output Total 1 Balance 2150 1389 800 Intake: Intake, IV Titration 800 800 Amount Sodium Chloride 0.9% 1, 800 800 000 ml @ 100 mls/hr IV . Q10H STA Rx#:[id number] Oral 1350 590 800 Output: Stool 1 Other: Voiding Method Toilet Toilet Toilet # Voids 1 1 1 # Bowel Movements 1 - Exam General appearance: average body habitus, mild distress and patient tearful dur ing evaluation - EENT Eyes: anicteric sclerae, EOMI, PERRLA, no ptosis, no scleral icterus, normal appearance ENT: hearing grossly normal, NA/AT, normal oropharynx, no thrush Ears: bilateral: normal - Neck Neck: no lymphadenopathy, normal ROM, no rigidity, no stridor, no thyromegaly Carotids: bilateral: upstroke normal - Respiratory Respiratory: bilateral: diminished, prolonged expiration, negative: dullness, rales, rhonchi, wheezing - Cardiovascular Rhythm: regular Heart sounds: normal: S1, S2 Abnormal Heart Sounds: systolic murmur, no S3 Gallop - Gastrointestinal General gastrointestinal: normal bowel sounds, soft, no splenomegaly, no tenderness, no umbilical hernia, no ventral hernia - Integumentary Integumentary: normal, normal turgor - Neurologic Neurologic: CNII-XII intact - Musculoskeletal Musculoskeletal: gait normal, generalized weakness, strength equal bilaterally - Psychiatric Psychiatric: A&O x's 3, appropriate affect, intact judgment & insight - Labs CBC & Chem 7: 06/30/18 17:10 06/30/18 17:10 Labs: Microbiology - Last 24 Hours (Table) 06/30/18 17:10 Urine Culture - Final Urine,Voided Assessment and Plan Plan: 1. Metastatic small cell lung cancer to the liver and bones post-remission therapy currently on Opdivo. Consult hematology oncology. 2. Intractable abdominal pain due to the liver metastatic disease. Continue patient on fentanyl patch 100 g 72 hours as well as Percocet one to 2 tablet every 6 hours as needed. Patient cannot tolerate Dilaudid or morphine at this point in time so we'll continue with current pain management as outlined by oncology. Diet advanced to full liquids. 3. History of hypertension. Currently not taking any medication her pressure is stable. 4. COPD. Continue patient on DuoNeb 3 mg position 4 times every day. 5. Hypothyroidism. Continue Synthroid 25 g orally once every day. 6. Hyperlipidemia. Continue patient on Lipitor 10 mg at bedtime. 7. Generalized anxiety disorder. Continue Xanax 0.5 mg increased frequency to every 4 hours as needed. 8. Insomnia. Continue Seroquel 50 mg at bedtime. 9. Nausea. Continue Zofran 4 mg IV push every 6 hours as needed. 10. DVT prophylaxis. Continue patient on Lovenox 40 mg subcutaneously every 24 hours. 11. GI prophylaxis. Continue patient on Protonix 40 mg IV push every 24 hours. 12. Diarrhea suspicious for immune related colitis. Oncology has started patient on prednisone. Discharge plan: Impression and plan of care have been directed as dictated by the signing physician. Fernanda Taylor nurse practitioner acting as scribe for signing physician.
--- NOTE | 2018-07-02 16:01 | P.PN ---
Subjective Progress Note Date: 07/02/18 Principal diagnosis: Right upper quadrant pain, small cell lung cancer, metastatic In follow-up today patient states no diarrhea since yesterday. She thinks that her right upper quadrant pain is improved as well. We had a discussion about further treatment with immunotherapy. We discussed prognosis as well. Patient is more comfortable today than on admission, no fever, difficulty breathing, nausea or vomiting, bleeding or swelling. Objective - Vital Signs Vital signs: Vital Signs Temp 97.9 F 07/02/18 11:55 Pulse 85 07/02/18 11:55 Resp 16 07/02/18 11:55 BP 140/98 07/02/18 11:55 Pulse Ox 97 07/02/18 11:55 Intake & Output 07/01/18 07/02/18 07/02/18 18:59 06:59 18:59 Intake Total 2150 1390 1600 Output Total 1 Balance 2150 1389 1600 Intake: Intake, IV Titration 800 800 Amount Sodium Chloride 0.9% 1, 800 800 000 ml @ 100 mls/hr IV . Q10H STA Rx#:[id number] Oral 9799 826 8420 Output: Stool 1 Other: Voiding Method Toilet Toilet Toilet # Voids 1 1 1 # Bowel Movements 1 - Exam Well-developed, overweight female sitting up at the bedside, alert and oriented 4, patient is able to move her own body weight independently without assistance, respirations are mildly labored but this is patient's baseline, no audible wheezing, no lower extremity swelling, peripheral pulses are palpable 2+, skin is warm and dry. - Labs CBC & Chem 7: 06/30/18 17:10 06/30/18 17:10 Labs: Microbiology - Last 24 Hours (Table) 06/30/18 17:10 Urine Culture - Final Urine,Voided Assessment and Plan (1) Diarrhea Narrative/Plan: No stool since yesterday. Current Visit: Yes Status: Acute Priority: High Code(s): R19.7 - DIARRHEA, UNSPECIFIED SNOMED Code(s): 24232288 (2) Intractable pain Narrative/Plan: Improved since yesterday. Continue steroids at this time. Continue current pain regimen as prescribed. Current Visit: Yes Status: Acute Priority: High Code(s): R52 - PAIN, UNSPECIFIED SNOMED Code(s): 06978362 (3) Small cell lung cancer Narrative/Plan: Case was discussed with primary oncologist. Most likely findings in the liver are more inside outside sales representative of disease progression versus pseudo-progression with immunotherapy. This was discussed with patient. Patient asked what treatment options are left, unfortunately, there are a few. Most of them are single agent with less than 10% chance of providing any meaningful disease control, this in banerjee of the side effects. I did encourage patient though to meet with Dr. Pace to have discussion. She does want to see him to discuss all of the aforementioned. Patient is open to palliative care. Discussed this as being supportive treatment in the home and palliation of symptoms until such time as patient makes a decision whether she is going to continue with treatment for cancer or if she is going to treat symptoms only. All of patient's questions were answered to the best of my ability. Patient's prescriptions, prednisone taper and Percocet refill, will be sent to the [facility] pharmacy. Current Visit: Yes Status: Chronic Priority: High Code(s): C34.90 - MALIGNANT NEOPLASM OF UNSP PART OF UNSP BRONCHUS OR LUNG SNOMED Code(s): 739114608
[2018-07-02] MEDS: ATORVASTATIN 10 MG TAB PO SCH (20:48)
[2018-07-02] MEDS: QUEtiapine 50 MG TAB PO SCH (20:48)
[2018-07-03] MEDS: oxyCODONE-APAP 10-325MG 1 EACH TAB PO PRN ×3 (04:55→18:36)
[2018-07-03] MEDS: LEVOTHYROXINE 25 MCG TAB PO SCH (04:56)
[2018-07-03] MEDS: ALPRAZolam 0.5 MG TAB PO PRN ×5 (04:56→22:20)
[2018-07-03] MEDS: predniSONE 20 MG TAB PO SCH (09:03)
[2018-07-03] MEDS: PANTOPRAZOLE 40 MG/10 ML VIAL IVP SCH (09:04)
[2018-07-03] MEDS: ENOXAPARIN 40 MG/0.4 ML SYRINGE SQ SCH (09:05)
[2018-07-03 11:07] VITALS: BMI 32.0
--- NOTE | 2018-07-03 12:56 | P.PN ---
Subjective Progress Note Date: 07/03/18 This is a 63-year-old female one of Dr. Jess Harkins with a previous medical history significant for hypertension and hypertensive cardiovascular disease, hyperlipidemia, GERD, COPD, sleep apnea, history of metastatic stage IV small cell lung cancer that was diagnosed back in June 2017 has been under the care of Dr. Lawrence and Dr. Pace underwent chemotherapy in the form of etoposide as well as carboplatin, patient has had a recent PET scan that showed metastatic disease to the spine as well as the liver and the patient ended up going for additional therapy and was started on Opdivo therapy through her oncologist and she was sent from his office yesterday because of intractable abdominal pain thinking that she the patient is having pancreatitis however the patient is indeed showing significant stretching of the liver capsule due to metastatic liver disease she was kept on Percocet and fentanyl patch was admitted to the hospital for pain control will be seen in consultation by hematology oncology. 3: The patient states that her right upper quadrant pain is a little bit be tter today but she has worsening pain in the lower back area. She states her breathing is worse and she can't walk to the doorway. She is currently on 4 L nasal cannula. Patient is very upset and tearful during evaluation. She states she now she doesn't have long because a CAT scan showed worsening in her liver masses. She is requesting Xanax be increased to every 4 hours which we will do. Discussed with patient in length about hospice care and she is not interested and states that she wants to do all treatment that is possible. Patient is followed by oncology. Oncology started steroids yesterday per day for colitis. Diarrhea is improved today. Urine culture is finalized with no growth. Patient has been afebrile, heart rate in the 80s and 90s, blood pressure 105/60, pulse ox 97% on 4 L. The patient has had high blood pressure readings most likely secondary to pain. Patient would like her diet advanced as she would like more options to eat and that she would do better. Full liquid diet will be started. 4: Patient states that she is feeling a little bit better today she thinks Xanax was very helpful. She is tolerating a full liquid diet and is eating more with this diet type. She does not wish to increase it as she states she still has some nausea thinking about more food. IV fluids will be decreased to 75 mL per hour. Patient has been afebrile, heart rate in the 50s to 80s, blood pressure 110/70, pulse ox 100% on 4 L nasal cannula. Review of Systems Constitutional: Reports anorexia, Reports chronic pain, Reports fatigue, Reports lethargy, Reports malaise, Reports weakness, Reports weight loss Eyes: denies blurred vision, denies bulging eye, denies decreased vision Ears: deny: decreased hearing Ears, nose, mouth and throat: Denies dysphagia, Denies swelling in throat, Denies sore throat Cardiovascular: Reports decreased exercise tolerance, Reports dyspnea on exertion, Reports shortness of breath, Denies chest pain, Denies rapid heart beat, Denies syncope Respiratory: Reports cough, Reports home oxygen, Denies congestion, Denies cough with sputum, Denies sleep apnea, Denies snoring, Denies wheezing Gastrointestinal: Reports abdominal pain, Reports early satiety, Reports indigestion, Reports loss of appetite, Reports nausea, Denies bloating, Denies BRBPR, reports change in bowel habits, Denies constipation, Denies excessive gas, Denies hematemesis, Denies hematochezia, Denies melena, Denies vomiting, reports diarrhea Genitourinary: Reports nocturia, Denies dysuria Menstruation: Reports postmenopausal Musculoskeletal: Reports loss of height, Reports low back pain, Denies myalgias Musculoskeletal: absent: ankle pain, ankle stiffness, ankle swelling, elbow pain, elbow stiffness, elbow swelling, foot pain, foot stiffness, foot swelling, hand pain, hand stiffness, hand swelling, hip pain, hip stiffness, hip swelling, knee pain, knee stiffness, knee swelling, shoulder pain, shoulder stiffness, shoulder swelling, wrist pain, wrist stiffness, wrist swelling Integumentary: Denies pruritus, Denies rash Neurological: Denies numbness, Denies weakness Psychiatric: Reports anxiety-improved, Reports depression, Denies sadness/tearfulness, Denies sleep disturbances, Denies suicidal ideation Endocrine: Denies fatigue, Denies weight change Objective - Vital Signs Vital signs: Vital Signs Temp 97.8 F 07/03/18 05:00 Pulse 59 L 07/03/18 05:00 Resp 16 07/03/18 05:00 BP 110/70 07/03/18 05:00 Pulse Ox 100 07/03/18 05:00 Intake & Output 07/02/18 07/03/18 07/03/18 18:59 06:59 18:59 Intake Total 1700 590 Output Total 1 3 Balance 1699 587 Weight 79.464 kg Intake: Oral 1700 590 Output: Stool 1 3 Other: Voiding Method Toilet Toilet # Voids 1 1 - Exam General appearance: average body habitus, no distress - EENT Eyes: anicteric sclerae, EOMI, PERRLA, no ptosis, no scleral icterus, normal appearance ENT: hearing grossly normal, NA/AT, normal oropharynx, no thrush Ears: bilateral: normal - Neck Neck: no lymphadenopathy, normal ROM, no rigidity, no stridor, no thyromegaly Carotids: bilateral: upstroke normal - Respiratory Respiratory: bilateral: diminished, prolonged expiration, negative: dullness, rales, rhonchi, wheezing - Cardiovascular Rhythm: regular Heart sounds: normal: S1, S2 Abnormal Heart Sounds: systolic murmur, no S3 Gallop - Gastrointestinal General gastrointestinal: normal bowel sounds, soft, no splenomegaly, no tenderness, no umbilical hernia, no ventral hernia - Integumentary Integumentary: normal, normal turgor - Neurologic Neurologic: CNII-XII intact - Musculoskeletal Musculoskeletal: gait normal, generalized weakness, strength equal bilaterally - Psychiatric Psychiatric: A&O x's 3, appropriate affect, intact judgment & insight - Labs CBC & Chem 7: 06/30/18 17:10 06/30/18 17:10 Assessment and Plan Plan: 1. Metastatic small cell lung cancer to the liver and bones post-remission therapy currently on Opdivo. Consult hematology oncology. 2. Intractable abdominal pain due to the liver metastatic disease. Continue patient on fentanyl patch 100 g 72 hours as well as Percocet one to 2 tablet every 6 hours as needed. Patient cannot tolerate Dilaudid or morphine at this point in time so we'll continue with current pain management as outlined by oncology. Diet advanced to full liquids and is tolerating. 3. History of hypertension. Currently not taking any medication her pressure is stable. 4. COPD. Continue patient on DuoNeb 3 mg position 4 times every day. 5. Hypothyroidism. Continue Synthroid 25 g orally once every day. 6. Hyperlipidemia. Continue patient on Lipitor 10 mg at bedtime. 7. Generalized anxiety disorder. Continue Xanax 0.5 mg every 4 hours as needed. 8. Insomnia. Continue Seroquel 50 mg at bedtime. 9. Nausea. Continue Zofran 4 mg IV push every 6 hours as needed. 10. DVT prophylaxis. Continue patient on Lovenox 40 mg subcutaneously every 24 hours. 11. GI prophylaxis. Continue patient on Protonix 40 mg IV push every 24 hours. 12. Diarrhea suspicious for immune related colitis. Oncology has started patient on prednisone. Discharge plan: Most likely return home. Impression and plan of care have been directed as dictated by the signing physician. Fernanda Taylor nurse practitioner acting as scribe for signing physician.
[2018-07-03] MEDS: SODIUM CHLORIDE 0.9% 1,000 ML IV SCH (15:41)
[2018-07-03] MEDS: ATORVASTATIN 10 MG TAB PO SCH (20:00)
[2018-07-03] MEDS: QUEtiapine 50 MG TAB PO SCH (20:00)
[2018-07-04] MEDS: oxyCODONE-APAP 10-325MG 1 EACH TAB PO PRN ×5 (00:27→23:57)
[2018-07-04] MEDS: ALPRAZolam 0.5 MG TAB PO PRN ×5 (03:10→21:55)
[2018-07-04] MEDS: SODIUM CHLORIDE 0.9% 1,000 ML IV SCH ×2 (04:15→08:15)
[2018-07-04] MEDS: LEVOTHYROXINE 25 MCG TAB PO SCH (05:58)
[2018-07-04] MEDS: PANTOPRAZOLE 40 MG TABLET PO SCH (08:16)
[2018-07-04] MEDS: predniSONE 20 MG TAB PO SCH (08:16)
[2018-07-04] MEDS: ENOXAPARIN 40 MG/0.4 ML SYRINGE SQ SCH (08:17)
--- NOTE | 2018-07-04 12:10 | P.PN ---
Subjective Progress Note Date: 07/04/18 This is a 63-year-old female one of Dr. Jess Harkins with a previous medical history significant for hypertension and hypertensive cardiovascular disease, hyperlipidemia, GERD, COPD, sleep apnea, history of metastatic stage IV small cell lung cancer that was diagnosed back in June 2017 has been under the care of Dr. Lawrence and Dr. Pace underwent chemotherapy in the form of etoposide as well as carboplatin, patient has had a recent PET scan that showed metastatic disease to the spine as well as the liver and the patient ended up going for additional therapy and was started on Opdivo therapy through her oncologist and she was sent from his office yesterday because of intractable abdominal pain thinking that she the patient is having pancreatitis however the patient is indeed showing significant stretching of the liver capsule due to metastatic liver disease she was kept on Percocet and fentanyl patch was admitted to the hospital for pain control will be seen in consultation by hematology oncology. 3: The patient states that her right upper quadrant pain is a little bit be tter today but she has worsening pain in the lower back area. She states her breathing is worse and she can't walk to the doorway. She is currently on 4 L nasal cannula. Patient is very upset and tearful during evaluation. She states she now she doesn't have long because a CAT scan showed worsening in her liver masses. She is requesting Xanax be increased to every 4 hours which we will do. Discussed with patient in length about hospice care and she is not interested and states that she wants to do all treatment that is possible. Patient is followed by oncology. Oncology started steroids yesterday per day for colitis. Diarrhea is improved today. Urine culture is finalized with no growth. Patient has been afebrile, heart rate in the 80s and 90s, blood pressure 105/60, pulse ox 97% on 4 L. The patient has had high blood pressure readings most likely secondary to pain. Patient would like her diet advanced as she would like more options to eat and that she would do better. Full liquid diet will be started. 4: Patient states that she is feeling a little bit better today she thinks Xanax was very helpful. She is tolerating a full liquid diet and is eating more with this diet type. She does not wish to increase it as she states she still has some nausea thinking about more food. IV fluids will be decreased to 75 mL per hour. Patient has been afebrile, heart rate in the 50s to 80s, blood pressure 110/70, pulse ox 100% on 4 L nasal cannula. 07/04: Patient states that her pain is currently controlled and is mostly in the low back area. Abdominal pain is improved She is continued on prednisone 60 mg daily. She denies any diarrhea. She did tolerate full liquid diet and would like her diet advanced to soft. She is asking for appetite stimulant and Remeron will be added for tonight. Xanax will remain at the same as patient states that she has been taking it every 4 hours which was prescribed by Dr. Pace. She has been afebrile, heart rate 87, blood pressure 121/63, pulse ox 90% on 4 L nasal cannula. Urine culture has been finalized with no growth. P atient will be scheduled for discharge home tomorrow Review of Systems Constitutional: Reports anorexia, Reports chronic pain, Reports fatigue, Reports lethargy, Reports malaise, Reports weakness, Reports weight loss Eyes: denies blurred vision, denies bulging eye, denies decreased vision Ears: deny: decreased hearing Ears, nose, mouth and throat: Denies dysphagia, Denies swelling in throat, Denies sore throat Cardiovascular: Reports decreased exercise tolerance, Reports dyspnea on exertion, Reports shortness of breath, Denies chest pain, Denies rapid heart beat, Denies syncope Respiratory: Reports cough, Reports home oxygen, Denies congestion, Denies cough with sputum, Denies sleep apnea, Denies snoring, Denies wheezing Gastrointestinal: Denies abdominal pain, Reports early satiety, Reports willian gestion, Reports loss of appetite, Reports nausea, Denies bloating, Denies BRBPR, reports change in bowel habits, Denies constipation, Denies excessive gas, Denies hematemesis, Denies hematochezia, Denies melena, Denies vomiting, reports diarrhea Genitourinary: Reports nocturia, Denies dysuria Menstruation: Reports postmenopausal Musculoskeletal: Reports loss of height, Reports low back pain, Denies myalgias Musculoskeletal: absent: ankle pain, ankle stiffness, ankle swelling, elbow pain, elbow stiffness, elbow swelling, foot pain, foot stiffness, foot swelling, hand pain, hand stiffness, hand swelling, hip pain, hip stiffness, hip swelling, knee pain, knee stiffness, knee swelling, shoulder pain, shoulder stiffness, shoulder swelling, wrist pain, wrist stiffness, wrist swelling Integumentary: Denies pruritus, Denies rash Neurological: Denies numbness, Denies weakness Psychiatric: Reports anxiety-improved, Reports depression, Denies sadness/tearfulness, Denies sleep disturbances, Denies suicidal ideation Endocrine: Denies fatigue, Denies weight change Objective - Vital Signs Vital signs: Vital Signs Temp 98.5 F 07/04/18 05:00 Pulse 87 07/04/18 05:00 Resp 16 07/04/18 05:00 BP 121/63 07/04/18 05:00 Pulse Ox 98 07/04/18 05:00 Intake & Output 07/03/18 07/04/18 07/04/18 18:59 06:59 18:59 Intake Total 650 590 Output Total 2 Balance 650 588 Weight 79.464 kg Intake: Intake, IV Titration 650 Amount Sodium Chloride 0.9% 1, 650 000 ml @ 75 mls/hr IV . [id number] [facility] Rx#:[id number] Oral 590 Output: Stool 2 Other: Voiding Method Toilet # Voids 1 2 - Exam General appearance: average body habitus, no distress, resting in bed - EENT Eyes: anicteric sclerae, EOMI, PERRLA, no ptosis, no scleral icterus, normal appearance ENT: hearing grossly normal, NA/AT, normal oropharynx, no thrush Ears: bilateral: normal - Neck Neck: no lymphadenopathy, normal ROM, no rigidity, no stridor, no thyromegaly Carotids: bilateral: upstroke normal - Respiratory Respiratory: bilateral: diminished, prolonged expiration, negative: dullness, rales, rhonchi, wheezing - Cardiovascular Rhythm: regular Heart sounds: normal: S1, S2 Abnormal Heart Sounds: systolic murmur, no S3 Gallop - Gastrointestinal General gastrointestinal: normal bowel sounds, soft, no splenomegaly, no tenderness, no umbilical hernia, no ventral hernia - Integumentary Integumentary: normal, normal turgor - Neurologic Neurologic: CNII-XII intact - Musculoskeletal Musculoskeletal: gait normal, generalized weakness, strength equal bilaterally - Psychiatric Psychiatric: A&O x's 3, appropriate affect, intact judgment & insight - Labs CBC & Chem 7: 06/30/18 17:10 06/30/18 17:10 Assessment and Plan Plan: 1. Metastatic small cell lung cancer to the liver and bones post-remission therapy currently on Opdivo. Consult hematology oncology. 2. Intractable abdominal pain due to the liver metastatic disease. Continue patient on fentanyl patch 100 g 72 hours as well as Percocet one to 2 tablet every 6 hours as needed. Patient cannot tolerate Dilaudid or morphine at this point in time so we'll continue with current pain management as outlined by oncology. Diet advanced to full liquids and is tolerating and will be further advanced to soft. Remeron added. 3. History of hypertension. Currently not taking any medication her pressure is stable. 4. COPD. Continue patient on DuoNeb 3 mg position 4 times every day. 5. Hypothyroidism. Continue Synthroid 25 g orally once every day. 6. Hyperlipidemia. Continue patient on Lipitor 10 mg at bedtime. 7. Generalized anxiety disorder. Continue Xanax 0.5 mg every 4 hours as needed. Remeron added. 8. Insomnia. Continue Seroquel 50 mg at bedtime. 9. Nausea. Continue Zofran 4 mg IV push every 6 hours as needed. 10. DVT prophylaxis. Continue patient on Lovenox 40 mg subcutaneously every 24 hours. 11. GI prophylaxis. Continue patient on Protonix 40 mg IV push every 24 hours. 12. Diarrhea suspicious for immune related colitis. Oncology has started patient on prednisone. Discharge plan: Home on Thursday. Impression and plan of care have been directed as dictated by the signing physician. Fernanda Taylor nurse practitioner acting as scribe for signing physician.
[2018-07-04] MEDS: QUEtiapine 50 MG TAB PO SCH (21:55)
[2018-07-04] MEDS: MIRTAZAPINE 15 MG TAB PO SCH (21:55)
[2018-07-04] MEDS: ATORVASTATIN 10 MG TAB PO SCH (21:55)
[2018-07-05] MEDS: ALPRAZolam 0.5 MG TAB PO PRN ×5 (03:28→19:34)
[2018-07-05] MEDS: SODIUM CHLORIDE 0.9% 1,000 ML IV SCH ×2 (03:30→13:20)
[2018-07-05] MEDS: oxyCODONE-APAP 10-325MG 1 EACH TAB PO PRN ×3 (06:08→19:33)
[2018-07-05] MEDS: LEVOTHYROXINE 25 MCG TAB PO SCH (06:08)
[2018-07-05] MEDS: PANTOPRAZOLE 40 MG TABLET PO SCH (08:36)
[2018-07-05] MEDS: ENOXAPARIN 40 MG/0.4 ML SYRINGE SQ SCH ×2 (08:36→08:40)
[2018-07-05] MEDS: predniSONE 20 MG TAB PO SCH (08:36)
--- NOTE | 2018-07-05 12:58 | P.PN ---
Subjective Progress Note Date: 07/05/18 Principal diagnosis: Small Cell Lung cancer Patient seen this am, states she is unable to eat more then liquids and still with persistent abdominal pain. She asked for a refill on her fentanyl and xanax but during the review of her [facility] this was refilled on 06/18/18, explained to patient unable to refill until 07/16/18, she understands and has asked for a refill on her oxycodone. Will attempt to advance her diet to soft. she would like to stay one more night as she feels she wont be able to eat if discharged. Objective - Vital Signs Vital signs: Vital Signs Temp 98.1 F 07/05/18 12:17 Pulse 108 H 07/05/18 12:17 Resp 18 07/05/18 12:17 BP 110/72 07/05/18 12:17 Pulse Ox 98 07/05/18 12:17 Intake & Output 07/04/18 07/05/18 07/05/18 18:59 06:59 18:59 Intake Total 1900 Output Total 1 Balance 1899 Intake: Intake, IV Titration 600 Amount Sodium Chloride 0.9% 1, 600 000 ml @ 75 mls/hr IV . [id number] [facility] Rx#:[id number] Oral 1300 Output: Stool 1 Other: Voiding Method Toilet # Voids 2 1 - Exam Gen: Alert and Oriented, NAD Head: NC, NT Oral Pharynx: Poor Dentition, no thrush or mucocytis Neck: Supple No palpable adenopathy Lungs: No increased respiratory effort, Bilateral Lower lobes Diminished Abdomen: Soft, Tender to palpation Heart: RRR, S1s2 Extremities: No edema or rashes Neuro: No sensory or motor deficits noted. - Labs CBC & Chem 7: 06/30/18 17:10 06/30/18 17:10 Assessment and Plan Plan: Assessment and Plan Diarrhea - Improved since admission, although still with abdominal pain complaints with eating. - Tolerating a Full liquid diet, but anxious and nervous to increase, will increase to Soft prior to discharge to assess for tolerance - Continue on Prednisone and will provide tapering dose at discharge Acute on Chronic Pain - Multifactora: Neoplastic Component, with component of Colitis Changes - Current Pain regimen consisting of Fentanyl Patch and PRN Oxycodone - She has asked for refills prior to discharge, although when [facility] pulled she recently filled her fentanyl patches and Xanax on 06/18/18. - Will provide a script for her oxycodone breakthrough medication at discharge - Discussed with patient and she states understanding and she states sh hides her pills throughout the house and can never remember where she placed them. Progressive Extensive Stage Small cell lung cancer - Findings in the liver are likely financial service representative of disease progression versus pseudo-progression with immunotherapy. - Will re-evaluate prior to next treatment with immune therapy, an appointment has been made with Dr. Pace prior to resuming therapy. - Recommend Palliative Care on discharge, Patient is open to this. - Discussed this as being supportive treatment in the home and palliation of symptoms until such time as patient makes a decision whether she is going to continue with treatment for cancer or if she is going to treat symptoms only. Plan - Discussed with primary team and will hold discharge and advance diet to assess for tolerance, likely discharge with Palliative care following in am. Per primary team. - Prescription for Percocet and Prednisone at discharge. Carrie MICHELLE
[2018-07-05] MEDS: DICLOFENAC SODIUM GEL 100 GM TUBE TOPICAL SCH ×2 (13:19→17:54)
--- NOTE | 2018-07-05 13:45 | P.PN ---
Subjective Progress Note Date: 07/05/18 This is a 63-year-old female one of Dr. Jess Harkins with a previous medical history significant for hypertension and hypertensive cardiovascular disease, hyperlipidemia, GERD, COPD, sleep apnea, history of metastatic stage IV small cell lung cancer that was diagnosed back in June 2017 has been under the care of Dr. Lawrence and Dr. Pace underwent chemotherapy in the form of etoposide as well as carboplatin, patient has had a recent PET scan that showed metastatic disease to the spine as well as the liver and the patient ended up going for additional therapy and was started on Opdivo therapy through her oncologist and she was sent from his office yesterday because of intractable abdominal pain thinking that she the patient is having pancreatitis however the patient is indeed showing significant stretching of the liver capsule due to metastatic liver disease she was kept on Percocet and fentanyl patch was admitted to the hospital for pain control will be seen in consultation by hematology oncology. 3: The patient states that her right upper quadrant pain is a little bit be tter today but she has worsening pain in the lower back area. She states her breathing is worse and she can't walk to the doorway. She is currently on 4 L nasal cannula. Patient is very upset and tearful during evaluation. She states she now she doesn't have long because a CAT scan showed worsening in her liver masses. She is requesting Xanax be increased to every 4 hours which we will do. Discussed with patient in length about hospice care and she is not interested and states that she wants to do all treatment that is possible. Patient is followed by oncology. Oncology started steroids yesterday per day for colitis. Diarrhea is improved today. Urine culture is finalized with no growth. Patient has been afebrile, heart rate in the 80s and 90s, blood pressure 105/60, pulse ox 97% on 4 L. The patient has had high blood pressure readings most likely secondary to pain. Patient would like her diet advanced as she would like more options to eat and that she would do better. Full liquid diet will be started. 4: Patient states that she is feeling a little bit better today she thinks Xanax was very helpful. She is tolerating a full liquid diet and is eating more with this diet type. She does not wish to increase it as she states she still has some nausea thinking about more food. IV fluids will be decreased to 75 mL per hour. Patient has been afebrile, heart rate in the 50s to 80s, blood pressure 110/70, pulse ox 100% on 4 L nasal cannula. 07/04: Patient states that her pain is currently controlled and is mostly in the low back area. Abdominal pain is improved She is continued on prednisone 60 mg daily. She denies any diarrhea. She did tolerate full liquid diet and would like her diet advanced to soft. She is asking for appetite stimulant and Remeron will be added for tonight. Xanax will remain at the same as patient states that she has been taking it every 4 hours which was prescribed by Dr. Pace. She has been afebrile, heart rate 87, blood pressure 121/63, pulse ox 90% on 4 L nasal cannula. Urine culture has been finalized with no growth. P atient will be scheduled for discharge home tomorrow 07/05: Patient continues to complain of pain which is mostly in her back area. Voltaren gel added to see if this will help with pain management. She does state that she is considering palliative care but is not interested in hospice care and still wants to do all aggressive treatment. She is currently on 4 L nasal cannula. Diet be advanced today. Plan for discharge home in the morning. Review of Systems Constitutional: Reports anorexia, Reports chronic pain, Reports fatigue, Reports lethargy, Reports malaise, Reports weakness, Reports weight loss Eyes: denies blurred vision, denies bulging eye, denies decreased vision Ears: deny: decreased hearing Ears, nose, mouth and throat: Denies dysphagia, Denies swelling in throat, Denies sore throat Cardiovascular: Reports decreased exercise tolerance, Reports dyspnea on exertion, Reports shortness of breath, Denies chest pain, Denies rapid heart beat, Denies syncope Respiratory: Reports cough, Reports home oxygen, Denies congestion, Denies cough with sputum, Denies sleep apnea, Denies snoring, Denies wheezing Gastrointestinal: Denies abdominal pain, Reports early satiety, Reports indigestion, Reports loss of appetite, Reports nausea, Denies bloating, Denies BRBPR, reports change in bowel habits, Denies constipation, Denies excessive gas, Denies hematemesis, Denies hematochezia, Denies melena, Denies vomiting, reports diarrhea Genitourinary: Reports nocturia, Denies dysuria Menstruation: Reports postmenopausal Musculoskeletal: Reports loss of height, Reports low back pain, Denies myalgias Musculoskeletal: absent: ankle pain, ankle stiffness, ankle swelling, elbow pain, elbow stiffness, elbow swelling, foot pain, foot stiffness, foot swelling, hand pain, hand stiffness, hand swelling, hip pain, hip stiffness, hip swelling, knee pain, knee stiffness, knee swelling, shoulder pain, shoulder stiffness, shoulder swelling, wrist pain, wrist stiffness, wrist swelling Integumentary: Denies pruritus, Denies rash Neurological: Denies numbness, Denies weakness Psychiatric: Reports anxiety-improved, Reports depression, Denies sleep disturbances, Denies suicidal ideation Endocrine: Reports fatigue, Denies weight change Objective - Vital Signs Vital signs: Vital Signs Temp 98.1 F 07/05/18 12:17 Pulse 108 H 07/05/18 12:17 Resp 18 07/05/18 12:17 BP 110/72 07/05/18 12:17 Pulse Ox 98 07/05/18 12:17 Intake & Output 07/04/18 07/05/18 07/05/18 18:59 06:59 18:59 Intake Total 1900 Output Total 1 Balance 1899 Intake: Intake, IV Titration 600 Amount Sodium Chloride 0.9% 1, 600 000 ml @ 75 mls/hr IV . [id number] [facility] Rx#:[id number] Oral 1300 Output: Stool 1 Other: Voiding Method Toilet # Voids 2 1 - Exam General appearance: average body habitus, no distress - EENT Eyes: anicteric sclerae, EOMI, PERRLA, no ptosis, no scleral icterus, normal appearance ENT: hearing grossly normal, NA/AT, normal oropharynx, no thrush Ears: bilateral: normal - Neck Neck: no lymphadenopathy, normal ROM, no rigidity, no stridor, no thyromegaly Carotids: bilateral: upstroke normal - Respiratory Respiratory: bilateral: diminished, prolonged expiration, negative: dullness, r ales, rhonchi, wheezing - Cardiovascular Rhythm: regular Heart sounds: normal: S1, S2 Abnormal Heart Sounds: systolic murmur, no S3 Gallop - Gastrointestinal General gastrointestinal: normal bowel sounds, soft, no splenomegaly, no tenderness, no umbilical hernia, no ventral hernia - Integumentary Integumentary: normal, normal turgor - Neurologic Neurologic: CNII-XII intact - Musculoskeletal Musculoskeletal: gait normal, generalized weakness, strength equal bilaterally - Psychiatric Psychiatric: A&O x's 3, appropriate affect, intact judgment & insight - Labs CBC & Chem 7: 06/30/18 17:10 06/30/18 17:10 Assessment and Plan Plan: 1. Metastatic small cell lung cancer to the liver and bones post-remission therapy currently on Opdivo. Consult hematology oncology. Voltaren gel ordered in addition to her current pain medications. 2. Intractable abdominal pain due to the liver metastatic disease. Continue patient on fentanyl patch 100 g 72 hours as well as Percocet one to 2 tablet every 6 hours as needed. Patient cannot tolerate Dilaudid or morphine at this point in time so we'll continue with current pain management as outlined by oncology. Diet advanced to full liquids and is tolerating and will be further advanced to soft. Remeron added. 3. History of hypertension. Currently not taking any medication her pressure is stable. 4. COPD. Continue patient on DuoNeb 3 mg position 4 times every day. 5. Hypothyroidism. Continue Synthroid 25 g orally once every day. 6. Hyperlipidemia. Continue patient on Lipitor 10 mg at bedtime. 7. Generalized anxiety disorder. Continue Xanax 0.5 mg every 4 hours as needed. Remeron added. 8. Insomnia. Continue Seroquel 50 mg at bedtime. 9. Nausea. Continue Zofran 4 mg IV push every 6 hours as needed. 10. DVT prophylaxis. Continue patient on Lovenox 40 mg subcutaneously every 24 hours. 11. GI prophylaxis. Continue patient on Protonix 40 mg IV push every 24 hours. 12. Diarrhea suspicious for immune related colitis. Oncology has started tigist kingsley on prednisone. Discharge plan: Home on Thursday. Impression and plan of care have been directed as dictated by the signing physician. Fernanda Taylor nurse practitioner acting as scribe for signing physician.
[2018-07-05] MEDS: MIRTAZAPINE 15 MG TAB PO SCH (19:34)
[2018-07-05] MEDS: ATORVASTATIN 10 MG TAB PO SCH (19:34)
[2018-07-05] MEDS: QUEtiapine 50 MG TAB PO SCH (19:34)
[2018-07-05 21:19] VITALS: RESP 16
[2018-07-06] MEDS: DICLOFENAC SODIUM GEL 100 GM TUBE TOPICAL SCH ×2 (00:12→09:19)
[2018-07-06] MEDS: ALPRAZolam 0.5 MG TAB PO PRN ×3 (01:32→11:57)
[2018-07-06] MEDS: oxyCODONE-APAP 10-325MG 1 EACH TAB PO PRN ×2 (01:32→06:58)
[2018-07-06] MEDS: SODIUM CHLORIDE 0.9% 1,000 ML IV SCH (01:33)
[2018-07-06 05:39] VITALS: BP 132/74; PULSE 66; TEMP 98.3
[2018-07-06] MEDS: LEVOTHYROXINE 25 MCG TAB PO SCH (06:03)
[2018-07-06] MEDS: PANTOPRAZOLE 40 MG TABLET PO SCH (09:18)
[2018-07-06] MEDS: predniSONE 20 MG TAB PO SCH (09:18)
[2018-07-06] MEDS: ENOXAPARIN 40 MG/0.4 ML SYRINGE SQ SCH (09:20)
--- NOTE | 2018-07-06 09:43 | P.DS ---
Providers Date of admission: 06/30/18 19:20 Expected date of discharge: 07/06/18 Attending physician: Steven Spangler Consults: 06/30/18 19:20 Consult Physician Routine Consulting Provider: Can Pace Consult Reason/Comments: known Do you want consulting provider notified?: Yes [facility] Course: This is a 63-year-old female one of Dr. Jess Harkins with a previous medical history significant for hypertension and hypertensive cardiovascular disease, hyperlipidemia, GERD, COPD, sleep apnea, history of metastatic stage IV small cell lung cancer that was diagnosed back in June 2017 has been under the care of Dr. Lawrence and Dr. Pace underwent chemotherapy in the form of etoposide as well as carboplatin, patient has had a recent PET scan that showed metastatic disease to the spine as well as the liver and the patient ended up going for additional therapy and was started on Opdivo therapy through her oncologist and she was sent from his office yesterday because of intractable abdominal pain thinking that she the patient is having pancreatitis however the patient is indeed showing significant stretching of the liver capsule due to metastatic liver disease she was kept on Percocet and fentanyl patch was admitted to the hospital for pain control will be seen in consultation by hematology oncology. 07/02: The patient states that her right upper quadrant pain is a little bit better today but she has worsening pain in the lower back area. She states her breathing is worse and she can't walk to the doorway. She is currently on 4 L nasal cannula. Patient is very upset and tearful during evaluation. She states she now she doesn't have long because a CAT scan showed worsening in her liver masses. She is requesting Xanax be increased to every 4 hours which we will do. Discussed with patient in length about hospice care and she is not interested and states that she wants to do all treatment that is possible. Patient is followed by oncology. Oncology started steroids yesterday per day for colitis. Diarrhea is improved today. Urine culture is finalized with no growth. Patient has been afebrile, heart rate in the 80s and 90s, blood pressure 105/60, pulse ox 97% on 4 L. The patient has had high blood pressure readings most likely secondary to pain. Patient would like her diet advanced as she would like more options to eat and that she would do better. Full liquid diet will be started. 07/03: Patient states that she is feeling a little bit better today she thinks Xanax was very helpful. She is tolerating a full liquid diet and is eating more with this diet type. She does not wish to increase it as she states she still has some nausea thinking about more food. IV fluids will be decreased to 75 mL per hour. Patient has been afebrile, heart rate in the 50s to 80s, blood pressure 110/70, pulse ox 100% on 4 L nasal cannula. 07/04: Patient states that her pain is currently controlled and is mostly in the low back area. Abdominal pain is improved She is continued on prednisone 60 mg daily. She denies any diarrhea. She did tolerate full liquid diet and would like her diet advanced to soft. She is asking for appetite stimulant and Remeron will be added for tonight. Xanax will remain at the same as patient states that she has been taking it every 4 hours which was prescribed by Dr. Pace. She has been afebrile, heart rate 87, blood pressure 121/63, pulse ox 90% on 4 L nasal cannula. Urine culture has been finalized with no growth. Patient will be scheduled for discharge home tomorrow 07/05: Patient continues to complain of pain which is mostly in her back area. Voltaren gel added to see if this will help with pain management. She does state that she is considering palliative care but is not interested in hospice care and still wants to do all aggressive treatment. She is currently on 4 L nasal cannula. Diet be advanced today. Plan for discharge home in the morning. 07/06: Patient has had no events overnight. She is tolerating diet. Patient will be discharged home once her ride is here. Discharge diagnoses: 1. Metastatic small cell lung cancer to the liver and bones post-remission therapy currently on Opdivo. 2. Intractable abdominal pain due to the liver metastatic disease. 3. History of hypertension. 4. COPD. 5. Hypothyroidism. 6. Hyperlipidemia. 7. Generalized anxiety disorder. 8. Insomnia. 9. Nausea. 10. Diarrhea suspicious for immune related colitis. Discharge plan: Home on Thursday. Impression and plan of care have been directed as dictated by the signing physician. Fernanda Taylor nurse practitioner acting as scribe for signing physician. Patient Condition at Discharge: Good Plan - Discharge Summary Discharge Rx Participant: Yes New Discharge Prescriptions: New predniSONE 20 mg PO DAILY #33 tab Mirtazapine [Remeron] 7.5 mg PO HS #15 tab Diclofenac Sodium Gel [Voltaren Gel] 4 gm TOPICAL QID #1 tube Continue Levothyroxine Sodium [Synthroid] 25 mcg PO DAILY Tiotropium 18 Mcg/Puff [Spiriva] 1 cap INHALATION RT-DAILY Pantoprazole Sodium [Protonix] 40 mg PO DAILY Simvastatin [Zocor] 20 mg PO HS fentaNYL 100MCG/HR PATCH [Duragesic 100MCG/HR] 1 patch TRANSDERM Q72H patch QUEtiapine [SEROquel] 50 mg PO HS Fluticasone/Salmeterol [Advair 500-50 Diskus] 1 puff INHALATION RT-BID ALPRAZolam [Xanax] 0.5 mg PO Q6HR PRN PRN Reason: Anxiety Prochlorperazine [Compazine] 10 mg PO TID PRN PRN Reason: Nausea oxyCODONE-APAP 10-325MG [Percocet 10-325 mg] 1 - 2 tab PO Q6H PRN #90 tab PRN Reason: Breakthrough Pain No Action Ipratropium/Albuterol Sulfate [Combivent Respimat Inhaler] 2 puff INHALATION RT-BID Albuterol Sulfate [Proair Hfa] 2 puff INHALATION RT-Q6H PRN PRN Reason: Shortness Of Breath Albuterol Nebulized [Ventolin Nebulized] 2.5 mg INHALATION RT-Q6H PRN PRN Reason: Shortness Of Breath Discharge Medication List Albuterol Sulfate [Proair Hfa] 2 puff INHALATION RT-Q6H PRN 08/31/15 [History] Ipratropium/Albuterol Sulfate [Combivent Respimat Inhaler] 2 puff INHALATION RT- BID 08/31/15 [History] Levothyroxine Sodium [Synthroid] 25 mcg PO DAILY 01/29/16 [History] Pantoprazole Sodium [Protonix] 40 mg PO DAILY 01/29/16 [History] Tiotropium 18 Mcg/Puff [Spiriva] 1 cap INHALATION RT-DAILY 01/29/16 [History] Simvastatin [Zocor] 20 mg PO HS 05/14/16 [History] fentaNYL 100MCG/HR PATCH [Duragesic 100MCG/HR] 1 patch TRANSDERM Q72H patch 07/29/17 [Rx] ALPRAZolam [Xanax] 0.5 mg PO Q6HR PRN 05/02/18 [History] Albuterol Nebulized [Ventolin Nebulized] 2.5 mg INHALATION RT-Q6H PRN 05/02/18 [History] Fluticasone/Salmeterol [Advair 500-50 Diskus] 1 puff INHALATION RT-BID 05/02/18 [History] Prochlorperazine [Compazine] 10 mg PO TID PRN 05/02/18 [History] QUEtiapine [SEROquel] 50 mg PO HS 05/02/18 [History] predniSONE 20 mg PO DAILY #33 tab 07/02/18 [Rx] Diclofenac Sodium Gel [Voltaren Gel] 4 gm TOPICAL QID #1 tube 07/05/18 [Rx] Mirtazapine [Remeron] 7.5 mg PO HS #15 tab 07/05/18 [Rx] oxyCODONE-APAP 10-325MG [Percocet 10-325 mg] 1 - 2 tab PO Q6H PRN #90 tab 07/05/18 [Rx] Follow up Appointment(s)/Referral(s): [facility], [NON-STAFF] - 1 Week Can Pace MD [STAFF PHYSICIAN] - 07/20/18 4:30 pm Torin Mercado MD [Primary Care Provider] - 07/09/18 2:00 pm Discharge Disposition: HOME WITH HOME HEALTH SERVICES
--- NOTE | 2018-07-06 14:52 | P.PN ---
Subjective Progress Note Date: 07/06/18 Principal diagnosis: Small Cell Lung cancer Patient seen this am,feeling better and was able to eat a little without difficulties. Rx for oxycodone brought to nursing. Objective - Vital Signs Vital signs: Vital Signs Temp 98.3 F 07/06/18 05:00 Pulse 66 07/06/18 05:00 Resp 16 07/06/18 05:00 BP 132/74 07/06/18 05:00 Pulse Ox 99 07/06/18 05:00 Intake & Output 07/05/18 07/06/18 07/06/18 18:59 06:59 18:59 Intake Total 280 1190 Balance 280 1190 Intake: Intake, IV Titration 40 Amount Sodium Chloride 0.9% 1, 40 000 ml @ 75 mls/hr IV . [id number] LAI Rx#:[id number] Oral 240 1190 Other: Voiding Method Toilet # Voids 2 - Exam Gen: Alert and Oriented, NAD Head: NC, NT Oral Pharynx: Poor Dentition, no thrush or mucocytis Neck: Supple No palpable adenopathy Lungs: No increased respiratory effort, Bilateral Lower lobes Diminished Abdomen: Soft, Tender to palpation Heart: RRR, S1s2 Extremities: No edema or rashes Neuro: No sensory or motor deficits noted. - Labs CBC & Chem 7: 06/30/18 17:10 06/30/18 17:10 Assessment and Plan Plan: Assessment and Plan Diarrhea - Improved since admission, although still with abdominal pain complaints with eating. - Tolerating a Full liquid diet, but anxious and nervous to increase, will increase to Soft prior to discharge to assess for tolerance - Continue on Prednisone and will provide tapering dose at discharge Acute on Chronic Pain - Multifactora: Neoplastic Component, with component of Colitis Changes - Current Pain regimen consisting of Fentanyl Patch and PRN Oxycodone - She has asked for refills prior to discharge, although when [facility] pulled she recently filled her fentanyl patches and Xanax on 06/18/18. - Will provide a script for her oxycodone breakthrough medication at discharge - Discussed with patient and she states understanding and she states sh hides her pills throughout the house and can never remember where she placed them. Progressive Extensive Stage Small cell lung cancer - Findings in the liver are likely scheduling representative of disease progression versus pseudo-progression with immunotherapy. - Will re-evaluate prior to next treatment with immune therapy, an appointment has been made with Dr. Pace prior to resuming therapy. - Recommend Palliative Care on discharge, Patient is open to this. - Discussed this as being supportive treatment in the home and palliation of symptoms until such time as patient makes a decision whether she is going to continue with treatment for cancer or if she is going to treat symptoms only. Plan -ok for discharge from oncology stand point Carrie MICHELLE
== END 2018-07-06 12:25 | disposition home health service (06) | DRG 948 ==
LOC: EC 16:24 → 3NMEDONC 19:20
PROVIDERS: ADMIT Internal Medicine Geriatric Medicine; ATTEND Internal Medicine Geriatric Medicine
DX: G89.3 Neoplasm related pain (acute) (chronic) (principal); C34.90 Malignant neoplasm of unspecified part of unspecified bronchus or lung; C78.7 Secondary malignant neoplasm of liver and intrahepatic bile duct; C79.51 Secondary malignant neoplasm of bone; K52.1 Toxic gastroenteritis and colitis; E03.9 Hypothyroidism, unspecified; E78.5 Hyperlipidemia, unspecified; F41.1 Generalized anxiety disorder; F43.10 Post-traumatic stress disorder, unspecified; G47.00 Insomnia, unspecified; G47.30 Sleep apnea, unspecified; I11.9 Hypertensive heart disease without heart failure; J44.9 Chronic obstructive pulmonary disease, unspecified; K21.9 Gastro-esophageal reflux disease without esophagitis; T45.1X5A Adverse effect of antineoplastic and immunosuppressive drugs, initial encounter; M81.0 Age-related osteoporosis without current pathological fracture; Z79.890 Hormone replacement therapy; Z79.899 Other long term (current) drug therapy; Z80.8 Family history of malignant neoplasm of other organs or systems; Z82.49 Family history of ischemic heart disease and other diseases of the circulatory system; Z87.891 Personal history of nicotine dependence; Z90.49 Acquired absence of other specified parts of digestive tract; F10.21 Alcohol dependence, in remission; Z51.5 Encounter for palliative care; Z88.4 Allergy status to anesthetic agent; Z91.030 Bee allergy status; E66.9 Obesity, unspecified; Z68.32 Body mass index [BMI] 32.0-32.9, adult; Z60.2 Problems related to living alone; Z99.81 Dependence on supplemental oxygen; M19.90 Unspecified osteoarthritis, unspecified site
CPT/HCPCS: 36415; 74177; 80053; 81001; 82150; 83605; 83690; 85025; 87086; 94640; 94760; 96361; 96374; 96375; 99285

== ENCOUNTER 2018-08-07 14:16 | Inpatient (IN) | payer OTHER ==
[2018-08-07] MEDS ORDERED: ALBUTEROL NEBULIZED 2.5 MG/3 ML INHALATION STA (14:25)
[2018-08-07] MEDS ORDERED: methylPREDNISolone SOD SUCCI 125 MG/2 ML VIAL IV STA (14:25)
[2018-08-07] MEDS ORDERED: IPRATROPIUM 0.5 MG/2.5 ML NEBU INHALATION STA (14:25)
[2018-08-07] MEDS ORDERED: SODIUM CHLORIDE 0.9% 1,000 ML IV STA (14:25)
[2018-08-07] MEDS ORDERED: HYDROmorphone 1 MG/ML 1 ML SYRINGE IVP STA (14:37)
--- NOTE | 2018-08-07 14:40 | XR ---
EXAMINATION TYPE: XR chest 1V portable DATE OF EXAM: 08/07/2018 COMPARISON: 07/17/2017 HISTORY: Chest pain TECHNIQUE: Single frontal view of the chest is obtained. FINDINGS: There is mild coarse density at the left lung base. There is no heart failure. Heart size is normal. There is right central venous catheter with the tip in the superior vena cava. IMPRESSION: There is minimal infiltrate left lower lobe that is new compared to old exam. No heart f ailure.
[2018-08-07] MEDS ORDERED: VANCOMYCIN IV PER PHARMACY 1 EACH MISC MISCELLANE PRN (14:54)
[2018-08-07] MEDS ORDERED: CEFEPIME 2 GM in SODIUM CHLORIDE 0.9% 100 ML IVPB STA (14:55)
[2018-08-07 14:59] LABS: Anisocytosis Slight; Basophils % (A) 0 %; Eosinophils % (A) 1 %; HCT 27.5 % (34.0-46.0); Hypochromasia Slight; Lymphocytes # (A) 0.3 k/uL (1.0-4.8); Lymphocytes % (A) 9 %; MCHC 32.1 g/dL (31.0-37.0); MCV 93.4 fL (80.0-100.0); Mean Platelet Volume 9.6; Monocytes # (A) 0.1 k/uL (0-1.0); Monocytes % (A) 2 %; Neutrophils # (A) 2.9 k/uL (1.3-7.7); Neutrophils % (A) 86 %; RBC 2.94 m/uL (3.80-5.40); RDW 16.2 % (11.5-15.5); WBC 3.3 k/uL (3.8-10.6)
[2018-08-07] MEDS ORDERED: VANCOMYCIN 1,750 MG in SODIUM CHLORIDE 0.9% 500 ML 500 ML IVPB ONE (15:00)
[2018-08-07 15:16] LABS: Partial Thromboplastin Time 22.9 sec (22.0-30.0); Prothrombin Time 10.6 sec (9.0-12.0)
[2018-08-07 15:26] LABS: ALT 41 U/L (9-52); AST 83 U/L (14-36); African American GFR (CKD) >90 (>60 ml/min/1.73 sqM); Albumin 3.6 g/dL (3.5-5.0); Alkaline Phosphatase 163 U/L (38-126); Anion Gap 4 mmol/L; Blood Urea Nitrogen 18 mg/dL (7-17); Calcium 8.7 mg/dL (8.4-10.2); Carbon Dioxide 28 mmol/L (22-30); Chloride 112 mmol/L (98-107); Glucose 102 mg/dL (74-99); Potassium 3.6 mmol/L (3.5-5.1); Sodium 144 mmol/L (137-145); Total Bilirubin 0.7 mg/dL (0.2-1.3); Total Protein 5.7 g/dL (6.3-8.2)
[2018-08-07 15:30] LABS: VBG PH 7.42 (7.31-7.41)
[2018-08-07 15:31] LABS: HGB 8.8 gm/dL (11.4-16.0)
[2018-08-07 16:11] LABS: Platelet Count 94 k/uL (150-450)
[2018-08-07 16:12] LABS: Polychromasia Present
--- NOTE | 2018-08-07 16:33 | CT ---
EXAMINATION TYPE: CT angio chest DATE OF EXAM: 08/07/2018 4:15 PM COMPARISON: 05/23/2017. 04/17/2018. HISTORY: Shortness of breath this am since beginning new treatment for lung cancer. CT DLP: 360.1 mGycm Automated exposure control for dose reduction was used. CONTRAST: CTA scan of the thorax is performed with IV Contrast, patient injected with 100 mL of Isovue 370, pul monary embolism protocol. There are 3-D post processed images.. FINDINGS: There is mild pulmonary emphysema. There is no evidence of a pulmonary mass. There is no pleural effu jonny. There is some linear density in the right lower lobe consistent with scarring and atelectasis. Thoracic aorta is intact. There is no evidence of aneurysm or dissection. Heart size is normal. There is no pericardial effusion. There is lobulated mass at the right pulmonary hilum that measures 4 x 3 cm. I see no filling defects in the pulmonary arteries. Superior mediastinum appears normal. There is ost eosclerosis in the thoracic spine involving numerous foci. There is apparent pathologic fracture of T 6 with 30% loss of height. There is also fracture of T2 with 20% loss of height. There is extensive h eterogeneity in the liver suspicious for tumor. IMPRESSION: NO EVIDENCE OF PULMONARY EMBOLISM. LOBULATED MASS AT THE RIGHT PERIHILUM CONSISTENT WITH TUMOR THAT I S SLIGHTLY INCREASED COMPARED TO CT SCAN OF 04/17/2018 AND SUGGESTIVE OF PROGRESSION OF DISEASE. NUMER OUS OSTEOBLASTIC METASTATIC FOCI IN THE THORACIC SPINE. Extensive infiltration of the liver with tumo r.
[2018-08-07] MEDS ORDERED: SODIUM CHLORIDE 0.9% 500 ML 500 ML IV ONE (16:59)
[2018-08-07] MEDS ORDERED: IPRATROPIUM-ALBUTEROL 3 ML NEB INHALATION PRN (17:17)
--- NOTE | 2018-08-07 17:33 | ED ---
General Adult HPI - General Chief complaint: Shortness of Breath Stated complaint: NIRMALA Time Seen by Provider: 08/07/18 14:21 Source: patient, RN notes reviewed, old records reviewed Mode of arrival: EMS Limitations: no limitations - History of Present Illness Initial comments: 63-year-old female presents in moderate respiratory distress. She is transpo rted by EMS. She has history of metastatic lung cancer currently on chemotherapy. She has diffuse metastatic disease. She states her symptoms of dyspnea have significantly worsened over the past 12 hours. She denies previous history DVT or PE. She does have history of COPD. She endorses subjective fever and chills. She's had a productive cough. She is currently on home oxygen at 4 L. History limited secondary to clinical presentation. - Related Data Home Medications Medication Instructions Recorded Confirmed Albuterol Sulfate [Proair Hfa] 2 puff INHALATION RT-Q6H PRN 08/31/15 08/07/18 Ipratropium/Albuterol Sulfate 2 puff INHALATION RT-BID 08/31/15 08/07/18 [Combivent Respimat Inhaler] Levothyroxine Sodium [Synthroid] 25 mcg PO DAILY 01/29/16 08/07/18 Pantoprazole Sodium [Protonix] 40 mg PO DAILY 01/29/16 08/07/18 Tiotropium 18 Mcg/Puff [Spiriva] 1 cap INHALATION RT-DAILY 01/29/16 08/07/18 Simvastatin [Zocor] 20 mg PO HS 05/14/16 08/07/18 ALPRAZolam [Xanax] 0.5 mg PO Q6HR PRN 05/02/18 08/07/18 Albuterol Nebulized [Ventolin 2.5 mg INHALATION RT-Q6H PRN 05/02/18 08/07/18 Nebulized] Fluticasone/Salmeterol [Advair 1 puff INHALATION RT-BID 05/02/18 08/07/18 500-50 Diskus] Prochlorperazine [Compazine] 10 mg PO TID PRN 05/02/18 08/07/18 QUEtiapine [SEROquel] 50 mg PO HS 05/02/18 08/07/18 Previous Rx's Medication Instructions Recorded fentaNYL 100MCG/HR PATCH 1 patch TRANSDERM Q72H patch 07/29/17 [Duragesic 100MCG/HR] Allergies Allergy/AdvReac Type Severity Reaction Status Date / Time bee venom protein (honey bee) Allergy Anaphylaxis Verified 08/07/18 15:17 lidocaine [From Lidoderm] Allergy Rash/Hives Verified 08/07/18 15:17 Review of Systems ROS Statement: Those systems with pertinent positive or pertinent negative responses have been documented in the HPI. ROS Other: All systems not noted in ROS Statement are negative. Past Medical History Past Medical History: Cancer, COPD, GERD/Reflux, Hyperlipidemia, Hypertension, Osteoarthritis (OA) Additional Past Medical History / Comment(s): COPD, obesity, osteoporosis, hiatal hernia, degenerative arthritis , diverticulosis, history of alcoholism, previous history of gallstone with a previous cholecystectomy, lung cancer with METS to bones. History of Any Multi-Drug Resistant Organisms: None Reported Past Surgical History: Cholecystectomy Additional Past Surgical History / Comment(s): EGD,colonoscopy Past Anesthesia/Blood Transfusion Reactions: Previous Problems w/ Anesthesia, Family History of Problems w/ Anesthesia Additional Past Anesthesia/Blood Transfusion Reaction / Comment(s): EGD/Colonoscopy,never has had general anesthesia, the patient also has had a previous cholecystectomy Past Psychological History: Anxiety, PTSD Smoking Status: Former smoker Past Alcohol Use History: None Reported Past Drug Use History: None Reported - Past Family History Mother Family Medical History: Cancer, Coronary Artery Disease (CAD) Additional Family Medical History / Comment(s): skin Father Family Medical History: No Reported History Additional Family Medical History / Comment(s): Father at the age of 40 in a motor vehicle accident. Patient had one brother who had metastatic colon cancer and history of coronary artery disease. His sister had skin cancer. Patient lives alone and is functionally active does. 3 L of oxygen at rest and exertion Brother(s) Family Medical History: Cancer, Coronary Artery Disease (CAD) (Patient had one brother who from metastatic prostate cancer also had a history of coronary artery disease.), Myocardial Infarction (SC) Sister(s) Family Medical History: Cancer Additional Family Medical History / Comment(s): cancer skin mom skin ca Daughter(s) Family Medical History: No Reported History General Exam Limitations: no limitations General appearance: alert, in distress Head exam: Present: atraumatic, normocephalic Eye exam: Present: normal appearance, PERRL ENT exam: Present: normal exam, mucous membranes dry Neck exam: Present: normal inspection. Absent: tenderness, meningismus Respiratory exam: Present: respiratory distress, wheezes, rhonchi, accessory muscle use, decreased breath sounds Cardiovascular Exam: Present: normal rhythm, tachycardia GI/Abdominal exam: Present: soft. Absent: distended, tenderness Extremities exam: Present: normal inspection, normal capillary refill. Absent: pedal edema, calf tenderness Neurological exam: Present: alert, oriented X3, CN II-XII intact. Absent: motor sensory deficit Psychiatric exam: Present: normal affect, normal mood Skin exam: Present: warm, dry, intact. Absent: cyanosis, diaphoretic Course Vital Signs 08/07/18 08/07/18 08/07/18 14:20 14:30 15:13 Temperature 99.4 F Pulse Rate 140 H 135 H Respiratory 22 20 Rate Blood Pressure 114/99 114/99 O2 Sat by Pulse 96 97 Oximetry 08/07/18 08/07/18 15:17 15:24 Temperature Pulse Rate 129 H Respiratory 23 18 Rate Blood Pressure O2 Sat by Pulse Oximetry EKG Findings - EKG Comments: EKG Findings:: EKG: Sinus tachycardia, low voltage, rate of 142, GA interval 13 4, QRS duration 74, QTC 412, no ST segment elevation. Medical Decision Making - Medical Decision Making 63-year-old female presenting in moderate to severe respiratory distress. Single view chest x-rays obtained, does show left lower lobe infiltrate. She has stable blood pressure but is quite tachycardic on initial presentation, there is concern for pulmonary embolism. This is evaluated with CT angiography which is negative for PE, does show progression of tumor. Patient is pancytopenic with leukopenia anemia. Rectal Normal limits. She is initiated on broad-spectrum antibiotics. Given fluid resuscitation. She will be admitted for treatment of healthcare associated pneumonia, COPD exacerbation. - Lab Data Result diagrams: 08/07/18 14:45 08/07/18 14:45 Lab Results 08/07/18 08/07/18 08/07/18 Range/Units 14:45 14:45 14:45 WBC 3.3 L (3.8-10.6) k/uL RBC 2.94 L (3.80-5.40) m/uL Hgb 8.8 L D (11.4-16.0) gm/dL Hct 27.5 L (34.0-46.0) % MCV 93.4 (80.0-100.0) fL MCH 30.0 (25.0-35.0) pg MCHC 32.1 (31.0-37.0) g/dL RDW 16.2 H (11.5-15.5) % Plt Count 94 L (150-450) k/uL Neutrophils % 86 % Lymphocytes % 9 % Monocytes % 2 % Eosinophils % 1 % Basophils % 0 % Neutrophils # 2.9 (1.3-7.7) k/uL Lymphocytes # 0.3 L (1.0-4.8) k/uL Monocytes # 0.1 (0-1.0) k/uL Eosinophils # 0.0 (0-0.7) k/uL Basophils # 0.0 (0-0.2) k/uL Manual Slide Review Performed Polychromasia Present Hypochromasia Slight Anisocytosis Slight PT (9.0-12.0) sec INR (<1.2) APTT (22.0-30.0) sec VBG pH (7.31-7.41) VBG pCO2 (37-51) mmHg VBG HCO3 (24-28) mmol/L Sodium 144 (137-145) mmol/L Potassium 3.6 (3.5-5.1) mmol/L Chloride 112 H (98-107) mmol/L Carbon Dioxide 28 (22-30) mmol/L Anion Gap 4 mmol/L BUN 18 H (7-17) mg/dL Creatinine 0.60 (0.52-1.04) mg/dL Est GFR (CKD-EPI)AfAm >90 (>60 ml/min/1.73 sqM) Est GFR (CKD-EPI)NonAf >90 (>60 ml/min/1.73 sqM) Glucose 102 H (74-99) mg/dL Plasma Lactic Acid Chris 1.3 (0.7-2.0) mmol/L Calcium 8.7 (8.4-10.2) mg/dL Magnesium 2.0 (1.6-2.3) mg/dL Total Bilirubin 0.7 (0.2-1.3) mg/dL AST 83 H (14-36) U/L ALT 41 (9-52) U/L Alkaline Phosphatase 163 H (38-126) U/L Troponin I (0.000-0.034) ng/mL NT-Pro-B Natriuret Pep pg/mL Total Protein 5.7 L (6.3-8.2) g/dL Albumin 3.6 (3.5-5.0) g/dL 08/07/18 08/07/18 08/07/18 Range/Units 14:45 14:45 14:45 WBC (3.8-10.6) k/uL RBC (3.80-5.40) m/uL Hgb (11.4-16.0) gm/dL Hct (34.0-46.0) % MCV (80.0-100.0) fL MCH (25.0-35.0) pg MCHC (31.0-37.0) g/dL RDW (11.5-15.5) % Plt Count (150-450) k/uL Neutrophils % % Lymphocytes % % Monocytes % % Eosinophils % % Basophils % % Neutrophils # (1.3-7.7) k/uL Lymphocytes # (1.0-4.8) k/uL Monocytes # (0-1.0) k/uL Eosinophils # (0-0.7) k/uL Basophils # (0-0.2) k/uL Manual Slide Review Polychromasia Hypochromasia Anisocytosis PT 10.6 (9.0-12.0) sec INR 1.0 (<1.2) APTT 22.9 (22.0-30.0) sec VBG pH (7.31-7.41) VBG pCO2 (37-51) mmHg VBG HCO3 (24-28) mmol/L Sodium (137-145) mmol/L Potassium (3.5-5.1) mmol/L Chloride (98-107) mmol/L Carbon Dioxide (22-30) mmol/L Anion Gap mmol/L BUN (7-17) mg/dL Creatinine (0.52-1.04) mg/dL Est GFR (CKD-EPI)AfAm (>60 ml/min/1.73 sqM) Est GFR (CKD-EPI)NonAf (>60 ml/min/1.73 sqM) Glucose (74-99) mg/dL Plasma Lactic Acid Chris (0.7-2.0) mmol/L Calcium (8.4-10.2) mg/dL Magnesium (1.6-2.3) mg/dL Total Bilirubin (0.2-1.3) mg/dL AST (14-36) U/L ALT (9-52) U/L Alkaline Phosphatase (38-126) U/L Troponin I <0.012 (0.000-0.034) ng/mL NT-Pro-B Natriuret Pep 211 pg/mL Total Protein (6.3-8.2) g/dL Albumin (3.5-5.0) g/dL 08/07/18 Range/Units 15:12 WBC (3.8-10.6) k/uL RBC (3.80-5.40) m/uL Hgb (11.4-16.0) gm/dL Hct (34.0-46.0) % MCV (80.0-100.0) fL MCH (25.0-35.0) pg MCHC (31.0-37.0) g/dL RDW (11.5-15.5) % Plt Count (150-450) k/uL Neutrophils % % Lymphocytes % % Monocytes % % Eosinophils % % Basophils % % Neutrophils # (1.3-7.7) k/uL Lymphocytes # (1.0-4.8) k/uL Monocytes # (0-1.0) k/uL Eosinophils # (0-0.7) k/uL Basophils # (0-0.2) k/uL Manual Slide Review Polychromasia Hypochromasia Anisocytosis PT (9.0-12.0) sec INR (<1.2) APTT (22.0-30.0) sec VBG pH 7.42 H (7.31-7.41) VBG pCO2 41 (37-51) mmHg VBG HCO3 26 (24-28) mmol/L Sodium (137-145) mmol/L Potassium (3.5-5.1) mmol/L Chloride (98-107) mmol/L Carbon Dioxide (22-30) mmol/L Anion Gap mmol/L BUN (7-17) mg/dL Creatinine (0.52-1.04) mg/dL Est GFR (CKD-EPI)AfAm (>60 ml/min/1.73 sqM) Est GFR (CKD-EPI)NonAf (>60 ml/min/1.73 sqM) Glucose (74-99) mg/dL Plasma Lactic Acid Chris (0.7-2.0) mmol/L Calcium (8.4-10.2) mg/dL Magnesium (1.6-2.3) mg/dL Total Bilirubin (0.2-1.3) mg/dL AST (14-36) U/L ALT (9-52) U/L Alkaline Phosphatase (38-126) U/L Troponin I (0.000-0.034) ng/mL NT-Pro-B Natriuret Pep pg/mL Total Protein (6.3-8.2) g/dL Albumin (3.5-5.0) g/dL Disposition Clinical Impression: Acute exacerbation of chronic obstructive airways disease, Small cell lung cancer, HCAP (healthcare-associated pneumonia) Disposition: ADMITTED IP TO THIS [facility] Condition: Stable Is patient prescribed a controlled substance at d/c from ED?: No Referrals: Torin Mercado MD [Primary Care Provider] - 1-2 days Decision to Admit Reason: Admit from EC Decision Date: 08/07/18 Decision Time: 17:32
[2018-08-07 17:37] LABS: Appearance,Urine Clear (Clear); Bilirubin,Urine Negative (Negative); Blood,Urine Negative (Negative); Color,Urine Colorless; Glucose,Urine (UA) Negative (Negative); Ketones,Urine Negative (Negative); Leukocyte Esterase,Urine Negative (Negative); Nitrite,Urine Negative (Negative); Protein,Urine Negative (Negative); Specific Gravity,Urine 1.013 (1.001-1.035); Urobilinogen,Urine <2.0 mg/dL (<2.0)
[2018-08-07] MEDS ORDERED: ALPRAZolam 1 MG TAB PO STA (18:46)
[2018-08-07] MEDS: SODIUM CHLORIDE 0.9% 1,000 ML IV SCH (18:54)
[2018-08-07] MEDS: IPRATROPIUM-ALBUTEROL 3 ML NEB INHALATION SCH (19:16)
[2018-08-07 21:21] LABS: Glucose,Whole Blood 137 mg/dL (75-99)
[2018-08-07] MEDS: methylPREDNISolone SOD SUCCI 125 MG/2 ML VIAL IV SCH (21:30)
[2018-08-07] MEDS ORDERED: oxyCODONE-APAP 10-325MG 1 EACH TAB PO PRN (23:24)
[2018-08-08] MEDS: CEFEPIME 2 GM in SODIUM CHLORIDE 0.9% 100 ML IVPB SCH ×2 (00:23→09:24)
[2018-08-08] MEDS: methylPREDNISolone SOD SUCCI 125 MG/2 ML VIAL IV SCH ×5 (01:26→23:25)
[2018-08-08] MEDS ORDERED: VANCOMYCIN 1,500 MG in SODIUM CHLORIDE 0.9% 250 ML IVPB SCH (06:00)
--- NOTE | 2018-08-08 06:16 | XR ---
EXAMINATION TYPE: XR chest 1V portable DATE OF EXAM: 08/08/2018 HISTORY: Pneumonia. REFERENCE: Previous study dated 08/07/2018. FINDINGS: There is a MediPort in place on the right. The heart is mildly enlarged. There is some minimal atelectasis or infiltrate at the left lung base. Left CP angle is obscured and I cannot exclude a small left effusion. IMPRESSION: 1. MINIMAL LEFT BASILAR AIRSPACE DISEASE. 2. I CANNOT EXCLUDE A SMALL LEFT EFFUSION.
[2018-08-08 06:57] LABS: Anisocytosis Slight; Basophils % (A) 0 %; Eosinophils % (A) 0 %; HCT 26.5 % (34.0-46.0); HGB 8.3 gm/dL (11.4-16.0); Hypochromasia Moderate; Lymphocytes # (A) 0.2 k/uL (1.0-4.8); Lymphocytes % (A) 7 %; MCH 29.3 pg (25.0-35.0); MCHC 31.3 g/dL (31.0-37.0); MCV 93.4 fL (80.0-100.0); Mean Platelet Volume 9.4; Monocytes # (A) 0.1 k/uL (0-1.0); Monocytes % (A) 3 %; Neutrophils # (A) 2.8 k/uL (1.3-7.7); Neutrophils % (A) 90 %; Platelet Count 95 k/uL (150-450); RBC 2.83 m/uL (3.80-5.40); RDW 16.3 % (11.5-15.5); WBC 3.1 k/uL (3.8-10.6)
[2018-08-08 07:08] LABS: African American GFR (CKD) >90 (>60 ml/min/1.73 sqM); Anion Gap 3 mmol/L; Blood Urea Nitrogen 13 mg/dL (7-17); Calcium 8.5 mg/dL (8.4-10.2); Carbon Dioxide 31 mmol/L (22-30); Chloride 113 mmol/L (98-107); Glucose 112 mg/dL (74-99); Potassium 4.2 mmol/L (3.5-5.1); Sodium 147 mmol/L (137-145)
[2018-08-08] MEDS: IPRATROPIUM-ALBUTEROL 3 ML NEB INHALATION SCH ×5 (09:06→21:07)
[2018-08-08] MEDS: LEVOFLOXACIN 500 MG TAB PO SCH (09:12)
--- NOTE | 2018-08-08 09:21 | CONS ---
CONSULTATION PULMONARY/CRITICAL CARE CONSULTATION: DATE OF CONSULTATION: 08/08/2018 This is a 63-year-old female who presents to the emergency room on August 07 via EMS for acute respiratory distress. She has a history of metastatic lung cancer with multiple lesions in the spine and liver. The patient apparently states that for the last couple of days prior to admission, she had been having worsening shortness of breath. The shortness of breath tends to be much worse when she is exerting herself. She does have cough. Not much phlegm production. No fever or chills. No chest pain or chest discomfort. No nausea, vomiting or diarrhea. The patient does use oxygen at home on a regular basis at 4 L. Currently here in the ICU, the patient is resting comfortably. She is lying on her left side. No obvious respiratory distress. There is no conversational dyspnea, use of accessory muscles nor audible wheezing. She does have O2 in place. Her oxygen is running at 3 L currently. In addition to metastatic lung cancer, the patient has a history of COPD, hypertension, DJD, GERD, and she is a prior smoker. HOME MEDICATIONS: Include albuterol inhaler, Combivent Respimat inhaler, Synthroid, Protonix, Spiriva, Zocor, Xanax, updrafts with albuterol, Advair, Compazine, Seroquel, and fentanyl patch. ALLERGIES: Include BEE VENOM AND LIDOCAINE. PAST MEDICAL HISTORY: Includes metastatic lung cancer, COPD, GERD, hyperlipidemia, hypertension, DJD, osteoporosis, hiatal hernia, diverticulosis, previous history of alcohol abuse, previous history of cholelithiasis with cholecystectomy. SURGICAL HISTORY: Includes EGD, colonoscopy, and cholecystectomy. SOCIAL HISTORY: Positive for previous tobacco use. She does not smoke currently. No alcohol or illicit drug use currently. FAMILY HISTORY: Apparently positive for cardiac disease. REVIEW OF SYSTEMS: CONSTITUTIONAL: Weakness. NEUROLOGIC: Negative. HEENT: Negative. CARDIOVASCULAR: Negative. PULMONARY: Shortness of breath. Minimal cough. No phlegm production. GI: Negative. : Negative. RHEUMATOLOGIC: Negative. IMMUNOLOGIC: Negative. ENDOCRINOLOGIC: Negative. DERMATOLOGIC: Negative. PHYSICAL EXAMINATION: Current vital signs are reviewed. Temperature is 98.7 heart rate 87, respiratory rate 17, blood pressure 118/82, mean is 94, and saturations are 97% on 3 L. Appears in no acute distress HEENT examination is grossly unremarkable. Nasal O2 noted. NECK: Supple. Full range of motion. No adenopathy. CARDIOVASCULAR examination reveals regular rhythm rate. Heart rate 87. S1, S2 normal. There is no distinct murmur. LUNGS: Reveal severely diminished breath sounds throughout. She has got some expiratory rhonchi and wheezes. No crackles. Breath sounds are equal. ABDOMEN: Soft. Bowel sounds are heard. EXTREMITIES: Intact. No cyanosis, clubbing, or edema. SKIN: Without rash. NEUROLOGIC examination is brief but nonfocal. LABS: Reviewed. White count 3.1, hemoglobin 8.3, hematocrit 26.5, and platelet count 95,000. Sodium 147, potassium 4.2, chloride 113, CO2 of 31, anion gap is 3. BUN and creatinine were 13 and 0.48. The rest of the labs look okay. Troponins were negative. UA is negative. Chest x-ray shows minimal infiltrates silhouetting the left heart border. CT angiogram shows no evidence of pulmonary embolism. There is a lobulated mass at the right perihilum consistent with cancer. In addition, there are numerous osteoblastic metastatic foci in the thoracic spine. ASSESSMENT: 1. Chronic obstructive pulmonary disease exacerbation complicated by mild tracheobronchitis. 2. History of metastatic lung cancer with multiple thoracic spine lesions. 3. History of chronic obstructive pulmonary disease from previous tobacco use. 4. History of hypertension. 5. History of hyperlipidemia. 6. Hypothyroidism. 7. Gastroesophageal reflux disease. 8. Osteoporosis. 9. History of hiatal hernia. 10.History of diverticular disease. 11.History of degenerative joint disease. PLAN: The patient's medications will be reviewed. Likely she will get the standard cocktail of breathing treatments, corticosteroids and antibiotics. Additional recommendations and suggestions are forthcoming. Prognosis is guarded. She is a NO CODE. The patient appears to be reasonably stable at this time. MMODL / IJN: [id number] /
[2018-08-08] MEDS: SODIUM CHLORIDE 0.9% 1,000 ML IV SCH (09:24)
[2018-08-08] MEDS: SODIUM CHLORIDE 0.45% 1,000 ML IV SCH ×2 (09:41→23:13)
[2018-08-08] MEDS: MORPHINE SULFATE 2 MG/ML SYRINGE IVP PRN ×2 (12:38→19:13)
[2018-08-08] MEDS: ALPRAZolam 0.5 MG TAB PO PRN ×2 (12:38→15:54)
--- NOTE | 2018-08-08 20:23 | P.HPIM ---
History of Present Illness H&P Date: 08/08/18 Chief Complaint: Dyspnea This is 63 years old female who presented to the emergency department with worsening shortness of breath. The shunt is home oxygen dependent since her diagnosis with this COPD and metastatic lung cancer to the liver and has been calm planned with her medication and treatment therapy denied active smoking and stated that she became short of breath by getting up from bed to bedside commode which requires her at least 5 minutes to recover patient stated that she was able to handle things on her own but slowly and gradually deteriorated to the point where she was not able to move from bed patient seems to be restless and short of breath with conversation using accessory muscles. Patient reported no fever or chills but reported productive cough for yellow green phlegm. Patient reported worsening wheezing and respiratory distress. Patient decided to be DNR during this hospital stay after she was admitted to the intensive care unit Review of Systems All 14 systems reviewed and negative except as above Past Medical History Past Medical History: Cancer, COPD, GERD/Reflux, Hyperlipidemia, Hypertension, Osteoarthritis (OA) Additional Past Medical History / Comment(s): COPD, obesity, osteoporosis, hiatal hernia, degenerative arthritis , diverticulosis, history of alcoholism, previous history of gallstone with a previous cholecystectomy, lung cancer with METS to bones (spine). History of Any Multi-Drug Resistant Organisms: None Reported Past Surgical History: Cholecystectomy Additional Past Surgical History / Comment(s): EGD,colonoscopy Past Anesthesia/Blood Transfusion Reactions: Previous Problems w/ Anesthesia, Family History of Problems w/ Anesthesia Additional Past Anesthesia/Blood Transfusion Reaction / Comment(s): EGD/Colonoscopy,never has had general anesthesia, the patient also has had a previous cholecystectomy. Past Psychological History: Anxiety, PTSD Smoking Status: Former smoker Past Alcohol Use History: None Reported Additional Past Alcohol Use History / Comment(s): quit smoking 2010,smoked appro x 2ppd Past Drug Use History: None Reported - Past Family History Mother Family Medical History: Cancer, Coronary Artery Disease (CAD) Additional Family Medical History / Comment(s): skin Father Family Medical History: No Reported History Additional Family Medical History / Comment(s): Father at the age of 40 in a motor vehicle accident. Patient had one brother who had metastatic colon cancer and history of coronary artery disease. His sister had skin cancer. Patient lives alone and is functionally active does. 3 L of oxygen at rest and exertion Brother(s) Family Medical History: Cancer, Coronary Artery Disease (CAD) (Patient had one brother who from metastatic prostate cancer also had a history of coronary artery disease.), Myocardial Infarction (OK) Sister(s) Family Medical History: Cancer Additional Family Medical History / Comment(s): cancer skin. Daughter(s) Family Medical History: No Reported History Medications and Allergies Home Medications Medication Instructions Recorded Confirmed Type Albuterol Sulfate [Proair Hfa] 2 puff INHALATION RT-Q6H PRN 08/31/15 08/07/18 History Ipratropium/Albuterol Sulfate 2 puff INHALATION RT-BID 08/31/15 08/07/18 History [Combivent Respimat Inhaler] Levothyroxine Sodium [Synthroid] 25 mcg PO DAILY 01/29/16 08/07/18 History Pantoprazole Sodium [Protonix] 40 mg PO DAILY 01/29/16 08/07/18 History Tiotropium 18 Mcg/Puff [Spiriva] 1 cap INHALATION RT-DAILY 01/29/16 08/07/18 History Simvastatin [Zocor] 20 mg PO HS 05/14/16 08/07/18 History fentaNYL 100MCG/HR PATCH 1 patch TRANSDERM Q72H patch 07/29/17 08/07/18 Rx [Duragesic 100MCG/HR] ALPRAZolam [Xanax] 0.5 mg PO Q6HR PRN 05/02/18 08/07/18 History Albuterol Nebulized [Ventolin 2.5 mg INHALATION RT-Q6H PRN 05/02/18 08/07/18 History Nebulized] Fluticasone/Salmeterol [Advair 1 puff INHALATION RT-BID 05/02/18 08/07/18 History 500-50 Diskus] Prochlorperazine [Compazine] 10 mg PO TID PRN 05/02/18 08/07/18 History QUEtiapine [SEROquel] 50 mg PO HS 05/02/18 08/07/18 History Allergies Allergy/AdvReac Type Severity Reaction Status Date / Time bee venom protein (honey bee) Allergy Anaphylaxis Verified 08/07/18 15:17 lidocaine [From Lidoderm] Allergy Rash/Hives Verified 08/07/18 15:17 Physical Exam Vitals: Vital Signs Temp Pulse Resp BP Pulse Ox 08/08/18 16:42 118 H 08/08/18 16:32 110 H 08/08/18 15:03 18 08/08/18 12:59 124 H 08/08/18 12:47 108 H 08/08/18 09:17 116 H 08/08/18 09:09 108 H 08/08/18 08:00 97.9 F 90 20 113/77 96 08/08/18 04:00 87 17 97 08/08/18 03:00 93 23 96 08/08/18 02:00 96 16 96 08/08/18 01:00 107 H 14 118/82 94 L 08/08/18 00:00 98.7 F 94 20 96 08/07/18 23:00 96 23 96 08/07/18 22:00 104 H 9 L 95 08/07/18 21:54 95 08/07/18 21:00 98.6 F 109 H 13 102/85 96 08/07/18 20:38 101 H 18 106/67 97 Intake and Output 08/08/18 08/08/18 08/08/18 06:59 14:59 22:59 Intake Total 450 75 200 Output Total 1100 2200 800 Balance -650 -6096 -600 Intake: IV 450 Sodium Chloride 0.9% 1, 450 000 ml @ 75 mls/hr IV . [id number] [facility] Rx#:[id number] Intake, IV Titration 75 Amount Sodium Chloride 0.45% 1, 75 000 ml @ 75 mls/hr IV . [id number] [facility] Rx#:[id number] Oral 200 Output: Urine 1100 2200 800 Other: Voiding Method Bedside Commode Bedside Commode Bedside Commode # Voids 1 1 2 Weight 78.5 kg Physical exam HEENT atraumatic normocephalic. PERRLA Lungs coarse breathing sounds bilaterally with scattered rhonchi and fine end expiratory wheezing Heart normal S1-S2 Abdomen soft no tenderness plus falls. 4 quadrant Lower extremity no edema Skin no new rash Psych alert and oriented 3 Neuro no focal deficit Results CBC & Chem 7: 08/08/18 06:20 08/08/18 06:20 Labs: Abnormal Lab Results - Last 24 Hours (Table) 08/07/18 08/08/18 08/08/18 Range/Units 21:18 06:20 06:20 WBC 3.1 L (3.8-10.6) k/uL RBC 2.83 L (3.80-5.40) m/uL Hgb 8.3 L (11.4-16.0) gm/dL Hct 26.5 L (34.0-46.0) % RDW 16.3 H (11.5-15.5) % Plt Count 95 L (150-450) k/uL Lymphocytes # 0.2 L (1.0-4.8) k/uL Sodium 147 H (137-145) mmol/L Chloride 113 H (98-107) mmol/L Carbon Dioxide 31 H (22-30) mmol/L Creatinine 0.48 L (0.52-1.04) mg/dL Glucose 112 H (74-99) mg/dL POC Glucose (mg/dL) 137 H (75-99) mg/dL Microbiology - Last 24 Hours (Table) 08/07/18 15:12 Blood Culture - Preliminary Blood No Growth after 24 hours Thrombosis Risk Factor Assmnt - Choose All That Apply Each Factor Represents 1 point: Abnormal pulmonary function (COPD), Obesity (BMI >25) Each Risk Factor Represents 2 Points: Age 61-74 years Thrombosis Risk Factor Assessment Total Risk Factor Score: 4 Thrombosis Risk Factor Assessment Level: Moderate Risk Assessment and Plan Assessment: 1. Acute on chronic respiratory failure with hypoxia. 2. COPD with acute exacerbation. 3. Questionable pneumonia. 4. Severe anxiety. 5. Failure to thrive. 6. Severe debility and deconditioning. 7. Protein calorie malnutrition, moderate. 8. Pancytopenia. 9. Hyponatremia. 10. Hypothyroidism. 11. Hyperlipidemia. I would like to continue current IV antibiotics, aggressive pulmonary hygiene, oxygen supplementation to maintain her oxygenation above 90% and follow-up with pulmonary recommendation regarding use of systemic steroids. I would like to consult hematology oncology for second opinion as patient is having metastatic disease and hitting end stage as patient may benefit from hospice evaluation at this point but patient still reluctant to it and not sure if she wants to continue with chemotherapy. I would like to optimize her pain management by continuation of fentanyl patch 100 MCG, home dose, discontinue oxycodone and start patients on morphine 2 mg IV push every 4 hours to improve her pain, anxiety and help with her shortness of breath. Patient showed concerns regarding possible hallucination and we encouraged patient to try small dose and see if she can have better outcome with current regimen. I would like to have patients on DVT prophylaxis therapy to her blood work in the morning monitor vital signs closely and obtain sputum culture and transfer patient to general medical floor as she is DNR. Prognosis is guarded
[2018-08-08] MEDS: SYMBICORT 160-4.5 MCG INHALER INHALATION SCH (21:05)
[2018-08-09] MEDS: ALPRAZolam 0.5 MG TAB PO PRN ×5 (02:55→23:32)
[2018-08-09] MEDS: MORPHINE SULFATE 2 MG/ML SYRINGE IVP PRN ×4 (02:56→20:57)
[2018-08-09] MEDS: methylPREDNISolone SOD SUCCI 125 MG/2 ML VIAL IV SCH ×4 (05:30→23:32)
[2018-08-09] MEDS: IPRATROPIUM-ALBUTEROL 3 ML NEB INHALATION SCH ×4 (08:34→20:29)
[2018-08-09] MEDS: SYMBICORT 160-4.5 MCG INHALER INHALATION SCH (08:34)
[2018-08-09] MEDS: LEVOFLOXACIN 500 MG TAB PO SCH (09:06)
[2018-08-09] MEDS: HEPARIN SODIUM,PORCINE 5,000 UNIT/ML 1 ML VIAL SQ SCH ×2 (15:10→23:32)
[2018-08-09] MEDS: SODIUM CHLORIDE 0.45% 1,000 ML IV SCH ×2 (15:15→23:32)
--- NOTE | 2018-08-09 16:38 | P.PN ---
Subjective Progress Note Date: 08/09/18 Principal diagnosis: Acute exacerbation of chronic obstructive pulmonary disease comfortable mild tracheobronchitis, history of metastatic lung cancer with multiple thoracic spine lesions 08/09/2016 patient seen in follow-up on oncology floor. She is awake and alert, in no acute distress, currently on 4 L of oxygen pulse ox of 97%, afebrile, hemodynamically stable, does get dyspneic with exertion, otherwise in no acute distress. Today's labs have been reviewed, showing white blood cell count of 3.1, hemoglobin is 8.3, serum sodium is 147, potassium is 4.2, chloride is 113, CO2 is 31, BUN is 13 and creatinine 0.48. Vital signs are stable, no fever or chills, blood cultures show no growth. Antibiotic coverage in the form of Levaquin, patient continues on nebulized bronchodilators, Pulmicort and formoterol, IV steroids. Sounds reveal diminished breath sounds bilaterally. Objective - Vital Signs Vital signs: Vital Signs Temp 98.4 F 08/09/18 12:42 Pulse 88 08/09/18 13:04 Resp 18 08/09/18 12:42 BP 109/66 08/09/18 12:42 Pulse Ox 97 08/09/18 12:42 Intake & Output 08/08/18 08/09/18 08/09/18 18:59 06:59 18:59 Intake Total 275 320 Output Total 3000 2400 Balance -8825 -2079 Weight 79 kg Intake: Intake, IV Titration 75 Amount Sodium Chloride 0.45% 1, 75 000 ml @ 75 mls/hr IV . [id number] [facility] Rx#:[id number] Oral 200 320 Output: Urine 3000 2400 Other: Voiding Method Bedside Commode Bedside Commode # Voids 2 2 2 # Bowel Movements 1 - Exam GENERAL EXAM: Alert, pleasant, 63-year-old white female, comfortable oxygen, comfortable in no apparent distress. HEAD: Normocephalic/atraumatic. EYES: Normal reaction of pupils, equal size. Conjunctiva pink, sclera white. NOSE: Clear with pink turbinates. THROAT: No erythema or exudates. NECK: No masses, no JVD, no thyroid enlargement, no adenopathy. CHEST: No chest wall deformity. Symmetrical expansion. LUNGS: Equal air entry with diminished sounds, with expiratory wheezes CVS: Regular rate and rhythm, normal S1 and S2, no gallops, no murmurs, no rubs ABDOMEN: Soft, nontender. No hepatosplenomegaly, normal bowel sounds, no guarding or rigidity. EXTREMITIES: No clubbing, no edema, no cyanosis, 2+ pulses and upper and lower extremities. MUSCULOSKELETAL: Muscle strength and tone normal. SPINE: No scoliosis or deformity SKIN: No rashes CENTRAL NERVOUS SYSTEM: Alert and oriented -3. No focal deficits, tone is normal in all 4 extremities. PSYCHIATRIC: Alert and oriented -3. Appropriate affect. Intact judgment and insight. - Labs CBC & Chem 7: 08/08/18 06:20 08/08/18 06:20 Labs: Microbiology - Last 24 Hours (Table) 08/07/18 15:12 Blood Culture - Preliminary Blood No Growth after 24 hours Assessment and Plan Plan: 1. Acute exacerbation of chronic obstructive pulmonary disease complicated by mild tracheobronchitis 2. History of metastatic lung cancer with multiple thoracic spine lesions 3. Straight of chronic obstructive pulmonary disease from previous tobacco use 4. Hypertension 5. Hyperipidemia 6. Hypothyroidism 7. GERD 8. Osteoporosis 9. History of hiatal hernia 10. DJD 11. History of diverticular disease 12. Hypernatremia likely related to free water deficit Plan: We will add Pulmicort and Perforomist, continue with DuoNeb, continue IV steroids, current antibiotic coverage. In the sputum culture, encourage oral intake. Pain control, continue IV hydration, with 0.45 saline at a rate of 75 ML per hour. No fever or chills, vital signs are stable, will continue with current dose of IV steroids. CODE STATUS is DO NOT RESUSCITATe. Chemotherapy is on hold currently. Oncology is following I performed a history & physical examination of the patient and discussed their management with my nurse practitioner, Adriane Kahn. I reviewed the nurse practitioner's note and agree with the documented findings and plan of care. Lung sounds are positive for diminished breath sounds, with expiratory wheezes, and a few scattered rhonchi. The findings and the impression was discussed with the patient. I attest to the documentation by the nurse practitioner. Time with Patient: Less than 30
--- NOTE | 2018-08-09 16:49 | P.PN ---
Subjective Progress Note Date: 08/09/18 This is 63 years old female who presented to the emergency department with worsening shortness of breath. The shunt is home oxygen dependent since her diagnosis with this COPD and metastatic lung cancer to the liver and has been calm planned with her medication and treatment therapy denied active smoking and stated that she became short of breath by getting up from bed to bedside commode which requires her at least 5 minutes to recover patient stated that she was able to handle things on her own but slowly and gradually deteriorated to the point where she was not able to move from bed patient seems to be restless and short of breath with conversation using accessory muscles. Patient reported no fever or chills but reported productive cough for yellow green phlegm. Patient reported worsening wheezing and respiratory distress. Patient decided to be DNR during this hospital stay after she was admitted to the intensive care unit 08/09: Patient is currently on Solu-Medrol 60 every 6 hours which will be maintained. She continues to have wheezing and tightness. Discussed discharge planning and patient is willing to pursue palliative care but not interested in hospice care. She is requesting topical Ensure which will be ordered. Patient is followed by Dr. Lawrence. Objective - Vital Signs Vital signs: Vital Signs Temp 98.3 F 08/09/18 05:00 Pulse 92 08/09/18 08:45 Resp 18 08/09/18 05:00 BP 116/74 08/09/18 05:00 Pulse Ox 99 08/09/18 05:00 Intake & Output 08/08/18 08/09/18 08/09/18 18:59 06:59 18:59 Intake Total 275 320 Output Total 3000 2400 Balance -2724 -2079 Weight 79 kg Intake: Intake, IV Titration 75 Amount Sodium Chloride 0.45% 1, 75 000 ml @ 75 mls/hr IV . [id number] [facility] Rx#:[id number] Oral 200 320 Output: Urine 3000 2400 Other: Voiding Method Bedside Commode Bedside Commode # Voids 2 2 1 # Bowel Movements 1 - Exam Review Of Systems: Constitutional: No fever, no chills, no night sweats. No weight change. No weakness, fatigue or lethargy. No daytime sleepiness. EENT: No headache. No blurred vision or double vision, no loss of vision. No loss of Hearing, no ringing in the ears, no dizziness. No nasal drainage or congestion. No epistaxis. No sore throat. Lungs: Reports shortness of breath, reports cough, reports sputum production. Reports wheezing. Cardiovascular: No chest pain, no lower extremity edema. No palpitations. No paroxysmal nocturnal dyspnea. No orthopnea. No lightheadedness or dizziness. No syncopal episodes. Abdominal: No abdominal pain. No nausea, vomiting. No diarrhea. No constipation. No bloody or tarry stools.. No loss of appetite. Genitourinary: No dysuria, increased frequency, urgency. No urinary retention. Musculoskeletal: No myalgias. No muscle weakness, no gait dysfunction, no frequent falls. No back pain. No neck pain. Integumentary: No wounds, no lesions. No rash or pruritus. No unusual bruising. No change in hair or nails. Neurologic: No aphasia. No facial droop. No change in mentation. No head injury. No headache. No paralysis. No paresthesia. Psychiatric: No depression. No anxiety. No mood swings. Endocrine: No abnormal blood sugars. No weight change. No excessive sweating or thirst. No cold intolerance. Gen: This is a 63-year-old female. Patient appears to be comfortable and in no acute distress. HEENT: Head is atraumatic, normocephalic. Pupils equal, round. Sclerae is anicteric. NECK: Supple. No JVD. No lymphadenopathy. No thyromegaly. LUNGS: Diminished with expiratory wheeze. No intercostal retractions. HEART: Regular rate and rhythm. No murmur. ABDOMEN: Soft. Bowel sounds are present. No masses. No tenderness. EXTREMITIES: No pedal edema. No calf tenderness. NEUROLOGICAL: Patient is awake, alert and oriented x3. Cranial nerves 2 through 12 are grossly intact. - Labs CBC & Chem 7: 08/08/18 06:20 08/08/18 06:20 Labs: Microbiology - Last 24 Hours (Table) 08/07/18 15:12 Blood Culture - Preliminary Blood No Growth after 24 hours Assessment and Plan Plan: 1. Acute on chronic hypoxic respiratory failure. Continue oxygen therapy. Consult with Dr. Howard ramírez. 2. COPD with acute exacerbation. Continue DuoNeb treatments, Pulmicort, Perforomist, Solu-Medrol 60 mg IV every 6 hours, Levaquin 500 mg daily 3. Pneumonia ruled out by pulmonary medicine. Continue treatment for tracheobronchitis. Continue Levaquin. 4. Severe generalized anxiety disorder. Continue Seroquel, Xanax 5. Failure to thrive. 6. Severe debility and deconditioning. 7. Protein calorie malnutrition, moderate. 8. Pancytopenia. 9. Hyponatremia. 10. Hypothyroidism. Continue levothyroxine 11. Hyperlipidemia. Continue Lipitor 12. Chronic pain. Continue fentanyl patch 13 CODE STATUS: No code Discharge plan: Most likely home with palliative care Impression and plan of care have been directed as dictated by the signing physician. Fernanda Taylor nurse practitioner acting as scribe for signing physician.
[2018-08-09] MEDS ORDERED: NON-FORMULARY DRUG (Fluticasone/Salmeterol [Advair 500-50 Diskus] 1 PUFF) INHALATION SCH (20:00)
[2018-08-09] MEDS: FORMOTEROL FUMARATE 20 MCG/2 ML NEBU INHALATION SCH (20:29)
[2018-08-09] MEDS: BUDESONIDE 0.5 MG/2 ML NEBU INHALATION SCH (20:29)
[2018-08-09] MEDS: ATORVASTATIN 10 MG TAB PO SCH (20:57)
[2018-08-09] MEDS: QUEtiapine 50 MG TAB PO SCH (20:57)
[2018-08-10] MEDS: methylPREDNISolone SOD SUCCI 125 MG/2 ML VIAL IV SCH ×4 (05:54→23:44)
[2018-08-10] MEDS: LEVOTHYROXINE 25 MCG TAB PO SCH (05:54)
[2018-08-10] MEDS: ALPRAZolam 0.5 MG TAB PO PRN (07:18)
[2018-08-10] MEDS: MORPHINE SULFATE 2 MG/ML SYRINGE IVP PRN ×3 (07:18→22:08)
[2018-08-10] MEDS: HEPARIN SODIUM,PORCINE 5,000 UNIT/ML 1 ML VIAL SQ SCH ×3 (08:14→22:07)
[2018-08-10] MEDS: LEVOFLOXACIN 500 MG TAB PO SCH (08:14)
[2018-08-10] MEDS: PANTOPRAZOLE 40 MG TABLET PO SCH (08:14)
[2018-08-10] MEDS: IPRATROPIUM-ALBUTEROL 3 ML NEB INHALATION SCH ×4 (09:36→20:47)
[2018-08-10] MEDS: FORMOTEROL FUMARATE 20 MCG/2 ML NEBU INHALATION SCH ×2 (09:36→20:49)
[2018-08-10] MEDS: BUDESONIDE 0.5 MG/2 ML NEBU INHALATION SCH ×2 (09:36→20:49)
[2018-08-10] MEDS: SODIUM CHLORIDE 0.45% 1,000 ML IV SCH ×2 (10:40→23:45)
--- NOTE | 2018-08-10 13:06 | P.PN ---
Subjective Progress Note Date: 08/10/18 Principal diagnosis: Acute exacerbation of chronic obstructive pulmonary disease comfortable mild tracheobronchitis, history of metastatic lung cancer with multiple thoracic spine lesions 08/09/2016 patient seen in follow-up on oncology floor. She is awake and alert, in no acute distress, currently on 4 L of oxygen pulse ox of 97%, afebrile, hemodynamically stable, does get dyspneic with exertion, otherwise in no acute distress. Today's labs have been reviewed, showing white blood cell count of 3.1, hemoglobin is 8.3, serum sodium is 147, potassium is 4.2, chloride is 113, CO2 is 31, BUN is 13 and creatinine 0.48. Vital signs are stable, no fever or chills, blood cultures show no growth. Antibiotic coverage in the form of Levaquin, patient continues on nebulized bronchodilators, Pulmicort and formoterol, IV steroids. Sounds reveal diminished breath sounds bilaterally. On 08/10/2018 patient is seen in follow-up on oncology floor. She is resting in bed, she states her breathing overall is better, but she is still quite dyspneic, even at rest. She feels anxious, she is requesting to have her Xanax increased, lung sounds revealed diminished breath sounds, with some expiratory wheezes, overall patient sounds better on today's exam. Remains on 4 L of oxy gen pulse ox of 97%, afebrile, hemodynamically stable. We'll continue with the IV steroids, Levaquin, nebulized bronchodilators, Pulmicort and Perforomist, no new labs today labs from 2 days ago showed a serum sodium 147, and patient has had diminished oral intake, she states her appetite is poor, and she does not feel thirsty, and her water intake is poor as well. We'll start IV hydration in the form of half-normal saline at a rate of 75 ML per hour. Objective - Vital Signs Vital signs: Vital Signs Temp 98.1 F 08/10/18 11:24 Pulse 100 08/10/18 12:43 Resp 16 08/10/18 11:24 BP 115/69 08/10/18 11:24 Pulse Ox 97 08/10/18 11:24 Intake & Output 08/09/18 08/10/18 08/10/18 18:59 06:59 18:59 Intake Total 950 Balance 950 Intake: Oral 950 Other: Voiding Method Bedside Commode # Voids 2 3 1 # Bowel Movements 1 - Exam GENERAL EXAM: Alert, pleasant, 63-year-old white female on 4 L of oxygen and the pulse ox of 97%, comfortable oxygen, comfortable in no apparent distress. HEAD: Normocephalic/atraumatic. EYES: Normal reaction of pupils, equal size. Conjunctiva pink, sclera white. NOSE: Clear with pink turbinates. THROAT: No erythema or exudates. NECK: No masses, no JVD, no thyroid enlargement, no adenopathy. CHEST: No chest wall deformity. Symmetrical expansion. LUNGS: Equal air entry with diminished sounds, with expiratory wheezes CVS: Regular rate and rhythm, normal S1 and S2, no gallops, no murmurs, no rubs ABDOMEN: Soft, nontender. No hepatosplenomegaly, normal bowel sounds, no guarding or rigidity. EXTREMITIES: No clubbing, no edema, no cyanosis, 2+ pulses and upper and lower extremities. MUSCULOSKELETAL: Muscle strength and tone normal. SPINE: No scoliosis or deformity SKIN: No rashes CENTRAL NERVOUS SYSTEM: Alert and oriented -3. No focal deficits, tone is normal in all 4 extremities. PSYCHIATRIC: Alert and oriented -3. Appropriate affect. Intact judgment and insight. - Labs CBC & Chem 7: 08/08/18 06:20 08/08/18 06:20 Labs: Microbiology - Last 24 Hours (Table) 08/07/18 15:12 Blood Culture - Preliminary Blood No Growth after 48 hours Assessment and Plan Plan: 1. Acute exacerbation of chronic obstructive pulmonary disease complicated by mild tracheobronchitis 2. History of metastatic lung cancer with multiple thoracic spine lesions 3. Straight of chronic obstructive pulmonary disease from previous tobacco use 4. Hypertension 5. Hyperipidemia 6. Hypothyroidism 7. GERD 8. Osteoporosis 9. History of hiatal hernia 10. DJD 11. History of diverticular disease 12. Hypernatremia likely related to free water deficit Plan: Continue current medical treatment, IV steroids, IV hydration in the form of 0.45#. IV fluids at a rate of 75 ML per hour, we'll recheck electrolytes and renal profile tomorrow. Increase Xanax to 1 mg every 8 hours, continue IV steroids. Current antibiotics. I performed a history & physical examination of the patient and discussed their management with my nurse practitioner, Adriane Kahn. I reviewed the nurse practitioner's note and agree with the documented findings and plan of care. Lung sounds are positive for diminished breath sounds, with expiratory wheezes, and a few scattered rhonchi. The findings and the impression was discussed with the patient. I attest to the documentation by the nurse practitioner. Time with Patient: Less than 30
[2018-08-10] MEDS: ALPRAZolam 1 MG TAB PO SCH ×2 (15:13→22:07)
[2018-08-10 15:18] VITALS: BMI 31.8
[2018-08-10] MEDS: ATORVASTATIN 10 MG TAB PO SCH (22:07)
[2018-08-10] MEDS: QUEtiapine 50 MG TAB PO SCH (22:07)
[2018-08-11] MEDS: MORPHINE SULFATE 2 MG/ML SYRINGE IVP PRN ×3 (04:04→20:33)
[2018-08-11] MEDS: methylPREDNISolone SOD SUCCI 125 MG/2 ML VIAL IV SCH ×4 (05:57→23:55)
[2018-08-11] MEDS: LEVOTHYROXINE 25 MCG TAB PO SCH (05:57)
[2018-08-11] MEDS: PANTOPRAZOLE 40 MG TABLET PO SCH (08:28)
[2018-08-11] MEDS: ALPRAZolam 1 MG TAB PO SCH ×3 (08:28→22:11)
[2018-08-11] MEDS: LEVOFLOXACIN 500 MG TAB PO SCH (08:29)
[2018-08-11] MEDS: HEPARIN SODIUM,PORCINE 5,000 UNIT/ML 1 ML VIAL SQ SCH ×3 (08:30→22:11)
--- NOTE | 2018-08-11 08:57 | P.PN ---
Subjective Progress Note Date: 08/10/18 This is 63 years old female who presented to the emergency department with worsening shortness of breath. The shunt is home oxygen dependent since her diagnosis with this COPD and metastatic lung cancer to the liver and has been calm planned with her medication and treatment therapy denied active smoking and stated that she became short of breath by getting up from bed to bedside commode which requires her at least 5 minutes to recover patient stated that she was able to handle things on her own but slowly and gradually deteriorated to the point where she was not able to move from bed patient seems to be restless and short of breath with conversation using accessory muscles. Patient reported no fever or chills but reported productive cough for yellow green phlegm. Patient reported worsening wheezing and respiratory distress. Patient decided to be DNR during this hospital stay after she was admitted to the intensive care unit 08/09: Patient is currently on Solu-Medrol 60 every 6 hours which will be maintained. She continues to have wheezing and tightness. Discussed discharge planning and patient is willing to pursue palliative care but not interested in hospice care. She is requesting Ensure which will be ordered. Patient is followed by Dr. Lawrence. 08/10: Patient complains of increased anxiety and pulmonary medicine has increased To 1 mg 3 times daily scheduled. She is continued on Solu-Medrol 60 mg IV every 6 hours. Her breathing status seems to be improving. IV fluids we re started by pulmonary medicine is well half normal saline at 75 mL per hour. Repeat lab work for tomorrow. Objective - Vital Signs Vital signs: Vital Signs Temp 98.1 F 08/10/18 11:24 Pulse 100 08/10/18 12:43 Resp 16 08/10/18 11:24 BP 115/69 08/10/18 11:24 Pulse Ox 97 08/10/18 11:24 Intake & Output 08/09/18 08/10/18 08/10/18 18:59 06:59 18:59 Intake Total 950 150 Balance 950 150 Weight 79 kg Intake: Intake, IV Titration 150 Amount Sodium Chloride 0.45% 1, 150 000 ml @ 75 mls/hr IV . [id number] [facility] Rx#:[id number] Oral 950 Other: Voiding Method Bedside Commode # Voids 2 3 1 # Bowel Movements 1 1 - Exam Review Of Systems: Constitutional: No fever, no chills, no night sweats. No weight change. No weakness, fatigue or lethargy. EENT: No headache. No blurred vision or double vision, no loss of vision. No loss of Hearing, no ringing in the ears, no dizziness. No nasal drainage or congestion. No epistaxis. No sore throat. Lungs: Reports shortness of breath, reports cough, reports sputum production. Reports wheezing. Cardiovascular: No chest pain, no lower extremity edema. No palpitations. No paroxysmal nocturnal dyspnea. No orthopnea. No lightheadedness or dizziness. No syncopal episodes. Abdominal: No abdominal pain. No nausea, vomiting. No diarrhea. No const ipation. No bloody or tarry stools.. No loss of appetite. Genitourinary: No dysuria, increased frequency, urgency. No urinary retention. Musculoskeletal: No myalgias. No muscle weakness, no gait dysfunction, no frequent falls. No back pain. No neck pain. Integumentary: No wounds, no lesions. No rash or pruritus. No unusual bruising. No change in hair or nails. Neurologic: No aphasia. No facial droop. No change in mentation. No head injury. No headache. No paralysis. No paresthesia. Psychiatric: No depression. Reports anxiety. No mood swings. Endocrine: No abnormal blood sugars. No weight change. No excessive sweating or thirst. No cold intolerance. Gen: This is a 63-year-old female. Patient appears to be anxious and shaky. No respiratory distress noted.. HEENT: Head is atraumatic, normocephalic. Pupils equal, round. Sclerae is anicteric. NECK: Supple. No JVD. No lymphadenopathy. No thyromegaly. LUNGS: Diminished breath sounds bilaterally. No intercostal retractions. HEART: Regular rate and rhythm. No murmur. ABDOMEN: Soft. Bowel sounds are present. No masses. No tenderness. EXTREMITIES: No pedal edema. No calf tenderness. NEUROLOGICAL: Patient is awake, alert and oriented x3. Cranial nerves 2 through 12 are grossly intact. - Labs CBC & Chem 7: 08/08/18 06:20 08/08/18 06:20 Labs: Microbiology - Last 24 Hours (Table) 08/07/18 15:12 Blood Culture - Preliminary Blood No Growth after 48 hours Assessment and Plan Plan: 1. Acute on chronic hypoxic respiratory failure. Continue oxygen therapy. Consult with Dr. Howard ramírez. 2. COPD with acute exacerbation. Continue DuoNeb treatments, Pulmicort, Perforomist, Solu-Medrol 60 mg IV every 6 hours, Levaquin 500 mg daily 3. Pneumonia ruled out by pulmonary medicine. Continue treatment for tracheobronchitis. Continue Levaquin. 4. Severe generalized anxiety disorder. Continue Seroquel, Xanax increased to 1 mg 3 times daily scheduled. 5. Failure to thrive. 6. Severe debility and deconditioning. 7. Protein calorie malnutrition, moderate. Ensure protein supplementation. 8. Pancytopenia. 9. Hypernatremia. IV fluids 0.45 normal saline at 75 mL per hour. 10. Hypothyroidism. Continue levothyroxine 11. Hyperlipidemia. Continue Lipitor 12. Chronic pain. Continue fentanyl patch 13 CODE STATUS: No code Discharge plan: Most likely home with palliative care Impression and plan of care have been directed as dictated by the signing physician. Fernanda Taylor nurse practitioner acting as scribe for signing physician.
[2018-08-11] MEDS: IPRATROPIUM-ALBUTEROL 3 ML NEB INHALATION SCH ×4 (09:01→20:49)
[2018-08-11] MEDS: BUDESONIDE 0.5 MG/2 ML NEBU INHALATION SCH ×2 (09:01→20:49)
[2018-08-11] MEDS: FORMOTEROL FUMARATE 20 MCG/2 ML NEBU INHALATION SCH ×2 (09:01→20:49)
[2018-08-11 10:05] LABS: HCT 28.2 % (34.0-46.0); HGB 9.2 gm/dL (11.4-16.0); Hypochromasia Slight; MCH 30.8 pg (25.0-35.0); MCHC 32.8 g/dL (31.0-37.0); MCV 93.9 fL (80.0-100.0); Mean Platelet Volume 9.1; RDW 15.5 % (11.5-15.5); WBC 2.7 k/uL (3.8-10.6)
[2018-08-11 10:09] LABS: Platelet Count 98 k/uL (150-450)
[2018-08-11 10:19] LABS: ALT 33 U/L (9-52); AST 44 U/L (14-36); African American GFR (CKD) >90 (>60 ml/min/1.73 sqM); Albumin 3.5 g/dL (3.5-5.0); Alkaline Phosphatase 107 U/L (38-126); Anion Gap 3 mmol/L; Blood Urea Nitrogen 18 mg/dL (7-17); Calcium 9.2 mg/dL (8.4-10.2); Carbon Dioxide 32 mmol/L (22-30); Chloride 107 mmol/L (98-107); Glucose 147 mg/dL (74-99); Potassium 4.3 mmol/L (3.5-5.1); Sodium 142 mmol/L (137-145); Total Bilirubin 0.5 mg/dL (0.2-1.3); Total Protein 5.6 g/dL (6.3-8.2)
[2018-08-11] MEDS ORDERED: ONDANSETRON 4 MG/2 ML VIAL IVP PRN (11:17)
--- NOTE | 2018-08-11 14:22 | P.PN ---
Subjective Progress Note Date: 08/11/18 Principal diagnosis: Acute exacerbation of chronic obstructive pulmonary disease comfortable mild tracheobronchitis, history of metastatic lung cancer with multiple thoracic spine lesions 08/09/2016 patient seen in follow-up on oncology floor. She is awake and alert, in no acute distress, currently on 4 L of oxygen pulse ox of 97%, afebrile, hemodynamically stable, does get dyspneic with exertion, otherwise in no acute distress. Today's labs have been reviewed, showing white blood cell count of 3.1, hemoglobin is 8.3, serum sodium is 147, potassium is 4.2, chloride is 113, CO2 is 31, BUN is 13 and creatinine 0.48. Vital signs are stable, no fever or chills, blood cultures show no growth. Antibiotic coverage in the form of Levaquin, patient continues on nebulized bronchodilators, Pulmicort and formoterol, IV steroids. Sounds reveal diminished breath sounds bilaterally. On 08/10/2018 patient is seen in follow-up on oncology floor. She is resting in bed, she states her breathing overall is better, but she is still quite dyspneic, even at rest. She feels anxious, she is requesting to have her Xanax increased, lung sounds revealed diminished breath sounds, with some expiratory wheezes, overall patient sounds better on today's exam. Remains on 4 L of oxy gen pulse ox of 97%, afebrile, hemodynamically stable. We'll continue with the IV steroids, Levaquin, nebulized bronchodilators, Pulmicort and Perforomist, no new labs today labs from 2 days ago showed a serum sodium 147, and patient has had diminished oral intake, she states her appetite is poor, and she does not feel thirsty, and her water intake is poor as well. We'll start IV hydration in the form of half-normal saline at a rate of 75 ML per hour. On 08/11/2018 patient seen in follow-up on medical oncology floor. She is awake and alert, she still having some diarrhea, her appetite is poor, she is breathing better today, less bronchospastic, appears to be less dyspneic. Her pulse ox is 98% on 4 L of oxygen, no fever or chills. She is mildly nauseous, and states that she feels she is having knots in her stomach. Today's labs have been reviewed, showing white blood cell, 2.7, hemoglobin of 9.2, serum sodium is 142, potassium is 4.3, chloride is 107, CO2 32, BUN is 18, reactive 0.46. Remains on antibiotic coverage in the form of Levaquin, IV Solu-Medrol, nebulized bronchodilators. Objective - Vital Signs Vital signs: Vital Signs Temp 98.2 F 08/11/18 12:12 Pulse 84 08/11/18 12:39 Resp 17 08/11/18 12:12 BP 117/79 08/11/18 12:12 Pulse Ox 98 08/11/18 12:12 Intake & Output 08/10/18 08/11/18 08/11/18 18:59 06:59 18:59 Intake Total 150 890 Balance 150 890 Weight 79 kg Intake: Intake, IV Titration 150 300 Amount Sodium Chloride 0.45% 1, 150 300 000 ml @ 75 mls/hr IV . [id number] [facility] Rx#:[id number] Oral 590 Other: Voiding Method Bedside Commode Bedside Commode # Voids 1 3 # Bowel Movements 1 - Exam GENERAL EXAM: Alert, pleasant, 63-year-old white female on 4 L of oxygen and the pulse ox of 97%, comfortable oxygen, comfortable in no apparent distress. HEAD: Normocephalic/atraumatic. EYES: Normal reaction of pupils, equal size. Conjunctiva pink, sclera white. NOSE: Clear with pink turbinates. THROAT: No erythema or exudates. NECK: No masses, no JVD, no thyroid enlargement, no adenopathy. CHEST: No chest wall deformity. Symmetrical expansion. LUNGS: Equal air entry with diminished sounds, with expiratory wheezes CVS: Regular rate and rhythm, normal S1 and S2, no gallops, no murmurs, no rubs ABDOMEN: Soft, nontender. No hepatosplenomegaly, normal bowel sounds, no guarding or rigidity. EXTREMITIES: No clubbing, no edema, no cyanosis, 2+ pulses and upper and lower extremities. MUSCULOSKELETAL: Muscle strength and tone normal. SPINE: No scoliosis or deformity SKIN: No rashes CENTRAL NERVOUS SYSTEM: Alert and oriented -3. No focal deficits, tone is n ormal in all 4 extremities. PSYCHIATRIC: Alert and oriented -3. Appropriate affect. Intact judgment and insight. - Labs CBC & Chem 7: 08/11/18 09:23 08/11/18 09:23 Labs: Abnormal Lab Results - Last 24 Hours (Table) 08/11/18 08/11/18 Range/Units 09:23 09:23 WBC 2.7 L (3.8-10.6) k/uL RBC 3.00 L (3.80-5.40) m/uL Hgb 9.2 L (11.4-16.0) gm/dL Hct 28.2 L (34.0-46.0) % Plt Count 98 L (150-450) k/uL Carbon Dioxide 32 H (22-30) mmol/L BUN 18 H (7-17) mg/dL Creatinine 0.46 L (0.52-1.04) mg/dL Glucose 147 H (74-99) mg/dL AST 44 H (14-36) U/L Total Protein 5.6 L (6.3-8.2) g/dL Microbiology - Last 24 Hours (Table) 08/07/18 15:12 Blood Culture - Preliminary Blood No Growth after 72 hours Assessment and Plan Plan: 1. Acute exacerbation of chronic obstructive pulmonary disease complicated by mild tracheobronchitis 2. History of metastatic lung cancer with multiple thoracic spine lesions 3. Straight of chronic obstructive pulmonary disease from previous tobacco use 4. Hypertension 5. Hyperipidemia 6. Hypothyroidism 7. GERD 8. Osteoporosis 9. History of hiatal hernia 10. DJD 11. History of diverticular disease 12. Hypernatremia likely related to free water deficit and diarrhea, improving with IV hydration Plan: Continue current treatment, IV steroids, nebulized bronchodilators, current antibiotic coverage, send a stool for C. diff, we will add Zofran, serum sodium is improving, will continue with IV hydration. I performed a history & physical examination of the patient and discussed their management with my nurse practitioner, Adriane Kahn. I reviewed the nurse practitioner's note and agree with the documented findings and plan of care. Lung sounds are positive for diminished breath sounds, with expiratory wheezes, and a few scattered rhonchi. The findings and the impression was discussed with the patient. I attest to the documentation by the nurse practitioner. Time with Patient: Less than 30
--- NOTE | 2018-08-11 15:17 | P.PN ---
Subjective Progress Note Date: 08/11/18 This is 63 years old female who presented to the emergency department with worsening shortness of breath. The shunt is home oxygen dependent since her diagnosis with this COPD and metastatic lung cancer to the liver and has been calm planned with her medication and treatment therapy denied active smoking and stated that she became short of breath by getting up from bed to bedside commode which requires her at least 5 minutes to recover patient stated that she was able to handle things on her own but slowly and gradually deteriorated to the point where she was not able to move from bed patient seems to be restless and short of breath with conversation using accessory muscles. Patient reported no fever or chills but reported productive cough for yellow green phlegm. Patient reported worsening wheezing and respiratory distress. Patient decided to be DNR during this hospital stay after she was admitted to the intensive care unit 08/09: Patient is currently on Solu-Medrol 60 every 6 hours which will be maintained. She continues to have wheezing and tightness. Discussed discharge planning and patient is willing to pursue palliative care but not interested in hospice care. She is requesting Ensure which will be ordered. Patient is followed by Dr. Lawrence. 08/10: Patient complains of increased anxiety and pulmonary medicine has increased To 1 mg 3 times daily scheduled. She is continued on Solu-Medrol 60 mg IV every 6 hours. Her breathing status seems to be improving. IV fluids we re started by pulmonary medicine is well half normal saline at 75 mL per hour. Repeat lab work for tomorrow. 08/11: Patient states that she is getting very little sleep despite taking Xanax before bed. Breathing is a lot better today. His pulse oxygen 90% on 4 L nasal cannula. We will decrease IV steroids to every 8 hours. She remains afebrile, heart rate 84, blood pressure 117/79. Repeat lab work reveals white count of 2.7, hemoglobin 9.2, platelet count 98. CO2 is 32, BUN 18 creatinine 0.46, blood sugar 147. Objective - Vital Signs Vital signs: Vital Signs Temp 98.1 F 08/11/18 05:00 Pulse 76 08/11/18 09:13 Resp 16 08/11/18 05:00 BP 108/57 08/11/18 05:00 Pulse Ox 99 08/11/18 09:04 Intake & Output 08/10/18 08/11/18 08/11/18 18:59 06:59 18:59 Intake Total 150 890 Balance 150 890 Weight 79 kg Intake: Intake, IV Titration 150 300 Amount Sodium Chloride 0.45% 1, 150 300 000 ml @ 75 mls/hr IV . [id number] [facility] Rx#:[id number] Oral 590 Other: Voiding Method Bedside Commode Bedside Commode # Voids 1 3 # Bowel Movements 1 - Exam Review Of Systems: Constitutional: No fever, no chills, no night sweats. No weight change. No weakness, fatigue or lethargy. EENT: No headache. No blurred vision or double vision, no loss of vision. No loss of Hearing, no ringing in the ears, no dizziness. No nasal drainage or congestion. No epistaxis. No sore throat. Lungs: Reports shortness of breath, reports cough, reports sputum production. Reports wheezing. Cardiovascular: No chest pain, no lower extremity edema. No palpitations. No paroxysmal nocturnal dyspnea. No orthopnea. No lightheadedness or dizziness. No syncopal episodes. Abdominal: No abdominal pain. No nausea, vomiting. No diarrhea. No constipation. No bloody or tarry stools.. No loss of appetite. Genitourinary: No dysuria, increased frequency, urgency. No urinary retention. Musculoskeletal: No myalgias. No muscle weakness, no gait dysfunction, no frequent falls. No back pain. No neck pain. Integumentary: No wounds, no lesions. No rash or pruritus. No unusual bruising. No change in hair or nails. Neurologic: No aphasia. No facial droop. No change in mentation. No head injury. No headache. No paralysis. No paresthesia. Psychiatric: No depression. Reports anxiety. No mood swings. Endocrine: No abnormal blood sugars. No weight change. No excessive sweating or thirst. No cold intolerance. Gen: This is a 63-year-old female. Patient appears to be anxious and shaky. No respiratory distress noted. HEENT: Head is atraumatic, normocephalic. Pupils equal, round. Sclerae is anicteric. NECK: Supple. No JVD. No lymphadenopathy. No thyromegaly. LUNGS: Diminished breath sounds bilaterally. No intercostal retractions. HEART: Regular rate and rhythm. No murmur. ABDOMEN: Soft. Bowel sounds are present. No masses. No tenderness. EXTREMITIES: No pedal edema. No calf tenderness. NEUROLOGICAL: Patient is awake, alert and oriented x3. Cranial nerves 2 through 12 are grossly intact. - Labs CBC & Chem 7: 08/11/18 09:23 08/11/18 09:23 Labs: Abnormal Lab Results - Last 24 Hours (Table) 08/11/18 08/11/18 Range/Units 09:23 09:23 WBC 2.7 L (3.8-10.6) k/uL RBC 3.00 L (3.80-5.40) m/uL Hgb 9.2 L (11.4-16.0) gm/dL Hct 28.2 L (34.0-46.0) % Plt Count 98 L (150-450) k/uL Carbon Dioxide 32 H (22-30) mmol/L BUN 18 H (7-17) mg/dL Creatinine 0.46 L (0.52-1.04) mg/dL Glucose 147 H (74-99) mg/dL AST 44 H (14-36) U/L Total Protein 5.6 L (6.3-8.2) g/dL Microbiology - Last 24 Hours (Table) 08/07/18 15:12 Blood Culture - Preliminary Blood No Growth after 72 hours Assessment and Plan Plan: 1. Acute on chronic hypoxic respiratory failure. Continue oxygen therapy. Consult with Dr. Howard ramírez. 2. COPD with acute exacerbation. Continue DuoNeb treatments, Pulmicort, Perforomist, Solu-Medrol 60 mg IV decreased frequency to every 8 hours, Levaquin 500 mg daily 3. Pneumonia ruled out by pulmonary medicine. Continue treatment for tracheobronchitis. Continue Levaquin. 4. Severe generalized anxiety disorder. Continue Seroquel, Xanax increased to 1 mg 3 times daily scheduled. 5. Failure to thrive. 6. Severe debility and deconditioning. 7. Protein calorie malnutrition, moderate. Ensure protein supplementation. 8. Pancytopenia. 9. Hypernatremia. IV fluids 0.45 normal saline at 75 mL per hour. 10. Hypothyroidism. Continue levothyroxine 11. Hyperlipidemia. Continue Lipitor 12. Chronic pain. Continue fentanyl patch 13. Pancytopenia secondary to metastatic lung cancer. CODE STATUS: No code Discharge plan: Home with [facility] and palliative care Impression and plan of care have been directed as dictated by the signing physician. Fernanda Taylor nurse practitioner acting as scribe for signing physician.
[2018-08-11] MEDS: MELATONIN 3 MG TABLET PO SCH (22:11)
[2018-08-11] MEDS: ATORVASTATIN 10 MG TAB PO SCH (22:11)
[2018-08-11] MEDS: QUEtiapine 50 MG TAB PO SCH (22:11)
[2018-08-11] MEDS: SODIUM CHLORIDE 0.45% 1,000 ML IV SCH (22:12)
[2018-08-12] MEDS: LEVOTHYROXINE 25 MCG TAB PO SCH (05:53)
[2018-08-12] MEDS: SODIUM CHLORIDE 0.45% 1,000 ML IV SCH ×2 (05:53→20:36)
[2018-08-12] MEDS: FORMOTEROL FUMARATE 20 MCG/2 ML NEBU INHALATION SCH ×2 (08:30→19:56)
[2018-08-12] MEDS: BUDESONIDE 0.5 MG/2 ML NEBU INHALATION SCH ×2 (08:31→19:56)
[2018-08-12] MEDS: IPRATROPIUM-ALBUTEROL 3 ML NEB INHALATION SCH ×4 (08:31→19:56)
[2018-08-12] MEDS: HEPARIN SODIUM,PORCINE 5,000 UNIT/ML 1 ML VIAL SQ SCH ×3 (09:00→20:37)
[2018-08-12] MEDS: LEVOFLOXACIN 500 MG TAB PO SCH (09:20)
[2018-08-12] MEDS: methylPREDNISolone SOD SUCCI 125 MG/2 ML VIAL IV SCH (09:20)
[2018-08-12] MEDS: PANTOPRAZOLE 40 MG TABLET PO SCH (09:21)
[2018-08-12] MEDS: ALPRAZolam 1 MG TAB PO SCH ×3 (09:21→20:37)
[2018-08-12] MEDS ORDERED: HYDROcodone/APAP 5-325MG 1 EACH TAB PO PRN (09:53)
[2018-08-12] MEDS: FLUCONAZOLE IN NACL,ISO-OSM 100 MG in SALINE 1 50ML.BAG IVPB SCH (12:30)
--- NOTE | 2018-08-12 13:56 | P.PN ---
Subjective Progress Note Date: 08/12/18 Principal diagnosis: Acute exacerbation of chronic obstructive pulmonary disease with mild tracheobronchitis, history of metastatic lung cancer with multiple thoracic spine lesions. The patient is seen today 08/12/2018 in follow-up on the medical oncology floor. She is currently awake and alert in no acute distress. Her breathing is improved today as compared to yesterday. Nearly back to her baseline. She is having ongoing issues with back pain which is being addressed by medicine. She is having some issues with continued stomach discomfort. She has been treated with Zofran. Blood cultures reveal no growth. White count 2.7. Hemoglobin 9.2. Creatinine 0.46. She does have oral thrush noted and will be started on Diflucan. Steroids decreased. Objective - Vital Signs Vital signs: Vital Signs Temp 98.1 F 08/12/18 12:26 Pulse 114 H 08/12/18 12:26 Resp 17 08/12/18 12:26 BP 145/82 08/12/18 12:26 Pulse Ox 96 08/12/18 12:26 Intake & Output 08/11/18 08/12/18 08/12/18 18:59 06:59 18:59 Intake Total 600 2770 Output Total 800 Balance 600 1970 Intake: Intake, IV Titration 600 750 Amount Sodium Chloride 0.45% 1, 600 750 000 ml @ 75 mls/hr IV . [id number] [facility] Rx#:[id number] Oral 2020 Output: Urine 800 Other: Voiding Method Bedside Commode Bedside Commode Bedside Commode # Voids 3 2 - Exam GENERAL EXAM: Alert, pleasant, female on 4 L of oxygen and the pulse ox of 96%, comfortable in no apparent distress. HEAD: Normocephalic/atraumatic. EYES: Normal reaction of pupils, equal size. Conjunctiva pink, sclera white. NOSE: Clear with pink turbinates. THROAT: No erythema or exudates. NECK: No masses, no JVD, no thyroid enlargement, no adenopathy. CHEST: No chest wall deformity. Symmetrical expansion. LUNGS: Equal air entry with diminished sounds, with expiratory wheezes CVS: Regular rate and rhythm, normal S1 and S2, no gallops, no murmurs, no rubs ABDOMEN: Soft, nontender. No hepatosplenomegaly, normal bowel sounds, no guarding or rigidity. EXTREMITIES: No clubbing, no edema, no cyanosis, 2+ pulses and upper and lower extremities. MUSCULOSKELETAL: Muscle strength and tone normal. SPINE: No scoliosis or deformity SKIN: No rashes CENTRAL NERVOUS SYSTEM: No focal deficits, tone is normal in all 4 extremities. PSYCHIATRIC: Alert and oriented -3. Appropriate affect. Intact judgment and insight. - Labs CBC & Chem 7: 08/11/18 09:23 08/11/18 09:23 Labs: Microbiology - Last 24 Hours (Table) 08/07/18 15:12 Blood Culture - Preliminary Blood No Growth after 96 hours Assessment and Plan Assessment: Impression: 1. Acute exacerbation of chronic obstructive pulmonary disease complicated by mild tracheobronchitis 2. History of metastatic lung cancer with multiple thoracic spine lesions 3. Straight of chronic obstructive pulmonary disease from previous tobacco use 4. Hypertension 5. Hyperipidemia 6. Hypothyroidism 7. GERD 8. Osteoporosis 9. History of hiatal hernia 10. DJD 11. History of diverticular disease 12. Hypernatremia likely related to free water deficit and diarrhea, improving with IV hydration, current weight 142 13. Oral candidiasis. Plan: The patient was seen and evaluated by Dr. Lawrence. She is improved today as compared to yesterday from the pulmonary standpoint. We'll decrease her IV Solu-Medrol 40 mg on every 12 hours. Add IV Diflucan for the oral candidiasis. We will continue to follow make further recommendations based on her clinical status. I, the cosigning physician, performed a history & physical examination of the patient. Lungs sounds with end expiratory wheeze, diminished. Maintaining good O2 saturations in the 90s on 4 L/m per nasal cannula. I discussed the assessment and plan of care with my nurse practitioner, Sariah Bueno. I attest to the above note as dictated by her.
[2018-08-12] MEDS ORDERED: HYDROcodone/APAP 10-325MG 1 EACH TAB PO PRN (14:24)
[2018-08-12] MEDS: SUCRALFATE 1 GM TAB PO SCH (17:29)
[2018-08-12] MEDS: MELATONIN 3 MG TABLET PO SCH (20:36)
[2018-08-12] MEDS: ATORVASTATIN 10 MG TAB PO SCH (20:36)
[2018-08-12] MEDS: QUEtiapine 50 MG TAB PO SCH (20:37)
[2018-08-12] MEDS: methylPREDNISolone SOD SUCCI 40 MG/ML 1 ML VIAL IV SCH (20:37)
[2018-08-13] MEDS: LEVOTHYROXINE 25 MCG TAB PO SCH (06:10)
[2018-08-13] MEDS: IPRATROPIUM-ALBUTEROL 3 ML NEB INHALATION SCH ×4 (07:39→20:08)
[2018-08-13] MEDS: HEPARIN SODIUM,PORCINE 5,000 UNIT/ML 1 ML VIAL SQ SCH ×3 (09:18→23:46)
[2018-08-13] MEDS: FLUCONAZOLE IN NACL,ISO-OSM 100 MG in SALINE 1 50ML.BAG IVPB SCH (09:19)
--- NOTE | 2018-08-13 09:19 | P.PN ---
Subjective Progress Note Date: 08/12/18 This is 63 years old female who presented to the emergency department with worsening shortness of breath. The shunt is home oxygen dependent since her diagnosis with this COPD and metastatic lung cancer to the liver and has been calm planned with her medication and treatment therapy denied active smoking and stated that she became short of breath by getting up from bed to bedside commode which requires her at least 5 minutes to recover patient stated that she was able to handle things on her own but slowly and gradually deteriorated to the point where she was not able to move from bed patient seems to be restless and short of breath with conversation using accessory muscles. Patient reported no fever or chills but reported productive cough for yellow green phlegm. Patient reported worsening wheezing and respiratory distress. Patient decided to be DNR during this hospital stay after she was admitted to the intensive care unit 08/09: Patient is currently on Solu-Medrol 60 every 6 hours which will be maintained. She continues to have wheezing and tightness. Discussed discharge planning and patient is willing to pursue palliative care but not interested in hospice care. She is requesting Ensure which will be ordered. Patient is followed by Dr. Lawrence. 08/10: Patient complains of increased anxiety and pulmonary medicine has increased To 1 mg 3 times daily scheduled. She is continued on Solu-Medrol 60 mg IV every 6 hours. Her breathing status seems to be improving. IV fluids we re started by pulmonary medicine is well half normal saline at 75 mL per hour. Repeat lab work for tomorrow. 08/11: Patient states that she is getting very little sleep despite taking Xanax before bed. Breathing is a lot better today. His pulse oxygen 90% on 4 L nasal cannula. We will decrease IV steroids to every 8 hours. She remains afebrile, heart rate 84, blood pressure 117/79. Repeat lab work reveals white count of 2.7, hemoglobin 9.2, platelet count 98. CO2 is 32, BUN 18 creatinine 0.46, blood sugar 147. 08/12: Patient is requesting oral pain medication and Randolph 5 will be started. Attempt to wean patient off IV pain medication in preparation for discharge the next 24-48 hours. Patient is currently & Medrol 60 mg every 8 hours and decrease 40 mg every [address] Lawrence. Long discussion regarding transitioning her to morphine oral but patient wants to continue with Randolph which we'll increase to 10 mg every 6 hours as needed. Repeat lab work reveals sodium 142, potassium 4.3, chloride 107, CO2 32, BUN 18 and creatinine 0.46. AST 44. WBC 2.7, HGB 9.2, PLT 98. Patient is complaining of indigestion and Carafate added. Hoping patient will be ready for discharge o n Thursday or Thursday. Objective - Vital Signs Vital signs: Vital Signs Temp 98.4 F 08/12/18 05:00 Pulse 72 08/12/18 08:51 Resp 16 08/12/18 05:00 BP 97/67 08/12/18 05:00 Pulse Ox 99 08/12/18 05:00 Intake & Output 08/11/18 08/12/18 08/12/18 18:59 06:59 18:59 Intake Total 600 2770 Output Total 800 Balance 600 1970 Intake: Intake, IV Titration 600 750 Amount Sodium Chloride 0.45% 1, 600 750 000 ml @ 75 mls/hr IV . [id number] [facility] Rx#:[id number] Oral 2020 Output: Urine 800 Other: Voiding Method Bedside Commode Bedside Commode Bedside Commode # Voids 3 2 - Exam Review Of Systems: Constitutional: No fever, no chills, no night sweats. No weight change. No weakness, fatigue or lethargy. EENT: No headache. No blurred vision or double vision, no loss of vision. No loss of Hearing, no ringing in the ears, no dizziness. No nasal drainage or congestion. No epistaxis. No sore throat. Lungs: Reports shortness of breath, reports cough, reports sputum production. Reports wheezing. Cardiovascular: No chest pain, no lower extremity edema. No palpitations. No paroxysmal nocturnal dyspnea. No orthopnea. No lightheadedness or dizziness. No syncopal episodes. Abdominal: No abdominal pain. No nausea, vomiting. No diarrhea. No constipation. No bloody or tarry stools reports loss of appetite. Genitourinary: No dysuria, increased frequency, urgency. No urinary retention. Musculoskeletal: No myalgias. No muscle weakness, no gait dysfunction, no frequent falls. No back pain. No neck pain. Integumentary: No wounds, no lesions. No rash or pruritus. No unusual bruising. No change in hair or nails. Neurologic: No aphasia. No facial droop. No change in mentation. No head injury. No headache. No paralysis. No paresthesia. Psychiatric: No depression. Reports anxiety. No mood swings. Endocrine: No abnormal blood sugars. No weight change. No excessive sweating or thirst. No cold intolerance. Gen: This is a 63-year-old female. Patient appears to be anxious and shaky. No respiratory distress noted. HEENT: Head is atraumatic, normocephalic. Pupils equal, round. Sclerae is anicteric. NECK: Supple. No JVD. No lymphadenopathy. No thyromegaly. LUNGS: Diminished breath sounds bilaterally. No intercostal retractions. HEART: Regular rate and rhythm. No murmur. ABDOMEN: Soft. Bowel sounds are present. No masses. No tenderness. EXTREMITIES: No pedal edema. No calf tenderness. Upper body tremors noted NEUROLOGICAL: Patient is awake, alert and oriented x3. Cranial nerves 2 through 12 are grossly intact. - Labs CBC & Chem 7: 08/11/18 09:23 08/11/18 09:23 Labs: Abnormal Lab Results - Last 24 Hours (Table) 08/11/18 Range/Units 09:23 Carbon Dioxide 32 H (22-30) mmol/L BUN 18 H (7-17) mg/dL Creatinine 0.46 L (0.52-1.04) mg/dL Glucose 147 H (74-99) mg/dL AST 44 H (14-36) U/L Total Protein 5.6 L (6.3-8.2) g/dL Microbiology - Last 24 Hours (Table) 08/07/18 15:12 Blood Culture - Preliminary Blood No Growth after 96 hours Assessment and Plan Plan: 1. Acute on chronic hypoxic respiratory failure. Continue oxygen therapy. Consult with Dr. Howard ramírez. 2. COPD with acute exacerbation. Continue DuoNeb treatments, Pulmicort, Perforomist, Solu-Medrol 60 mg IV decreased frequency to every 8 hours, Levaquin 500 mg daily 3. Pneumonia ruled out by pulmonary medicine. Continue treatment for tracheobronchitis. Continue Levaquin. 4. Severe generalized anxiety disorder. Continue Seroquel, Xanax increased to 1 mg 3 times daily scheduled. 5. Failure to thrive. 6. Severe debility and deconditioning. 7. Protein calorie malnutrition, moderate. Ensure protein supplementation. 8. Pancytopenia. 9. Hypernatremia. IV fluids 0.45 normal saline at 75 mL per hour. 10. Hypothyroidism. Continue levothyroxine 11. Hyperlipidemia. Continue Lipitor 12. Chronic pain. Continue fentanyl patch 13. Pancytopenia secondary to metastatic lung cancer. CODE STATUS: No code Discharge plan: Home with [facility] and palliative care Impression and plan of care have been directed as dictated by the signing physician. Fernanda Taylor nurse practitioner acting as scribe for signing physician.
[2018-08-13] MEDS: ALPRAZolam 1 MG TAB PO SCH ×3 (09:21→23:44)
[2018-08-13] MEDS: SUCRALFATE 1 GM TAB PO SCH ×3 (09:21→17:06)
[2018-08-13] MEDS: PANTOPRAZOLE 40 MG TABLET PO SCH (09:21)
[2018-08-13] MEDS: LEVOFLOXACIN 500 MG TAB PO SCH (09:22)
[2018-08-13] MEDS: methylPREDNISolone SOD SUCCI 40 MG/ML 1 ML VIAL IV SCH (09:22)
[2018-08-13] MEDS: SODIUM CHLORIDE 0.45% 1,000 ML IV SCH (09:22)
[2018-08-13] MEDS: FORMOTEROL FUMARATE 20 MCG/2 ML NEBU INHALATION SCH ×2 (11:33→20:08)
[2018-08-13] MEDS: BUDESONIDE 0.5 MG/2 ML NEBU INHALATION SCH ×2 (11:33→20:08)
--- NOTE | 2018-08-13 13:01 | P.PN ---
Subjective Progress Note Date: 08/13/18 Principal diagnosis: Acute exacerbation of chronic obstructive pulmonary disease comfortable mild tracheobronchitis, history of metastatic lung cancer with multiple thoracic spine lesions 08/09/2016 patient seen in follow-up on oncology floor. She is awake and alert, in no acute distress, currently on 4 L of oxygen pulse ox of 97%, afebrile, hemodynamically stable, does get dyspneic with exertion, otherwise in no acute distress. Today's labs have been reviewed, showing white blood cell count of 3.1, hemoglobin is 8.3, serum sodium is 147, potassium is 4.2, chloride is 113, CO2 is 31, BUN is 13 and creatinine 0.48. Vital signs are stable, no fever or chills, blood cultures show no growth. Antibiotic coverage in the form of Levaquin, patient continues on nebulized bronchodilators, Pulmicort and formoterol, IV steroids. Sounds reveal diminished breath sounds bilaterally. On 08/10/2018 patient is seen in follow-up on oncology floor. She is resting in bed, she states her breathing overall is better, but she is still quite dyspneic, even at rest. She feels anxious, she is requesting to have her Xanax increased, lung sounds revealed diminished breath sounds, with some expiratory wheezes, overall patient sounds better on today's exam. Remains on 4 L of oxy gen pulse ox of 97%, afebrile, hemodynamically stable. We'll continue with the IV steroids, Levaquin, nebulized bronchodilators, Pulmicort and Perforomist, no new labs today labs from 2 days ago showed a serum sodium 147, and patient has had diminished oral intake, she states her appetite is poor, and she does not feel thirsty, and her water intake is poor as well. We'll start IV hydration in the form of half-normal saline at a rate of 75 ML per hour. On 08/11/2018 patient seen in follow-up on medical oncology floor. She is awake and alert, she still having some diarrhea, her appetite is poor, she is breathing better today, less bronchospastic, appears to be less dyspneic. Her pulse ox is 98% on 4 L of oxygen, no fever or chills. She is mildly nauseous, and states that she feels she is having knots in her stomach. Today's labs have been reviewed, showing white blood cell, 2.7, hemoglobin of 9.2, serum sodium is 142, potassium is 4.3, chloride is 107, CO2 32, BUN is 18, reactive 0.46. Remains on antibiotic coverage in the form of Levaquin, IV Solu-Medrol, nebulized bronchodilators. On 08/13/2018 patient is seen in follow-up on medical surgical floor. She is improving from pulmonary perspective, less short of breath, she is less anxious,'s on 4 L of oxygen with a pulse ox of 97%, she is afebrile, hemodynamically stable, lung sounds reveal diminished breath sounds, but better air entry bilaterally, no rhonchi, no wheezing. No cough or congestion. Cultures showed no growth, no fever or chills, no nausea, no vomiting, patient is tolerating oral intake. No new labs. Patient states she would like to enroll in hospice, she has a hospice architectural representative meeting today. She wants to wait to see what her follow-up CAT scan shows, however she thinks she wants to enroll in hospice now and go home. Objective - Vital Signs Vital signs: Vital Signs Temp 98.1 F 08/13/18 12:16 Pulse 99 08/13/18 12:16 Resp 18 08/13/18 12:16 BP 97/58 08/13/18 12:16 Pulse Ox 97 08/13/18 12:16 Intake & Output 08/12/18 08/13/18 08/13/18 18:59 06:59 18:59 Intake Total 650 1460 Balance 650 1460 Intake: Intake, IV Titration 650 800 Amount Fluconazole in NaCl,Iso- 50 Osm 100 mg In Saline 1 50ml.bag @ 50 mls/hr IVPB DAILY [facility] Rx#:[id number] Sodium Chloride 0.45% 1, 600 800 000 ml @ 75 mls/hr IV . [id number] [facility] Rx#:[id number] Oral 660 Other: Voiding Method Bedside Commode Bedside Commode Bedside Commode # Voids 3 1 # Bowel Movements 2 - Exam GENERAL EXAM: Alert, pleasant, 63-year-old white female on 4 L of oxygen and the pulse ox of 97%, comfortable oxygen, comfortable in no apparent distress. HEAD: Normocephalic/atraumatic. EYES: Normal reaction of pupils, equal size. Conjunctiva pink, sclera white. NOSE: Clear with pink turbinates. THROAT: No erythema or exudates. NECK: No masses, no JVD, no thyroid enlargement, no adenopathy. CHEST: No chest wall deformity. Symmetrical expansion. LUNGS: Equal air entry with diminished sounds, with expiratory wheezes CVS: Regular rate and rhythm, normal S1 and S2, no gallops, no murmurs, no rubs ABDOMEN: Soft, nontender. No hepatosplenomegaly, normal bowel sounds, no guarding or rigidity. EXTREMITIES: No clubbing, no edema, no cyanosis, 2+ pulses and upper and lower extremities. MUSCULOSKELETAL: Muscle strength and tone normal. SPINE: No scoliosis or deformity SKIN: No rashes CENTRAL NERVOUS SYSTEM: Alert and oriented -3. No focal deficits, tone is normal in all 4 extremities. PSYCHIATRIC: Alert and oriented -3. Appropriate affect. Intact judgment and insight. - Labs CBC & Chem 7: 08/11/18 09:23 08/11/18 09:23 Labs: Microbiology - Last 24 Hours (Table) 08/07/18 15:12 Blood Culture - Preliminary Blood No Growth after 120 hours Assessment and Plan Plan: 1. Acute exacerbation of chronic obstructive pulmonary disease complicated by mild tracheobronchitis 2. History of metastatic lung cancer with multiple thoracic spine lesions 3. Straight of chronic obstructive pulmonary disease from previous tobacco use 4. Hypertension 5. Hyperipidemia 6. Hypothyroidism 7. GERD 8. Osteoporosis 9. History of hiatal hernia 10. DJD 11. History of diverticular disease 12. Hypernatremia likely related to free water deficit and diarrhea, improving with IV hydration Plan: Patient is improving pulmonary perspective, less short of breath, no wheezing today, maintaining oxygenation on 4 L of oxygen. No significant congestion, vital signs are stable, no fever or chills. Patient is requesting to have a meeting with the hospice architectural representative. However she also wants to wait to see the follow-up CAT scan results to see if there was any response to chemotherapy. From pulmonary perspective patient has certainly improved, could be considered for discharge home as long as there is adequate support at home. We will follow on as-needed basis. I performed a history & physical examination of the patient and discussed their management with my nurse practitioner, Adriane Kahn. I reviewed the nurse practitioner's note and agree with the documented findings and plan of care. Lung sounds are positive for diminished breath sounds, with expiratory wheezes, and a few scattered rhonchi. The findings and the impression was discussed with the patient. I attest to the documentation by the nurse practitioner. Time with Patient: Less than 30
[2018-08-13] MEDS: MELATONIN 3 MG TABLET PO SCH (20:36)
[2018-08-13] MEDS: QUEtiapine 50 MG TAB PO SCH (20:37)
[2018-08-13] MEDS: ATORVASTATIN 10 MG TAB PO SCH (20:37)
[2018-08-13] MEDS: oxyCODONE-APAP 10-325MG 1 EACH TAB PO PRN (23:42)
[2018-08-14] MEDS: BUDESONIDE 0.5 MG/2 ML NEBU INHALATION SCH ×2 (08:19→20:41)
[2018-08-14] MEDS: IPRATROPIUM-ALBUTEROL 3 ML NEB INHALATION SCH ×4 (08:19→20:41)
[2018-08-14] MEDS: FORMOTEROL FUMARATE 20 MCG/2 ML NEBU INHALATION SCH ×2 (08:19→20:41)
[2018-08-14] MEDS: PANTOPRAZOLE 40 MG TABLET PO SCH (09:18)
[2018-08-14] MEDS: LEVOTHYROXINE 25 MCG TAB PO SCH (09:18)
[2018-08-14] MEDS: ALPRAZolam 1 MG TAB PO SCH ×3 (09:19→23:01)
[2018-08-14] MEDS: SUCRALFATE 1 GM TAB PO SCH ×3 (09:19→17:22)
[2018-08-14] MEDS: predniSONE 20 MG TAB PO SCH (09:19)
[2018-08-14] MEDS: LEVOFLOXACIN 500 MG TAB PO SCH (09:19)
[2018-08-14] MEDS: FLUCONAZOLE IN NACL,ISO-OSM 100 MG in SALINE 1 50ML.BAG IVPB SCH (09:20)
[2018-08-14] MEDS: HEPARIN SODIUM,PORCINE 5,000 UNIT/ML 1 ML VIAL SQ SCH ×3 (11:02→23:01)
[2018-08-14] MEDS: oxyCODONE-APAP 10-325MG 1 EACH TAB PO PRN ×2 (11:03→23:01)
--- NOTE | 2018-08-14 17:01 | P.PN ---
Subjective Progress Note Date: 08/14/18 This is 63 years old female who presented to the emergency department with worsening shortness of breath. The shunt is home oxygen dependent since her diagnosis with this COPD and metastatic lung cancer to the liver and has been calm planned with her medication and treatment therapy denied active smoking and stated that she became short of breath by getting up from bed to bedside commode which requires her at least 5 minutes to recover patient stated that she was able to handle things on her own but slowly and gradually deteriorated to the point where she was not able to move from bed patient seems to be restless and short of breath with conversation using accessory muscles. Patient reported no f ever or chills but reported productive cough for yellow green phlegm. Patient reported worsening wheezing and respiratory distress. Patient decided to be DNR during this hospital stay after she was admitted to the intensive care unit 08/09: Patient is currently on Solu-Medrol 60 every 6 hours which will be maintained. She continues to have wheezing and tightness. Discussed discharge planning and patient is willing to pursue palliative care but not interested in hospice care. She is requesting Ensure which will be ordered. Patient is followed by Dr. Lawrence. 08/10: Patient complains of increased anxiety and pulmonary medicine has increased To 1 mg 3 times daily scheduled. She is continued on Solu-Medrol 60 mg IV every 6 hours. Her breathing status seems to be improving. IV fluids w ere started by pulmonary medicine is well half normal saline at 75 mL per hour. Repeat lab work for tomorrow. 08/11: Patient states that she is getting very little sleep despite taking Xanax before bed. Breathing is a lot better today. His pulse oxygen 90% on 4 L nasal cannula. We will decrease IV steroids to every 8 hours. She remains afebrile, heart rate 84, blood pressure 117/79. Repeat lab work reveals white count of 2.7, hemoglobin 9.2, platelet count 98. CO2 is 32, BUN 18 creatinine 0.46, blood sugar 147. 08/12: Patient is requesting oral pain medication and [place] 5 will be started. Attempt to wean patient off IV pain medication in preparation for discharge the next 24-48 hours. Patient is currently & Medrol 60 mg every 8 hours and decrease 40 mg every [address] Lawrence. Long discussion regarding transitioning her to morphine oral but patient wants to continue with [place] which we'll increase to 10 mg every 6 hours as needed. Repeat lab work reveals sodium 142, potassium 4.3, chloride 107, CO2 32, BUN 18 and creatinine 0.46. AST 44. WBC 2.7, HGB 9.2, PLT 98. Patient is complaining of indigestion and Carafate added. Hoping patient will be ready for discharge on Thursday or Thursday. 08/13: Patient was started on IV fluconazole for thrush yesterday by Dr. Tiera mims. 08/14: Patient's doing better, patient has decided on hospice and will be discharged in the morning, IV Diflucan to be switched to oral, from home hospice, patient would be transitioned to [facility] once paperwork has been transitioned pain medications working better for her Percocet, no diarrhea, Review Of Systems: Constitutional: No fever, no chills, no night sweats. No weight change. No weakness, fatigue or lethargy. EENT: No headache. No blurred vision or double vision, no loss of vision. No loss of Hearing, no ringing in the ears, no dizziness. No nasal drainage or congestion. No epistaxis. No sore throat. Lungs: Reports shortness of breath, reports cough, reports sputum production. Reports wheezing. Cardiovascular: No chest pain, no lower extremity edema. No palpitations. No paroxysmal nocturnal dyspnea. No orthopnea. No lightheadedness or dizziness. No syncopal episodes. Abdominal: No abdominal pain. No nausea, vomiting. No diarrhea. No con stipation. No bloody or tarry stools reports loss of appetite. Genitourinary: No dysuria, increased frequency, urgency. No urinary retention. Musculoskeletal: No myalgias. No muscle weakness, no gait dysfunction, no frequent falls. No back pain. No neck pain. Integumentary: No wounds, no lesions. No rash or pruritus. No unusual bruising. No change in hair or nails. Neurologic: No aphasia. No facial droop. No change in mentation. No head injury. No headache. No paralysis. No paresthesia. Psychiatric: No depression. Reports anxiety. No mood swings. Endocrine: No abnormal blood sugars. No weight change. No excessive sweating or thirst. No cold intolerance Objective - Vital Signs Vital signs: Vital Signs Temp 98.3 F 08/14/18 12:47 Pulse 124 H 08/14/18 16:37 Resp 18 08/14/18 12:47 BP 111/77 08/14/18 12:47 Pulse Ox 95 08/14/18 12:47 Intake & Output 08/13/18 08/14/18 08/14/18 18:59 06:59 18:59 Intake Total 50 Balance 50 Intake: Intake, IV Titration 50 Amount Fluconazole in NaCl,Iso- 50 Osm 100 mg In Saline 1 50ml.bag @ 50 mls/hr IVPB DAILY [facility] Rx#:[id number] Other: Voiding Method Bedside Commode Bedside Commode # Voids 3 2 # Bowel Movements 1 - Constitutional General appearance: Present: cooperative (Anxious), obese - EENT Eyes: Present: anicteric sclerae, edentulous, PERRLA, normal appearance ENT: Present: NA/AT, normal oropharynx - Neck Neck: Present: normal ROM - Respiratory Respiratory: bilateral: CTA, diminished, wheezing, negative: dullness, rales, rhonchi - Cardiovascular Rhythm: regular Heart sounds: normal: S1, S2 Abnormal Heart Sounds: Absent: systolic murmur, diastolic murmur, rub, S3 Gallop, S4 Gallop, click, other - Gastrointestinal General gastrointestinal: Present: normal bowel sounds, soft - Integumentary Integumentary: Present: normal - Neurologic Neurologic: Present: CNII-XII intact - Musculoskeletal Musculoskeletal: Present: gait normal, strength equal bilaterally - Psychiatric Psychiatric: Present: A&O x's 3, appropriate affect, intact judgment & insight - Labs CBC & Chem 7: 08/11/18 09:23 08/11/18 09:23 Labs: Microbiology - Last 24 Hours (Table) 08/07/18 15:12 Blood Culture - Final Blood No Growth after 144 hours Assessment and Plan Assessment: 1. Acute on chronic hypoxic respiratory failure. Continue oxygen therapy. Consult with Dr. Howard ramírez. 2. COPD with acute exacerbation. Continue DuoNeb treatments, Pulmicort, Perforomist, oral prednisone Levaquin 500 mg daily 3. Pneumonia ruled out by pulmonary medicine. Continue treatment for trache obronchitis. Continue Levaquin. Ma on IV fluconazole. Would switch to oral 4. Severe generalized anxiety disorder. Continue Seroquel, Xanax increased to 1 mg 3 times daily scheduled. 5. Failure to thrive. 6. Severe debility and deconditioning. 7. Protein calorie malnutrition, moderate. Ensure protein supplementation. 8. Pancytopenia. 9. Hypernatremia. IV fluids 0.45 normal saline at 75 mL per hour. 10. Hypothyroidism. Continue levothyroxine 11. Hyperlipidemia. Continue Lipitor 12. Chronic pain. Continue fentanyl patch 13. Pancytopenia secondary to metastatic lung cancer. CODE STATUS: No code Discharge planning, home hospice, in a.m.
[2018-08-14] MEDS: ATORVASTATIN 10 MG TAB PO SCH (20:12)
[2018-08-14] MEDS: QUEtiapine 50 MG TAB PO SCH (20:12)
[2018-08-14] MEDS: MELATONIN 3 MG TABLET PO SCH (23:01)
[2018-08-15] MEDS: LEVOTHYROXINE 25 MCG TAB PO SCH (06:05)
[2018-08-15] MEDS: IPRATROPIUM-ALBUTEROL 3 ML NEB INHALATION SCH ×5 (07:51→19:04)
[2018-08-15] MEDS: FORMOTEROL FUMARATE 20 MCG/2 ML NEBU INHALATION SCH ×2 (07:51→19:04)
[2018-08-15] MEDS: BUDESONIDE 0.5 MG/2 ML NEBU INHALATION SCH ×3 (07:51→19:04)
[2018-08-15] MEDS: predniSONE 20 MG TAB PO SCH (08:10)
[2018-08-15] MEDS: ALPRAZolam 1 MG TAB PO SCH ×3 (08:11→21:57)
[2018-08-15] MEDS: PANTOPRAZOLE 40 MG TABLET PO SCH (08:11)
[2018-08-15] MEDS: FLUCONAZOLE 150 MG TAB PO SCH (08:11)
[2018-08-15] MEDS: HEPARIN SODIUM,PORCINE 5,000 UNIT/ML 1 ML VIAL SQ SCH ×3 (08:11→23:13)
[2018-08-15] MEDS: SUCRALFATE 1 GM TAB PO SCH ×3 (08:12→17:15)
[2018-08-15] MEDS: LEVOFLOXACIN 500 MG TAB PO SCH (08:12)
--- NOTE | 2018-08-15 15:01 | P.DS ---
Providers Date of admission: 08/07/18 17:17 Attending physician: Dominga Blake MD Consults: 08/07/18 17:17 Consult Physician Routine Consulting Provider: Omkar Atkinson Consult Reason/Comments: Pneumonia, metastatic lung cancer on chemo, COPD Do you want consulting provider notified?: Yes Primary care physician: [facility] Course: This is 63 years old female who presented to the emergency department with worsening shortness of breath. The shunt is home oxygen dependent since her diagnosis with this COPD and metastatic lung cancer to the liver and has been calm planned with her medication and treatment therapy denied active smoking and stated that she became short of breath by getting up from bed to bedside commode which requires her at least 5 minutes to recover patient stated that she was able to handle things on her own but slowly and gradually deteriorated to the point where she was not able to move from bed patient seems to be restless and short of breath with conversation using accessory muscles. Patient reported no fever or chills but reported productive cough for yellow green phlegm. Patient reported worsening wheezing and respiratory distress. Patient decided to be DNR during this hospital stay after she was admitted to the intensive care unit 08/09: Patient is currently on Solu-Medrol 60 every 6 hours which will be maintained. She continues to have wheezing and tightness. Discussed discharge planning and patient is willing to pursue palliative care but not interested in hospice care. She is requesting Ensure which will be ordered. Patient is foll owed by Dr. Lawrence. 08/10: Patient complains of increased anxiety and pulmonary medicine has increased To 1 mg 3 times daily scheduled. She is continued on Solu-Medrol 60 mg IV every 6 hours. Her breathing status seems to be improving. IV fluids were started by pulmonary medicine is well half normal saline at 75 mL per hour. Repeat lab work for tomorrow. 08/11: Patient states that she is getting very little sleep despite taking Xanax before bed. Breathing is a lot better today. His pulse oxygen 90% on 4 L nasal cannula. We will decrease IV steroids to every 8 hours. She remains afebrile, heart rate 84, blood pressure 117/79. Repeat lab work reveals white count of 2.7, hemoglobin 9.2, platelet count 98. CO2 is 32, BUN 18 creatinine 0.46, blood sugar 147. 08/12: Patient is requesting oral pain medication and [place] 5 will be started. Attempt to wean patient off IV pain medication in preparation for discharge the next 24-48 hours. Patient is currently & Medrol 60 mg every 8 hours and decrease 40 mg every [address] Lawrence. Long discussion regarding transitioning her to morphine oral but patient wants to continue with [place] which we'll increase to 10 mg every 6 hours as needed. Repeat lab work reveals sodium 142, potassium 4.3, chloride 107, CO2 32, BUN 18 and creatinine 0.46. AST 44. WBC 2.7, HGB 9.2, PLT 98. Patient is complaining of indigestion and Carafate added. Hoping patient will be ready for discharge on Thursday or Thursday. 08/13: Patient was started on IV fluconazole for thrush yesterday by Dr. Lawrence. 08/14: Patient's doing better, patient has decided on hospice and will be discharged in the morning, IV Diflucan to be switched to oral, from home hospice, patient would be transitioned to [facility] care once paperwork has been transitioned pain medications working better for her Percocet, no diarrhea, /16: Patient's doing syncope. Better, has been ready for home discharge today, no new problems overnight, no fever no chills no nausea no vomiting, no respiratory events. Discharge to home, paperwork from patient to make arrangements to [facility] care once approved PHYSICAL EXAM Constitutional General appearance: Present: cooperative (Anxious), obese - EENT Eyes: Present: anicteric sclerae, edentulous, PERRLA, normal appearance ENT: Present: NA/AT, normal oropharynx - Neck Neck: Present: normal ROM - Respiratory Respiratory: bilateral: CTA, diminished, wheezing, negative: dullness, rales, rhonchi - Cardiovascular Rhythm: regular Heart sounds: normal: S1, S2 Abnormal Heart Sounds: Absent: systolic murmur, diastolic murmur, rub, S3 Gallop, S4 Gallop, click, other - Gastrointestinal General gastrointestinal: Present: normal bowel sounds, soft - Integumentary Integumentary: Present: normal - Neurologic Neurologic: Present: CNII-XII intact - Musculoskeletal Musculoskeletal: Present: gait normal, strength equal bilaterally - Psychiatric Psychiatric: Present: A&O x's 3, appropriate affect, intact judgment & insight Final Diagnosis 1. Acute on chronic hypoxic respiratory failure. Continue oxygen therapy. Consult with Dr. Lawrence oral tapering prednisone on discharge 2. COPD with acute exacerbation. Continue DuoNeb treatments, Pulmicort nebulizers at home with DuoNeb oral prednisone and oral Levaquin as clinical symptoms of pneumonia is lower, progressive lung cancer burden is more thought off as primary deconditioned response. followed closely by pulmonary 3. Pneumonia ruled out by pulmonary medicine. Continue treatment for tracheobronchitis. Continue Levaquin completed while in the hospital. Discharge on oral fluconazole for oral thrush 4. Severe generalized anxiety disorder. Continue Seroquel, Xanax increased to 1 mg 3 times daily scheduled. 5. Failure to thrive. 6. Severe debility and deconditioning. 7. Protein calorie malnutrition, moderate. Ensure protein supplementation. 8. Pancytopenia. 9. Hypernatremia. IV fluids 0.45 normal saline at 75 mL per hour. 10. Hypothyroidism. Continue levothyroxine 11. Hyperlipidemia. Continue Lipitor 12. Chronic pain. Continue fentanyl patch 13. Pancytopenia secondary to metastatic lung cancer. CODE STATUS: No code Discharge planning, home with hospice, patient has made plans to open up for enrollment to [facility] hospice program Discharge Medication List Levothyroxine Sodium [Synthroid] 25 mcg PO DAILY 01/29/16 [History] Tiotropium 18 Mcg/Puff [Spiriva] 1 cap INHALATION RT-DAILY 01/29/16 [History] fentaNYL 100MCG/HR PATCH [Duragesic 100MCG/HR] 1 patch TRANSDERM Q72H patch 07/29/17 [Rx] Prochlorperazine [Compazine] 10 mg PO TID PRN 05/02/18 [History] QUEtiapine [SEROquel] 50 mg PO HS 05/02/18 [History] ALPRAZolam [Xanax] 1 mg PO TID #30 tab 08/13/18 [Rx] Fluconazole [Diflucan] 100 mg PO DAILY #10 tablet 08/13/18 [Rx] Melatonin 6 mg PO HS tablet 08/13/18 [Rx] Ondansetron Odt [Zofran Odt] 4 mg PO Q8HR PRN #30 tab 08/13/18 [Rx] Sucralfate [Carafate] 1 gm PO AC-TID #90 tab 08/13/18 [Rx] oxyCODONE-APAP 10-325MG [Percocet 10-325 mg] 1 each PO Q6H PRN tab 08/13/18 [Rx] predniSONE 0 mg PO DIRECTED #30 tab 08/13/18 [Rx] Budesonide [Pulmicort] 0.5 mg INHALATION RT-BID #60 nebu 08/15/18 [Rx] Fluconazole [Diflucan] 150 mg PO DAILY #10 tab 08/15/18 [Rx] Ipratropium-Albuterol Nebulize [Duoneb 0.5 mg-3 mg/3 ml Soln] 3 ml INHALATION RT-Q4H PRN #120 ampul.neb 08/15/18 [Rx] Patient Condition at Discharge: Stable Plan - Discharge Summary New Discharge Prescriptions: New Sucralfate [Carafate] 1 gm PO AC-TID #90 tab Fluconazole [Diflucan] 100 mg PO DAILY #10 tablet Melatonin 6 mg PO HS tablet oxyCODONE-APAP 10-325MG [Percocet 10-325 mg] 1 each PO Q6H PRN tab PRN Reason: Pain ALPRAZolam [Xanax] 1 mg PO TID #30 tab Ondansetron Odt [Zofran Odt] 4 mg PO Q8HR PRN #30 tab PRN Reason: Nausea predniSONE 0 mg PO DIRECTED #30 tab Fluconazole [Diflucan] 150 mg PO DAILY #10 tab Ipratropium-Albuterol Nebulize [Duoneb 0.5 mg-3 mg/3 ml Soln] 3 ml INHALATION RT-Q4H PRN #120 ampul.neb PRN Reason: Shortness Of Breath Or Wheezing Budesonide [Pulmicort] 0.5 mg INHALATION RT-BID #60 nebu Continue Levothyroxine Sodium [Synthroid] 25 mcg PO DAILY Tiotropium 18 Mcg/Puff [Spiriva] 1 cap INHALATION RT-DAILY fentaNYL 100MCG/HR PATCH [Duragesic 100MCG/HR] 1 patch TRANSDERM Q72H patch QUEtiapine [SEROquel] 50 mg PO HS Prochlorperazine [Compazine] 10 mg PO TID PRN PRN Reason: Nausea Discontinued Ipratropium/Albuterol Sulfate [Combivent Respimat Inhaler] 2 puff INHALATION RT-BID Albuterol Sulfate [Proair Hfa] 2 puff INHALATION RT-Q6H PRN PRN Reason: Shortness Of Breath Pantoprazole Sodium [Protonix] 40 mg PO DAILY Simvastatin [Zocor] 20 mg PO HS Fluticasone/Salmeterol [Advair 500-50 Diskus] 1 puff INHALATION RT-BID Albuterol Nebulized [Ventolin Nebulized] 2.5 mg INHALATION RT-Q6H PRN PRN Reason: Shortness Of Breath ALPRAZolam [Xanax] 0.5 mg PO Q6HR PRN PRN Reason: Anxiety Discharge Medication List Levothyroxine Sodium [Synthroid] 25 mcg PO DAILY 01/29/16 [History] Tiotropium 18 Mcg/Puff [Spiriva] 1 cap INHALATION RT-DAILY 01/29/16 [History] fentaNYL 100MCG/HR PATCH [Duragesic 100MCG/HR] 1 patch TRANSDERM Q72H patch 07/29/17 [Rx] Prochlorperazine [Compazine] 10 mg PO TID PRN 05/02/18 [History] QUEtiapine [SEROquel] 50 mg PO HS 05/02/18 [History] ALPRAZolam [Xanax] 1 mg PO TID #30 tab 08/13/18 [Rx] Fluconazole [Diflucan] 100 mg PO DAILY #10 tablet 08/13/18 [Rx] Melatonin 6 mg PO HS tablet 08/13/18 [Rx] Ondansetron Odt [Zofran Odt] 4 mg PO Q8HR PRN #30 tab 08/13/18 [Rx] Sucralfate [Carafate] 1 gm PO AC-TID #90 tab 08/13/18 [Rx] oxyCODONE-APAP 10-325MG [Percocet 10-325 mg] 1 each PO Q6H PRN tab 08/13/18 [Rx] predniSONE 0 mg PO DIRECTED #30 tab 08/13/18 [Rx] Budesonide [Pulmicort] 0.5 mg INHALATION RT-BID #60 nebu 08/15/18 [Rx] Fluconazole [Diflucan] 150 mg PO DAILY #10 tab 08/15/18 [Rx] Ipratropium-Albuterol Nebulize [Duoneb 0.5 mg-3 mg/3 ml Soln] 3 ml INHALATION RT-Q4H PRN #120 ampul.neb 08/15/18 [Rx] Follow up Appointment(s)/Referral(s): [facility], [NON-STAFF] - 1 Week [facility], [NON-STAFF] - 1 Week Activity/Diet/Wound Care/Special Instructions: you were set up with [facility] care and palliative care. they will be calling you within 24/48 hours post discharge. Discharge Disposition: HOME WITH HOSPICE
[2018-08-15 16:53] LABS: Glucose,Whole Blood 150 mg/dL (75-99)
[2018-08-15] MEDS: QUEtiapine 50 MG TAB PO SCH (20:27)
[2018-08-15] MEDS: ATORVASTATIN 10 MG TAB PO SCH (20:27)
[2018-08-15] MEDS: MELATONIN 3 MG TABLET PO SCH (21:56)
[2018-08-16] MEDS: LEVOTHYROXINE 25 MCG TAB PO SCH (05:50)
--- NOTE | 2018-08-16 07:48 | ECHOF ---
Referral Reason: MEASUREMENTS -------- HEIGHT: 0.0 cm WEIGHT: 0.0 kg BP: 116/74 IVSd: 1.4 cm (0.6 - 1.1) LVIDd: 2.9 cm (3.9 - 5.3) LVPWd: 1.5 cm (0.6 - 1.1) IVSs: 1.6 cm LVIDs: 2.6 cm LVPWs: 1.5 cm RVIDd: 3.4 cm (< 3.3) LAESV Index (A-L): 32.91 ml/m Ao Diam: 3.4 cm (2.0 - 3.7) LA Diam: 4.1 cm (2.7 - 3.8) AV Cusp: 1.9 cm (1.5 - 2.6) MV E Deric: 1.12 m/s MV DecT: 194 ms MV A Deric: 0.86 m/s MV E/A Ratio: 1.29 RAP: 5.00 mmHg RVSP: 31.76 mmHg FINDINGS -------- Sinus rhythm. This was a technically adequate study. The left ventricular size is normal. There is moderate concentric left ventricular hypertrophy. O verall left ventricular systolic function is low-normal with, an EF between 50 - 55 %. The right ventricle is mildly enlarged. LA is midly dilated 29-33ml/m2. The right atrial size is normal. Interatrial and interventricular septum intact. The aortic valve is trileaflet and appears structurally normal. Mild mitral regurgitation is present. Mild tricuspid regurgitation present. There is no evidence of pulmonary hypertension. The right v entricular systolic pressure, as measured by Doppler, is 31.76mmHg. There is no pulmonic regurgitation present. The aortic root size is normal. IVC Not well visulized. There is no pericardial effusion. CONCLUSIONS -------- 1. Sinus rhythm. 2. This was a technically adequate study. 3. The left ventricular size is normal. 4. There is moderate concentric left ventricular hypertrophy. 5. Overall left ventricular systolic function is low-normal with, an EF between 50 - 55 %. 6. The right ventricle is mildly enlarged. 7. LA is midly dilated 29-33ml/m2. 8. The right atrial size is normal. 9. Interatrial and interventricular septum intact. 10. The aortic valve is trileaflet and appears structurally normal. 11. Mild mitral regurgitation is present. 12. Mild tricuspid regurgitation present. 13. There is no evidence of pulmonary hypertension. 14. The right ventricular systolic pressure, as measured by Doppler, is 31.76mmHg. 15. There is no pulmonic regurgitation present. 16. The aortic root size is normal. 17. IVC Not well visulized. 18. There is no pericardial effusion. HAY BALER: Jessica Gillette RDCS
[2018-08-16] MEDS: BUDESONIDE 0.5 MG/2 ML NEBU INHALATION SCH (08:51)
[2018-08-16] MEDS: FORMOTEROL FUMARATE 20 MCG/2 ML NEBU INHALATION SCH (08:51)
[2018-08-16] MEDS: IPRATROPIUM-ALBUTEROL 3 ML NEB INHALATION SCH ×3 (08:53→16:10)
[2018-08-16] MEDS: predniSONE 20 MG TAB PO SCH (09:23)
[2018-08-16] MEDS: HEPARIN SODIUM,PORCINE 5,000 UNIT/ML 1 ML VIAL SQ SCH (09:23)
[2018-08-16] MEDS: PANTOPRAZOLE 40 MG TABLET PO SCH (09:24)
[2018-08-16] MEDS: SUCRALFATE 1 GM TAB PO SCH ×2 (09:24→13:11)
[2018-08-16] MEDS: FLUCONAZOLE 150 MG TAB PO SCH (09:24)
[2018-08-16] MEDS: ALPRAZolam 1 MG TAB PO SCH (09:24)
[2018-08-16 13:09] VITALS: BP 109/70; TEMP 98.5
--- NOTE | 2018-08-16 15:33 | P.PN ---
Subjective Progress Note Date: 08/13/18 This is 63 years old female who presented to the emergency department with worsening shortness of breath. The shunt is home oxygen dependent since her diagnosis with this COPD and metastatic lung cancer to the liver and has been calm planned with her medication and treatment therapy denied active smoking and stated that she became short of breath by getting up from bed to bedside commode which requires her at least 5 minutes to recover patient stated that she was able to handle things on her own but slowly and gradually deteriorated to the point where she was not able to move from bed patient seems to be restless and short of breath with conversation using accessory muscles. Patient reported no fever or chills but reported productive cough for yellow green phlegm. Patient reported worsening wheezing and respiratory distress. Patient decided to be DNR during this hospital stay after she was admitted to the intensive care unit 08/09: Patient is currently on Solu-Medrol 60 every 6 hours which will be maintained. She continues to have wheezing and tightness. Discussed discharge planning and patient is willing to pursue palliative care but not interested in hospice care. She is requesting Ensure which will be ordered. Patient is followed by Dr. Lawrence. 08/10: Patient complains of increased anxiety and pulmonary medicine has increased To 1 mg 3 times daily scheduled. She is continued on Solu-Medrol 60 mg IV every 6 hours. Her breathing status seems to be improving. IV fluids we re started by pulmonary medicine is well half normal saline at 75 mL per hour. Repeat lab work for tomorrow. 08/11: Patient states that she is getting very little sleep despite taking Xanax before bed. Breathing is a lot better today. His pulse oxygen 90% on 4 L nasal cannula. We will decrease IV steroids to every 8 hours. She remains afebrile, heart rate 84, blood pressure 117/79. Repeat lab work reveals white count of 2.7, hemoglobin 9.2, platelet count 98. CO2 is 32, BUN 18 creatinine 0.46, blood sugar 147. 08/12: Patient is requesting oral pain medication and [place] 5 will be started. Attempt to wean patient off IV pain medication in preparation for discharge the next 24-48 hours. Patient is currently & Medrol 60 mg every 8 hours and decrease 40 mg every [address] Lawrence. Long discussion regarding transitioning her to morphine oral but patient wants to continue with [place] which we'll increase to 10 mg every 6 hours as needed. Repeat lab work reveals sodium 142, potassium 4.3, chloride 107, CO2 32, BUN 18 and creatinine 0.46. AST 44. WBC 2.7, HGB 9.2, PLT 98. Patient is complaining of indigestion and Carafate added. Hoping patient will be ready for discharge o n Thursday or Thursday. 08/13: Patient was started on IV fluconazole for thrush yesterday by Dr. Kristian gordon. Patient is agreeable to be discharged with [facility]. We will plan to prepare everything today in order for her to go home. Patient states that she has a friend that will be staying with her and helping her. Objective - Vital Signs Vital signs: Vital Signs Temp 97.7 F 08/13/18 05:00 Pulse 90 08/13/18 07:50 Resp 18 08/13/18 05:00 BP 117/79 08/13/18 05:00 Pulse Ox 98 08/13/18 05:00 Intake & Output 08/12/18 08/13/18 08/13/18 18:59 06:59 18:59 Intake Total 650 1460 Balance 650 1460 Intake: Intake, IV Titration 650 800 Amount Fluconazole in NaCl,Iso- 50 Osm 100 mg In Saline 1 50ml.bag @ 50 mls/hr IVPB DAILY [facility] Rx#:[id number] Sodium Chloride 0.45% 1, 600 800 000 ml @ 75 mls/hr IV . [id number] [facility] Rx#:[id number] Oral 660 Other: Voiding Method Bedside Commode Bedside Commode Bedside Commode # Voids 3 1 # Bowel Movements 2 - Exam Review Of Systems: Constitutional: No fever, no chills, no night sweats. No weight change. Reports weakness, fatigue or lethargy. EENT: No headache. No blurred vision or double vision, no loss of vision. No loss of Hearing, no ringing in the ears, no dizziness. No nasal drainage or congestion. No epistaxis. No sore throat. Lungs: Reports shortness of breath, reports cough, reports sputum production. Reports wheezing. Cardiovascular: No chest pain, no lower extremity edema. No palpitations. No paroxysmal nocturnal dyspnea. No orthopnea. No lightheadedness or dizziness. No syncopal episodes. Abdominal: No abdominal pain. No nausea, vomiting. No diarrhea. No constipation. No bloody or tarry stools reports loss of appetite. Genitourinary: No dysuria, increased frequency, urgency. No urinary retention. Musculoskeletal: No myalgias. No muscle weakness, no gait dysfunction, no frequent falls. No back pain. No neck pain. Integumentary: No wounds, no lesions. No rash or pruritus. No unusual bruising. No change in hair or nails. Neurologic: No aphasia. No facial droop. No change in mentation. No head injury. No headache. No paralysis. No paresthesia. Psychiatric: No depression. Reports anxiety. No mood swings. Endocrine: No abnormal blood sugars. No weight change. No excessive sweating or thirst. No cold intolerance. Gen: This is a 63-year-old female. Patient appears to be anxious and shaky-slightly improved. No respiratory distress noted. HEENT: Head is atraumatic, normocephalic. Pupils equal, round. Sclerae is anicteric. NECK: Supple. No JVD. No lymphadenopathy. No thyromegaly. LUNGS: Diminished breath sounds bilaterally. No intercostal retractions. HEART: Regular rate and rhythm. No murmur. ABDOMEN: Soft. Bowel sounds are present. No masses. No tenderness. EXTREMITIES: No pedal edema. No calf tenderness. Upper body tremors noted NEUROLOGICAL: Patient is awake, alert and oriented x3. Cranial nerves 2 through 12 are grossly intact. - Labs CBC & Chem 7: 08/11/18 09:23 08/11/18 09:23 Labs: Microbiology - Last 24 Hours (Table) 08/07/18 15:12 Blood Culture - Preliminary Blood No Growth after 120 hours Assessment and Plan Plan: 1. Acute on chronic hypoxic respiratory failure. Continue oxygen therapy. Consult with Dr. Howard ramírez. 2. COPD with acute exacerbation. Continue DuoNeb treatments, Pulmicort, Perforomist, Solu-Medrol 60 mg IV decreased frequency to every 8 hours, Levaquin 500 mg daily 3. Pneumonia ruled out by pulmonary medicine. Continue treatment for tracheobronchitis. Continue Levaquin. 4. Severe generalized anxiety disorder. Continue Seroquel, Xanax increased to 1 mg 3 times daily scheduled. 5. Failure to thrive. 6. Severe debility and deconditioning. 7. Protein calorie malnutrition, moderate. Ensure protein supplementation. 8. Pancytopenia. 9. Hypernatremia. IV fluids 0.45 normal saline at 75 mL per hour. 10. Hypothyroidism. Continue levothyroxine 11. Hyperlipidemia. Continue Lipitor 12. Chronic pain. Continue fentanyl patch 13. Pancytopenia secondary to metastatic lung cancer. 14. Oral thrush. IV Diflucan. CODE STATUS: No code Discharge plan: Home with [facility] once arrangements are completed. Impression and plan of care have been directed as dictated by the signing physician. Fernanda Taylor nurse practitioner acting as scribe for signing physician.
--- NOTE | 2018-08-16 15:35 | P.PN ---
Subjective Progress Note Date: 08/16/18 This is 63 years old female who presented to the emergency department with worsening shortness of breath. The shunt is home oxygen dependent since her diagnosis with this COPD and metastatic lung cancer to the liver and has been calm planned with her medication and treatment therapy denied active smoking and stated that she became short of breath by getting up from bed to bedside commode which requires her at least 5 minutes to recover patient stated that she was able to handle things on her own but slowly and gradually deteriorated to the point where she was not able to move from bed patient seems to be restless and short of breath with conversation using accessory muscles. Patient reported no fever or chills but reported productive cough for yellow green phlegm. Patient reported worsening wheezing and respiratory distress. Patient decided to be DNR during this hospital stay after she was admitted to the intensive care unit 08/09: Patient is currently on Solu-Medrol 60 every 6 hours which will be maintained. She continues to have wheezing and tightness. Discussed discharge planning and patient is willing to pursue palliative care but not interested in hospice care. She is requesting Ensure which will be ordered. Patient is followed by Dr. Lawrence. 08/10: Patient complains of increased anxiety and pulmonary medicine has increased To 1 mg 3 times daily scheduled. She is continued on Solu-Medrol 60 mg IV every 6 hours. Her breathing status seems to be improving. IV fluids we re started by pulmonary medicine is well half normal saline at 75 mL per hour. Repeat lab work for tomorrow. 08/11: Patient states that she is getting very little sleep despite taking Xanax before bed. Breathing is a lot better today. His pulse oxygen 90% on 4 L nasal cannula. We will decrease IV steroids to every 8 hours. She remains afebrile, heart rate 84, blood pressure 117/79. Repeat lab work reveals white count of 2.7, hemoglobin 9.2, platelet count 98. CO2 is 32, BUN 18 creatinine 0.46, blood sugar 147. 08/12: Patient is requesting oral pain medication and [place] 5 will be started. Attempt to wean patient off IV pain medication in preparation for discharge the next 24-48 hours. Patient is currently & Medrol 60 mg every 8 hours and decrease 40 mg every [address] Lawrence. Long discussion regarding transitioning her to morphine oral but patient wants to continue with [place] which we'll increase to 10 mg every 6 hours as needed. Repeat lab work reveals sodium 142, potassium 4.3, chloride 107, CO2 32, BUN 18 and creatinine 0.46. AST 44. WBC 2.7, HGB 9.2, PLT 98. Patient is complaining of indigestion and Carafate added. Hoping patient will be ready for discharge o n Thursday or Thursday. 08/13: Patient was started on IV fluconazole for thrush yesterday by Dr. Kristian gordon. Patient is agreeable to be discharged with [facility]. We will plan to prepare everything today in order for her to go home. Patient states that she has a friend that will be staying with her and helping her. 08/14: Patient's doing better, patient has decided on hospice and will be d ischarged in the morning, IV Diflucan to be switched to oral, from home hospice, patient would be transitioned to [facility] care once paperwork has been transitioned pain medications working better for her Percocet, no diarrhea, 08/15: Patient's doing syncope. Better, has been ready for home discharge today, no new problems overnight, no fever no chills no nausea no vomiting, no respiratory events. Discharge to home, paperwork from patient to make arrangements to [facility] hosp[facility] care once approved 08/16: Patient is breathing status is stable. She is now planning to go to [facility] with hospice care. There is a problem with her insurance authorization which may delay her discharge until tomorrow. Prescriptions have been provided and medication reconciliation completed. We will plan to continue current medications in the hospital. Objective - Vital Signs Vital signs: Vital Signs Temp 98.5 F 08/16/18 13:00 Pulse 103 H 08/16/18 13:00 Resp 18 08/16/18 13:00 BP 109/70 08/16/18 13:00 Pulse Ox 97 08/16/18 13:00 Intake & Output 08/15/18 08/16/18 08/16/18 18:59 06:59 18:59 Intake Total 1070 360 Balance 1070 360 Weight 79 kg Intake: Oral 1070 360 Other: Voiding Method Toilet Toilet Bedside Commode # Voids 2 3 - Exam Review Of Systems: Constitutional: No fever, no chills, no night sweats. No weight change. Reports weakness, fatigue or lethargy. EENT: No headache. No blurred vision or double vision, no loss of vision. No loss of Hearing, no ringing in the ears, no dizziness. No nasal drainage or congestion. No epistaxis. No sore throat. Lungs: Reports shortness of breath, reports cough, reports sputum production. Reports wheezing. Cardiovascular: No chest pain, no lower extremity edema. No palpitations. No paroxysmal nocturnal dyspnea. No orthopnea. No lightheadedness or dizziness. No syncopal episodes. Abdominal: No abdominal pain. No nausea, vomiting. No diarrhea. No constipation. No bloody or tarry stools reports loss of appetite. Genitourinary: No dysuria, increased frequency, urgency. No urinary retention. Musculoskeletal: No myalgias. No muscle weakness, no gait dysfunction, no frequent falls. No back pain. No neck pain. Integumentary: No wounds, no lesions. No rash or pruritus. No unusual bruising. No change in hair or nails. Neurologic: No aphasia. No facial droop. No change in mentation. No head injury. No headache. No paralysis. No paresthesia. Psychiatric: No depression. Reports anxiety. No mood swings. Endocrine: No abnormal blood sugars. No weight change. No excessive sweating or thirst. No cold intolerance. Gen: This is a 63-year-old female. Patient appears to be anxious and shaky- improved. No respiratory distress noted. HEENT: Head is atraumatic, normocephalic. Pupils equal, round. Sclerae is anicteric. NECK: Supple. No JVD. No lymphadenopathy. No thyromegaly. LUNGS: Diminished breath sounds bilaterally. No intercostal retractions. HEART: Regular rate and rhythm. No murmur. ABDOMEN: Soft. Bowel sounds are present. No masses. No tenderness. EXTREMITIES: No pedal edema. No calf tenderness. Upper body tremors noted NEUROLOGICAL: Patient is awake, alert and oriented x3. Cranial nerves 2 through 12 are grossly intact. - Labs CBC & Chem 7: 08/11/18 09:23 08/11/18 09:23 Labs: Abnormal Lab Results - Last 24 Hours (Table) 08/15/18 Range/Units 16:52 POC Glucose (mg/dL) 150 H (75-99) mg/dL Assessment and Plan Plan: 1. Acute on chronic hypoxic respiratory failure. Continue oxygen therapy. Consult with Dr. Howard ramírez. 2. COPD with acute exacerbation. Continue DuoNeb treatments, Pulmicort, Perforomist, Solu-Medrol to prednisone, Levaquin completed 3. Pneumonia ruled out by pulmonary medicine. Continue treatment for tracheobronchitis. Continue Levaquin. 4. Severe generalized anxiety disorder. Continue Seroquel, Xanax increased to 1 mg 3 times daily scheduled. 5. Failure to thrive. 6. Severe debility and deconditioning. 7. Protein calorie malnutrition, moderate. Ensure protein supplementation. 8. Pancytopenia. 9. Hypernatremia. IV fluids 0.45 normal saline at 75 mL per hour. 10. Hypothyroidism. Continue levothyroxine 11. Hyperlipidemia. Continue Lipitor 12. Chronic pain. Continue fentanyl patch 13. Pancytopenia secondary to metastatic lung cancer. 14. Oral thrush. IV Diflucan. CODE STATUS: No code Discharge plan: [facility] with [facility] once arrangements are completed. Impression and plan of care have been directed as dictated by the signing physician. Fernanda Taylor nurse practitioner acting as scribe for signing physician.
[2018-08-16 16:13] VITALS: PULSE 88; RESP 16
== END 2018-08-16 18:01 | disposition hospice, home (50) | DRG 189 ==
LOC: EC 14:16 → 3SCARD 17:17 → 2SICU 20:49 → 3NMEDONC 08-08 13:31
PROVIDERS: ADMIT Internal Medicine; ATTEND Internal Medicine
DX: J96.21 Acute and chronic respiratory failure with hypoxia (principal); B37.0 Candidal stomatitis; C34.90 Malignant neoplasm of unspecified part of unspecified bronchus or lung; C79.51 Secondary malignant neoplasm of bone; D61.818 Other pancytopenia; C78.7 Secondary malignant neoplasm of liver and intrahepatic bile duct; E44.0 Moderate protein-calorie malnutrition; E87.0 Hyperosmolality and hypernatremia; J44.1 Chronic obstructive pulmonary disease with (acute) exacerbation; Z51.5 Encounter for palliative care; Z66 Do not resuscitate; E03.9 Hypothyroidism, unspecified; E78.5 Hyperlipidemia, unspecified; F41.1 Generalized anxiety disorder; F43.10 Post-traumatic stress disorder, unspecified; G89.29 Other chronic pain; I10 Essential (primary) hypertension; K21.9 Gastro-esophageal reflux disease without esophagitis; M19.90 Unspecified osteoarthritis, unspecified site; M81.0 Age-related osteoporosis without current pathological fracture; R62.7 Adult failure to thrive; E66.9 Obesity, unspecified; K44.9 Diaphragmatic hernia without obstruction or gangrene; K57.90 Diverticulosis of intestine, part unspecified, without perforation or abscess without bleeding; K30 Functional dyspepsia; R19.7 Diarrhea, unspecified; F10.21 Alcohol dependence, in remission; Z79.890 Hormone replacement therapy; Z79.899 Other long term (current) drug therapy; Z99.81 Dependence on supplemental oxygen; Z88.8 Allergy status to other drugs, medicaments and biological substances; Z91.030 Bee allergy status; Z90.49 Acquired absence of other specified parts of digestive tract; Z87.891 Personal history of nicotine dependence; Z82.49 Family history of ischemic heart disease and other diseases of the circulatory system; Z80.8 Family history of malignant neoplasm of other organs or systems; Z80.0 Family history of malignant neoplasm of digestive organs
CPT/HCPCS: 36415; 71045; 71275; 80048; 80053; 81003; 82803; 83605; 83735; 83880; 84484; 85025; 85027; 85610; 85730; 87040; 93005; 93306; 94640; 94660; 94760; 96361; 96365; 96366; 96375; 99285